=== PATIENT | male | born 1960 | race Caucasian/White ===

== ENCOUNTER → 2017-10-07 10:19 | Outpatient (CLI) | payer BC, SELFPAY ==
--- NOTE | 2017-10-07 10:50 | RAD_ITS ---
STUDY: X-RAY - LUMBAR SPINE REASON FOR EXAM: Male, 57 years old. Previous surgery TECHNIQUE: 5 view(s) of the lumbar spine were obtained. COMPARISON: None FINDINGS: Normal lumbar lordosis. There is no substantial scoliosis. There is a normal alignment of the vertebrae. Status post surgical fusion from L4 through S1 with pedicle screws and disc spacers at L4-5 and L5-S1. Degenerative changes of the vertebral bodies with degenerative spurring at the endplates. Normal disc space heights. The soft tissue structures are unremarkable. An electronic device posteriorly is noted at the S1 level. RAD/L/S Spine Min 4 Views IMPRESSION: Degenerative and postsurgical changes of the lumbar spine. Electronically Signed: Nael Lamb DO at 8:25 EDT Tel [phone], Service support ,
== END ==
LOC: RAD 10:28
PROVIDERS: Family Provider Family Medicine; PCP Family Medicine; Visit Provider Anesthesiology Pain Medicine
DX: M54.5 Low back pain (principal); G89.29 Other chronic pain
CPT/HCPCS: 72110

== ENCOUNTER 2018-06-16 04:14 | Inpatient (IN) | payer BC, SELFPAY ==
[2018-06-16] VITALS (33 sets, daily range): BP systolic 97–147; BP diastolic 55–105; PULSE 57–77; RESP 14–20; TEMP 35.7–36.7; O2SAT 94–100; BMI 30.6; BMI 29.0
--- NOTE | 2018-06-16 04:28 | EKG12_ITS ---
Test Reason : CP Blood Pressure : / mmHG Vent. Rate : 057 BPM Atrial Rate : 057 BPM P-R Int : 162 ms QRS Dur : 078 ms QT Int : 410 ms P-R-T Axes : 069 060 -60 degrees QTc Int : 399 ms Sinus bradycardia Marked ST abnormality, possible inferior subendocardial injury Abnormal ECG Confirmed by LÁZARO WALKER ([id number]), production editor CAROLINE SEGURA ([id number]) on 06/19/2018 4:46:22 PM Referred By: BRUNO Confirmed By:LÁZARO WALKER
--- NOTE | 2018-06-16 04:28 | RAD_ITS ---
STUDY: X-RAY CHEST REASON FOR EXAM: Male, 57 years old. Chest pain TECHNIQUE: PA and lateral COMPARISON: None. FINDINGS: The lungs are clear and expanded. There is no demonstrated pleural abnormality. Normal size heart. Normal mediastinum and iris. Normal visualized pulmonary arteries. Normal visualized aortic arch and descending thoracic aorta. Normal visualized thoracic spine. Normal visualized ribs, clavicles, and shoulders. There is no demonstrated abnormality of the visualized soft tissue structures of the upper abdomen. RAD/Chest PA and Lateral IMPRESSION: Normal x-ray examination of the chest. Electronically Signed: Jacek Diaz MD at 5:28 EDT , Service support ,
--- NOTE | 2018-06-16 04:34 | ED.DCSUM_ITS ---
History of Present Illness Chief Complaint: Chest Pain Informant: Patient Narrative: The patient is a 57 M [] with upper abdominal pain epigastric for the last 6 days. He wakes up in the morning with it. It has been coming and going for the last 6 days. Tonight at 11 PM it came on after eating ice cream and is been persistent. It is a burning sensation in his epigastric region. He does not really feel it in his chest. It does hurt to push on it. Current severity is mild. While talking to me it went away. He is never had anything like this before. He is unsure if he has a stomach ulcer. He is never had endoscopy or ulcer in the past. No home treatment. Last stress test was greater than 10 years ago. Cardiac risk factors include history of smoking and brother with an early DC at 55. Denies any PE risk factors. Denies other cardiac risk factors. No dissection risk factors. Does not feel any discomfort in his back. He is never had pancreatitis. Denies any other associated symptoms including nausea or vomiting shortness of breath lightheadedness or other symptoms. Past Medical History - Allergies and Home Meds Allergies/Adverse Reactions: Allergies No Known Allergies Allergy (Verified 06/16/18 04:19) Primary Care Physician: Mauricio Moreno MD [Primary Care Provider] - Prior records reviewed: Yes Past Medical History: - - Back pain Surgical History: - - Back fusion Lives: Alone Smoking Status: Former smoker Alcohol: None Drugs: None Review of Systems General: Denies: Chills, Fever, Sweats Eyes: Denies: Visual changes - bilaterally, Diplopia ENT: Denies: Rhinorrhea, Sore throat Cardiovascular: Denies: Chest pain, Palpitations Respiratory: Denies: Dyspnea, Cough, Dyspnea on exertion Gastrointestinal: Reports: Abdominal pain. Denies: Nausea, Vomiting, Diarrhea, Melena, Hematochezia Genitourinary: Denies: Dysuria, Hematuria, Frequency Musculoskeletal: Denies: Back pain, Extremity Pain Skin: Denies: Rash, Wounds Neurological: Denies: Headache, Weakness, Numbness Physical Exam Vital Signs/Narrative: Vital Signs Temp Resp BP Pulse Ox 06/16/18 04:15 96.3 F L 20 H 144/102 H 99 General: Well nourished, Well developed, No Acute Distress Head: Normocephalic, Atraumatic Eyes: Perrl, EOMI ENT: Moist mucous membranes, No rhinorrhea Neck: Supple, Nontender Cardiovascular: Regular rate, Regular rhythm, No murmurs Respiratory: No distress, CTA bilaterally, Chest nontender Abdomen: Soft, Nondistended, Normal bowel sounds, Tender - The gastric tenderness. Negative for: Guarding, Rebound tenderness Back: Nontender, Normal Inspection Extremities: Nontender, No edema Skin: Normal color, No rash Neurological: Alert, Oriented x3, Cranial nerves II-XII grossly intact, Normal Strength, Normal Sensation Psychological: Normal affect, Normal Mood Diagnostic/Tx/Re-eval - EKG Initial EKG Interpretation: Sinus Rhythm, S-T Depression - ST depressions inferior leads with T wave inversion 2 3 aVF change from prior - Medical Decision Making Patient given a GI cocktail. Lab work chest x-ray obtained. Lab work shows a troponin of 0.8. CBC relatively unremarkable. Electrolytes showed no significant abnormalities. Lipase negative. Liver function tests normal. Patient given nitroglycerin sublingual. His pain was a 1 at that time. He was given aspirin. It appears he is having a non-STEMI with subendocardial injury with ST depression. Discussed with Dr. Dodson. Started on a heparin bolus followed by drip as well as Plavix. Will be discussed with the hospitalist Dr. Tapia and admitted for further cardiac evaluation. - Critical Care Time Critical care time (excluding procedures): 30-74 minutes, Discussing w/Patient &/or Family/Independent Agent Music Education, Discussing w/Consultants, Arranging Admission or Transfer, Performing Direct Patient Care at Bedside ED Disposition - Plan for ED Patient: Diagnosis: Non-ST elevation myocardial infarction (NSTEMI) Referrals: Mauricio Moreno MD [Primary Care Provider] -
[2018-06-16] MEDS: Mag Hydrox/Al Hydrox/Simeth 30 ML UDC PO (04:37)
[2018-06-16 04:39] LABS: Absolute Lymphocyte Count 3.39 X10^3/ul (0.83-4.51); Basophil# 0.05 X10^3/uL; Basophil% 0.5 % (0-1); Eosinophil# 0.29 X10^3/uL; Hemoglobin 14.2 g/dl (13.0-16.5); Lymphocyte # 3.39 X10^3/ul (4.0); Lymphocyte % 34.8 % (19-41); Mean Corp Hgb Conc 33.8 g/gl (32-36); Mean Corpuscular Hgb 30.7 pg (27.0-32.0); Mean Corpuscular Volume 90.7 fL (80-94); Mean Platelet Vol. 10.7 fl (6.2-12.0); Monocyte# 0.99 X10^3/uL; Monocyte% 10.2 % (0-10); Neutrophil # 4.99 X10^3/uL (2.7-7.7); Neutrophil % 51.3 % (47-70); Platelet Count 197 K/mm3 (150-450); RBC Distribution Width CV 12.8 % (11.6-14.6); Red Blood Count 4.63 M/mm3 (4.6-6.2); White Blood Count 9.7 K/mm3 (4.4-11.0)
[2018-06-16 04:40] LABS: POSITIVE COUNT NO; POSITIVE DIFFERENTIAL NO; POSITIVE MORPHOLOGY NO
[2018-06-16 05:09] LABS: AST(SGOT) 21 U/L (15-37); Alanine Aminotransfer ALT/SGPT 29 U/L (16-61); Albumin, Serum 3.6 g/dL (3.2-5.0); Alkaline Phosphatase 103 U/L (45-117); Anion Gap 7 (5-15); BUN 27 mg/dL (7-18); BUN/Creat Ratio 20.9 RATIO (10-20); Bilirubin, Direct 0.11 mg/dL (0.00-0.30); Calcium,Total 8.4 mg/dL (8.5-10.1); Chloride 109 mmol/L (98-107); Creatinine, Serum 1.29 mg/dL (0.70-1.30); EST Glomerular Filtration Rate 61 mL/min (>60); Est Glom Filt Rate - Afr Amer 73 mL/min (>60); Estimated Creatinine Clearance 64.45 ml/min; Globulin 3.3 g/dL (2.2-4.2); Glucose 138 mg/dL (74-106); Lipase 203 U/L (73-393); Potassium 3.7 mmol/L (3.5-5.1); Protein, Total 6.9 g/dL (6.4-8.2); Sodium Level 144 mmol/L (136-145)
[2018-06-16] MEDS: Aspirin 81 MG TAB.CHEW 324 MG PO (05:20)
[2018-06-16] MEDS: Clopidogrel Bisulfate 300 MG Tablet PO (05:21)
[2018-06-16] MEDS: Heparin Injection (Vial) 5,000 UNIT/ML VIAL 7500 UNIT IV (05:35)
--- NOTE | 2018-06-16 05:35 | HP.PCM_ITS ---
History of Present Illness Date of Admission: 06/16/18 Chief Complaint: Chest pain The patient is a 57 y/o M w/ PMHx: Chronic Back Pain, Former Tobacco use, Obesity who presents to the [facility] ED on 06/16/18 with history of 6 days of ongoing epigastric burning, worse on day of ED presentation, noted to have it awoken him from sleep prior to ED presentation, more severe than prior, rated 10 out of 10 with similar burning sensation in the epigastric region however he at this time also had right upper extremity discomfort described as pressure in his arm with no associated dyspnea, diaphoresis, nausea or emesis. He notes the pain to have been intermittent and not necessarily associated with exertion or increased effort. Work-up in the ED included T 96.3, heart rate 144/102, respiratory rate 20, 99% room air, unremarkable CBC, BMP with chloride 109, BUN/creatinine 27/1.29, glucose 138, troponin 0 0.843, lipase 203, CXR w/ no acute cardiopulmonary, EKG w/ subendocardial ST depressions II, III, aVF with T wave inversions. In the ED patient administered GI cocktail, Plavix load 300 mg p.o. x1, aspirin 324 mg p.o. x1, Mylanta, nitroglycerin sublingual, heparin bolus and drip initiated. Dr. Dodson consulted per ED. upon ED evaluation patient rating pain 1 out of 10, continues to improve. Past Medical History Allergies No Known Allergies Allergy (Verified 06/16/18 04:19) Home Medications: Ambulatory Orders Medication Instructions Recorded Oxycodone HCl/Acetaminophen 1 tablet PO TID 06/16/18 [Percocet 5/325] Surgical History: - - Lumbar back surgery x 4 including fusion. Psychiatric History: No pertinent psych hx Lives: Alone Smoking Status: Former smoker - Quit 10/2017. Tobacco Use: Non-smoker Alcohol: Rare Drugs: None - *Family History Maternal History Items: - - Patient notes that are healthy with no history of heart disease, diabetes or cancer. Paternal History Items: Heart Disease - Father with history of heart disease, CA. Sibling History Items: - - Patient with a brother who had recent CA with PCI intervention. Review of Systems Constitutional: Reports: Malaise, Weakness, Fatigue. Denies: Chills, Fever, Weight Change HEENT: Denies: Head Aches, Sinus Congestion, Sinus Drainage Cardiovascular: Reports: Chest Pain. Denies: Palpitations Respiratory: Denies: Cough, Shortness of Breath, Shortness of breath at rest, Shortness of breath upon exertion, Sputum production Gastrointestinal: Reports: Abdominal Pain. Denies: Nausea, Vomiting Genitourinary: Denies: Dysuria Musculoskeletal: Reports: Arm Pain. Denies: Joint Pain, Joint Tenderness Skin: Denies: Rash, Wounds Neurological: Denies: Numbness, Tingling, Focal weakness Psychiatric: Denies: Anxiety, Depression, Homicidal Ideations, Suicidal Ideations Hematologic/ Lymphatic: Denies: Easy Bruising, Easy Bleeding VTE Information - Inpt Only VTE Present on Admission: No VTE Mechan Device Prophylaxis: SCD's VTE Pharm Prophylaxis ordered?: Yes Patient Problems: Active and Suspected Problems Non-ST elevation myocardial infarction (NSTEMI) (Acute) Subjective: Seated upright in ED bed, notes chest discomfort feeling improved. Objective: Physical Examination: General: awake, alert, oriented x 3 and cooperative, seated upright in the ED bed, notes chest discomfort has improved. Skin: normal color, turgor, no icterus, cyanosis. HEENT: AT/NC, EOMI, PERRLA, only dry MM, no carotid bruits or JVD noted. Lungs: CTA bilaterally, moderate effort, mild decrease BL bases, no rales, ronchi or wheezing. Heart: Regular rate and rhythm; no gallop, rub audible. Abdomen: soft, NTTP, ND, normal BS, no HSM. Extremities: no cyanosis, clubbing, or edema. Neurological: patient awake, alert, oriented x 3; cognitive function intact; pupils equally reactive to light and accomodation; cranial nerves II-XII grossly normal, moving all 4 extremities, no focal deficits, strength globally decreased secondary to acute presentation. Psychiatric: affect appears normal, fatigued, no acute evidence of depressive or anxiety feelings. - Physical Exam Vital Signs Temp Pulse Resp BP Pulse Ox 96.3 F L 76 20 H 147/90 H 99 06/16/18 04:15 06/16/18 05:22 06/16/18 04:15 06/16/18 05:22 06/16/18 04:15 Oxygen Flow Rate (L/min) 2 Oxygen Delivery Method Nasal Cannula Weight: 213 lb 10.047 oz Body Mass Index (BMI) 30.6 Laboratory Tests Past 24 Hrs 06/16/18 06/16/18 04:35 04:35 WBC 9.7 RBC 4.63 Hgb 14.2 Hct 42.0 MCV 90.7 MCH 30.7 MCHC 33.8 RDW 12.8 RDW Differential 42.0 Plt Count 197 MPV 10.7 Immature Gran % (Auto) 0.200 Neut % (Auto) 51.3 Lymph % (Auto) 34.8 [place] % (Auto) 10.2 H Eos % (Auto) 3.0 Baso % (Auto) 0.5 Absolute Neuts (auto) 5.0 Absolute Lymphs (auto) 3.39 Total Counted Not Reportable Sodium 144 Potassium 3.7 Chloride 109 H Carbon Dioxide 28.0 Anion Gap 7 BUN 27 H Creatinine 1.29 Estim Creat Clear Calc 64.45 Est GFR (MDRD) Af Amer 73 Est GFR (MDRD) Non-Af 61 BUN/Creatinine Ratio 20.9 H Glucose 138 H Calcium 8.4 L Total Bilirubin 0.30 Direct Bilirubin 0.11 AST 21 ALT 29 Alkaline Phosphatase 103 Troponin I 0.843 H* Total Protein 6.9 Albumin 3.6 Globulin 3.3 Lipase 203 Assessment/Plan All Active Problems Non-ST elevation myocardial infarction (NSTEMI) (Acute) The patient is a 57 y/o M w/ PMHx: Chronic Back Pain, Former Tobacco use, Obesity who presents to the [facility] ED on 06/16/18 with history of 6 days of ongoing epigastric burning, worse on day of ED presentation, noted to have it awoken him from sleep prior to ED presentation, more severe than prior, rated 10 out of 10 with similar burning sensation in the epigastric region however he at this time also had right upper extremity discomfort described as pressure in his arm. (1) Chest Pain w/ Acute NSTEMI: Work-up in the ED included T 96.3, heart rate 144/102, respiratory rate 20, 99% room air, unremarkable CBC, BMP with chloride 109, BUN/creatinine 27/1.29, glucose 138, troponin 0 0.843, lipase 203, CXR w/ no acute cardiopulmonary, EKG w/ subendocardial ST depressions II, III, aVF with T wave inversions. In the ED patient administered GI cocktail, Plavix load 300 mg p.o. x1, aspirin 324 mg p.o. x1, Mylanta, nitroglycerin sublingual, heparin bolus and drip initiated. Dr. Dodson consulted per ED. Will admit to PCU, maintain on a monitored bed, continue serial cardiac enzymes and EKGs. Obtain magnesium level upon admission. Continue medical management w/ asa, BB addition, add high dose statin w/ AM FLP. Will plan for cardiac catheterization. Maintain NPO. ASA, NG, morphine. (2) Chronic Back Pain: s/p spinal fusion, on chronic narcotic therapy, PRN pain regimen as noted. (3) Hyperglycemia: Admission glucose 138, HgbA1c pending. (4) Former Tobacco use: Encourage continued tobacco cessation. (5) Obesity: Weight loss and lifestyle changes encouraged. (6) GERD: Famotidine. (7) DVT Prophylaxis: SCDs, heparin drip. Code Visit Inpatient E&M: 21952 Init Hosp L3
[2018-06-16] MEDS: HEPARIN/D5w 25,000 UNITS 25,000 UNITS/250 ML IV.SOLN. 14 UNITS IV (05:36)
[2018-06-16 05:41] LABS: Partial Thromboplast Time 32.2 Seconds (24.1-36.2)
--- NOTE | 2018-06-16 06:23 | ECHOD_ITS ---
Reason For Study: Chest Pain Procedure This was a 2D Doppler, Color Flow transthoracic echocardiogram. Exam performed portable in ICU/CCU. Left Ventricle Normal size and thickness. The estimated ejection fraction is 65 %. Stage 1 diastolic dysfunction. No regional wall motion abnormalities noted. Right Ventricle Normal size and thickness. Normal systolic function. Atria Normal left atrium. Normal right atrium. Normal atrial septum. Mitral Valve The mitral valve is structurally normal. No prolapse or stenosis seen. Trivial mitral valve insufficiency. Tricuspid Valve Normal tricuspid valve. Mild (1+) tricuspid valve insufficiency. Right ventricular systolic pressure estimated to be 26 mmHg. Aortic Valve Trisinus/trileaflet aortic valve. Pulmonic Valve Normal pulmonic valve. Great Vessels Normal aortic root. Normal arch. Normal inferior vena cava. Inferior vena cava collapse with sniff. Pericardium/Pleural No pericardial effusion. MMode/2D Measurements & Calculations LVIDd: 4.9 cm IVSd: 1.4 cm Ao root diam: 3.0 cm LVIDs: 2.7 cm LVPWd: 1.0 cm RVDd: 4.1 cm FS: 44.8 % LAV(MOD-bp): 50.6 ml LVAd ap4: 33.5 cm2 SV(MOD-sp4): 58.2 ml LAV(MOD-bp) Indexed: 23.9 ml/m2 EDV(MOD-sp4): 100.4 ml LAV(MOD-sp2): 53.1 ml EDV(sp4-el): 104.8 ml LAV(MOD-sp4): 45.6 ml LVAs ap4: 19.7 cm2 ESV(MOD-sp4): 42.1 ml ESV(sp4-el): 43.2 ml EF(MOD-sp4): 58.0 % EF(sp4-el): 58.8 % SV(sp4-el): 61.6 ml LA A4 area: 17.7 cm2 LA dimension(2D): 3.3 cm RA A4 area: 18.6 cm2 Doppler Measurements & Calculations MV E max robert: 71.7 cm/sec Lat Peak E' Robert: 8.8 cm/sec Med Peak E' Robert: 7.0 cm/sec MV A max robert: 89.1 cm/sec E/E' lat: 8.1 E/E' med: 10.2 MV E/A: 0.81 Ao V2 max: 131.6 cm/sec LV V1 max: 98.5 cm/sec PA V2 max: 75.5 cm/sec Ao max P.9 mmHg LV V1 max P.9 mmHg Ao V2 mean: 97.1 cm/sec Ao mean P.1 mmHg Ao V2 VTI: 29.0 cm TR max robert: 231.5 cm/sec TR max P.4 mmHg Interpretation Summary The estimated ejection fraction is 65 %. Stage 1 diastolic dysfunction. Trivial mitral valve insufficiency. Mild (1+) tricuspid valve insufficiency. Right ventricular systolic pressure estimated to be 26 mmHg. Compared to echo report dated 05/09/2010, no appreciable changes noted. Ordering Physician: January Tapia Referring Physician: Mauricio Moreno Performed By: Pita Mello RDCS, RVT
[2018-06-16] MEDS: 0.9% Normal Saline 1,000 ML 100 ML IV (06:42)
[2018-06-16] MEDS: oxyCODONE 5 MG Tablet PO ×3 (06:43→21:03)
[2018-06-16 07:10] LABS: Hemoglobin A1c 5.7 % (4.2-6.3)
[2018-06-16 07:24] LABS: Bacteria 0 SEEN /hpf (None Seen); Mucous, Urine 0 SEEN /hpf (<or=2+); Squamous Epithelial Cells - UA 0 SEEN /hpf (0-5); White Blood Cells 0 SEEN /hpf (0-5)
--- NOTE | 2018-06-16 07:38 | NURSING ---
Called report to laboratory machinist. Nurse made aware that per Dr. Dodson's order, patient is to remain on heparin drip at 1400units/hr.
[2018-06-16 07:46] LABS: Color, Urine Yellow (Yellow); Glucose, Dipstick Normal (Normal); Ketone-Dipstick Negative (Negative); Leukocyte Esterase-Dipstick Negative /ul (Negative); Nitrite-Dipstick Negative (Negative); Occult Blood-Urine 25 /ul (Negative); Protein-Dipstick Negative (Negative); Specific Gravity, Urine 1.015 (1.002-1.030); Urine Bilirubin Dipstick Negative (Negative); Urine Clarity Clear (Clear); Urine Urobilinogen Normal (Normal)
[2018-06-16] MEDS: Nitroglycerin Oint 1 INCH PACKET TRANSDERM. (07:51)
--- NOTE | 2018-06-16 07:57 | NURSING ---
Called critical troponin to manager cath lab.
[2018-06-16 08:19] LABS: Red Blood Cells-Urine 0-5 SEEN /hpf (0-5)
--- NOTE | 2018-06-16 09:25 | NURSING ---
Report called to Tiarra in ICU
--- NOTE | 2018-06-16 09:49 | EKG12_ITS ---
Test Reason : Blood Pressure : / mmHG Vent. Rate : 071 BPM Atrial Rate : 071 BPM P-R Int : 158 ms QRS Dur : 088 ms QT Int : 390 ms P-R-T Axes : 059 058 099 degrees QTc Int : 423 ms Normal sinus rhythm T wave abnormality, consider anterolateral ischemia Abnormal ECG When compared with ECG of 16-JUN-2018 04:15, MANUAL COMPARISON REQUIRED, DATA IS UNCONFIRMED Confirmed by LÁZARO WALKER ([id number]), news video editor CAROLINE SEGURA ([id number]) on 06/19/2018 5:18:05 PM Referred By: DONALD Confirmed By:LÁZARO WALKER
[2018-06-16] MEDS: 0.9% Normal Saline 1,000 ML 150 ML IV (10:00)
--- NOTE | 2018-06-16 10:00 | EKG12_ITS ---
Test Reason : CHEST PAIN Blood Pressure : / mmHG Vent. Rate : 057 BPM Atrial Rate : 057 BPM P-R Int : 164 ms QRS Dur : 082 ms QT Int : 444 ms P-R-T Axes : 061 063 080 degrees QTc Int : 432 ms Sinus bradycardia Nonspecific T wave abnormality Abnormal ECG When compared with ECG of 16-JUN-2018 10:06, MANUAL COMPARISON REQUIRED, DATA IS UNCONFIRMED Confirmed by LAURIE FELIZ, DWIGHT ([id number]), film editor CAROLINE SEGURA ([id number]) on 06/21/2018 1:16:56 PM Referred By: AARON Confirmed By:DWIGHT SULLIVAN MD
[2018-06-16 10:01] LABS: ACT Activated Clotting Time 257 sec (74-137)
[2018-06-16 10:01] LABS: ACT Activated Clotting Time 180 sec (74-137)
--- NOTE | 2018-06-16 10:03 | CL.I_ITS ---
Patient Name: Bhupinder MAHER Study Date: 06/16/2018 Performing: Jordy Dodson MD Ht: 71 inches 180 cm : 1960 Wt: 207.5 lbs 94 kg Age: 57 Gender: male BSA: 2.14 PROCEDURE(S) PERFORMED ED88-TYF/COR/LV NY84-UBL W OR WO PTCA, SINGLE CORONARY ARTERY CLINICAL PROFILE AND CO-MORBIDITIES Patient presents with NSTEMI for urgent cardiac cath Indications: ACS <= 24 hrs, New Onset Angina <= 2 months, Worsening Angina, Suspected CAD Heart Failure: None Angina Classification Anginal Classification w/in 2 Weeks: CCS III CAD Presentations: Unstable angina. Non-STEMI. 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 Successful PTCA/LEONEL mid LAD with a 3.0 x 12 Promus Synergy, 75%-->0%, no dissection. Successful Mynx closure of RFA. RECOMMENDATIONS Highly recommend quitting all tobacco products Follow up with primary data management specialist Risk factor modification ASA Indefinitley Plavix for at least 12 months Routine post interventional care Refer for Outpatient Cardiac Rehab Manual sheath removal per protocol Follow up with Dr. Dodson Stress test in 4 weeks to eval RCA lesion. DESCRIPTION OF PROCEDURE The patient arrived to the procedure lab. The risks and benefits of the procedure as well as a full d escription of our services here and lack of surgical backup were fully explained to the patient and/o r their significant other prior to the catheterization. The Timeout was completed, verifying the suraj ect patient and procedure. The patient's procedural site was prepped and draped in the usual fashion. Local anesthetic was given subcutaneously to right groin region with Lidocaine 2%. Using a modified Seldinger technique, arterial access was obtained via the right femoral artery, a 4Fr sheath was inse rted. Left Coronary Artery selective angiography was performed in multiple views using a 4 Fr. JL5 c atheter. Right Coronary Artery selective angiography was then performed in multiple views using a 4 F r. 3DRC catheter. Left Ventriculography was performed in LIAO projection using a 4 Fr. Pigtail cathete r. LV to AO pullback pressures were then recordedThe images were reviewed and options discussed. A decision was then made to proceed with an Intervention, IVUS or other adjunct procedure. Arterial sheath was exchanged for a 6 Fr Sheath. EBU 3.75 Guide catheter was inserted and engaged into the LCA. BMW Guide wire was advanced to the LAD. Angiogram performed pre balloon dilatation. Em erge 2.00x12 Balloon catheter was inserted. PTCA balloon inflated at 10 atms for 16 secs. Angiogram p erformed post balloon dilatation. Synergy 3.00x38 Drug Eluting stent was inserted. Angiogram performe d post stent deployment. NC Emerge 3.50x8 Balloon catheter was inserted. PTCA balloon inflated at 12 atms for 10 secs. PTCA balloon inflated at 12 atms for 9 secs. PTCA balloon inflated at 12 atms for 7 secs. PTCA balloon inflated at 14 atms for 12 secs. PTCA balloon inflated at 15 atms for 10 secs. An giogram performed post balloon dilatation. Synergy 3.00x12 Drug Eluting stent was inserted. Angiogram performed post stent deployment. NC Emerge 3.75x8 Balloon catheter was inserted. PTCA balloon inflat ed at 14 atms for 12 secs. PTCA balloon inflated at 14 atms for 11 secs. PTCA balloon inflated at 15 atms for 18 secs. PTCA balloon inflated at 12 atms for 8 secs. PTCA balloon inflated a t 12 atms for 8 secs. Angiogram performed post balloon dilatation. Contrast was injected through the sheath and the Right Iliac and Femoral artery were assessed for possible closure device. The arteria l sheath was pulled and a Mynx closure device was deployed for hemostasis CORONARY ANGIOGRAPHY DOMINANCE: Co- Dominant LEFT HEART ASSESSMENT Left Ventricular Ejection Fraction: by LV Gram 65 % Normal Left Ventricular systolic function Normal Left Ventricular End Diastolic Pressure Normal LV wall motion LEFT MAIN: Angiographically normal LEFT ANTERIOR DECENDING ARTERY: PROX LAD: 85 % Stenosis MID LAD: 75 % Stenosis CIRCUMFLEX ARTERY: Mild luminal irregularities less than 30% RIGHT CORONARY ARTERY: MID RCA: 50 % Stenosis INTERVENTION INFORMATION LESION SITE: LAD (Proximal) Lesion Complexity: High/C, lesion at bifurcation: No, thrombus present: No, lesion length: 38 mm, cul prit lesion: Yes Pre Stenosis: 85 % Pre intervention KRISTOFER flow: 3 PROCEDURE: Drug Eluting Stent with pre and post dilatation Post Stenosis: 0 % Post intervention KRISTOFER flow: 3 Lesion Devices: Kim .014 BMW Rome Straight 190cm Medtronic 6 Fr EBU3.75 100cm Guide Catheter Gerson Sci Synergy MR LEONEL 3.00x38 Gerson Sci NC EMERGE MR 3.50x08 BALLOON Gerson Sci NC EMERGE MR 3.75x08 BALLOON LESION SITE: LAD (Mid) Lesion Complexity: Non-High/Non-C, lesion at bifurcation: No, thrombus present: No, lesion length: 12 mm, culprit lesion: No Pre Stenosis: 75 % Pre intervention KRISTOFER flow: 3 PROCEDURE: Drug Eluting Stent Post Stenosis: 0 % Post intervention KRISTOFER flow: 3 Lesion Devices: Kim .014 BMW Rome Straight 190cm Medtronic 6 Fr EBU3.75 100cm Guide Catheter Gerson Sci Synergy MR LEONEL 3.00x12 COMPLICATIONS No Complications PROCEDURE MEDICATIONS Oxygen: 2 L/min via nasal cannula Heparin 25,000u / 250ml D5W @ 1400 u/hr IV cont. from PCU 06/16/2018 08:28:05 Heparin 25,000u / 250ml D5W @ discontinued 06/16/2018 08:50:47 Heparin 6000 unit(s) IV 06/16/2018 09:06:39 Nitro 200 mcg IC 06/16/2018 09:08:04 Nitro 200 mcg IC 06/16/2018 09:08:04 Nitro 200 mcg IC 06/16/2018 09:12:37 Plavix 300 mg PO 06/16/2018 09:44:46 IV Bolus: .9 NaCl 500 ml total 06/16/2018 09:10:01 SUMMARY OF HEMODYNAMIC DATA Time AIR REST ECG 08:04:28 AO 115/72 (89) SA 08:58:54 LV 143/-8, 14 09:04:27 LV 115/-9, 14 09:04:33 LVp 122/-7, 12 09:04:39 AOp 137/74 (100) 09:04:45 Signed By Jordy Dodson MD On 06/16/2018 10:02:22 Jordy Dodson MD
--- NOTE | 2018-06-16 11:18 | CRPHASE1 ---
Patient Data/Charges Executive Staff Assistant:: Jordy Dodson Refer Phase II:: Yes Phase II Referral:: [facility] Risk Factors/Lifestyle Smoking Status: Former smoker Hx Obesity: Yes Height: 1.8 m Weight:: 94.347 kg BMI: 29.0 Laboratory Values: Cardiac Rehab Phase I Labs Hemoglobin A1c 5.7 % (4.2-6.3) 06/16/18 04:35 Phase I Education Given On:: Index, Nutrition, Antiplatelet medication, CHF, Smoking cessation, Diabetes - Type I, Diabetes - Type II Issues Affecting Care:: None Knowledge of Condition:: Yes Hospital Course Presenting Symptoms:: CP Cardiac Cath Date:: 06/16/18 Medical/Surgical History LA:: Yes - NSTEMI PTCA:: Yes
--- NOTE | 2018-06-16 11:21 | CRPHASE1_ITS ---
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:: Jordy Dodson Refer Phase II:: Yes Phase II Referral:: [facility] Risk Factors/Lifestyle Smoking Status: Former smoker Hx Obesity: Yes Height: 1.8 m Weight:: 94.347 kg BMI: 29.0 Laboratory Values: Cardiac Rehab Phase I Labs Hemoglobin A1c 5.7 % (4.2-6.3) 06/16/18 04:35 Phase I Education Given On:: [place], Nutrition, Antiplatelet medication, CHF, Smoking cessation, Diabetes - Type I, Diabetes - Type II Issues Affecting Care:: None Knowledge of Condition:: Yes Hospital Course Presenting Symptoms:: CP Cardiac Cath Date:: 06/16/18 Medical/Surgical History WA:: Yes - NSTEMI PTCA:: Yes
--- NOTE | 2018-06-16 11:21 | CRPH1.INSTRU ---
General Education CAD and cardiac anatomy and function:: Patient communicates acknowledgment Explanation of diagnoses and procedures:: Patient communicates acknowledgment Sign/Symptoms of WA:: Patient communicates acknowledgment Antiplatelet therapy: Patient communicates acknowledgment Emergency procedures and activation of EMS: Patient communicates acknowledgment Compliance of all prescribed medications: Patient communicates acknowledgment Smoking Patient Nicotine/Smoking Risk Factors Are:: Non-smoker Nicotine/Smoking Response Code:: Patient communicates acknowledgment Dyslipidemia Dyslipidemia Response Code:: Patient communicates acknowledgment Overweight/Obesity Patient Overweight/Obesity Risk Factors Are:: Overweight = 26-29 Recommendations Include:: Weight loss of 5-10%, Reduced calorie diet, Exercise 5-7 times/week Overweight/Obesity:: Patient communicates acknowledgment Hypertension Hypertension:: Patient communicates acknowledgment Heart Disease Patient Heart Disease Risk Factors Are:: Family history of heart disease < 65 years old Heart Disease Response Code:: Patient communicates acknowledgment Diabetes Diabetes:: Patient communicates acknowledgment Metabolic Syndrome Metabolic Syndrome Response Code:: Patient communicates acknowledgment Sedentary Sedentary Response Code:: Patient communicates acknowledgment Stress Stress Response Code:: Patient communicates acknowledgment
[2018-06-16] MEDS: Aspirin E.C. 81 MG Tablet PO (11:46)
[2018-06-16] MEDS: Carvedilol 12.5 MG Tablet PO ×2 (11:46→21:12)
[2018-06-16] MEDS: Famotidine 20 MG Tablet PO ×2 (11:46→21:12)
[2018-06-16] MEDS: Lisinopril 5 MG Tablet PO (11:47)
--- NOTE | 2018-06-16 12:25 | CASEMGMT ---
RN CM Assessment Presentation: NSTEMI. PTCA of prox LAD, mid LAD, Mynx closure of RFA. Intro role of CM and purpose of RN CM assessment. Demographics, PCP and Pharmacy verified. PCP: Dr. Moreno Specialists: Cardiology [facility]erred [facility]acy: [facility] Insurance: [employer] Prescription Benefit: yes. Anticipate home on Plavix LNOK: Mother, Rizwana Nesbitt Living Arrangements: Lives independently, no assistance with ADL's. Transportation: drives DME: none HHC: none Patient DC goals: Home DC PLAN: Home on discharge, no needs identified. Josh DEL TORON RN ACM
--- NOTE | 2018-06-16 15:25 | NURSING ---
incorrect diet input
--- NOTE | 2018-06-16 16:31 | PCM.PN.BLA ---
Progress Note Patient is scheduled for a post hospital follow-up with Sean Larsen Nurse Practitioner with the [facility] on 07/05/2018 at 10:30 AM. At that time, we will evaluate readiness for stress test to evaluate RCA.
[2018-06-16] MEDS: Metoclopramide 10 MG/2 ML Vial 5 MG IV (19:01)
[2018-06-16] MEDS: 0.9% NaCl Peripheral Flush Adult/Peds IV (19:02)
[2018-06-16] MEDS: Atorvastatin Calcium 80 MG Tablet PO (21:12)
[2018-06-17] VITALS (12 sets, daily range): BP systolic 92–169; BP diastolic 54–86; PULSE 58–74; RESP 12–18; TEMP 36.8–36.9; O2SAT 95–97
[2018-06-17 05:37] LABS: Absolute Lymphocyte Count 2.55 X10^3/ul (0.83-4.51); Absolute Neutrophil Count 4.9 X10^3/uL (2.0-7.7); Basophil# 0.03 X10^3/uL; Basophil% 0.3 % (0-1); Eosinophil# 0.21 X10^3/uL; Eosinophils% 2.4 % (0-5); Hemoglobin 12.8 g/dl (13.0-16.5); Lymphocyte # 2.55 X10^3/ul (4.0); Lymphocyte % 29.6 % (19-41); Mean Corp Hgb Conc 32.8 g/gl (32-36); Mean Corpuscular Hgb 30.3 pg (27.0-32.0); Mean Corpuscular Volume 92.4 fL (80-94); Mean Platelet Vol. 10.9 fl (6.2-12.0); Monocyte# 0.94 X10^3/uL; Monocyte% 10.9 % (0-10); Neutrophil # 4.88 X10^3/uL (2.7-7.7); Neutrophil % 56.7 % (47-70); POSITIVE COUNT NO; POSITIVE DIFFERENTIAL NO; POSITIVE MORPHOLOGY NO; Platelet Count 159 K/mm3 (150-450); RBC Distribution Width CV 12.9 % (11.6-14.6); RBC Distribution Width SD 42.8 fl (35.1-43.9); Red Blood Count 4.22 M/mm3 (4.6-6.2); White Blood Count 8.6 K/mm3 (4.4-11.0)
--- NOTE | 2018-06-17 05:55 | EKG12_ITS ---
Test Reason : AM EKG Blood Pressure : / mmHG Vent. Rate : 057 BPM Atrial Rate : 057 BPM P-R Int : 166 ms QRS Dur : 088 ms QT Int : 412 ms P-R-T Axes : 050 049 076 degrees QTc Int : 401 ms Sinus bradycardia T wave abnormality, consider anterior ischemia Abnormal ECG When compared with ECG of 16-JUN-2018 18:12, MANUAL COMPARISON REQUIRED, DATA IS UNCONFIRMED Confirmed by LAURIE FELIZ, DWIGHT ([id number]), international editorial producer CAROLINE SEGURA ([id number]) on 06/21/2018 1:16:30 PM Referred By: GUS Confirmed By:DWIGHT SULLIVAN MD
[2018-06-17 05:58] LABS: ALB/GLOB Ratio 1.1 RATIO (0.9-2.4); AST(SGOT) 20 U/L (15-37); Alanine Aminotransfer ALT/SGPT 25 U/L (16-61); Albumin, Serum 3.3 g/dL (3.2-5.0); Alkaline Phosphatase 95 U/L (45-117); Anion Gap 5 (5-15); BUN 22 mg/dL (7-18); BUN/Creat Ratio 18.3 RATIO (10-20); Calcium,Total 8.1 mg/dL (8.5-10.1); Chloride 111 mmol/L (98-107); Cholesterol 168 mg/dL (200); EST Glomerular Filtration Rate 66 mL/min (>60); Est Glom Filt Rate - Afr Amer 80 mL/min (>60); Estimated Creatinine Clearance 71.47 ml/min; Globulin 2.9 g/dL (2.2-4.2); Glucose 93 mg/dL (74-106); High Density Lipoprotein 30 mg/dL; Potassium 3.7 mmol/L (3.5-5.1); Protein, Total 6.2 g/dL (6.4-8.2); Sodium Level 142 mmol/L (136-145); Triglycerides 270 mg/dL; Very Low Density Lipoprotein 54 mg/dL (5-40)
[2018-06-17] MEDS: oxyCODONE 5 MG Tablet PO (06:35)
--- NOTE | 2018-06-17 06:41 | PCM.DC.SUM ---
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 Successful PTCA/LEONEL mid LAD with a 3.0 x 12 Promus Synergy, 75%-->0%, no dissection. Successful Mynx closure of RFA. Non-ST elevation myocardial infarction (NSTEMI) (Acute) Date of Admission: 06/16/18 Date of Discharge: 06/17/18 - Primary Discharge Diagnosis Active and Suspected Problems Atherosclerotic heart disease of rosebud coronary artery without angina pectoris (Acute) Successful PTCA/LEONEL of proximal LAD with a 3.0 x 38 Promus Synergy, post dilated with a 3.5 and 3.75 NC balloon; 85%-->0-%, no dissection or plaque shift into DIAG#1, so no additional POBA of ostial DIAG performed. Successful PTCA/LEONEL mid LAD with a 3.0 x 12 Promus Synergy, 75%-->0%, no dissection. Successful Mynx closure of RFA. Non-ST elevation myocardial infarction (NSTEMI) (Acute) - Secondary Discharge Diagnosis Chronic Problems (Last Updated 06/16/18 @ 11:17 by Kaylyn Scanlon) Stented coronary artery (Chronic 06/16/18) Successful PTCA/LEONEL of proximal LAD with a 3.0 x 38 Promus Synergy, post dilated with a 3.5 and 3.75 NC balloon; 85%-->0-%, no dissection or plaque shift into DIAG#1, so no additional POBA of ostial DIAG performed. Successful PTCA/LEONEL mid LAD with a 3.0 x 12 Promus Synergy, 75%-->0%, no dissection. Successful Mynx closure of RFA. Former Tobacco dependence Chronic back pain 50% mid RCA stenosis Hospital Course and Treatment Imaging Results: Clinical Impression(s) from Imaging Studies Chest X-Ray 06/16/18 04:28 IMPRESSION: Normal x-ray examination of the chest. Electronically Signed: Jacek Diaz MD at 5:28 EDT , Service support , Laboratory Tests 06/17/18 06/17/18 06/16/18 Range/Units 05:15 05:15 09:34 WBC 8.6 (4.4-11.0) K/mm3 RBC 4.22 L (4.6-6.2) M/mm3 Hgb 12.8 L (13.0-16.5) g/dl Hct 39.0 L (40-54) % MCV 92.4 (80-94) fL MCH 30.3 (27.0-32.0) pg MCHC 32.8 (32-36) g/gl RDW 12.9 (11.6-14.6) % RDW Differential 42.8 (35.1-43.9) fl Plt Count 159 (150-450) K/mm3 MPV 10.9 (6.2-12.0) fl Immature Gran % (Auto) 0.100 (0.0-0.9) % Neut % (Auto) 56.7 (47-70) % Lymph % (Auto) 29.6 (19-41) % [place] % (Auto) 10.9 H (0-10) % Eos % (Auto) 2.4 (0-5) % Baso % (Auto) 0.3 (0-1) % Absolute Neuts (auto) 4.9 (2.0-7.7) X10^3/uL Absolute Lymphs (auto) 2.55 (0.83-4.51) X10^3/ul Total Counted Not Reportable APTT (24.1-36.2) Seconds Activated Clotting Time 257 H (74-137) sec Sodium 142 (136-145) mmol/L Potassium 3.7 (3.5-5.1) mmol/L Chloride 111 H (98-107) mmol/L Carbon Dioxide 26.0 (21.0-32.0) mmol/L Anion Gap 5 (5-15) BUN 22 H (7-18) mg/dL Creatinine 1.20 (0.70-1.30) mg/dL Estim Creat Clear Calc 71.47 ml/min Est GFR (MDRD) Af Amer 80 (>60) mL/min Est GFR (MDRD) Non-Af 66 (>60) mL/min BUN/Creatinine Ratio 18.3 (10-20) RATIO Glucose 93 (74-106) mg/dL Hemoglobin A1c (4.2-6.3) % Calcium 8.1 L (8.5-10.1) mg/dL Magnesium (1.6-2.6) mg/dL Total Bilirubin 0.60 (0.20-1.00) mg/dL Direct Bilirubin (0.00-0.30) mg/dL AST 20 (15-37) U/L ALT 25 (16-61) U/L Alkaline Phosphatase 95 (45-117) U/L Troponin I (<0.045) ng/mL Total Protein 6.2 L (6.4-8.2) g/dL Albumin 3.3 (3.2-5.0) g/dL Globulin 2.9 (2.2-4.2) g/dL Albumin/Globulin Ratio 1.1 (0.9-2.4) RATIO Triglycerides 270 H ( - 199) mg/dL Cholesterol 168 (200) mg/dL LDL Cholesterol 84 (0-130) mg/dL VLDL Cholesterol 54 H (5-40) mg/dL HDL Cholesterol 30 L (40 - ) mg/dL Lipase (73-393) U/L Urine Color (Yellow) Urine Clarity (Clear) Urine pH (5.0 - 8.0) Ur Specific [place] (1.002-1.030) Urine Protein (Negative) mg/dl Urine Glucose (UA) (Normal) mg/dl Urine Ketones (Negative) mg/dl Urine Occult Blood (Negative) /ul Urine Nitrite (Negative) Urine Bilirubin (Negative) mg/dL Urine Urobilinogen (Normal) mg/dl Ur Leukocyte Esterase (Negative) /ul Urine RBC (0-5) /hpf Urine WBC (0-5) /hpf Ur Squamous Epith Cells (0-5) /hpf Urine Bacteria (None Seen) /hpf Urine Mucus (<or=2+) /hpf 06/16/18 06/16/18 06/16/18 Range/Units 08:59 07:25 07:00 WBC (4.4-11.0) K/mm3 RBC (4.6-6.2) M/mm3 Hgb (13.0-16.5) g/dl Hct (40-54) % MCV (80-94) fL MCH (27.0-32.0) pg MCHC (32-36) g/gl RDW (11.6-14.6) % RDW Differential (35.1-43.9) fl Plt Count (150-450) K/mm3 MPV (6.2-12.0) fl Immature Gran % (Auto) (0.0-0.9) % Neut % (Auto) (47-70) % Lymph % (Auto) (19-41) % [place] % (Auto) (0-10) % Eos % (Auto) (0-5) % Baso % (Auto) (0-1) % Absolute Neuts (auto) (2.0-7.7) X10^3/uL Absolute Lymphs (auto) (0.83-4.51) X10^3/ul Total Counted APTT (24.1-36.2) Seconds Activated Clotting Time 180 H (74-137) sec Sodium (136-145) mmol/L Potassium (3.5-5.1) mmol/L Chloride (98-107) mmol/L Carbon Dioxide (21.0-32.0) mmol/L Anion Gap (5-15) BUN (7-18) mg/dL Creatinine (0.70-1.30) mg/dL Estim Creat Clear Calc ml/min Est GFR (MDRD) Af Amer (>60) mL/min Est GFR (MDRD) Non-Af (>60) mL/min BUN/Creatinine Ratio (10-20) RATIO Glucose (74-106) mg/dL Hemoglobin A1c (4.2-6.3) % Calcium (8.5-10.1) mg/dL Magnesium (1.6-2.6) mg/dL Total Bilirubin (0.20-1.00) mg/dL Direct Bilirubin (0.00-0.30) mg/dL AST (15-37) U/L ALT (16-61) U/L Alkaline Phosphatase (45-117) U/L Troponin I 1.340 H* (<0.045) ng/mL Total Protein (6.4-8.2) g/dL Albumin (3.2-5.0) g/dL Globulin (2.2-4.2) g/dL Albumin/Globulin Ratio (0.9-2.4) RATIO Triglycerides ( - 199) mg/dL Cholesterol (200) mg/dL LDL Cholesterol (0-130) mg/dL VLDL Cholesterol (5-40) mg/dL HDL Cholesterol (40 - ) mg/dL Lipase (73-393) U/L Urine Color Yellow (Yellow) Urine Clarity Clear (Clear) Urine pH 6.0 (5.0 - 8.0) Ur Specific [place] 1.015 (1.002-1.030) Urine Protein Negative (Negative) mg/dl Urine Glucose (UA) Normal (Normal) mg/dl Urine Ketones Negative (Negative) mg/dl Urine Occult Blood 25 H (Negative) /ul Urine Nitrite Negative (Negative) Urine Bilirubin Negative (Negative) mg/dL Urine Urobilinogen Normal (Normal) mg/dl Ur Leukocyte Esterase Negative (Negative) /ul Urine RBC 0-5 SEEN (0-5) /hpf Urine WBC 0 SEEN (0-5) /hpf Ur Squamous Epith Cells 0 SEEN (0-5) /hpf Urine Bacteria 0 SEEN (None Seen) /hpf Urine Mucus 0 SEEN (<or=2+) /hpf 06/16/18 06/16/18 06/16/18 Range/Units 04:35 04:35 04:35 WBC (4.4-11.0) K/mm3 RBC (4.6-6.2) M/mm3 Hgb (13.0-16.5) g/dl Hct (40-54) % MCV (80-94) fL MCH (27.0-32.0) pg MCHC (32-36) g/gl RDW (11.6-14.6) % RDW Differential (35.1-43.9) fl Plt Count (150-450) K/mm3 MPV (6.2-12.0) fl Immature Gran % (Auto) (0.0-0.9) % Neut % (Auto) (47-70) % Lymph % (Auto) (19-41) % [place] % (Auto) (0-10) % Eos % (Auto) (0-5) % Baso % (Auto) (0-1) % Absolute Neuts (auto) (2.0-7.7) X10^3/uL Absolute Lymphs (auto) (0.83-4.51) X10^3/ul Total Counted APTT 32.2 (24.1-36.2) Seconds Activated Clotting Time (74-137) sec Sodium (136-145) mmol/L Potassium (3.5-5.1) mmol/L Chloride (98-107) mmol/L Carbon Dioxide (21.0-32.0) mmol/L Anion Gap (5-15) BUN (7-18) mg/dL Creatinine (0.70-1.30) mg/dL Estim Creat Clear Calc ml/min Est GFR (MDRD) Af Amer (>60) mL/min Est GFR (MDRD) Non-Af (>60) mL/min BUN/Creatinine Ratio (10-20) RATIO Glucose (74-106) mg/dL Hemoglobin A1c 5.7 (4.2-6.3) % Calcium (8.5-10.1) mg/dL Magnesium 2.0 (1.6-2.6) mg/dL Total Bilirubin (0.20-1.00) mg/dL Direct Bilirubin (0.00-0.30) mg/dL AST (15-37) U/L ALT (16-61) U/L Alkaline Phosphatase (45-117) U/L Troponin I (<0.045) ng/mL Total Protein (6.4-8.2) g/dL Albumin (3.2-5.0) g/dL Globulin (2.2-4.2) g/dL Albumin/Globulin Ratio (0.9-2.4) RATIO Triglycerides ( - 199) mg/dL Cholesterol (200) mg/dL LDL Cholesterol (0-130) mg/dL VLDL Cholesterol (5-40) mg/dL HDL Cholesterol (40 - ) mg/dL Lipase (73-393) U/L Urine Color (Yellow) Urine Clarity (Clear) Urine pH (5.0 - 8.0) Ur Specific [place] (1.002-1.030) Urine Protein (Negative) mg/dl Urine Glucose (UA) (Normal) mg/dl Urine Ketones (Negative) mg/dl Urine Occult Blood (Negative) /ul Urine Nitrite (Negative) Urine Bilirubin (Negative) mg/dL Urine Urobilinogen (Normal) mg/dl Ur Leukocyte Esterase (Negative) /ul Urine RBC (0-5) /hpf Urine WBC (0-5) /hpf Ur Squamous Epith Cells (0-5) /hpf Urine Bacteria (None Seen) /hpf Urine Mucus (<or=2+) /hpf 06/16/18 06/16/18 Range/Units 04:35 04:35 WBC 9.7 (4.4-11.0) K/mm3 RBC 4.63 (4.6-6.2) M/mm3 Hgb 14.2 (13.0-16.5) g/dl Hct 42.0 (40-54) % MCV 90.7 (80-94) fL MCH 30.7 (27.0-32.0) pg MCHC 33.8 (32-36) g/gl RDW 12.8 (11.6-14.6) % RDW Differential 42.0 (35.1-43.9) fl Plt Count 197 (150-450) K/mm3 MPV 10.7 (6.2-12.0) fl Immature Gran % (Auto) 0.200 (0.0-0.9) % Neut % (Auto) 51.3 (47-70) % Lymph % (Auto) 34.8 (19-41) % [place] % (Auto) 10.2 H (0-10) % Eos % (Auto) 3.0 (0-5) % Baso % (Auto) 0.5 (0-1) % Absolute Neuts (auto) 5.0 (2.0-7.7) X10^3/uL Absolute Lymphs (auto) 3.39 (0.83-4.51) X10^3/ul Total Counted Not Reportable APTT (24.1-36.2) Seconds Activated Clotting Time (74-137) sec Sodium 144 (136-145) mmol/L Potassium 3.7 (3.5-5.1) mmol/L Chloride 109 H (98-107) mmol/L Carbon Dioxide 28.0 (21.0-32.0) mmol/L Anion Gap 7 (5-15) BUN 27 H (7-18) mg/dL Creatinine 1.29 (0.70-1.30) mg/dL Estim Creat Clear Calc 64.45 ml/min Est GFR (MDRD) Af Amer 73 (>60) mL/min Est GFR (MDRD) Non-Af 61 (>60) mL/min BUN/Creatinine Ratio 20.9 H (10-20) RATIO Glucose 138 H (74-106) mg/dL Hemoglobin A1c (4.2-6.3) % Calcium 8.4 L (8.5-10.1) mg/dL Magnesium (1.6-2.6) mg/dL Total Bilirubin 0.30 (0.20-1.00) mg/dL Direct Bilirubin 0.11 (0.00-0.30) mg/dL AST 21 (15-37) U/L ALT 29 (16-61) U/L Alkaline Phosphatase 103 (45-117) U/L Troponin I 0.843 H* (<0.045) ng/mL Total Protein 6.9 (6.4-8.2) g/dL Albumin 3.6 (3.2-5.0) g/dL Globulin 3.3 (2.2-4.2) g/dL Albumin/Globulin Ratio (0.9-2.4) RATIO Triglycerides ( - 199) mg/dL Cholesterol (200) mg/dL LDL Cholesterol (0-130) mg/dL VLDL Cholesterol (5-40) mg/dL HDL Cholesterol (40 - ) mg/dL Lipase 203 (73-393) U/L Urine Color (Yellow) Urine Clarity (Clear) Urine pH (5.0 - 8.0) Ur Specific [place] (1.002-1.030) Urine Protein (Negative) mg/dl Urine Glucose (UA) (Normal) mg/dl Urine Ketones (Negative) mg/dl Urine Occult Blood (Negative) /ul Urine Nitrite (Negative) Urine Bilirubin (Negative) mg/dL Urine Urobilinogen (Normal) mg/dl Ur Leukocyte Esterase (Negative) /ul Urine RBC (0-5) /hpf Urine WBC (0-5) /hpf Ur Squamous Epith Cells (0-5) /hpf Urine Bacteria (None Seen) /hpf Urine Mucus (<or=2+) /hpf Dr. [facility] Operations: None Procedures: Cardiac catheterization - Single vessel CAD of the proximal and mid LAD Non obstructive coronary arteries Normal LV size, wall motion,and systolic function Perserved Left Ventricular systolic function with normal EDP LVEF: by LV gram 65 % Successful PTCA/LEONEL of proximal LAD with a 3.0 x 38 Promus Synergy, post dilated with a 3.5 and 3.75 NC balloon; 85%-->0-%, no dissection or plaque shift into DIAG#1, so no additional POBA of ostial DIAG performed. Successful PTCA/LEONEL mid LAD with a 3.0 x 12 Promus Synergy, 75%-->0%, no dissection. Successful Mynx closure of RFA. Summary of Care Provided: The patient is a 57 year old M with a past medical history of tobacco dependence(quit October 2017) and chronic back pain who presented to the [facility] emergency department on 06/16/2018 complaining of 6 days of ongoing epigastric burning which was worse on the day of ED presentation. The pain woke him from sleep and was more severe than prior episodes and he rated it at 10/10. He also complained of right upper extremity pain/pressure. The pain was not necessarily associated with exertion. Blood pressure in the emergency room was 144/102 and he was 99% saturated on room air. The lab was remarkable for a troponin of 0.843 and a glucose of 138. Hemoglobin A1c was within normal limits. Chest x-ray showed no acute cardiopulmonary findings and the EKG showed ST depression in the inferior leads with T wave inversions. He was loaded with Plavix 300 mg and given aspirin 324 mg. Sublingual nitroglycerin was administered and he was given a heparin bolus and started on a heparin infusion. Dr. Dodson was consulted and the patient was taken to the cardiac operations label clerk. Catheterization showed an 85% stenosis of the proximal LAD and a 75% stenosis of the mid LAD. Successful PTCA/LEONEL was performed on both lesions. Ejection fraction on left ventriculogram was 65%. He has a 50% mid RCA stenosis, and angiographically normal left main and mild luminal irregularities less than 30% in the circumflex. Post cath he was transferred to the cardiac care unit and monitored overnight. He had 1 5 beat run of NSVT overnight due to reperfusion dysrhythmia and otherwise was in NSR. On the date of discharge he denied chest pain, shortness of breath, palpitations, calf pain or groin pain. He had been seen by cardiac rehab and given information. An appointment has been scheduled for him on 07/05/18 with Sean Mello NP. He will follow up with Dr. Moreno in 5-7 days. He was given printed instructions on how to use NTG should he have angina. General: alert, oriented X3, NAD, appropriate with normal affect Neck: supple, trachea midline, carotids have brisk upstroke and normal pulse volume, no JVD, no carotid bruits Lungs: CTA, symmetric chest expansion, not tachypneic, able to lie flat with no respiratory distress Heart: Regular rate and rhythm, normal S1, normal S2, no murmur, no gallop, no rub, PMI is on the midclavicular line Abdomen: soft, NT, ND, BS's present Extremities: no edema, no calf tenderness, peripheral pulses are normal, no cyanosis, the right groin is dry with an intact bandage and no evidence of hematoma. It is non-tender Telemetry: NSR with a brief 5 beat run of NSVT through the night and no other ectopy This note was generated with [employer] dictation software. It may contain incorrect words, spelling, and punctuation that were not noted in checking the note before signing. Patient Problems: Active and Suspected Problems NSVT (nonsustained ventricular tachycardia) (Acute) Post PTCA (Acute) Atherosclerotic heart disease of rosebud coronary artery without angina pectoris (Acute) Successful PTCA/LEONEL of proximal LAD with a 3.0 x 38 Promus Synergy, post dilated with a 3.5 and 3.75 NC balloon; 85%-->0-%, no dissection or plaque shift into DIAG#1, so no additional POBA of ostial DIAG performed. Successful PTCA/LEONEL mid LAD with a 3.0 x 12 Promus Synergy, 75%-->0%, no dissection. Successful Mynx closure of RFA. Non-ST elevation myocardial infarction (NSTEMI) (Acute) - Physical Exam Vital Signs Temp Pulse Resp BP Pulse Ox 98.4 F 64 14 92/54 L 97 06/17/18 04:00 06/17/18 06:00 06/17/18 06:00 06/17/18 06:00 06/17/18 06:00 Oxygen Flow Rate (L/min) 2 Oxygen Delivery Method Room Air Weight: 208 lb 1.862 oz Body Mass Index (BMI) 29.0 Intake and Output for Last 24 Hours 0306/16/18 06/17/18 23:59 23:59 23:59 Intake Total 340 / 340 300 / 300 Output Total 400 / 400 950 / 950 Balance -60 / -60 -650 / -650 Laboratory Tests Past 24 Hrs 06/16/18 06/16/18 06/16/18 04:35 04:35 07:00 WBC RBC Hgb Hct MCV MCH MCHC RDW RDW Differential Plt Count MPV Immature Gran % (Auto) Neut % (Auto) Lymph % (Auto) [place] % (Auto) Eos % (Auto) Baso % (Auto) Absolute Neuts (auto) Absolute Lymphs (auto) Total Counted Activated Clotting Time Sodium Potassium Chloride Carbon Dioxide Anion Gap BUN Creatinine Estim Creat Clear Calc Est GFR (MDRD) Af Amer Est GFR (MDRD) Non-Af BUN/Creatinine Ratio Glucose Hemoglobin A1c 5.7 Calcium Magnesium 2.0 Total Bilirubin AST ALT Alkaline Phosphatase Troponin I Total Protein Albumin Globulin Albumin/Globulin Ratio Triglycerides Cholesterol LDL Cholesterol VLDL Cholesterol HDL Cholesterol Urine Color Yellow Urine Clarity Clear Urine pH 6.0 Ur Specific [place] 1.015 Urine Protein Negative Urine Glucose (UA) Normal Urine Ketones Negative Urine Occult Blood 25 H Urine Nitrite Negative Urine Bilirubin Negative Urine Urobilinogen Normal Ur Leukocyte Esterase Negative Urine RBC 0-5 SEEN Urine WBC 0 SEEN Ur Squamous Epith Cells 0 SEEN Urine Bacteria 0 SEEN Urine Mucus 0 SEEN 06/16/18 06/16/18 06/16/18 07:25 08:59 09:34 WBC RBC Hgb Hct MCV MCH MCHC RDW RDW Differential Plt Count MPV Immature Gran % (Auto) Neut % (Auto) Lymph % (Auto) [place] % (Auto) Eos % (Auto) Baso % (Auto) Absolute Neuts (auto) Absolute Lymphs (auto) Total Counted Activated Clotting Time 180 H 257 H Sodium Potassium Chloride Carbon Dioxide Anion Gap BUN Creatinine Estim Creat Clear Calc Est GFR (MDRD) Af Amer Est GFR (MDRD) Non-Af BUN/Creatinine Ratio Glucose Hemoglobin A1c Calcium Magnesium Total Bilirubin AST ALT Alkaline Phosphatase Troponin I 1.340 H* Total Protein Albumin Globulin Albumin/Globulin Ratio Triglycerides Cholesterol LDL Cholesterol VLDL Cholesterol HDL Cholesterol Urine Color Urine Clarity Urine pH Ur Specific [place] Urine Protein Urine Glucose (UA) Urine Ketones Urine Occult Blood Urine Nitrite Urine Bilirubin Urine Urobilinogen Ur Leukocyte Esterase Urine RBC Urine WBC Ur Squamous Epith Cells Urine Bacteria Urine Mucus 06/17/18 06/17/18 05:15 05:15 WBC 8.6 RBC 4.22 L Hgb 12.8 L Hct 39.0 L MCV 92.4 MCH 30.3 MCHC 32.8 RDW 12.9 RDW Differential 42.8 Plt Count 159 MPV 10.9 Immature Gran % (Auto) 0.100 Neut % (Auto) 56.7 Lymph % (Auto) 29.6 [place] % (Auto) 10.9 H Eos % (Auto) 2.4 Baso % (Auto) 0.3 Absolute Neuts (auto) 4.9 Absolute Lymphs (auto) 2.55 Total Counted Not Reportable Activated Clotting Time Sodium 142 Potassium 3.7 Chloride 111 H Carbon Dioxide 26.0 Anion Gap 5 BUN 22 H Creatinine 1.20 Estim Creat Clear Calc 71.47 Est GFR (MDRD) Af Amer 80 Est GFR (MDRD) Non-Af 66 BUN/Creatinine Ratio 18.3 Glucose 93 Hemoglobin A1c Calcium 8.1 L Magnesium Total Bilirubin 0.60 AST 20 ALT 25 Alkaline Phosphatase 95 Troponin I Total Protein 6.2 L Albumin 3.3 Globulin 2.9 Albumin/Globulin Ratio 1.1 Triglycerides 270 H Cholesterol 168 LDL Cholesterol 84 VLDL Cholesterol 54 H HDL Cholesterol 30 L Urine Color Urine Clarity Urine pH Ur Specific [place] Urine Protein Urine Glucose (UA) Urine Ketones Urine Occult Blood Urine Nitrite Urine Bilirubin Urine Urobilinogen Ur Leukocyte Esterase Urine RBC Urine WBC Ur Squamous Epith Cells Urine Bacteria Urine Mucus Home Medications: Medications to take at Discharge Oxycodone HCl/Acetaminophen [Percocet 5-325] 1 tablet PO TID 06/16/18 Aspirin E.C. [Ecotrin] 81 mg PO DAILY@0800 tablet 06/17/18 Atorvastatin Calcium [Lipitor] 80 mg PO QHS #30 tablet 06/17/18 Carvedilol [Coreg (Beta Juan R)] 12.5 mg PO BID #60 tablet 06/17/18 Clopidogrel Bisulfate [Plavix] 75 mg PO DAILY #30 tablet 06/17/18 Lisinopril [Zestril] 5 mg PO DAILY #30 tablet 06/17/18 Nitroglycerin [Nitrostat] 0.4 mg SUBLINGUAL Q5M PRN #1 bottle 06/17/18 Following Prescrptions Were Given to Patient: Atorvastatin Calcium [Lipitor] 80 mg PO QHS #30 tablet Clopidogrel Bisulfate [Plavix] 75 mg PO DAILY #30 tablet Lisinopril [Zestril] 5 mg PO DAILY #30 tablet Nitroglycerin [Nitrostat] 0.4 mg SUBLINGUAL Q5M PRN #1 bottle PRN Reason: Cardiac/Chest Pain Carvedilol [Coreg (Beta Juan R)] 12.5 mg PO BID #60 tablet Other Amb Orders: Phase II, Outpatient Cardiac Rehab Location: None Selected Primary Care Physician: Mauricio Moreno MD [Primary Care Provider] - Please Follow Up With: Sean Mello, GEOLOGICAL ENGINEER-C Patient Instructions: Facts About Dietary Fat, Low-Fat Cooking Tips, Reading?Food Labels, Discharge Instructions: Taking Fast-Acting Nitroglycerin Minutes spent on discharge:: 40 Patient Condition:: Good Medical Necessity - Tobacco Use Smoking Status: Former smoker Tobacco Use: Non-smoker Meaningful Use Info Meaningful Use Diagnoses (Choose all that apply): AMI - AMI Aspirin given w/in 24hrs of arrival?: Yes ASA at discharge?: Yes Statins at discharge?: Yes [place]/ARB at discharge?: Yes Beta Juan R at discharge?: Yes Done w/ Acute NM measure.: Yes Code Visit Inpatient E&M: 20552 Disch Hosp
--- NOTE | 2018-06-17 06:50 | DS.PCM_ITS ---
Discharge Date and Diagnosis - Problem List Patient Problems: Active and Suspected Problems NSVT (nonsustained ventricular tachycardia) (Acute) Post PTCA (Acute) Atherosclerotic heart disease of [place] coronary artery without angina pectoris (Acute) Successful PTCA/LEONEL of proximal LAD with a 3.0 x 38 Promus Synergy, post dilated with a 3.5 and 3.75 NC balloon; 85%-->0-%, no dissection or plaque shift into DIAG#1, so no additional POBA of ostial DIAG performed. Successful PTCA/LEONEL mid LAD with a 3.0 x 12 Promus Synergy, 75%-->0%, no dissection. Successful Mynx closure of RFA. Non-ST elevation myocardial infarction (NSTEMI) (Acute) Date of Admission: 06/16/18 Date of Discharge: 06/17/18 - Primary Discharge Diagnosis Active and Suspected Problems Atherosclerotic heart disease of [place] coronary artery without angina pectoris (Acute) Successful PTCA/LEONEL of proximal LAD with a 3.0 x 38 Promus Synergy, post dilated with a 3.5 and 3.75 NC balloon; 85%-->0-%, no dissection or plaque shift into DIAG#1, so no additional POBA of ostial DIAG performed. Successful PTCA/LEONEL mid LAD with a 3.0 x 12 Promus Synergy, 75%-->0%, no dissection. Successful Mynx closure of RFA. Non-ST elevation myocardial infarction (NSTEMI) (Acute) - Secondary Discharge Diagnosis Chronic Problems (Last Updated 06/16/18 @ 11:17 by Kaylyn Scanlon) Stented coronary artery (Chronic 06/16/18) Successful PTCA/LOENEL of proximal LAD with a 3.0 x 38 Promus Synergy, post dilated with a 3.5 and 3.75 NC balloon; 85%-->0-%, no dissection or plaque shift into DIAG#1, so no additional POBA of ostial DIAG performed. Successful PTCA/LEONEL mid LAD with a 3.0 x 12 Promus Synergy, 75%-->0%, no dissection. Successful Mynx closure of RFA. Former Tobacco dependence Chronic back pain 50% mid RCA stenosis Hospital Course and Treatment Imaging Results: Clinical Impression(s) from Imaging Studies Chest X-Ray 06/16/18 04:28 IMPRESSION: Normal x-ray examination of the chest. Electronically Signed: Jacek Diaz MD at 5:28 EDT , Service support , Laboratory Tests 06/17/18 06/17/18 06/16/18 Range/Units 05:15 05:15 09:34 WBC 8.6 (4.4-11.0) K/mm3 RBC 4.22 L (4.6-6.2) M/mm3 Hgb 12.8 L (13.0-16.5) g/dl Hct 39.0 L (40-54) % MCV 92.4 (80-94) fL MCH 30.3 (27.0-32.0) pg MCHC 32.8 (32-36) g/gl RDW 12.9 (11.6-14.6) % RDW Differential 42.8 (35.1-43.9) fl Plt Count 159 (150-450) K/mm3 MPV 10.9 (6.2-12.0) fl Immature Gran % (Auto) 0.100 (0.0-0.9) % Neut % (Auto) 56.7 (47-70) % Lymph % (Auto) 29.6 (19-41) % [place] % (Auto) 10.9 H (0-10) % Eos % (Auto) 2.4 (0-5) % Baso % (Auto) 0.3 (0-1) % Absolute Neuts (auto) 4.9 (2.0-7.7) X10^3/uL Absolute Lymphs (auto) 2.55 (0.83-4.51) X10^3/ul Total Counted Not Reportable APTT (24.1-36.2) Seconds Activated Clotting Time 257 H (74-137) sec Sodium 142 (136-145) mmol/L Potassium 3.7 (3.5-5.1) mmol/L Chloride 111 H (98-107) mmol/L Carbon Dioxide 26.0 (21.0-32.0) mmol/L Anion Gap 5 (5-15) BUN 22 H (7-18) mg/dL Creatinine 1.20 (0.70-1.30) mg/dL Estim Creat Clear Calc 71.47 ml/min Est GFR (MDRD) Af Amer 80 (>60) mL/min Est GFR (MDRD) Non-Af 66 (>60) mL/min BUN/Creatinine Ratio 18.3 (10-20) RATIO Glucose 93 (74-106) mg/dL Hemoglobin A1c (4.2-6.3) % Calcium 8.1 L (8.5-10.1) mg/dL Magnesium (1.6-2.6) mg/dL Total Bilirubin 0.60 (0.20-1.00) mg/dL Direct Bilirubin (0.00-0.30) mg/dL AST 20 (15-37) U/L ALT 25 (16-61) U/L Alkaline Phosphatase 95 (45-117) U/L Troponin I (<0.045) ng/mL Total Protein 6.2 L (6.4-8.2) g/dL Albumin 3.3 (3.2-5.0) g/dL Globulin 2.9 (2.2-4.2) g/dL Albumin/Globulin Ratio 1.1 (0.9-2.4) RATIO Triglycerides 270 H ( - 199) mg/dL Cholesterol 168 (200) mg/dL LDL Cholesterol 84 (0-130) mg/dL VLDL Cholesterol 54 H (5-40) mg/dL HDL Cholesterol 30 L (40 - ) mg/dL Lipase (73-393) U/L Urine Color (Yellow) Urine Clarity (Clear) Urine pH (5.0 - 8.0) Ur Specific [place] (1.002-1.030) Urine Protein (Negative) mg/dl Urine Glucose (UA) (Normal) mg/dl Urine Ketones (Negative) mg/dl Urine Occult Blood (Negative) /ul Urine Nitrite (Negative) Urine Bilirubin (Negative) mg/dL Urine Urobilinogen (Normal) mg/dl Ur Leukocyte Esterase (Negative) /ul Urine RBC (0-5) /hpf Urine WBC (0-5) /hpf Ur Squamous Epith Cells (0-5) /hpf Urine Bacteria (None Seen) /hpf Urine Mucus (<or=2+) /hpf 06/16/18 06/16/18 06/16/18 Range/Units 08:59 07:25 07:00 WBC (4.4-11.0) K/mm3 RBC (4.6-6.2) M/mm3 Hgb (13.0-16.5) g/dl Hct (40-54) % MCV (80-94) fL MCH (27.0-32.0) pg MCHC (32-36) g/gl RDW (11.6-14.6) % RDW Differential (35.1-43.9) fl Plt Count (150-450) K/mm3 MPV (6.2-12.0) fl Immature Gran % (Auto) (0.0-0.9) % Neut % (Auto) (47-70) % Lymph % (Auto) (19-41) % [place] % (Auto) (0-10) % Eos % (Auto) (0-5) % Baso % (Auto) (0-1) % Absolute Neuts (auto) (2.0-7.7) X10^3/uL Absolute Lymphs (auto) (0.83-4.51) X10^3/ul Total Counted APTT (24.1-36.2) Seconds Activated Clotting Time 180 H (74-137) sec Sodium (136-145) mmol/L Potassium (3.5-5.1) mmol/L Chloride (98-107) mmol/L Carbon Dioxide (21.0-32.0) mmol/L Anion Gap (5-15) BUN (7-18) mg/dL Creatinine (0.70-1.30) mg/dL Estim Creat Clear Calc ml/min Est GFR (MDRD) Af Amer (>60) mL/min Est GFR (MDRD) Non-Af (>60) mL/min BUN/Creatinine Ratio (10-20) RATIO Glucose (74-106) mg/dL Hemoglobin A1c (4.2-6.3) % Calcium (8.5-10.1) mg/dL Magnesium (1.6-2.6) mg/dL Total Bilirubin (0.20-1.00) mg/dL Direct Bilirubin (0.00-0.30) mg/dL AST (15-37) U/L ALT (16-61) U/L Alkaline Phosphatase (45-117) U/L Troponin I 1.340 H* (<0.045) ng/mL Total Protein (6.4-8.2) g/dL Albumin (3.2-5.0) g/dL Globulin (2.2-4.2) g/dL Albumin/Globulin Ratio (0.9-2.4) RATIO Triglycerides ( - 199) mg/dL Cholesterol (200) mg/dL LDL Cholesterol (0-130) mg/dL VLDL Cholesterol (5-40) mg/dL HDL Cholesterol (40 - ) mg/dL Lipase (73-393) U/L Urine Color Yellow (Yellow) Urine Clarity Clear (Clear) Urine pH 6.0 (5.0 - 8.0) Ur Specific [place] 1.015 (1.002-1.030) Urine Protein Negative (Negative) mg/dl Urine Glucose (UA) Normal (Normal) mg/dl Urine Ketones Negative (Negative) mg/dl Urine Occult Blood 25 H (Negative) /ul Urine Nitrite Negative (Negative) Urine Bilirubin Negative (Negative) mg/dL Urine Urobilinogen Normal (Normal) mg/dl Ur Leukocyte Esterase Negative (Negative) /ul Urine RBC 0-5 SEEN (0-5) /hpf Urine WBC 0 SEEN (0-5) /hpf Ur Squamous Epith Cells 0 SEEN (0-5) /hpf Urine Bacteria 0 SEEN (None Seen) /hpf Urine Mucus 0 SEEN (<or=2+) /hpf 06/16/18 06/16/18 06/16/18 Range/Units 04:35 04:35 04:35 WBC (4.4-11.0) K/mm3 RBC (4.6-6.2) M/mm3 Hgb (13.0-16.5) g/dl Hct (40-54) % MCV (80-94) fL MCH (27.0-32.0) pg MCHC (32-36) g/gl RDW (11.6-14.6) % RDW Differential (35.1-43.9) fl Plt Count (150-450) K/mm3 MPV (6.2-12.0) fl Immature Gran % (Auto) (0.0-0.9) % Neut % (Auto) (47-70) % Lymph % (Auto) (19-41) % [place] % (Auto) (0-10) % Eos % (Auto) (0-5) % Baso % (Auto) (0-1) % Absolute Neuts (auto) (2.0-7.7) X10^3/uL Absolute Lymphs (auto) (0.83-4.51) X10^3/ul Total Counted APTT 32.2 (24.1-36.2) Seconds Activated Clotting Time (74-137) sec Sodium (136-145) mmol/L Potassium (3.5-5.1) mmol/L Chloride (98-107) mmol/L Carbon Dioxide (21.0-32.0) mmol/L Anion Gap (5-15) BUN (7-18) mg/dL Creatinine (0.70-1.30) mg/dL Estim Creat Clear Calc ml/min Est GFR (MDRD) Af Amer (>60) mL/min Est GFR (MDRD) Non-Af (>60) mL/min BUN/Creatinine Ratio (10-20) RATIO Glucose (74-106) mg/dL Hemoglobin A1c 5.7 (4.2-6.3) % Calcium (8.5-10.1) mg/dL Magnesium 2.0 (1.6-2.6) mg/dL Total Bilirubin (0.20-1.00) mg/dL Direct Bilirubin (0.00-0.30) mg/dL AST (15-37) U/L ALT (16-61) U/L Alkaline Phosphatase (45-117) U/L Troponin I (<0.045) ng/mL Total Protein (6.4-8.2) g/dL Albumin (3.2-5.0) g/dL Globulin (2.2-4.2) g/dL Albumin/Globulin Ratio (0.9-2.4) RATIO Triglycerides ( - 199) mg/dL Cholesterol (200) mg/dL LDL Cholesterol (0-130) mg/dL VLDL Cholesterol (5-40) mg/dL HDL Cholesterol (40 - ) mg/dL Lipase (73-393) U/L Urine Color (Yellow) Urine Clarity (Clear) Urine pH (5.0 - 8.0) Ur Specific [place] (1.002-1.030) Urine Protein (Negative) mg/dl Urine Glucose (UA) (Normal) mg/dl Urine Ketones (Negative) mg/dl Urine Occult Blood (Negative) /ul Urine Nitrite (Negative) Urine Bilirubin (Negative) mg/dL Urine Urobilinogen (Normal) mg/dl Ur Leukocyte Esterase (Negative) /ul Urine RBC (0-5) /hpf Urine WBC (0-5) /hpf Ur Squamous Epith Cells (0-5) /hpf Urine Bacteria (None Seen) /hpf Urine Mucus (<or=2+) /hpf 06/16/18 06/16/18 Range/Units 04:35 04:35 WBC 9.7 (4.4-11.0) K/mm3 RBC 4.63 (4.6-6.2) M/mm3 Hgb 14.2 (13.0-16.5) g/dl Hct 42.0 (40-54) % MCV 90.7 (80-94) fL MCH 30.7 (27.0-32.0) pg MCHC 33.8 (32-36) g/gl RDW 12.8 (11.6-14.6) % RDW Differential 42.0 (35.1-43.9) fl Plt Count 197 (150-450) K/mm3 MPV 10.7 (6.2-12.0) fl Immature Gran % (Auto) 0.200 (0.0-0.9) % Neut % (Auto) 51.3 (47-70) % Lymph % (Auto) 34.8 (19-41) % [place] % (Auto) 10.2 H (0-10) % Eos % (Auto) 3.0 (0-5) % Baso % (Auto) 0.5 (0-1) % Absolute Neuts (auto) 5.0 (2.0-7.7) X10^3/uL Absolute Lymphs (auto) 3.39 (0.83-4.51) X10^3/ul Total Counted Not Reportable APTT (24.1-36.2) Seconds Activated Clotting Time (74-137) sec Sodium 144 (136-145) mmol/L Potassium 3.7 (3.5-5.1) mmol/L Chloride 109 H (98-107) mmol/L Carbon Dioxide 28.0 (21.0-32.0) mmol/L Anion Gap 7 (5-15) BUN 27 H (7-18) mg/dL Creatinine 1.29 (0.70-1.30) mg/dL Estim Creat Clear Calc 64.45 ml/min Est GFR (MDRD) Af Amer 73 (>60) mL/min Est GFR (MDRD) Non-Af 61 (>60) mL/min BUN/Creatinine Ratio 20.9 H (10-20) RATIO Glucose 138 H (74-106) mg/dL Hemoglobin A1c (4.2-6.3) % Calcium 8.4 L (8.5-10.1) mg/dL Magnesium (1.6-2.6) mg/dL Total Bilirubin 0.30 (0.20-1.00) mg/dL Direct Bilirubin 0.11 (0.00-0.30) mg/dL AST 21 (15-37) U/L ALT 29 (16-61) U/L Alkaline Phosphatase 103 (45-117) U/L Troponin I 0.843 H* (<0.045) ng/mL Total Protein 6.9 (6.4-8.2) g/dL Albumin 3.6 (3.2-5.0) g/dL Globulin 3.3 (2.2-4.2) g/dL Albumin/Globulin Ratio (0.9-2.4) RATIO Triglycerides ( - 199) mg/dL Cholesterol (200) mg/dL LDL Cholesterol (0-130) mg/dL VLDL Cholesterol (5-40) mg/dL HDL Cholesterol (40 - ) mg/dL Lipase 203 (73-393) U/L Urine Color (Yellow) Urine Clarity (Clear) Urine pH (5.0 - 8.0) Ur Specific [place] (1.002-1.030) Urine Protein (Negative) mg/dl Urine Glucose (UA) (Normal) mg/dl Urine Ketones (Negative) mg/dl Urine Occult Blood (Negative) /ul Urine Nitrite (Negative) Urine Bilirubin (Negative) mg/dL Urine Urobilinogen (Normal) mg/dl Ur Leukocyte Esterase (Negative) /ul Urine RBC (0-5) /hpf Urine WBC (0-5) /hpf Ur Squamous Epith Cells (0-5) /hpf Urine Bacteria (None Seen) /hpf Urine Mucus (<or=2+) /hpf Dr. [facility] Operations: None Procedures: Cardiac catheterization - Single vessel CAD of the proximal and mid LAD Non obstructive coronary arteries Normal LV size, wall motion,and systolic function Perserved Left Ventricular systolic function with normal EDP LVEF: by LV gram 65 % Successful PTCA/LEONEL of proximal LAD with a 3.0 x 38 Promus Synergy, post dilated with a 3.5 and 3.75 NC balloon; 85%-->0-%, no dissection or plaque shift into DIAG#1, so no additional POBA of ostial DIAG performed. Successful PTCA/LEONEL mid LAD with a 3.0 x 12 Promus Synergy, 75%-->0%, no dissection. Successful Mynx closure of RFA. Summary of Care Provided: The patient is a 57 year old M with a past medical history of tobacco dependence(quit October 2017) and chronic back pain who presented to the [facility] emergency department on 06/16/2018 complaining of 6 days of ongoing epigastric burning which was worse on the day of ED presentation. The pain woke him from sleep and was more severe than prior episodes and he rated it at 10/10. He also complained of right upper extremity pain/pressure. The pain was not necessarily associated with exertion. Blood pressure in the emergency room was 144/102 and he was 99% saturated on room air. The lab was remarkable for a troponin of 0.843 and a glucose of 138. Hemoglobin A1c was within normal limits. Chest x-ray showed no acute cardiopulmonary findings and the EKG showed ST depression in the inferior leads with T wave inversions. He was loaded with Plavix 300 mg and given aspirin 324 mg. Sublingual nitroglycerin was administered and he was given a heparin bolus and started on a heparin infusion. Dr. Dodson was consulted and the patient was taken to the cardiac labor specialist. Catheterization showed an 85% stenosis of the proximal LAD and a 75% stenosis of the mid LAD. Successful PTCA/LEONEL was performed on both lesions. Ejection fraction on left ventriculogram was 65%. He has a 50% mid RCA stenosis, and angiographically normal left main and mild luminal irregularities less than 30% in the circumflex. Post cath he was transferred to the cardiac care unit and monitored overnight. He had 1 5 beat run of NSVT overnight due to reperfusion dysrhythmia and otherwise was in NSR. On the date of discharge he denied chest pain, shortness of breath, palpitations, calf pain or groin pain. He had been seen by cardiac rehab and given information. An appointment has been scheduled for him on 07/05/18 with Sean Mello NP. He will follow up with Dr. Moreno in 5-7 days. He was given printed instructions on how to use NTG should he have angina. General: alert, oriented X3, NAD, appropriate with normal affect Neck: supple, trachea midline, carotids have brisk upstroke and normal pulse volume, no JVD, no carotid bruits Lungs: CTA, symmetric chest expansion, not tachypneic, able to lie flat with no respiratory distress Heart: Regular rate and rhythm, normal S1, normal S2, no murmur, no gallop, no rub, PMI is on the midclavicular line Abdomen: soft, NT, ND, BS's present Extremities: no edema, no calf tenderness, peripheral pulses are normal, no cyanosis, the right groin is dry with an intact bandage and no evidence of hematoma. It is non-tender Telemetry: NSR with a brief 5 beat run of NSVT through the night and no other ectopy This note was generated with [employer] dictation software. It may contain incorrect words, spelling, and punctuation that were not noted in checking the note before signing. Patient Problems: Active and Suspected Problems NSVT (nonsustained ventricular tachycardia) (Acute) Post PTCA (Acute) Atherosclerotic heart disease of [place] coronary artery without angina pectoris (Acute) Successful PTCA/LEONEL of proximal LAD with a 3.0 x 38 Promus Synergy, post dilated with a 3.5 and 3.75 NC balloon; 85%-->0-%, no dissection or plaque shift into DIAG#1, so no additional POBA of ostial DIAG performed. Successful PTCA/LEONEL mid LAD with a 3.0 x 12 Promus Synergy, 75%-->0%, no dissection. Successful Mynx closure of RFA. Non-ST elevation myocardial infarction (NSTEMI) (Acute) - Physical Exam Vital Signs Temp Pulse Resp BP Pulse Ox 98.4 F 64 14 92/54 L 97 06/17/18 04:00 06/17/18 06:00 06/17/18 06:00 06/17/18 06:00 06/17/18 06:00 Oxygen Flow Rate (L/min) 2 Oxygen Delivery Method Room Air Weight: 208 lb 1.862 oz Body Mass Index (BMI) 29.0 Intake and Output for Last 24 Hours 0306/16/18 06/17/18 23:59 23:59 23:59 Intake Total 340 / 340 300 / 300 Output Total 400 / 400 950 / 950 Balance -60 / -60 -650 / -650 Laboratory Tests Past 24 Hrs 06/16/18 06/16/18 06/16/18 04:35 04:35 07:00 WBC RBC Hgb Hct MCV MCH MCHC RDW RDW Differential Plt Count MPV Immature Gran % (Auto) Neut % (Auto) Lymph % (Auto) [place] % (Auto) Eos % (Auto) Baso % (Auto) Absolute Neuts (auto) Absolute Lymphs (auto) Total Counted Activated Clotting Time Sodium Potassium Chloride Carbon Dioxide Anion Gap BUN Creatinine Estim Creat Clear Calc Est GFR (MDRD) Af Amer Est GFR (MDRD) Non-Af BUN/Creatinine Ratio Glucose Hemoglobin A1c 5.7 Calcium Magnesium 2.0 Total Bilirubin AST ALT Alkaline Phosphatase Troponin I Total Protein Albumin Globulin Albumin/Globulin Ratio Triglycerides Cholesterol LDL Cholesterol VLDL Cholesterol HDL Cholesterol Urine Color Yellow Urine Clarity Clear Urine pH 6.0 Ur Specific [place] 1.015 Urine Protein Negative Urine Glucose (UA) Normal Urine Ketones Negative Urine Occult Blood 25 H Urine Nitrite Negative Urine Bilirubin Negative Urine Urobilinogen Normal Ur Leukocyte Esterase Negative Urine RBC 0-5 SEEN Urine WBC 0 SEEN Ur Squamous Epith Cells 0 SEEN Urine Bacteria 0 SEEN Urine Mucus 0 SEEN 06/16/18 06/16/18 06/16/18 07:25 08:59 09:34 WBC RBC Hgb Hct MCV MCH MCHC RDW RDW Differential Plt Count MPV Immature Gran % (Auto) Neut % (Auto) Lymph % (Auto) [place] % (Auto) Eos % (Auto) Baso % (Auto) Absolute Neuts (auto) Absolute Lymphs (auto) Total Counted Activated Clotting Time 180 H 257 H Sodium Potassium Chloride Carbon Dioxide Anion Gap BUN Creatinine Estim Creat Clear Calc Est GFR (MDRD) Af Amer Est GFR (MDRD) Non-Af BUN/Creatinine Ratio Glucose Hemoglobin A1c Calcium Magnesium Total Bilirubin AST ALT Alkaline Phosphatase Troponin I 1.340 H* Total Protein Albumin Globulin Albumin/Globulin Ratio Triglycerides Cholesterol LDL Cholesterol VLDL Cholesterol HDL Cholesterol Urine Color Urine Clarity Urine pH Ur Specific [place] Urine Protein Urine Glucose (UA) Urine Ketones Urine Occult Blood Urine Nitrite Urine Bilirubin Urine Urobilinogen Ur Leukocyte Esterase Urine RBC Urine WBC Ur Squamous Epith Cells Urine Bacteria Urine Mucus 06/17/18 06/17/18 05:15 05:15 WBC 8.6 RBC 4.22 L Hgb 12.8 L Hct 39.0 L MCV 92.4 MCH 30.3 MCHC 32.8 RDW 12.9 RDW Differential 42.8 Plt Count 159 MPV 10.9 Immature Gran % (Auto) 0.100 Neut % (Auto) 56.7 Lymph % (Auto) 29.6 [place] % (Auto) 10.9 H Eos % (Auto) 2.4 Baso % (Auto) 0.3 Absolute Neuts (auto) 4.9 Absolute Lymphs (auto) 2.55 Total Counted Not Reportable Activated Clotting Time Sodium 142 Potassium 3.7 Chloride 111 H Carbon Dioxide 26.0 Anion Gap 5 BUN 22 H Creatinine 1.20 Estim Creat Clear Calc 71.47 Est GFR (MDRD) Af Amer 80 Est GFR (MDRD) Non-Af 66 BUN/Creatinine Ratio 18.3 Glucose 93 Hemoglobin A1c Calcium 8.1 L Magnesium Total Bilirubin 0.60 AST 20 ALT 25 Alkaline Phosphatase 95 Troponin I Total Protein 6.2 L Albumin 3.3 Globulin 2.9 Albumin/Globulin Ratio 1.1 Triglycerides 270 H Cholesterol 168 LDL Cholesterol 84 VLDL Cholesterol 54 H HDL Cholesterol 30 L Urine Color Urine Clarity Urine pH Ur Specific [place] Urine Protein Urine Glucose (UA) Urine Ketones Urine Occult Blood Urine Nitrite Urine Bilirubin Urine Urobilinogen Ur Leukocyte Esterase Urine RBC Urine WBC Ur Squamous Epith Cells Urine Bacteria Urine Mucus Home Medications: Medications to take at Discharge Oxycodone HCl/Acetaminophen [Percocet 5-325] 1 tablet PO TID 06/16/18 Aspirin E.C. [Ecotrin] 81 mg PO DAILY@0800 tablet 06/17/18 Atorvastatin Calcium [Lipitor] 80 mg PO QHS #30 tablet 06/17/18 Carvedilol [Coreg (Beta Juan R)] 12.5 mg PO BID #60 tablet 06/17/18 Clopidogrel Bisulfate [Plavix] 75 mg PO DAILY #30 tablet 06/17/18 Lisinopril [Zestril] 5 mg PO DAILY #30 tablet 06/17/18 Nitroglycerin [Nitrostat] 0.4 mg SUBLINGUAL Q5M PRN #1 bottle 06/17/18 Following Prescrptions Were Given to Patient: Atorvastatin Calcium [Lipitor] 80 mg PO QHS #30 tablet Clopidogrel Bisulfate [Plavix] 75 mg PO DAILY #30 tablet Lisinopril [Zestril] 5 mg PO DAILY #30 tablet Nitroglycerin [Nitrostat] 0.4 mg SUBLINGUAL Q5M PRN #1 bottle PRN Reason: Cardiac/Chest Pain Carvedilol [Coreg (Beta Juan R)] 12.5 mg PO BID #60 tablet Other Amb Orders: Phase II, Outpatient Cardiac Rehab Location: None Selected Primary Care Physician: Mauricio Moreno MD [Primary Care Provider] - Please Follow Up With: Sean Mello, [facility] Patient Instructions: Facts About Dietary Fat, Low-Fat Cooking Tips, Reading?Food Labels, Discharge Instructions: Taking Fast-Acting Nitroglycerin Minutes spent on discharge:: 40 Patient Condition:: Good Medical Necessity - Tobacco Use Smoking Status: Former smoker Tobacco Use: Non-smoker Meaningful Use Info Meaningful Use Diagnoses (Choose all that apply): AMI - AMI Aspirin given w/in 24hrs of arrival?: Yes ASA at discharge?: Yes Statins at discharge?: Yes [place]/ARB at discharge?: Yes Beta Juan R at discharge?: Yes Done w/ Acute ID measure.: Yes Code Visit Inpatient E&M: 79182 Disch Hosp
--- NOTE | 2018-06-17 09:43 | DCINST_ITS ---
- Discharge Diagnoses Current Active Problems: Current Active and Chronic Problems Atherosclerotic heart disease of [place] coronary artery without angina pectoris (Acute) Successful PTCA/LEONEL of proximal LAD with a 3.0 x 38 Promus Synergy, post dilated with a 3.5 and 3.75 NC balloon; 85%-->0-%, no dissection or plaque shift into DIAG#1, so no additional POBA of ostial DIAG performed. Successful PTCA/LEONEL mid LAD with a 3.0 x 12 Promus Synergy, 75%-->0%, no dissection. Successful Mynx closure of RFA. Stented coronary artery (Chronic 06/16/18) Successful PTCA/LEONEL of proximal LAD with a 3.0 x 38 Promus Synergy, post dilated with a 3.5 and 3.75 NC balloon; 85%-->0-%, no dissection or plaque shift into DIAG#1, so no additional POBA of ostial DIAG performed. Successful PTCA/LEONEL mid LAD with a 3.0 x 12 Promus Synergy, 75%-->0%, no dissection. Successful Mynx closure of RFA. Non-ST elevation myocardial infarction (NSTEMI) (Acute) You will use the following diet at home:: Cardiac Your food should be the consistency of: Regular Your liquids should be the consistency of: Regular/Thin Discharge Activity: - - You may remove the dressing in 1 day. You may shower in 1 day. No sex for 10-14 days. Do not lift more than 10 pounds for the next 10-14 days. No strenuous activity. You may start a walking program and work up to 30 minutes daily 5-6 times a week. No hills. Call your doctor if your incision/area has: Continuous Slow Oozing, Sudden Increased Bleeding, Increased Pain/ Swelling, Increased Redness, Foul Smelling Discharge, Swelling at the incision site Call your doctor if you observe: Fever of 101 or Higher, Shortness of breath, Dizziness, Fainting spells, Swelling in the ankles, Chest pain Instructions: Facts About Dietary Fat, Low-Fat Cooking Tips, Reading?Food Labels, Discharge Instructions: Taking Fast-Acting Nitroglycerin Additional Instructions: 1. You had 2 stents placed in your heart. In order to keep the stents from closing up you will need to take 2 anti-platelet drugs for at least 1 year. The antiplatelet drugs you will be taking are Aspirin and Plavix. 2. The heart attack caused some wall motion abnormalities of the heart due to a lack of blood flow......this may improve over time. Fortunately the ejection fraction is still normal. The ejection fraction is the portion of blood the heart squeezes out every time it contracts. Normal is 55-65% and your ejection fraction (EF) is 65%. 3. You did have a heart attack and although it was small you may be more tired than normal and get more winded than usual when walking.......pace yourself and if you are tired ....rest. 4. I have given you a prescription for nitroglycerin to take if you get chest pain and some instructions on when to take this med and how to take it. 5. Exercise and a healthy low fat, low salt diet are very important when you have heart disease. You will be going to cardiac rehab 3 times a week for 1 hour for a total of 12 weeks......this is very improtant because we monitor your heart while you exercise to make sure everything is OK and there is no electrocardiographic change that would indicate the coronary arteries are not getting enough blood flow. Allergies/Adverse Reactions: Allergies No Known Allergies Allergy (Verified 06/16/18 04:19) Medications to take at Discharge Oxycodone HCl/Acetaminophen [Percocet 5-325] 1 tablet PO TID 06/16/18 Aspirin E.C. [Ecotrin] 81 mg PO DAILY@0800 tablet 06/17/18 Atorvastatin Calcium [Lipitor] 80 mg PO QHS #30 tablet 06/17/18 Carvedilol [Coreg (Beta Juan R)] 12.5 mg PO BID #60 tablet 06/17/18 Clopidogrel Bisulfate [Plavix] 75 mg PO DAILY #30 tablet 06/17/18 Lisinopril [Zestril] 5 mg PO DAILY #30 tablet 06/17/18 Nitroglycerin [Nitrostat] 0.4 mg SUBLINGUAL Q5M PRN #1 bottle 06/17/18 The following prescriptions were given: Atorvastatin Calcium [Lipitor] 80 mg PO QHS #30 tablet Clopidogrel Bisulfate [Plavix] 75 mg PO DAILY #30 tablet Lisinopril [Zestril] 5 mg PO DAILY #30 tablet Nitroglycerin [Nitrostat] 0.4 mg SUBLINGUAL Q5M PRN #1 bottle PRN Reason: Cardiac/Chest Pain Carvedilol [Coreg (Beta Juan R)] 12.5 mg PO BID #60 tablet Orders to be completed after discharge: Phase II, Outpatient Cardiac Rehab Location: None Selected Primary Care Physician: Mauricio Moreno MD [Primary Care Provider] - Please follow up with your Primary Care Physician in: 5-7 days Test Results: Test results from this visit will be discussed in further detail at your follow- up appointment, if applicable. Please Follow Up With: Sean Mello NP-C When: 07/05/14 10:30 AM Proposed Discharge Date: 06/17/18
--- NOTE | 2018-06-17 09:53 | PN.CARD_ITS ---
Subjectve: Patient doing very well this morning. No further chest pain. Telemetry showed normal sinus rhythm with rare PVC and 5 beats of wide-complex tachycardia which were self terminating. Hemoglobin and creatinine are within nominal limits. Right groin is clean/dry/intact. EKG shows normal sinus rhythm with resolving anterior ST and T wave changes. Objective: Vital Signs Temp Pulse Resp BP Pulse Ox 98.3 F 62 14 169/72 H 96 06/17/18 08:00 06/17/18 08:00 06/17/18 08:00 06/17/18 08:00 06/17/18 08:00 Oxygen Flow Rate (L/min) 2 Oxygen Delivery Method Room Air Weight: 208 lb 1.862 oz Body Mass Index (BMI) 29.0 Intake and Output for Last 24 Hours 06/15/18 06/16/18 06/17/18 23:59 23:59 23:59 Intake Total 340 / 340 300 / 300 Output Total 400 / 400 950 / 950 Balance -60 / -60 -650 / -650 General: Awake, Alert, Oriented x 3 HEENT: PERRL, EOMI, Sclera Non Icteric Neck: Supple, Good ROM, No Lymph Node Enlargement Lungs: Clear to auscultation Cardiovascular: Regular Rhythm, Normal S1, Normal S2, No Murmurs, No Rubs, No Gallops Vascular: No Carotid Bruits, Normal Femoral Pulses, Normal Radial Pulses, Normal Dorsalis Pedal Pulse, Normal Posterior Tibial Pulses Abdomen: Bowel Sounds Present, Soft, Non Tender, No HSM, No Organomegaly Extremities: No Cyanosis, No Clubbing, No edema Neurological: No Focal Motor or Sensory Deficit 06/17/18 05:15: Sodium 142, Potassium 3.7, Chloride 111 H, Carbon Dioxide 26.0, Anion Gap 5, BUN 22 H, Creatinine 1.20, Est GFR (MDRD) Af Amer 80, Est GFR (MDRD) Non-Af 66, BUN/Creatinine Ratio 18.3, Glucose 93, Calcium 8.1 L, Total Bilirubin 0.60, Triglycerides 270 H, Cholesterol 168, LDL Cholesterol 84, VLDL Cholesterol 54 H, HDL Cholesterol 30 L 06/17/18 05:15: WBC 8.6, RBC 4.22 L, Hgb 12.8 L, Hct 39.0 L, MCV 92.4, MCH 30.3, MCHC 32.8, RDW 12.9, RDW Differential 42.8, Plt Count 159, MPV 10.9, Immature Gran % (Auto) 0.100, Neut % (Auto) 56.7, Lymph % (Auto) 29.6, [place] % (Auto) 10.9 H, Eos % (Auto) 2.4, Baso % (Auto) 0.3, Absolute Neuts (auto) 4.9, Total Counted Not Reportable Rhythm: EKG: ECHO: Normal LV size and function, EF of 55%, RVSP of 26 mmHg. No change from previous. Stress Test: Cardiac Cath: PCI: CT Surgery: Holter monitor: EPS: PPM: CXR: Chest CT Scan: Medical Necessity - Tobacco Use Smoking Status: Former smoker Tobacco Use: Non-smoker Assessment/Plan 1. Coronary artery disease: The patient presented with unstable angina and non- ST elevation myocardial infarction and dynamic inferior T wave changes. Catheterization demonstrated a critical lesion in his proximal LAD which is a wraparound LAD explaining why he had inferior ST segment changes. He underwent angioplasty and drug-eluting stenting x2 to the proximal mid LAD with an excellent result. He has a 50% mid RCA stenosis that may require intervention after stress testing in 3 weeks time. Recommend the patient continue baby aspirin for life, Plavix at least 2 years to allow for adequate endothelialization of his lung LAD stents, and stress testing in 3 weeks time. In addition he will continue antihypertensive therapy of Coreg, and lisinopril. We will titrate up his lisinopril after his blood pressure is been evaluated in the office in a cardiac rehab if necessary. 2. Hyperlipidemia: His LDL and HDL cholesterol not quite at goal. Continue Lipitor therapy. Repeat lipid profile in 6 weeks time. 3. Patient may follow-up with Dr. Dodson going forward. Patient may be discharged home today. Code Visit Inpatient E&M: 22601 Subs Hosp L2
[2018-06-17] MEDS: Aspirin E.C. 81 MG Tablet PO (10:27)
[2018-06-17] MEDS: Lisinopril 5 MG Tablet PO (10:28)
[2018-06-17] MEDS: Clopidogrel Bisulfate 75 MG Tablet PO (10:28)
[2018-06-17] MEDS: Carvedilol 12.5 MG Tablet PO (10:28)
[2018-06-17] MEDS: Famotidine 20 MG Tablet PO (10:28)
== END 2018-06-17 11:00 | disposition home or self-care (01) | DRG 247 ==
LOC: ED 04:50 → PCU 05:57 → ICU 09:43
PROVIDERS: Admitting Provider Family Medicine; Emergency Provider Emergency Medicine; Family Provider Family Medicine; PCP Family Medicine; Visit Provider Internal Medicine
DX: I21.4 Non-ST elevation (NSTEMI) myocardial infarction (principal); I47.2 Ventricular tachycardia; I25.10 Atherosclerotic heart disease of native coronary artery without angina pectoris; Z87.891 Personal history of nicotine dependence; G89.29 Other chronic pain; M54.9 Dorsalgia, unspecified; E78.5 Hyperlipidemia, unspecified
CPT/HCPCS: 36415; 71046; 80048; 80053; 80061; 80076; 81001; 83036; 83690; 83735; 84484; 85025; 85347; 85730; 92928; 93005; 93306; 93458; 97802; 99283; C1760; J7030; A4216; C1725; C1769; C1874; C1887; C1894; C9600; J1327; Q9967

== ENCOUNTER → 2018-06-27 10:55 | Outpatient (CLI) | payer BC, SELFPAY ==
[2018-06-16 06:30] VITALS: BMI 29.0
[2018-06-16 11:21] VITALS: BMI 29.0
--- NOTE | 2018-06-27 11:34 | CR.HP_ITS ---
CR - History & Physical - General Arrival date:: 06/27/18 Arrival time:: 11:00 Date of Referral:: 06/16/18 Date of CR Evaluation:: 06/27/18 Referring Physician: AARON Primary Diagnosis: NSTEMI, CAD - History of Present Cardiac Event Onset Date: Enter Onset Date of cardiac illnesses in Comment field below Current stable Angina Pectoris:: No Acute Myocardial Infarction within 12 months:: Yes Coronary Artery Bypass Graft:: No Heart valve replacement or repair:: No PTCA or coronary stenting:: Yes Heart or Heart-Lung Transplant:: No Heart Failure EF <35%:: No Type of Symptoms:: BURNING, THOUGHT IT WAS AN ULCER - Medications Home Medications: Ambulatory Orders Medication Instructions Recorded Oxycodone HCl/Acetaminophen 1 tablet PO TID 06/16/18 [Percocet 5-325] Aspirin E.C. [Ecotrin] 81 mg PO DAILY@0800 tablet 06/17/18 Atorvastatin Calcium [Lipitor] 80 mg PO QHS #30 tablet 06/17/18 Carvedilol [Coreg (Beta Juan R)] 12.5 mg PO BID #60 tablet 06/17/18 Clopidogrel Bisulfate [Plavix] 75 mg PO DAILY #30 tablet 06/17/18 Lisinopril [Zestril] 5 mg PO DAILY #30 tablet 06/17/18 Nitroglycerin [Nitrostat] 0.4 mg SUBLINGUAL Q5M PRN #1 bottle 06/17/18 - Allergies Allergies/Adverse Reactions: Allergies No Known Allergies Allergy (Verified 06/16/18 04:19) - Sleep Disorder Evaluation Hx of Sleep Apnea: No Do you snore loudly (louder than talking or can be heard through closed doors)?: No Do you often feel tired/ fatigued/ sleepy during daytime?: Yes Has anyone observed you stop breathing during sleep?: No History of Hypertension (for STOP score): No STOP Results: Negative Advanced Directives - Advanced Directives Power of Photocomposition Keyboard Operator: No Living Will: No Advance Directives Information Provided: No Advance Directives on File: No DNR Order?:: No Past Medical History - Past Surgical History Surgical History: Past Surgical History (Last Updated 06/16/18 @ 11:17 by Kaylyn Scanlon) Stented coronary artery (Chronic) Onset Date: 06/16/18 Z95.5 Successful PTCA/LEONEL of proximal LAD with a 3.0 x 38 Promus Synergy, post dilated with a 3.5 and 3.75 NC balloon; 85%-->0-%, no dissection or plaque shift into DIAG#1, so no additional POBA of ostial DIAG performed. Successful PTCA/LEONEL mid LAD with a 3.0 x 12 Promus Synergy, 75%-->0%, no dissection. Successful Mynx closure of RFA. Surgical History: - - Lumbar back surgery x 4 including fusion. Social History - Smoking History Smoking Status: Former smoker Years Smokin Packs Smoked per Day: 1 Hx Tobacco Use: Yes - Alcohol Use Alcohol Usage: No - Substance Abuse Hx Substance Use: No - Occupation Occupation (List type of work in comments):: Employed Hours worked per day:: 60 - Hobbies, Recreation, Social Activities Recreational Activities: I can hardly do any recreational activities Social Environment - Status Marital Status: - Current Living Arrangements Living Environment:: Alone - Children How many children do you have?: 2 Do any of your children live nearby?: Yes - Safety Do you feel safe in your surroundings?: Yes Review of Systems - Review of Systems Hints: Right click = Denies ([place]). Left click = Reports ([place]) Review of Present Symptoms: Reports: Shortness of Breath with Exertion, Fatigue, Appetite - Normal. Denies: Shortness of Breath at Rest, PVD, Operative Discomfort, Angina, Wound Healing, Dizziness/Lightheadedness, Heart Arrhythmia/Irregularities, Appetite - Special Diet, Sleep - Normal - Pain Is Patient Pain Free?: Yes Pain Location: back - HX OF BACK SURGERY Pain Level: 05/14 Risk Factor Assessment - Vital Signs Temperature: 98.6 F Respiratory Rate: 20 Pulse Ox: 97 Blood Pressure: 113/78 Nailbeds:: PINK - Pulse Pulse Rhythm: Regular - Hypertension On medication(s)?: NO PREVIOUS Blood Pressure Sitting - Left Arm: 113/78 - Stress Stress: Recent, Long-standing, Work-related - Blood Cholesterol/Lipids Total Cholesterol (mg/dL) Goal = less than 200 mg/dL: 168 HDL Cholesterol (mg/dL) Goal = less than 40 mg/dL: 30 LDL Cholesterol (mg/dL) Goal = less than 70 mg/dL: 84 Triglycerides (mg/dL) Goal = less than 150 mg/dL: 270 - Diabetes Nutrition Referral for Diabetes: No - Obesity Height: 5 ft 10 in Weight:: 208 lb Weight in Pounds: 208.0 lbs Weight Source: Stated by Patient Body Mass Index (BMI): 29.8 Nutritional Referral for Obesity: No - Physical Inactivity Physical Inactivity: Reg Exercise 30 min/day - Risk Stratification Risk Guidelines: Lowest Risk: Risk Factor for Smoking, Risk Factor for Diabetes, Risk Factor for Hypertension, Risk Factor for Depression, Moderate Risk: Risk Factor for Obesity, Risk Factor for Sedentary Lifestyle, Highest Risk: Risk Factor for Dyslipidemia - For Smoking Smoking Risk Guidelines: Smoking Low Risk: None or quit greater than 6 months ago. Smoking Moderate Risk: Smoker or quit 6 months or less ago. Smoking High Risk: Smoker - For Dyslipidemia Dyslipidemia Risk Guidelines: Low Risk: Moderate Risk: High Risk: 15-25% fat 25.1-29% fat >/= 30% fat. <7% sat fat 7-9% sat fat >9% sat fat. <150 mg chol 150-299 mg chol >/= 300 mg chol. LDL <100 LDL 100-129 LDL >/= 130. Chol/HDL ratio <5.0 Chol/HDL ratio 5.0-6.0 Chol/HDL ratio >6.0. Triglycerides <100 Triglycerides 100- 149 Triglycerides >/= 150 - For Diabetes Mellitus Diabetes Risk Guidelines: Diabetes Low Risk: HgA1c <6.5% and/or FBG <120. Diabetes Moderate Risk: HgA1c 6.6-7.9% and/or FBG 120-180. Diabetes High Risk: HgA1c >/= 8% and/or FBG >180 - For Obesity/Overweight Obesity/Overweight Risk Guidelines: Obesity Low Risk: BMI <25.0. Obesity Moderate Risk: BMI 25-29.9. Obesity High Risk: BMI >/= 30.0 - For Hypertension Hypertension Risk Guidelines: Hypertension Low Risk: Systolic <120 and Diastolic <80. Hypertension Moderate Risk: Systolic 120-139 and Di astolic 80-89. Hypertension High Risk: Systolic >/= 140 and Diastolic >/= 90 - For Sedentary Lifestyle Sedentary Lifestyle Risk Guidelines: Sedentary Lifestyle Low Risk: >/= 1,500 kcal/week. Sedentary Lifestyle Moderate Risk: 700-1,499 kcal/week. Sedentary Lifestyle High Risk: < 700 kcal/week - For Depression Depression Risk Guidelines: Depression Low Risk: Not clinically depressed. Depression Moderate Risk: Mildly depressed. Depression High Risk: Clinically depressed Motivation - Motivation to Participate On a scale of 1 to 10, how prepared are you to commit to attending program?: 9 What do you see as barriers to successfully being able to complete the program?: NONE What do you see as the benefits of succesfully completing the program? In other words, what do you hope to get out of participating in the program?: HEALTHY HEART AGAIN Are there issues you are dealing with that will interfere with completing the program?: NONE Do you have a spouse or signficant other, family or friends who will help support you to complete the program?: FRIEND, FAMILY6
[2018-06-27 11:54] VITALS: BP 113/78; RESP 20; TEMP 37; O2SAT 97; BMI 29.8
--- NOTE | 2018-06-27 12:10 | CR.ITP_ITS ---
General Information - General Information Admitting Diagnosis: PTCA Special Needs: NONE Oxygen: NONE - Education/Goals Barriers to Learning: None Individual Counseling: Initial Assessment: Abnormal Cholesterol Levels, Low HDL <40/Males or <50/Females, Sedentary Lifestyle, Stress Cardiac Rehabilitation Goals: 1. Maintain the individual as the primary focus of care. 2. To improve the patient's quality of life. 3. Identification of cardiac risk factors and provide cardiac risk factor management. 4. Enhance the psychosocial status of the patient. 5. Reconditioning enough to allow the patient to resume customary activities. 6. Control symptoms of cardiac disease Scale for measuring improvement of personal goals: Enter appropriate number in Comments. 2 = Unchanged. 3 = Slightly Better. 4 = Moderate Improvement. 5 = Met my Goal Personal Goals: Initial Assessment: Improve management of stress and emotions, Improve energy level, Participate in home exercise program, Get back to work, or to resume activities faster, Improve knowledge of cardiac disease, Improve muscle strength and endurance, Improve diet and eating habits (eat healthier), Control risk factors (learn risk factor modification) Exercise - Initial Assessment - Visit Date of Eval: 06/27/18 - Stages of Change Stages of Change:: Action - Stress Test Date: 07/07/18 - DR WALKER STATED OK TO START PT IN CR PRIOR TO STRESS TEST AT LOW LEVELS AND REPORT ANY CONCERNS - Physician Prescribed Exercise Modalities: Treadmill, Biodyne, Rower - PT HAS HX OF BACK SURGERY/PAIN. STATES HE MAY NOT BE ABLE TO DO THE ROWER, Airdyne, NuStep, SciFit Frequency (days/week): 3x/week for 12 weeks [36 sessions] Intensity: 60-80% age predicted maximum heart rate reserve METs - Progression: 0.5-1.0 MET, RPE 11-14 WEEK: 2.5-3.5 Target Heart Rate:: 105-137 - Hypertension Do any of the following apply?: No Resting Blood Pressure:: 113/78 - Intervention Home Exercise/Activity Goal:: Moderate Exercise 30 min/day x 5 days/wk - PT IS WALKING WHILE NOT IN CR - Education Goals:: Warm-up, RPE STAN Scale, S/S, Safe Exercise, Self-Monitoring - Exercise Program Goals Exercise Program Goals: Aerobic Activity >30 min Nutrition - Initial Assessment - Program Goals Nutrition Program Goals: LDL <70. Total Cholesterol <200. HDL >45. Triglycerides <150. HgbA1C <7%. BMI <25 - Stages of Change Stages of Change:: Action - Lipids Total Cholesterol (mg/dL) Goal = less than 200 mg/dL: 168 HDL Cholesterol (mg/dL) Goal = less than 45 mg/dL: 30 LDL Cholesterol (mg/dL) Goal = less than 70 mg/dL: 84 Triglycerides (mg/dL) Goal = less than 150 mg/dL: 270 Lipid Medication: LIPITOR - Diabetes Diabetes:: No - Weight Management Height: 5 ft 10 in Weight:: 208 lb - Intervention Referral to dietitian:: No Referral to Diabetic Clinic:: No - Education Gave educational materials for:: Signs & symptoms of hypoglycemia, Signs & symptoms of hyperglycemia, Relate diabetes to coronary artery disease, Healthy eating Tobacco - Initial Assessment - Program Goals Tobacco Program Goals: Complete smoking cessation. Attend education classes. Improve Knowledge Test score - Stage of Change Stages of Change:: Action - Learning Barriers Learning Barriers: Ready to Learn - Family Support Do you have family support?: Yes - Tobacco Use Tobacco Use: Non-smoker How long ago did you quit using tobacco products?: Greater than or equal to 6 months ago Years Smokin - Intervention Smoking Cessation Referral:: No Individual Education/Counseling:: Yes - CR CLASS - Education Gave educational material for:: Tobacco triggers, Coronary artery disease, Risk factors, Sexuality, Medical compliance, Cardiac A&P, Angina signs & symptoms Psychosocial - Initial Assess - Target Goals Target Goals: Assess presence or absence of depression. Using a valid screening tool, maximizes coping skills. Positive support system - Stages of Change Stages of Change:: Action - Psychosocial Test Tool Used:: HANDS Depression Questionnaire Tests Completed: SF - 36 survey completed Total Mood Screening Score:: 6 Self-Efficacy Score:: 8 - Intervention PS - Interventions: Yes Attend Stress Management Classes - CR CLASSES, Yes Uses Stress Management Skills - CR CLASSES, No Referral to Mental Health, No Referral to [facility] Case Management, No Referral to Physician - Education Gave educational materials for:: Coping techniques, Signs & symptoms of depression, Stress management, Relaxation techniques - Patient/Program Goal Preventative Medication(s):: Aspirin, ESDRAS inhibitor, Clopidogrel, Beta dayanara, Statin/lipid - Assistive Devices Assistive Devices:: None Fall Risk Assessed:: No Patient Health Questionnaire Initial Assessment 1. Little interest or pleasure in doing things: Several days 2. Feeling down, depressed, or hopeless: Not at all 3. Trouble falling or staying asleep, or sleeping too much: More than half the days 4. Feeling tired or having little energy: More than half the days 5. Poor appetite or overeating: Several days 6. Feeling bad about yourself -- or that you are a failure or have let yourself or your family down: Not at all 7. Trouble concentrating on things, such as reading the newspaper or watching television: Not at all 8. Moving or speaking so slowly that other people could have noticed. Or the opposite - being so fidgety or restless that you have been moving around a lot more than usual: Not at all 9. Thoughts that you would be better off , or of hurting yourself in some way: Not at all How difficult have these problems made it for you to do your work, take care of things at home, or get along with other people?: Not difficult at all Total Score: 6 ILIANA-Q SV Test - Statements CAD is a disease of the arteries in the heart: False Examples of risk factors for heart disease: True Angina is chest pain or discomfort: I Don't Know The benefits of resistance training include: I Don't Know Eating more meat and dairy products: False Anti-platelet medications such as aspirin are important: I Don't Know The only effective way to manage stress: False An exercise warm-up slowly increases heart rate: True Prepared, processed foods usually have high sodium: True Depression is common after a heart attack: I Don't Know The statin medications lower cholesterol: I Don't Know To control blood pressure, lower the amount of sodium: I Don't Know If someone gets chest discomfort during walking: False Transfats are partially hydrogenated vegetable oils: I Don't Know Sleep apnea that is not treated increases the risk: I Don't Know To control cholesterol, one should become a vegetarian: False Someone knows if he/she is exercising at the right level: I Don't Know Diabetes cannot be prevented with exercise & health eating: I Don't Know Stress is a large risk for heart attack: True A diet that can help lower blood pressure is rich in: True - Total Score Total Correct Responses: 10 Self-Efficacy Initial Assessment We would like to know how confident you are in doing certain activities. Please select your confidence level for:: Select your confidence level for the following using the scale 1-10 where 1 is not at all confident and 10 is totally confident. Your score is the average of all 6 responses. Fatigue: How confident are you that you can keep the fatigue caused by your disease from interfering with the things you want to do? Select Number: 8 Physical Discomfort or Pain: How confident are you that you can keep the physical discomfort or pain of your disease from interfering with the things you want to do? Select Number: 9 Emotional Distress: How confident are you that you can keep the emotional distress caused by your disease from interfering with the things you want to do? Select Number: 7 Other Symptoms or Health Problems: How confident are you that you can keep other symptoms or health problems from interfering with the things you want to do? Select Number: 7 Different Tasks and Activities: How confident are you that you can do the different tasks and activities needed to manage your health condition so as to reduce your need to see a doctor? Select Number: 9 Medication: How confident are you that you can do things other than just taking medication to reduce how much your illness affects your everyday life? Select Number: 10 Total Score:: 8 Nutrition Survey - Nutrition Survey Instructions Scoring Instructions: Scoring is as follows: Yes = 1 points. No = 0 point. Patient score that is >/=12 is considered to be at potential nutritional risk and could benefit from a referral to a registered dietitian. - Nutrition Survey Initial Have you lost >10 lbs over the past 2 months without trying?: No Are you following a special diet at home for diabetes, low fat, or low salt?: Yes Are you interested in meeting with a dietitian for help understanding your diet?: Yes Do you eat less than 3 meals a day?: Yes Do you eat fatty meats (snow, sausage, ribs, etc), fried foods, desserts, large amounts of salad dressings, margarine, butter, or cheese most days?: No Do you have food allergies? [Enter types in comment field]: No Do you eat in restaurants more than 3 times a week?: No Do you season food with salt, seasoning salt, or garlic salt?: No Do you used canned, boxed, frozen meals, or soups, seasoning packets?: No Total Score:: 3
[2018-06-27 12:29] VITALS: BP 113/78
== END ==
PROVIDERS: Family Provider Family Medicine; PCP Family Medicine; Referring Provider Internal Medicine Cardiovascular Disease; Visit Provider Internal Medicine Cardiovascular Disease
DX: I25.10 Atherosclerotic heart disease of native coronary artery without angina pectoris (principal); I25.2 Old myocardial infarction

== ENCOUNTER → 2018-07-07 13:24 | Outpatient (CLI) | payer BC, SELFPAY ==
[2018-06-16 06:30] VITALS: BMI 29.0
[2018-06-16 11:21] VITALS: BMI 29.0
--- NOTE | 2018-07-07 13:31 | STEWCON_ITS ---
Reason For Study: CAD, ASHD Stress Results Protocol: Delta Protocol WITH DEFINITY Maximum Predicted HR: 162 bpm Target HR: 138 bpm % Maximum Predicted HR: 85 % DurationHeart Rate Stage (mm:ss) (bpm) BP Comment BASELINE 56 124/820.3 ML DEFINITY STAGE 1 3:00 96 130/84NO CHEST PAIN STAGE 2 3:00 117 160/80 STAGE 3 1:30 137 / 0.2 ML DEFINITY RECOVERY 87 112/780.2 ML DEFINITY Stress Duration: 7:30 mm:ss Maximum Stress HR: 137 bpm Baseline Echocardiogram Findings The estimated ejection fraction is 65 %. Stress Echo Wall motion Data Resting WM Intermediate WM Stress WM Resting Wall Motion Wall Motion Stress No regional wall motion No regional wall motion abnormalities noted. abnormalities noted. EKG Data Normal intervals are noted. The patient exercised according to the regular Delta protocol for a total duration of 7:30. The maximum heart rate attained was 139 beats per minute. This was 85% of maximum predicted heart rate. The patient exercised into stage 3 of the Delta protocol. During stress, there were no ST or T wave changes noted to suggest ischemia. No clinical angina was noted. Interpretation Summary The estimated ejection fraction is 65 %. Normal, adequate, treadmill echocardiogram. Negative for ischemia by EKG and echocardiographic criteria. No anginal symptoms noted. Rare PVCs noted. Appropriate blood pressure response to exercise. Average exercise capacity for age. Test terminated due to the attainment of target heart rate and leg discomfort as well as dyspnea. Final LVEF is 75%. Decreased sensitivity due to poor echo windows. No complications. The study was technically difficult. Contrast injection was performed. Ordering Physician: Jordy Dodson MD Referring Physician: Jordy Dodson Performed By: Pita Mello, JASON, RVT
== END ==
PROVIDERS: Family Provider Family Medicine; PCP Family Medicine; Referring Provider Internal Medicine Cardiovascular Disease; Visit Provider Internal Medicine Cardiovascular Disease
DX: I25.10 Atherosclerotic heart disease of native coronary artery without angina pectoris (principal); I47.2 Ventricular tachycardia; I25.2 Old myocardial infarction; Z98.61 Coronary angioplasty status; Z95.5 Presence of coronary angioplasty implant and graft
CPT/HCPCS: 93017; 93350; Q9957; A4216; C8928

== ENCOUNTER 2018-07-31 13:00 | Outpatient (RCR) | payer BC, SELFPAY ==
[2018-06-16 11:21] VITALS: BMI 29.0
[2018-06-27 11:54] VITALS: BMI 29.8
--- NOTE | 2018-07-12 14:20 | EKG12_ITS ---
Test Reason : CP Blood Pressure : / mmHG Vent. Rate : 060 BPM Atrial Rate : 060 BPM P-R Int : 174 ms QRS Dur : 088 ms QT Int : 408 ms P-R-T Axes : 054 044 026 degrees QTc Int : 408 ms Normal sinus rhythm Normal ECG Confirmed by LÁZARO DODSON ([id number]), society editor MOLINA LEONG ([id number] on 07/17/2018 4:39:58 PM Referred By: Lázaro Dodson Confirmed By:LÁZARO DODSON
--- NOTE | 2018-07-26 07:32 | PCM.CR.ITP ---
General Information - General Information Admitting Diagnosis: PTCA - Education/Goals Barriers to Learning: None Cardiac Rehabilitation Goals: 1. Maintain the individual as the primary focus of care. 2. To improve the patient's quality of life. 3. Identification of cardiac risk factors and provide cardiac risk factor management. 4. Enhance the psychosocial status of the patient. 5. Reconditioning enough to allow the patient to resume customary activities. 6. Control symptoms of cardiac disease Scale for measuring improvement of personal goals: Enter appropriate number in Comments. 2 = Unchanged. 3 = Slightly Better. 4 = Moderate Improvement. 5 = Met my Goal Exercise - 30-day Assessment - Visit Date of Eval: 07/26/18 - Physician Prescribed Exercise Modalities: Rower, Airdyne, NuStep Frequency (days/week): 3 Duration (Minutes):: 30-45 Intensity: 60-80% age predicted maximum heart rate reserve METs - Progression: 0.5-1.0 MET, RPE 11-14 WEEK: 4.5 Target Heart Rate:: 105-137 Max HR 124 - Hypertension Resting Blood Pressure:: 124/78 Peak Exercise Blood Pressure:: 152/82 - Intervention Home Exercise/Activity Goal:: Sitting Time <3 hrs/day - Education Goals:: Warm-up, RPE STAN Scale, S/S, Safe Exercise, Self-Monitoring - Exercise Program Goals Exercise Program Goals: Aerobic Activity >30 min, B/P <130/80 Nutrition - 30-Day Assessment - Program Goals Nutrition Program Goals: LDL <70. Total Cholesterol <200. HDL >45. Triglycerides <150. HgbA1C <7%. BMI <25 - Visit Date of Eval: 07/26/18 - Stages of Change Stages of Change:: Action - Diabetes Diabetes:: No - Weight Management Weight:: 91.626 kg - Intervention Referral to dietitian:: No Referral to Diabetic Clinic:: No Will attend diet classes:: Yes - Education Attended class for:: Signs & symptoms of hypoglycemia, Signs & symptoms of hyperglycemia, Relate diabetes to coronary artery disease, Healthy eating Tobacco - 30-Day Assessment - Program Goals Tobacco Program Goals: Complete smoking cessation. Attend education classes. Improve Knowledge Test score - Stage of Change Stages of Change:: Action - Learning Barriers Learning Barriers: Participates in education - Family Support Do you have family support?: Yes - Education Attended class for:: Tobacco triggers, Coronary artery disease, Risk factors, Sexuality, Medical compliance, Cardiac A&P, Angina signs & symptoms Psychosocial - 30-Day Assess - Target Goals Target Goals: Assess presence or absence of depression. Using a valid screening tool, maximizes coping skills. Positive support system - Stages of Change Stages of Change:: Action - Psychosocial Test Tool Used:: HANDS Depression Questionnaire - Intervention PS - Interventions: Yes Attend Stress Management Classes, Yes Uses Stress Management Skills, No Referral to Mental Health, No Referral to [facility] Case Management, No Referral to Physician
[2018-07-26 07:38] VITALS: BP 124/78; BP 152/82
== END 2018-08-01 23:59 ==
LOC: CR 13:00
PROVIDERS: Family Provider Family Medicine; PCP Family Medicine; Referring Provider Internal Medicine Cardiovascular Disease; Visit Provider Internal Medicine Cardiovascular Disease
DX: I21.4 Non-ST elevation (NSTEMI) myocardial infarction (principal); I25.10 Atherosclerotic heart disease of native coronary artery without angina pectoris; Z95.5 Presence of coronary angioplasty implant and graft
CPT/HCPCS: 93005; 93798

== ENCOUNTER 2018-09-01 13:00 | Outpatient (RCR) | payer BC, SELFPAY ==
[2018-06-16 11:21] VITALS: BMI 29.0
[2018-08-02 00:31] VITALS: BP 124/78; BP 152/82; BMI 29.8
--- NOTE | 2018-08-25 08:45 | PCM.CR.ITP ---
Exercise - 60-Day Assessment - Visit Date of Eval: 08/25/18 Session #:: 21 - Stages of Change Stages of Change:: Action - Physician Prescribed Exercise Modalities: Treadmill, Rower, Airdyne Frequency (days/week): 3 Duration (Minutes):: 30-45 Intensity: 60-80% age predicted maximum heart rate reserve METs - Progression: 0.5-1.0 MET, RPE 11-14 WEEK: 7 Target Heart Rate:: 105-137 - Hypertension Resting Blood Pressure:: 114/80 Peak Exercise Blood Pressure:: 142/90 Medication Changes:: No - Intervention Home Exercise/Activity Goal:: Moderate Exercise 30 min/day x 5 days/wk - Education Goals:: Warm-up, RPE STAN Scale, S/S, Safe Exercise, Self-Monitoring - Exercise Program Goals Exercise Program Goals: Aerobic Activity >30 min Nutrition - 60-Day Assessment - Program Goals Nutrition Program Goals: LDL <70. Total Cholesterol <200. HDL >45. Triglycerides <150. HgbA1C <7%. BMI <25 - Visit Date of Eval: 08/25/18 - Stages of Change Stages of Change:: Action - Lipids Has the patient seen the dietitian?: No - Diabetes Diabetes:: No Insulin: No Non-Insulin Dependent?: No - Weight Management Weight:: 198 lb - down from 202.5 - Intervention Referral to dietitian:: No Referral to Diabetic Clinic:: No Will attend diet classes:: Yes - Education Attended class for:: Healthy eating Tobacco - Initial Assessment - Program Goals Tobacco Program Goals: Complete smoking cessation. Attend education classes. Improve Knowledge Test score - Learning Barriers Learning Barriers: Ready to Learn Tobacco - 60-Day Assessment - Program Goals Tobacco Program Goals: Complete smoking cessation. Attend education classes. Improve Knowledge Test score - Stage of Change Stages of Change:: Action - Learning Barriers Learning Barriers: Participates in education - Family Support Do you have family support?: Yes - Tobacco Use Tobacco Use: Non-smoker Do you use smokeless tobacco?: No - Intervention Smoking Cessation Referral:: No Individual Education/Counseling:: No Education Schedule Given:: Yes - Education Attended class for:: Coronary artery disease, Risk factors, Sexuality, Medical compliance, Cardiac A&P, Angina signs & symptoms Psychosocial - Initial Assess - Target Goals Target Goals: Assess presence or absence of depression. Using a valid screening tool, maximizes coping skills. Positive support system - Psychosocial Test Tool Used:: HANDS Depression Questionnaire - Assistive Devices Fall Risk Assessed:: No Psychosocial - 60-Day Assess - Target Goals Target Goals: Assess presence or absence of depression. Using a valid screening tool, maximizes coping skills. Positive support system - Stages of Change Stages of Change:: Action - Psychosocial Test Tool Used:: HANDS Depression Questionnaire - Intervention PS - Interventions: Yes Attend Stress Management Classes, Yes Uses Stress Management Skills, No Referral to Mental Health, No Referral to [facility] Case Management, No Referral to Physician - Education Attended classes for:: Coping techniques, Signs & symptoms of depression, Stress management, Relaxation techniques - Patient/Program Goal Preventative Medication(s):: Aspirin, Clopidogrel, Beta dayanara, Statin/lipid - Assistive Devices Assistive Devices:: None Fall Risk Assessed:: Yes Patient Health Questionnaire 60-Day Re-eval Assessment 1. Little interest or pleasure in doing things: Not at all 2. Feeling down, depressed, or hopeless: Not at all 3. Trouble falling or staying asleep, or sleeping too much: Not at all 4. Feeling tired or having little energy: Not at all 5. Poor appetite or overeating: Not at all 6. Feeling bad about yourself -- or that you are a failure or have let yourself or your family down: Not at all 7. Trouble concentrating on things, such as reading the newspaper or watching television: Not at all 8. Moving or speaking so slowly that other people could have noticed. Or the opposite - being so fidgety or restless that you have been moving around a lot more than usual: Not at all 9. Thoughts that you would be better off , or of hurting yourself in some way: Not at all Total Score: 0 Self-Efficacy 60-Day Re-eval Assessment We would like to know how confident you are in doing certain activities. Please select your confidence level for:: Select your confidence level for the following using the scale 1-10 where 1 is not at all confident and 10 is totally confident. Your score is the average of all 6 responses. Fatigue: How confident are you that you can keep the fatigue caused by your disease from interfering with the things you want to do? Select Number: 10 Physical Discomfort or Pain: How confident are you that you can keep the physical discomfort or pain of your disease from interfering with the things you want to do? Select Number: 10 Emotional Distress: How confident are you that you can keep the emotional distress caused by your disease from interfering with the things you want to do? Select Number: 10 Other Symptoms or Health Problems: How confident are you that you can keep other symptoms or health problems from interfering with the things you want to do? Select Number: 10 Different Tasks and Activities: How confident are you that you can do the different tasks and activities needed to manage your health condition so as to reduce your need to see a doctor? Select Number: 10 Medication: How confident are you that you can do things other than just taking medication to reduce how much your illness affects your everyday life? Select Number: 10 Total Score:: 10
[2018-08-25 08:52] VITALS: BP 114/80; BP 142/90
== END 2018-09-01 23:59 ==
LOC: CR 13:00
PROVIDERS: Family Provider Family Medicine; PCP Family Medicine; Referring Provider Internal Medicine Cardiovascular Disease; Visit Provider Internal Medicine Cardiovascular Disease
DX: I21.4 Non-ST elevation (NSTEMI) myocardial infarction (principal); I25.10 Atherosclerotic heart disease of native coronary artery without angina pectoris; Z95.5 Presence of coronary angioplasty implant and graft
CPT/HCPCS: 93798

== ENCOUNTER 2018-09-29 13:00 | Outpatient (RCR) | payer BC, SELFPAY ==
[2018-06-16 11:21] VITALS: BMI 29.0
[2018-09-02 00:29] VITALS: BP 114/80; BP 142/90
--- NOTE | 2018-09-25 08:29 | PCM.CR.ITP ---
General Information - General Information Admitting Diagnosis: PTCA - Education/Goals Cardiac Rehabilitation Goals: 1. Maintain the individual as the primary focus of care. 2. To improve the patient's quality of life. 3. Identification of cardiac risk factors and provide cardiac risk factor management. 4. Enhance the psychosocial status of the patient. 5. Reconditioning enough to allow the patient to resume customary activities. 6. Control symptoms of cardiac disease Scale for measuring improvement of personal goals: Enter appropriate number in Comments. 2 = Unchanged. 3 = Slightly Better. 4 = Moderate Improvement. 5 = Met my Goal Exercise - 90-Day Assessment - Visit Date of Eval: 09/25/18 Session #:: 35 - Stages of Change Stages of Change:: Action - Physician Prescribed Exercise Modalities: Treadmill, Rower, Airdyne Frequency (days/week): 3 Duration (Minutes):: 30-45 Intensity: 60-80% age predicted maximum heart rate reserve METs - Progression: 0.5-1.0 MET, RPE 11-14 WEEK: 7 Target Heart Rate:: 105-137 Max HR 141 - Hypertension Resting Blood Pressure:: 120/70 Peak Exercise Blood Pressure:: 210/110 - Intervention Home Exercise/Activity Goal:: Moderate Exercise 30 min/day x 5 days/wk - Education Goals:: Warm-up, RPE STAN Scale, S/S, Safe Exercise, Self-Monitoring - Exercise Program Goals Exercise Program Goals: Aerobic Activity >30 min, B/P <130/80 Nutrition - 90-Day Assessment - Program Goals Nutrition Program Goals: LDL <70. Total Cholesterol <200. HDL >45. Triglycerides <150. HgbA1C <7%. BMI <25 - Visit Date of Eval: 09/25/18 - Stages of Change Stages of Change:: Action - Weight Management Weight:: 88.904 kg - Intervention Referral to dietitian:: No Referral to Diabetic Clinic:: No Will attend diet classes:: Yes - Education Attended class for:: Signs & symptoms of hypoglycemia, Signs & symptoms of hyperglycemia, Relate diabetes to coronary artery disease, Healthy eating Tobacco - Initial Assessment - Program Goals Tobacco Program Goals: Complete smoking cessation. Attend education classes. Improve Knowledge Test score - Learning Barriers Learning Barriers: Ready to Learn Tobacco - 90-Day Assessment - Program Goals Tobacco Program Goals: Complete smoking cessation. Attend education classes. Improve Knowledge Test score - Stage of Change Stages of Change:: Action - Family Support Do you have family support?: Yes - Tobacco Use Tobacco Use: Non-smoker Do you use smokeless tobacco?: No - Intervention Smoking Cessation Referral:: No Individual Education/Counseling:: No Education Schedule Given:: Yes - Education Attended class for:: Tobacco triggers, Coronary artery disease, Risk factors, Sexuality, Medical compliance, Cardiac A&P, Angina signs & symptoms Psychosocial - Initial Assess - Target Goals Target Goals: Assess presence or absence of depression. Using a valid screening tool, maximizes coping skills. Positive support system - Psychosocial Test Tool Used:: HANDS Depression Questionnaire - Assistive Devices Fall Risk Assessed:: Yes Psychosocial - 90-Day Assess - Target Goals Target Goals: Assess presence or absence of depression. Using a valid screening tool, maximizes coping skills. Positive support system - Stages of Change Stages of Change:: Action - Psychosocial Test Tool Used:: HANDS Depression Questionnaire - Intervention PS - Interventions: Yes Attend Stress Management Classes, Yes Uses Stress Management Skills, No Referral to Mental Health, No Referral to [facility] Case Management, No Referral to Physician - Education Attended classes for:: Coping techniques, Signs & symptoms of depression, Stress management, Relaxation techniques - Assistive Devices Assistive Devices:: None Fall Risk Assessed:: Yes Patient Health Questionnaire 90-Day Re-eval Assessment 1. Little interest or pleasure in doing things: Not at all 2. Feeling down, depressed, or hopeless: Not at all 3. Trouble falling or staying asleep, or sleeping too much: Not at all 4. Feeling tired or having little energy: Not at all 5. Poor appetite or overeating: Not at all 6. Feeling bad about yourself -- or that you are a failure or have let yourself or your family down: Not at all 7. Trouble concentrating on things, such as reading the newspaper or watching television: Not at all 8. Moving or speaking so slowly that other people could have noticed. Or the opposite - being so fidgety or restless that you have been moving around a lot more than usual: Not at all 9. Thoughts that you would be better off , or of hurting yourself in some way: Not at all How difficult have these problems made it for you to do your work, take care of things at home, or get along with other people?: Not difficult at all Total Score: 0 Self-Efficacy 90-Day Re-eval Assessment We would like to know how confident you are in doing certain activities. Please select your confidence level for:: Select your confidence level for the following using the scale 1-10 where 1 is not at all confident and 10 is totally confident. Your score is the average of all 6 responses. Fatigue: How confident are you that you can keep the fatigue caused by your disease from interfering with the things you want to do? Select Number: 10 Physical Discomfort or Pain: How confident are you that you can keep the physical discomfort or pain of your disease from interfering with the things you want to do? Select Number: 10 Emotional Distress: How confident are you that you can keep the emotional distress caused by your disease from interfering with the things you want to do? Select Number: 10 Other Symptoms or Health Problems: How confident are you that you can keep other symptoms or health problems from interfering with the things you want to do? Select Number: 10 Different Tasks and Activities: How confident are you that you can do the different tasks and activities needed to manage your health condition so as to reduce your need to see a doctor? Select Number: 10 Medication: How confident are you that you can do things other than just taking medication to reduce how much your illness affects your everyday life? Select Number: 10 Total Score:: 10
[2018-09-25 08:36] VITALS: BP 120/70; BP 210/110
== END 2018-10-01 23:59 ==
LOC: CR 13:00
PROVIDERS: Family Provider Family Medicine; PCP Family Medicine; Referring Provider Internal Medicine Cardiovascular Disease; Visit Provider Internal Medicine Cardiovascular Disease
DX: I21.4 Non-ST elevation (NSTEMI) myocardial infarction (principal); I25.10 Atherosclerotic heart disease of native coronary artery without angina pectoris; Z95.5 Presence of coronary angioplasty implant and graft
CPT/HCPCS: 93798

== ENCOUNTER 2018-10-04 13:00 | Outpatient (RCR) | payer BC, SELFPAY ==
[2018-06-16 11:21] VITALS: BMI 29.0
[2018-10-02 00:20] VITALS: BP 120/70; BP 210/110
== END 2018-11-01 23:59 ==
LOC: CR 13:00
PROVIDERS: Family Provider Family Medicine; PCP Family Medicine; Referring Provider Internal Medicine Cardiovascular Disease; Visit Provider Internal Medicine Cardiovascular Disease
DX: I21.4 Non-ST elevation (NSTEMI) myocardial infarction (principal); I25.10 Atherosclerotic heart disease of native coronary artery without angina pectoris; Z95.5 Presence of coronary angioplasty implant and graft
CPT/HCPCS: 93798

== ENCOUNTER → 2019-05-10 09:34 | Outpatient (CLI) | payer OTHER, SELFPAY ==
[2018-06-16 11:21] VITALS: BMI 29.0
[2019-04-26 10:21] VITALS: BMI 29.0
--- NOTE | 2019-05-10 09:36 | STEWCON_ITS ---
Reason For Study: Chest Pain; CAD Stress Results Protocol: Delta Protocol WITH DEFINITY Maximum Predicted HR: 161 bpm Target HR: 137 bpm % Maximum Predicted HR: 88 % DurationHeart Rate Stage (mm:ss) (bpm) BP Comment Baseline 65 128/70No Chest Pain; 6 ML Diluted Definity Given Delta Protocol Stage I 3:00 93 132/70No Chest Pain Delta Protocol Stage II 3:00 117 150/74No Chest Pain; Mild Dyspnea Delta Protocol Stage III 3:00 142 154/72No Chest Pain; Moderate Dyspnea Recovery 87 118/80No Chest Pain Stress Duration: 9:00 mm:ss Maximum Stress HR: 142 bpm METS: 10 Baseline Echocardiogram Findings The estimated ejection fraction is 65 %. Stress Echo Wall motion Data Resting WM Intermediate WM Stress WM Resting Wall Motion Wall Motion Stress No regional wall motion No regional wall motion abnormalities noted. abnormalities noted. EKG Data The baseline ECG displays normal sinus rhythm. The maximum heart rate attained was 9:00 beats per minute. This was 88% of maximum predicted heart rate. The patient exercised into stage 4 of the Delta protocol. During stress, there were no ST or T wave changes noted to suggest ischemia. No clinical angina was noted. Interpretation Summary The estimated ejection fraction is 65 %. Normal, adequate treadmill echocardiogram. Negative for ischemia by EKG and echocardiographic criteria. No anginal symptoms noted. Rare PVCs noted. Appropriate blood pressure response to exercise. Average exercise capacity for age. Test terminated due to dyspnea. Final LVEF is 75%. Decreased sensitivity due to poor echo windows requiring Definity enhancing agent. Patient tolerated procedure well. No complications. The study was technically difficult. Contrast injection was performed. Ordering Physician: Jordy Dodson Referring Physician: Mauricio Moreno Performed By: Yolie Alarcon, RDCS, RVT
== END ==
PROVIDERS: PCP Family Medicine; Referring Provider Internal Medicine Cardiovascular Disease; Visit Provider Internal Medicine Cardiovascular Disease
DX: R07.9 Chest pain, unspecified (principal); I25.10 Atherosclerotic heart disease of native coronary artery without angina pectoris; I47.2 Ventricular tachycardia; Z95.5 Presence of coronary angioplasty implant and graft
CPT/HCPCS: 93017; 93350; Q9957; A4216; C8928

== ENCOUNTER → 2021-12-15 | Outpatient (CLI) | payer OTHER, SELFPAY ==
[2018-06-16 11:21] VITALS: BMI 29.0
[2021-12-15 11:32] LABS: Absolute Lymphocyte Count 2.12 X10^3/uL (0.83-4.51); Absolute Neutrophil Count 5.2 X10^3/uL (2.0-7.7); Basophil# 0.07 X10^3/uL; Basophil% 0.8 % (0-1); Eosinophil# 0.31 X10^3/uL; Eosinophils% 3.6 % (0-5); Hematocrit 44.8 % (40-54); Hemoglobin 15.3 g/dL (13.0-16.5); Lymphocyte # 2.12 X10^3/ul (0.83-4.51); Lymphocyte % 24.6 % (19-41); Mean Corp Hgb Conc 34.2 g/dL (32-36); Mean Corpuscular Volume 90.7 fL (80-94); Mean Platelet Vol. 11.2 fl (6.2-12.0); Monocyte# 0.86 X10^3/uL; NRBC Flagged by Analyzer 0 % (0-5); Neutrophil # 5.24 X10^3/uL (2.7-7.7); Neutrophil % 60.9 % (47-70); Platelet Count 214 K/mm3 (150-450); RBC Distribution Width CV 12.2 % (11.6-14.6); RBC Distribution Width SD 40.2 fl (35.1-43.9); Red Blood Count 4.94 M/mm3 (4.6-6.2); White Blood Count 8.6 K/mm3 (4.4-11.0)
[2021-12-15 12:05] LABS: AST(SGOT) 17 U/L (15-37); Alanine Aminotransfer ALT/SGPT 30 U/L (16-61); Albumin, Serum 3.7 g/dL (3.2-5.0); Alkaline Phosphatase 120 U/L (45-117); Cholesterol 133 mg/dL (200); Globulin 3.8 g/dL (2.2-4.2); High Density Lipoprotein 39 mg/dL; Protein, Total 7.5 g/dL (6.4-8.2); Triglycerides 183 mg/dL; Very Low Density Lipoprotein 37 mg/dL (5-40)
[2021-12-15 12:09] LABS: AST(SGOT) 16 U/L (15-37); Alanine Aminotransfer ALT/SGPT 30 U/L (16-61); Albumin, Serum 3.8 g/dL (3.2-5.0); Alkaline Phosphatase 118 U/L (45-117); Anion Gap 3 (5-15); BUN 20 mg/dL (7-18); BUN/Creat Ratio 17.1 RATIO (10-20); Calcium,Total 9.7 mg/dL (8.5-10.1); Chloride 107 mmol/L (98-107); Creatinine, Serum 1.17 mg/dL (0.70-1.30); EST Glomerular Filtration Rate 67 mL/min (>60); Est Glom Filt Rate - Afr Amer 81 mL/min (>60); Globulin 3.8 g/dL (2.2-4.2); Glucose 116 mg/dL (74-106); Protein, Total 7.6 g/dL (6.4-8.2); Sodium Level 140 mmol/L (136-145)
== END | disposition home or self-care (01) ==
LOC: LAB 11:09
PROVIDERS: Physician Assistant Medical; PCP Family Medicine; Referring Provider Internal Medicine Cardiovascular Disease; Visit Provider Internal Medicine Cardiovascular Disease
DX: I25.10 Atherosclerotic heart disease of native coronary artery without angina pectoris (principal); E78.5 Hyperlipidemia, unspecified
CPT/HCPCS: 36415; 80053; 80061; 80076; 85025

== ENCOUNTER → 2022-12-14 | Outpatient (CLI) | payer BC, SELFPAY ==
[2018-06-16 11:21] VITALS: BMI 29.0
[2022-12-14 12:57] LABS: AST(SGOT) 21 U/L (15-37); Alanine Aminotransfer ALT/SGPT 36 U/L (16-61); Albumin, Serum 3.6 g/dL (3.2-5.0); Alkaline Phosphatase 112 U/L (45-117); Bilirubin, Direct 0.13 mg/dL (0.00-0.30); Cholesterol 149 mg/dL (200); Globulin 3.5 g/dL (2.2-4.2); High Density Lipoprotein 39 mg/dL; Protein, Total 7.1 g/dL (6.4-8.2); Triglycerides 300 mg/dL; Very Low Density Lipoprotein 60 mg/dL (5-40)
== END | disposition home or self-care (01) ==
LOC: LAB 11:21
PROVIDERS: PCP Family Medicine; Referring Provider Physician Assistant Medical; Visit Provider Physician Assistant Medical
DX: E78.5 Hyperlipidemia, unspecified (principal); Z95.5 Presence of coronary angioplasty implant and graft
CPT/HCPCS: 36415; 80061; 80076

== ENCOUNTER → 2024-02-07 | Outpatient (CLI) | payer OTHER, SELFPAY ==
[2018-06-16 11:21] VITALS: BMI 29.0
[2024-02-07 13:18] LABS: AST(SGOT) 13 U/L (15-37); Alanine Aminotransfer ALT/SGPT 27 U/L (16-61); Albumin, Serum 3.8 g/dL (3.2-5.0); Alkaline Phosphatase 137 U/L (45-117); Anion Gap 6 (5-15); BUN 18 mg/dL (7-18); BUN/Creat Ratio 14.2 RATIO (10-20); Calcium,Total 9.4 mg/dL (8.5-10.1); Chloride 106 mmol/L (98-107); Cholesterol 137 mg/dL (200); Creatinine, Serum 1.27 mg/dL (0.70-1.30); EST Glomerular Filtration Rate 61 mL/min (>60); Est Glom Filt Rate - Afr Amer 73 mL/min (>60); Globulin 3.7 g/dL (2.2-4.2); Glucose 121 mg/dL (74-106); High Density Lipoprotein 37 mg/dL; Potassium 3.8 mmol/L (3.5-5.1); Protein, Total 7.5 g/dL (6.4-8.2); Sodium Level 139 mmol/L (136-145); Triglycerides 170 mg/dL; Very Low Density Lipoprotein 34 mg/dL (5-40)
[2024-02-07 13:42] LABS: Hemoglobin A1c 5.9 % (3.8-5.6)
== END | disposition home or self-care (01) ==
PROVIDERS: PCP Family Medicine; Referring Provider Physician Assistant Medical; Visit Provider Physician Assistant Medical
DX: E78.1 Pure hyperglyceridemia (principal); E78.5 Hyperlipidemia, unspecified
CPT/HCPCS: 36415; 80053; 80061; 83036

== ENCOUNTER → 2024-08-23 | Outpatient (CLI) | payer MEDICARE, BC, SELFPAY ==
[2018-06-16 11:21] VITALS: BMI 29.0
[2024-08-23 12:05] LABS: Cholesterol 122 mg/dL (<=200); High Density Lipoprotein 38 mg/dL; Low Density Lipoprotein Calc. 73 mg/dL; Triglycerides 51 mg/dL; Very Low Density Lipoprotein 10 mg/dL (5-40); cholesterol:hdl ratio screen 3.19
[2024-08-23 12:36] LABS: AST(SGOT) 22 U/L (<=37); Alanine Aminotransfer ALT/SGPT 17 U/L (<=46); Alkaline Phosphatase 119 U/L (40-129); BUN 8 mg/dL (4-19); BUN/Creat Ratio 7.5 RATIO (10-20); Calcium,Total 8.7 mg/dL (7.6-11.0); Carbon Dioxide 22.5 mmol/L (21.0-32.0); Chloride 104 mmol/L (98-108); Creatinine, Serum 1.04 mg/dL (0.70-1.20); EST Glomerular Filtration Rate 80 (>60); Glucose 104 mg/dL (70-99); Potassium 4.2 mmol/L (3.3-5.1); Sodium Level 138 mmol/L (133-145); Total Bilirubin 0.72 mg/dL (0.00-1.30)
[2024-08-23 12:47] LABS: Anion Gap 12 (5-15)
[2024-08-23 14:11] LABS: ALB/GLOB Ratio 1.5 RATIO (0.9-2.4); Albumin, Serum 4.2 g/dL (3.4-4.8); Globulin 2.8 g/dL (2.2-4.2)
== END | disposition home or self-care (01) ==
PROVIDERS: PCP Family Medicine; Referring Provider Physician Assistant Medical; Visit Provider Physician Assistant Medical
DX: I10 Essential (primary) hypertension (principal); E78.5 Hyperlipidemia, unspecified; Z95.5 Presence of coronary angioplasty implant and graft
CPT/HCPCS: 36415; 80053; 80061

== ENCOUNTER → 2024-10-15 | Outpatient (CLI) | payer MEDICARE, BC, SELFPAY ==
[2018-06-16 11:21] VITALS: BMI 29.0
--- OUTSIDE RECORDS SUMMARY | 2024-10-15 06:20 | XMS RPT_ITS | CCD ---
Author Organization [facility] Care Team Providers Care [facility] Nurse Name Role Phone Marlys Moreno MD Primary Care Provider Jordy Dodson MD Unavailable Dr. Marlys Moreno Primary Care Provider Dr. Marlys Moreno Referring Provider Dr. Moe Schwartz Attending Provider Marlys Moreno MD Primary Care Provider Jordy Dodson MD Unavailable Marlys Moreno MD Primary Care Provider Jordy Dosdon MD Unavailable [phone] Marlys Moreno Primary Care Provider Dr. Marlys Moreno Referring Provider Naveed BARNETT, PA Shirlene Fofana Attending Provider Marlys Moreno MD Primary Care Provider Jing MALDONADON.Elise LEE Unavailable Mick Mccann APRN.CNP Unavailable Dr. Marlys Moreno MD Primary Care Provider Dr. Marlys Moreno MD Referring Provider Shirlene Florian Attending Provider Shirlene Florian Referring Provider CRISTHIAN PETIT Attending Unavailable MARLYS MORENO Primary Care Unavailable CRISTHIAN PETIT Attending Unavailable MARLYS MORENO Primary Care Unavailable CRISTHIAN PETIT Attending Unavailable MARLYS MORENO Primary Care Unavailable CRISTHIAN PETIT Attending Unavailable MARLYS MORENO Primary Care Unavailable MARLYS MORENO Attending Unavailable MARLYS MORENO Primary Care Unavailable MARLYS MORENO Primary Care Unavailable ELISE CH Referring Unavailable ELDERROSE, MARLYS Lagos Attending Unavailable MARLYS MORENO Primary Care Unavailable MARLYS MORENO Referring Unavailable MARLYS MORENO Primary Care Unavailable MARLYS MORENO Primary Care Unavailable MARLYS MORENO Attending Unavailable NANCY CORONEL Attending Unavailable MARLYS MORENO Primary Care Unavailable Marlys Moreno Primary Care Unavailable Shirlene Florian Referring Unavail able Naveed BARNETT, Shirlene Fofana Attending Unavail able Marlys Moreno Primary Care Unavailable Shirlene Florian Attending Unavail able Marlys Moreno Referring Unavailable Marlys Moreno Primary Care Unavailable Shirlene Florian Attending Unavail able Marlys Moreno Referring Unavailable Shirlene Florian Attending Unavail able Naveed BARNETT, Shirlene Fofana Referring Unavail able Marlys Moreno Primary Care Unavailable Naveed BARNETT, Shirlene Fofana Attending Unavail able Naveed BARNETT, Shirlene Fofana Referring Unavail able Marlys Moreno Primary Care Unavailable Marlys Moreno Primary Care Unavailable Naveed BARNETT, Shirlene Fofana Attending Unavail able Marlys Moreno Referring Unavailable Medications Current Medications Medication Drug Class(es) Dates Sig (Normalized) Sig (Original) aspirin 81 mg chewable tablet (20 sources) Platelet Aggregation Inhibitor, Nonsteroidal Anti-inflammatory Drug Start: 06-20-2018 take 1 tablet by mouth once daily aspirin 81 mg chewable tablet Take 1 tablet by mouth once daily. 06/20/2018 Active Start: 06-17-2018 take 1 tablet by mariah th once daily Aspirin 81 MG tablet Active 81 mg PO DAILY@0800 June 17, 2018 12:00am Comment on above: Take 1 tablet by mariah th once daily. atorvastatin 80 mg oral tablet (20 sources) HMG-CoA Reductase Inhibitor Start: 9 End: 5 take 1 tablet by mouth once daily atorvastatin (LIPITOR) 80 mg tablet Take 1 tablet by mouth once daily. 06/20/2018 Active Comment on above: Take 1 tablet by mariah th once daily. carvedilol 3.125 mg oral tablet (20 sources) alpha-Adrenergic Juan R, beta-Adrenergic Juan R Start: 1 End: 5 take 1 tablet by mouth twice daily at mealtime Carvedilol 3.125 mg tablet Active 3.125 mg PO TWICE A DAY 180 August 23, 2024 9:06am must administer with a meal/food Start: 03-29-2019 carvedilol (CO REG) 12.5 mg tablet Half tablet twice daily 03/29/2019 Active Start: 07-19-2018 End: 12-16-2020 take 1 tablet by mouth twice daily at mealtime Carvedilol (Coreg) 6.25 mg tablet Discontinued 6.25 mg PO TWICE A DAY 60 September 02, 2020 4:45pm December 16, 2020 11:38am must administer with a meal/food Start: 06-17-2018 End: 07-19-2018 take 1 tablet by mouth twice daily Carvedilol 12.5 mg tablet Discontinued 12.5 mg PO TWICE A DAY 180 July 05, 2018 11:11am July 19, 2018 10:23am Comment on above: Half tablet twice da augie cyclobenzaprine hydrochloride 10 mg oral tablet (8 sources) Muscle Relaxant Start: 12-26-19 End: 04-27-19 take 1 tablet by mouth twice daily as needed for muscle spasms cyclobenzaprine (FLEXERIL) 10 mg tablet Indications: Neck pain Take 1 tablet by mouth two times a day as needed for muscle spasm. 30 tablet 12/26/2023 04/27/2024 Discontinued (Course of therapy completed) lisinopril 10 mg oral tablet (20 sources) Angiotensin Converting Enzyme Inhibitor Start: 12-13-19 End: 08-24-19 25 take 1 tablet by mouth once lisinopril (ZESTRIL) 10 mg tablet Take 1 tablet by mouth every afternoon. 12/13/2023 Active Start: 06-17-2018 End: 08-07-2018 take 1 tablet by mouth once daily Lisinopril 5 mg tablet Discontinued 5 mg PO DAILY 90 July 05, 2018 11:12am August 07, 2018 2:20pm molnupiravir 200 mg capsule (2 sources) Start: 06-04-2022 End: 06-09-2022 take 4 capsules by mouth twice daily molnupiravir 200 mg capsule Indications: Positive self-administered antigen test for COVID-19 Take 4 capsules by mouth twice daily for 5 days. 40 capsule 0 06/04/2022 06/09/2022 Active Comment on above: Take 4 capsules by [facility] twice daily for 5 days. nitroglycerin 0.4 mg sublingual tablet (20 sources) Nitrate Vasodilator Start: 06-17-2018 nitroglycerin sublingual (NITROQUICK) 0.4 mg SL tablet Dissolve 1 tablet under the tongue every 5 minutes as needed for Chest Pain. 06/20/2018 Active Comment on above: Dissolve 1 tablet un rené the tongue every 5 minutes as needed for Chest Pain. predniSONE 20 mg oral tablet (3 sources) Start: 12-26-2023 End: 01-26-2024 take 2 tablets by mouth once daily predniSONE (DELTASONE) 20 mg tablet Indications: Neck pain Take 2 tablets by mouth once daily. 10 tablet 12/26/2023 01/26/2024 Discontinued (Course of therapy completed) varenicline 0.5 mg oral tablet (20 sources) Partial Cholinergic Nicotinic Agonist Start: 12-05-2020 End: 06-10-2022 take 1 tablet by mouth once daily varenicline (CHANTIX STARTING MONTH BOX) 0.5 mg (11)- 1 mg (42) tablet Take 0.5 mg by mouth once daily on Days 1 through 3, THEN 0.5 mg twice daily on Days 4 through 7, THEN 1 mg twice daily on Day 8 and thereafter 53 tablet 0 12/05/2020 06/10/2022 Discontinued (Course of therapy completed) Start: 12-05-2020 take 1 tablet by mariah twice daily varenicline (CHANTIX CONTINUING MONTH BOX) 1 mg tablet Take 1 tablet by mouth twice daily. 56 tablet 2 12/05/2020 Active Comment on above: Take 1 tablet by mariah twice daily. Take 0.5 mg by mouth once daily on Days 1 through 3, THEN 0.5 mg twice daily on Days 4 through 7, THEN 1 mg twice daily on Day 8 and thereafter Completed/Discontinued Medications Medication Drug Class(es) Dates Sig (Normalized) Sig (Original) acetaminophen 325 mg / oxyCODONE hydrochloride 5 mg oral tablet (20 sources) Opioid Agonist Start: 02-14-2024 End: 09-05-2024 take 1 tablet by mouth every eight hours as needed for pain oxyCODONE-acetamino phen (PERCOCET) 5-325 mg tablet Indications: Lumbar post-laminectomy syndrome Take 1 tablet by mouth every 8 hours as needed for pain for up to 30 days. Patient should start on May 14, 2024. 90 tablet 05/14/2024 09/05/2024 Discontinued (Course of therapy completed) Start: 11-18-2023 End: 02-09-2024 take 1 tablet by mouth every eight hours as needed for pain oxyCODONE-acetaminophen (PERCOCET) 5-325 mg tablet Indications: Lumbar post-laminectomy syndrome Take 1 tablet by mouth every 8 hours as needed for pain for up to 30 days. 90 tablet 01/10/2024 01/26/2024 Discontinued Start: 05-22-2023 End: 11-12-2023 take 1 tablet by mouth every eight hours as needed for pain oxyCODONE-acetaminophen (PERCOCET) 5-325 mg tablet Indications: Lumbar post-laminectomy syndrome Take 1 tablet by mouth every 8 hours as needed for pain for up to 30 days. 90 tablet 0 10/13/2023 11/11/2023 Discontinued Start: 02-20-2023 End: 05-17-2023 take 1 tablet by mouth every eight hours as needed for pain oxyCODONE-acetaminophen (PERCOCET) 5-325 mg tablet Indications: Lumbar post-laminectomy syndrome Take 1 tablet by mouth every 8 hours as needed for pain for up to 30 days. Do not start before April 22, 2023. 90 tablet 0 04/22/2023 05/17/2023 Discontinued Start: 01-21-2023 End: 02-14-2023 take 1 tablet by mouth every eight hours as needed for pain oxyCODONE-acetaminophen (PERCOCET) 5-325 mg tablet Indications: Lumbar post-laminectomy syndrome Take 1 tablet by mouth every 8 hours as needed for pain for up to 30 days. Do not start before January 21, 2023. 90 tablet 0 01/21/2023 02/14/2023 Discontinued Start: 01-21-2023 End: 01-17-2023 take 1 tablet by mouth every eight hours as needed for pain oxyCODONE-acetaminophen (PERCOCET) 5-325 mg tablet Indications: Lumbar post-laminectomy syndrome Take 1 tablet by mouth every 8 hours as needed for pain for up to 30 days. Do not start before January 21, 2023. 90 tablet 0 01/21/2023 01/17/2023 Discontinued Start: 03-27-2022 End: 02-20-2023 take 1 tablet by mouth every eight hours as needed for pain oxyCODONE-acetaminophen (PERCOCET) 5-325 mg tablet Indications: Lumbar post-laminectomy syndrome Take 1 tablet by mouth every 8 hours as needed for pain for up to 30 days. Do not start before January 21, 2023. 90 tablet 0 01/21/2023 02/20/2023 Active Start: 01-26-2022 End: 03-18-2022 take 1 tablet by mouth every eight hours as needed for pain oxyCODONE-acetaminophen (PERCOCET) 5-325 mg tablet Indications: Lumbar post-laminectomy syndrome Take 1 tablet by mouth every 8 hours as needed for pain for up to 30 days. Do not start before February 25, 2022. 90 tablet 0 02/25/2022 03/18/2022 Discontinued Start: 12-25-2021 End: 01-19-2022 take 1 tablet by mouth every eight hours as needed oxyCODONE-acetaminophen (PERCOCET) 5-325 mg tablet Indications: Lumbar post-laminectomy syndrome Take 1 tablet by mouth every 8 hours as needed for up to 30 days. Do not start before December 25, 2021. 90 tablet 0 12/25/2021 01/19/2022 Discontinued Start: 10-28-2021 End: 12-23-2021 take 1 tablet by mouth every eight hours as needed oxyCODONE-acetaminophen (PERCOCET) 5-325 mg tablet Indications: Postlaminectomy syndrome, lumbar region Take 1 tablet by mouth every 8 hours as needed for up to 30 days. 90 tablet 0 11/23/2021 12/23/2021 Active Start: 09-08-2019 End: 10-23-2021 take 1 tablet by mouth every eight hours as needed oxyCODONE-acetaminophen (PERCOCET) 5-325 mg tablet Take 1 tablet by mouth every 8 hours as needed. 0 09/08/2019 10/23/2021 Discontinued Start: 06-16-2018 End: 08-23-2024 Oxycodone-Acetaminophen 5-32 5 mg tablet Discontinued 1 {tbl} PO THREE TIMES A DAY as needed for chronic back pain December 14, 2022 10:43am August 23, 2024 8:24am Start: 06-16-2018 End: 12-14-2022 take 1 tablet by mouth three times daily Oxycodone-Acetaminophen Active 1 TABLET PO THREE TIMES A DAY December 14, 2022 10:43am Comment on above: Take 1 tablet by mariah th every 8 hours as needed. Take 1 tablet by mariah th every 8 hours as needed for up to 30 days. Do not start before October 28, 2021. Take 1 tablet by mariah th every 8 hours as needed for up to 30 days. Take 1 tablet by mariah th every 8 hours as needed for pain for up to 30 days. Do not start before January 26, 2022. Take 1 tablet by mariah th every 8 hours as needed for up to 30 days. Do not start before December 25, 2021. Take 1 tablet by mariah th every 8 hours as needed for pain for up to 30 days. Do not start before February 25, 2022. Take 1 tablet by mariah th every 8 hours as needed for pain for up to 30 days. Do not start before March 27, 2022. Take 1 tablet by mariah th every 8 hours as needed for pain for up to 30 days. Do not start before April 26, 2022. Take 1 tablet by mariah th every 8 hours as needed for pain for up to 30 days. Do not start before May 26, 2022. Take 1 tablet by mariah th every 8 hours as needed for pain for up to 30 days. Do not start before June 25, 2022. Take 1 tablet by mariah th every 8 hours as needed for pain for up to 30 days. Do not start before July 25, 2022. Take 1 tablet by mariah th every 8 hours as needed for pain for up to 30 days. Do not start before August 24, 2022. Take 1 tablet by mariah th every 8 hours as needed for pain for up to 30 days. Do not start before September 23, 2022. Take 1 tablet by mariah th every 8 hours as needed for pain for up to 30 days. Do not start before October 23, 2022. Take 1 tablet by mariah th every 8 hours as needed for pain for up to 30 days. Do not start before November 22, 2022. Take 1 tablet by mariah th every 8 hours as needed for pain for up to 30 days. Take 1 tablet by mariah th every 8 hours as needed for pain for up to 30 days. Do not start before January 21, 2023. Take 1 tablet by mariah th every 8 hours as needed for pain for up to 30 days. Do not start before February 20, 2023. Take 1 tablet by mariah th every 8 hours as needed for pain for up to 30 days. Do not start before March 22, 2023. Take 1 tablet by mariah th every 8 hours as needed for pain for up to 30 days. Do not start before May 22, 2023. Take 1 tablet by mariah th every 8 hours as needed for pain for up to 30 days. Do not start before April 22, 2023. Take 1 tablet by mariah th every 8 hours as needed for pain for up to 30 days. Do not start before June 21, 2023. Take 1 tablet by mariah th every 8 hours as needed for pain for up to 30 days. Do not start before July 21, 2023. clopidogrel 75 mg oral tablet (20 sources) P2Y12 Platelet Inhibitor Start: 9 End: 4 take 1 tablet by mouth once daily Clopidogrel 75 mg tablet Discontinued 75 mg PO DAILY July 07, 2023 6:27pm February 27, 2024 4:00pm Comment on above: Take 75 mg by mouth once daily. ondansetron 4 mg oral tablet (3 sources) Serotonin-3 Receptor Antagonist Start: 5 End: 5 take 1 tablet by mouth every eight hours as needed for nausea and nausea ondansetron (ZOFRAN) 4 mg tablet Indications: Nausea Take 1 tablet by mouth every 8 hours as needed for nausea/vomiting. 20 tablet 06/29/2024 09/05/2024 Discontinued (Course of therapy completed) tamsulosin hydrochloride 0.4 mg oral capsule (1 source) alpha-Adrenergic Juan R Start: 1 tamsulosin (FLOMAX) 0.4 mg Flomax 0.4 mg capsule 0 07/18/2020 Active Comment on above: Flomax 0.4 mg capsul e Problems Active Problems Problem Classification Problem Date Documented Da te Episodic/Chronic Abdominal pain (1 source) Left flank pain; Translations: [Unspecified abdominal pain] Episodic Acute myocardial infarction (20 sources) Myocardial infarction; Translations: [Acute myocardial infarction, unspecified] Onset: 10-24-2021 10-24-2021 Chronic Cardiac dysrhythmias (3 sources) Nonsustained ventricular tachycardia ; Translations: [Ventricular tachycardia] 12-14-2021 Chronic Comment on above: Post PCI 5 beat run Coronary atherosclerosis and other heart disease (20 sources) Coronary atherosclerosis; Translations: [Atherosclerotic heart disease of [place] coronary artery without angina pectoris] Onset: 06-16-2018 06-26-2018 Chronic Coronary atherosclerosis and other heart disease (5 sources) Presence of coronary angioplasty implant and graft; Translations: [Percutaneous transluminal coronary angioplasty status] Onset: 06-16-2018 Episodic Disorders of lipid metabolism (14 sources) Hyperlipidemia; Translations: [Hyperlipidemia, unspecified] Onset: 02-28-2024 Chronic Essential hypertension (3 sources) Essential hypertension; Translations: [Essential (primary) hypertension] Onset: 08-28-2024 12-13-2023 Chronic Nausea and vomiting (1 source) Nausea; Translations: [Nausea] 06-29-2024 Episodic Osteoarthritis (20 sources) Degenerative joint disease involving multiple joints; Translations: [Polyosteoarthritis , unspecified] Onset: 06-20-2017 10-24-2021 Chronic Other connective tissue disease (1 source) Pain of left thigh; Translations: [Pain in left thigh] Episodic Other nervous system disorders (20 sources) Chronic pain syndrome; Translations: [Chronic pain syndrome] Onset: 04-18-2023 04-18-2023 Chronic Other nervous system disorders (1 source) Burning feet; Translations: [Other disturbances of skin sensation] 10-24-2023 Episodic Other nervous system disorders (1 source) Numbness of foot ; Translations: [Anesthesia of skin] 12-13-2023 Episodic Other nutritional; endocrine; and metabolic disorders (3 sources) Obesity; Translations: [Obesity, unspecified] 12-14-2021 Chronic Other screening for suspected conditions (not mental disorders or infectious disease) (2 sources) Patient encounter status; Translations: [Encounter for screening for malignant neoplasm of prostate] Episodic Residual codes; unclassified (1 source) Illness; Translations: [Other general symptoms and signs] 10-24-2023 Episodic Residual codes; unclassified (1 source) Tobacco user; Translations: [Tobacco use] 03-19-2024 Episodic Screening and history of mental health and substance abuse codes (3 sources) Ex-smoker; Translations: [Personal history of nicotine dependence] 08-08-2020 Episodic Spondylosis; intervertebral disc disorders; other back problems (20 sources) Lumbar post-laminectomy syndrome; Translations: [Postlaminectomy syndrome, not elsewhere classified] Onset: 06-20-2017 Chronic Viral infection (1 source) COVID-19; Translations: [Other specified viral infection] Episodic Past or Other Problems Problem Classification Problem Date Documented Da te Episodic/Chronic Diabetes mellitus without complication (4 sources) Prediabetes; Translations: [Prediabetes] Onset: 05-04-2024 11-02-2023 Episodic Other aftercare (20 sources) Long-term current use of drug therapy; Translations: [Other half-way (current) drug therapy] Onset: 05-11-2018 10-24-2021 Episodic Other aftercare (1 source) 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; Translations: [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] Onset: 10-24-2021 Episodic Other connective tissue disease (20 sources) Fibromyositis; Translations: [Fibromyalgia] Onset: 06-20-2017 Resolved: 11-05-2021 10-24-2021 Episodic Other connective tissue disease (20 sources) Myofascial pain syndrome; Translations: [Myalgia, other site] Onset: 11-05-2021 11-05-2021 Episodic Other connective tissue disease (1 source) Myalgia, other site; Translations: [Myofascial pain syndrome] Onset: 11-05-2021 Episodic Other nervous system disorders (1 source) Other disturbances of skin sensation; Translations: [Burning sensation of feet] Onset: 10-25-2023 Episodic Other nervous system disorders (1 source) Anesthesia of skin; Translations: [Anesthesia of skin] Onset: 12-27-2023 Episodic Residual codes; unclassified (1 source) Other general symptoms and signs; Translations: [Ill feeling] Onset: 10-25-2023 Episodic Spondylosis; intervertebral disc disorders; other back problems (20 sources) Chronic low back pain; Translations: [Chronic lower back pain] Onset: 05-15-2011 Resolved: 11-05-2021 05-15-2011 Episodic Substance-related disorders (20 sources) Smoker; Translations: [Nicotine dependence, unspecified, uncomplicated] Onset: 08-19-2017 Resolved: 10-24-2023 08-19-2017 Chronic Results Test Name Value Interpretation Reference Range [id number] Office Visit (FAMPWS ) ABBIE NESBITT ([id number]) 1960 M Date Time Provider Department 09/13/24 8:40 AM [facility] During your visit today, we recorded the following information about you: Pulse Respiration Blood pressure Weight 70/minute 16/minute 112/70 91.4 kg Marlys Moreno MD 09/13/2024 4:09 PM Signed Chief Complaint Patient presents with: 6 Month Exam HPI Abbie Nesbitt is a 64 year old male who presents here today for 6 month follow up. No bowel, Gi, or urinary issues. He does get up 2-3 x a night depending on the night. Has trouble staring to urinating, dribbling, and frequency. No pain or urgency with urination. He had a colonoscopy done with polyp removed in September 2018, with follow up depending on pathology report. No report received on pathology (office requested report today) HTN/CAD: S/P stent. Follows with [facility]; scheduled for routine 5 year stress test. Taking Lisinopril 10 mg daily, Coreg 12.5 mg half pill BID. No chest pains, dizziness, or SOB. Does check BP occ at home with readings WNL. Has nitro but has never needed to use it. Lipid: Taking Lipitor 80 mg daily and ASA 81 mg daily. He walks daily and does some light weight lifting for the last several months. Tries to watch diet some. Pain: Back, no longer follows with Pain Management ERICKA Caballero. Still has back pain, not any worse but no better. Past medical history, appointments, medications, allergies reviewed. Previous Medical History PAST MEDICAL HISTORY Diagnosis Date Chronic low back pain NSTEMI (non-ST elevated myocardial infarction) (HCC) 06/16/2018 Previous Surgical History PAST SURGICAL HISTORY Procedure Laterality Date ARTHRD ANT INTERBODY MIN DSC LUMBAR 05/17/2011 L4,5 and L5 S1 CARDIAC CATH N/A 06/17/2018 2 stents placed at [facility] COLONOSCOPY GEN ANES N/A 09/2019 Dr. Espinal PAST SURGICAL HISTORY OF disc surgery x 2 TONSILLECTOMY HX N/A 1982 Family History FAMILY HISTORY Problem Relation Age of Onset Cancer Father 80 gastric Stroke Father Heart disease Father Patient Allergies ALLERGIES No Known Allergies Current Medications Current Outpatient Medications on File Prior to Visit Medication Sig ondansetron (ZOFRAN) 4 mg tablet Take 1 tablet by mouth every 8 hours as needed for nausea/vomiting. oxyCODONE-acetaminoph en (PERCOCET) 5-325 mg tablet Take 1 tablet by mouth every 8 hours as needed for pain for up to 30 days. Patient should start on May 14, 2024. lisinopril (ZESTRIL) 10 mg tablet Take 1 tablet by mouth every afternoon. carvedilol (COREG) 12.5 mg tablet Half tablet twice daily aspirin 81 mg chewable tablet Take 1 tablet by mouth once daily. atorvastatin (LIPITOR) 80 mg tablet Take 1 tablet by mouth once daily. nitroglycerin sublingual (NITROQUICK) 0.4 mg SL tablet Dissolve 1 tablet under the tongue every 5 minutes as needed for Chest Pain. No current facility-administered medications on file prior to visit. Social History Social History Tobacco Use Smoking status: Former Current packs/day: 0.00 Average packs/day: 1 pack/day for 25.0 years (25.0 ttl pk-yrs) Types: Cigarettes Start date: 05/12/1986 Quit date: 05/12/2011 Years since quittin.3 Smokeless tobacco: Never Tobacco comments: quit in 10/2017 Vaping Use Vaping status: Never Used Substance Use Topics Alcohol use: Not Currently Comment: 1 x per month Drug use: Yes Comment: marijuana cpl times month EXAM: BP 112/70 Pulse 70 Resp 16 Wt 91.4 kg (201 lb 8 oz) BMI 28.30 kg/m? General Appearance: Well appearing, alert, in no acute distress, well-hydrated, well nourished.. Lungs: Lungs clear to auscultation. No wheezing, rhonchi, rales.. Heart: RRR without murmur, gallop, or rubs. No ectopy. Health Maintenance List Colorectal Cancer Screening due on 05/08/2018 Hepatitis C Screening due on 10/23/2024 HIV Screening due on 10/23/2024 Covid-19 Vaccine( season) due on 03/12/2025 Medicare Annual Wellness Visit due on 03/15/2025 Advance Directive Discussion due on 04/03/2025 Lung Cancer Screening due on 09/13/2025 Abdominal Aortic Aneurysm Screening due on 09/13/2025 Pneumococcal Vaccine: 50+(2 of 2 - PCV) due on 09/13/2025 Depression Screening due on 10/23/2024 Anxiety Screening due on 10/23/2024 Influenza Vaccine(Season Ended) due on 12/03/2024 LDL Cholesterol due on 05/04/2025 Annual PCP Team Chronic Disease Visit due on 09/13/2025 Prostate Cancer Screening Discussion due on 10/15/2026 Diabetes Screening due on 05/04/2027 Lipid Screening due on 05/04/2029 DTaP,Tdap,Td Vaccine(2 - Td or Tdap) due on 10/20/2031 RSV Vaccine(1 - 1-dose 75+ series) due on 07/26/2034 Shingrix Vaccine Completed Data reviewed [facility] labs 08/26/24: TC 122, Glu 107, Cr normal. ASSESSMENT/PLAN: 1. Coronary artery disease involving francesca (more content not included)... Normal [facility] CNOVon 09-05-2024 CNOV Office Visit (TANIA ) ABBIE NESBITT ([id number]) 1960 M Date Time Provider Department 09/05/24 2:00 PM CRISTHIAN PETIT During your visit today, we recorded the following information about you: Pulse Respiration Blood pressure 67/minute 16/minute 120/75 PetitCristhian PA-C 09/05/2024 2:13 PM Signed This note was created using Edutor. Subjective Abbie Nesbitt is a 64 year old male. The patient primarily being seen for back pain Patient was last seen on: 04/27/24 At that time, the treatment plan was: see notes Current Meds: Suboxone - Dick Li in July. Not using any longer. Efficacy: Side effects: TENS unit: no How often used: Benefit: Physical Therapy: years ago Last UDS: 04/27/24 Last injection: none OARRS reviewed At the present time, the patient is not currently on any medications from our office. Since his previous visit, he denies any hospitalizations or ER visits. He did suboxone for approximately a month but is done with this now. He has been having right heel pain for the last 2 weeks, but states that this typically goes away once he starts stretching his calves on a regular basis. 04/20/2024 09/04/2024 INTAKE PAIN ASSESSMENT Are you having pain associated with your visit today? Yes, Provider notified Yes, Provider notified Pain Scales Verbal (Numeric Rating or Visual Analog Scale) Verbal (Numeric Rating or Visual Analog Scale) Pain Level 3 3 Pain Location Back-Lower Back Description Stiffness Stiffness Duration Units Years Frequency Continuous Continuous Intervention/Comfort measure Medication;Relaxation ;Heat Relaxation;Heat;Posit ioning 04/27/2024 09/05/2024 Pain Disability Index Family/Home Responsibilities: This category includes chores or duties performed around the house (e.g. yard work), errands or favors for other family members (e.g. driving the children to school) 2 5 Recreation: This category includes hobbies, sports, and other similar leisure time activities 5 6 Social Activity: This category refers to activities which involve participation with friends and acquaintances, other than family members. It includes parties, theater, concerts, dinning out, and other social functions 2 6 Occupation: This category refers to activities that are a part of or directly related to ones' job. This includes non-paying jobs as well, such as that of a housewife or volunteer worker 3 0 No disability Sexual Behavior: This category refers to the frequency and quality of one's sex life 3 0 No disability Self Care: This category includes activities which involve personal maintenance and independent daily living (e.g. taking a shower, driving, getting dress, etc) 4 1 Life Support Activity: This category refers to basic-life supporting behaviors such as eating, sleeping, and breathing 2 1 PDI Score 21 19 PAST MEDICAL HISTORY Diagnosis Date Chronic low back pain NSTEMI (non-ST elevated myocardial infarction) (HCC) 06/16/2018 PAST SURGICAL HISTORY Procedure Laterality Date ARTHRD ANT INTERBODY MIN DSC LUMBAR 05/17/2011 L4,5 and L5 S1 CARDIAC CATH N/A 06/17/2018 2 stents placed at [facility] COLONOSCOPY GEN ANES N/A 09/2019 Dr. Espinal PAST SURGICAL HISTORY OF disc surgery x 2 TONSILLECTOMY HX N/A 1981 Social History Tobacco Use Smoking status: Former Current packs/day: 0.00 Average packs/day: 1 pack/day for 25.0 years (25.0 ttl pk-yrs) Types: Cigarettes Start date: 05/12/1986 Quit date: 05/12/2011 Years since quittin.3 Smokeless tobacco: Never Tobacco comments: quit in 10/2017 Vaping Use Vaping status: Never Used Substance Use Topics Alcohol use: Not Currently Comment: 1 x per month Drug use: Yes Comment: marijuana cpl times month Review of Systems Constitutional: Negative for fever and unexpected weight change. Musculoskeletal: Positive for back pain. + back pain, joint pain, muscle cramps, stiffness, and arthritis Objective BP 120/75 (BP Site: Left Arm, BP Position: Sitting) Pulse 67 Resp 16 SpO2 97% Physical Exam Vitals and nursing note reviewed. Constitutional: Appearance: Normal appearance. He is well-developed, well-groomed and overweight. HENT: Head: Normocephalic and atraumatic. Right Ear: Hearing normal. Left Ear: Hearing normal. Eyes: Conjunctiva/sclera: Conjunctivae normal. Musculoskeletal: Comments: He walks with a normal gait. He has tenderness to palpation in the lumbar region with spasms noted in the trapezius, paraspinal, and latissimus dorsi muscles. Strength is 5/5 throughout. Sensation is intact to light touch throughout. SLR is negative. Neurological: Mental Status: He is alert and oriented to person, place, and time. Psychiatric: Attention and Perception: Attention and perception normal. Mood and Affect: Mood and affect normal. Speech: Speech normal. Behavior: (more content not included)... Normal [facility] Anion gap in Serum or Plasma Ordered By: Shirlene Lucio on 08-23-2024 Anion gap [Moles/Vol] 12 mmol/L 5-15 [facility] BUN/creatinine ratioOrdered By: Shirlene Lucio on 08-23-2024 Urea nitrogen/Creatinine [Mass ratio] 7.5 mg/mg Low 10-20 [facility] Bilirubin, totalOrdered By: Shirlene Lucio on 08-23-2024 Bilirubin [Mass/Vol] 0.72 mg/dL 0.00-1.30 [facility] Calculated very low density lipoprotein (VLDL) cholesterol measurementOrdered By: Shirlene Lucio on 08-23-2024 Calculated very low density lipoprotein (VLDL) cholesterol measurement 10 mg/dL 5-40 [facility] Carbon dioxide, total [Moles /volume] in Central venous bloodOrdered By: Shilrene Lucio on 08-23-2024 CO2 [Moles/Vol] 22.5 mmol/L 21.0-32.0 [facility] Cardiology Visit Reporton Cardiology Visit Report [facility] [address] [place] [address] OFFICE VISIT Date of Service: 08/23/24 MR#: [id number] Acct: [id number] Name: ABBIE NESBITT Rep #: [id number] : 1960 Provider: ERICKA Zuniga Age/Sex: 64/M Location: [facility] Status: Signed HPI HPI History of Present Illness Details: Abbie Nesbitt is a 64-year-old gentleman that presents here today for a cardiovascular follow-up. Patient has a history of coronary artery disease with a non-STEMI in 2019 and underwent stenting of his proximal and mid LAD at that time. He also has a history of nonsustained ventricular tachycardia, hyperlipidemia. He did undergo stress testing in May 2019 where he exercised 10 metabolic equivalents without any evidence of ischemia. He does not have any chest discomfort/heaviness/ tightness. He does not have any worsening symptoms of shortness of breath. He denies any PND. He does not have any orthopnea. He does not have any symptoms of congestive heart failure. He does not have any palpitations that he is aware of. He does not have any lightheadedness or dizziness. He does not have any near-syncope or syncope. He does not have any lower extremity edema. He does not have any symptoms of claudication.He has lost weight, has changed his diet and has been exercising. Intake Vital Signs 02/27/24 14:45 08/23/24 06:41 08/23/24 09:06 Height 5 ft 10 in 5 ft 10 in Weight: 201 lb BMI 28.8 BP 130/80 H 167/93 H 128/82 H Blood Pressure Location Lt brachial Position Sitting Respiration 18 Pulse 63 Pulse Source Monitor Pulse Oximetry (%) 98 Intake Visit Reasons: 6 M FU Regulatory Internship Required: No Is patient in pain?: No Allergies No Known Allergies Allergy (Verified 08/23/24 08:23) Medications ???Medication ???Instructions ???Recorded ???Confirmed ???Type aspirin 81 mg tablet,delayed 81 mg PO DAILY@0800 06/17/1808/23 Rx release nitroglycerin 0.4 mg sublingual 0.4 mg sublingual Q5M PRN 06/17/18 08/23/24 Rx tablet Cardiac/Chest Pain #1 BOTTLE atorvastatin 80 mg tablet See Rx Instructions .Route 5 08/23/24 Rx .COMPLEX #90 tabs carvedilol 3.125 mg tablet 3.125 mg PO BID #180 tabs 08/23/24 08/23/24 Rx lisinopril 10 mg tablet 10 mg PO QDAY #90 tabs 08/23/24 Rx Ejection fraction %: 65 Have you fallen in the past year?: No PFSH Medical History Hypertriglyceridemia Essential hypertension Trigger finger Obesity History of non-ST elevation myocardial infarction (NSTEMI) (06/16/18) Hyperlipidemia NSVT (nonsustained ventricular tachycardia) Former smoker Atherosclerotic heart disease of [place] coronary artery without angina pectoris Surgical History History of coronary artery stent placement (06/16/18) Family History Father Myocardial infarction CAD (coronary artery disease) Brother CAD (coronary artery disease) Myocardial infarction Stented coronary artery Social History Smoking Status: Former smoker how long ago did patient quit smokin years ago alcohol intake: current alcohol intake frequency: holidays/special occasions only substance use type: does not use caffeine: Yes Type: coffee Number of servings: 3 ROS Const Const: Negative for fatigue, weakness, headache(s) or frequent falls Eyes Eyes: Negative for blurry vision ENT ENT: Negative for headache(s), dizziness or Nosebleed/epistaxis Cardio Chest Pain: No Palpitations: No Edema: None Muscle aches with walking: None Resp Respiratory: Negative for SOB with activity, SOB at rest or SOB orthopnea SOB lying down GI GI: Negative nausea, vomiting, heartburn, bright, red blood in stools or black,tarry stools : Negative for hematuria Musc Musc: Positive for muscle aches/ myalgia and joint pain Neuro Neuro: Negative for dizziness, lightheadedness, near syncope, syncope, frequent falls, headache(s), weakness or blurry vision Endo Endo: Negative for fatigue Cardiology Exam Const Appearance: cooperative, healthy appearing, comfortable, no acute distress and well developed Orientation: alert, awake and oriented x3 Head Head: normal to inspection Ears: hearing grossly normal bilaterally Nose: external nose normal Face and Sinus: face symmetric Mouth: oral mucosae normal, lip normal and moist mucous membranes Eyes General: appearance normal, both eyes and all related structures Eyelids: eyelids normal Conjunctivae: conjunctivae normal Pupils: PERRL EOM: EOM intact bilaterally Neck Neck: normal (more content not included)... Normal [facility] Chloride assayOrdered By: Flores Lucio on 08-23-2024 Chloride [Moles/Vol] 104 mmol/L 98-108 [facility] Comprehensive Metabolic Prof ilon 08-23-2024 Albumin [Mass/Vol] 4.2 g/dL Normal 3.4-4.8 [facility] Comment on above: Performed By: #### L 500.4100, L500.4050 #### [facility] [address] [place], [place], [id number] Albumin/Globulin [Mass ratio] 1.5 {ratio} Normal 0.9-2.4 [facility] Comment on above: Result Comment: AMENDED REPORT 08/23/241410 A/G previously reported as: -3.4 L RATIO Performed By: #### L 500.4100, L500.4050 #### [facility] [address] [place], [place], [id number] Globulin (S) [Mass/Vol] 2.8 g/dL Normal 2.2-4.2 [facility] Comment on above: Result Comment: AMENDED REPORT 08/23/241410 GLOB previously reported as: -1.2 L g/dL Performed By: #### L 500.4100, L500.4050 #### [facility] [address] [place], [place], [id number] T PROT 7.0 g/dL Normal 5.9-8.4 [facility] Comment on above: Result Comment: AMENDED REPORT 08/23/241410 T PROT previously reported as: 2.9 L g/dL Performed By: #### L 500.4100, L500.4050 #### [facility] [address] [place], [address] Glomerular filtration rate ( GFR) estimation/1.73 sq m using serum, plasma, or whole bOrdered By: Shirlene Lucio on 08-23-2024 GFR/1.73 sq M.predicted among non-blacks MDRD (S/P/Bld) [Vol rate/Area] 80 mL/min/{1.73_m2} >60 [facility] Comment on above: mL/min/1.73m2 CKD-EP I Creatinine Equation (2020) LDL calc ser/plasOrdered By: Shirlene Lucio on 08-23-2024 Cholesterol in LDL [Mass/Vol] 73 mg/dL [facility] Comment on above: Dvnfnsglbf=330-418 m g/dL & Higher Exqo=000 mg/dL or greater Laboratory - Chemistry and C hemistry - challengeOrdered By: Shirlene Lucio on 08-23-2024 AST [Catalytic activity/Vol] 22 U/L <38 [facility] Lipid Profileon 08-23-2024 CHOL:HDL 3.19 Normal [facility] Comment on above: Performed By: #### L 500.4100, L500.4050 #### [facility] [address] [place], [address] Cholesterol [Mass/Vol] 122 mg/dL Normal <=200 [facility] Comment on above: Result Comment: Chol esterol level, Desirable <200 mg/dL Borderline high cholesterol 200-239 mg/dL High cholesterol >=240 mg/dL Recommendations of the NCEP Adult Treatment Panel for the following risk-cutoff thresholds for the [place] population. Performed By: #### L 500.4100, L500.4050 #### [facility] [address] [place], [address] Cholesterol in HDL [Mass/Vol] 38 mg/dL Low [facility] Comment on above: Result Comment: Francesca onal Cholesterol Education Program (NCEP) guidelines: <40 mg/dL: Low HDL-cholesterol (major risk factor for CHD) >= 60 mg/dL: High HDL-cholesterol (negative risk factor for CHD) HDL-cholesterol is affected by a number of factors, e.g. smoking, exercise, hormones, sex and age. Performed By: #### L 500.4100, L500.4050 #### [facility] [address] [place], [address] Cholesterol in LDL [Mass/Vol] 73 mg/dL Normal [facility] Comment on above: Result Comment: Bord phifov=333-792 mg/dL Higher Pldk=061 mg/dL or greater Performed By: #### L 500.4100, L500.4050 #### [facility] [address] [place], [address] Cholesterol in VLDL [Mass/Vol] 10 mg/dL Normal 5-40 [facility] Comment on above: Performed By: #### L 500.4100, L500.4050 #### [facility] [address] [place], [address] Triglyceride [Mass/Vol] 51 mg/dL Normal [facility] Comment on above: Result Comment: The drugs N-Acetylcysteine and Metamizole may falsely depress this assay. Normal range: <150 mg/dL Borderline High: 150-199 mg/dL High: 200-499 mg/dL Very High: >500 mg/dL Performed By: #### L 500.4100, L500.4050 #### [facility] [address] [place], [place], [address] Potassium measurement (mass/ volume)Ordered By: Shirlene Lucio on 08-23-2024 Potassium (Unsp spec) [Mass/Vol] 4.2 mmol/L 3.3-5.1 [facility] Comment on above: Hemolysis present, R esults could be affected. Screening total cholesterol/ high density lipoprotein (HDL) cholesterol ratioOrdered By: Shirlene Lucio on 08-23-2024 Cholesterol.total/Arielle sterol in HDL [Mass ratio] 3.19 {ratio} [facility] Serum creatinine measurement (mass/volume)Ordered By: Shirlene Lucio on 08-23-2024 Creatinine [Mass/Vol] 1.04 mg/dL 0.70-1.20 [facility] Serum globulin measurementOr dered By: Shirlene Lucio on 08-23-2024 Globulin (S) [Mass/Vol] 2.8 g/dL 2.2-4.2 [facility] Comment on above: Previous reported re sult: -1.2 g/dLEdited by: AUTOINS on 08/23/24:1411 AMENDED REPORT 08/23/24 1411 GLOB previously reported as: -1.2 L g/dL Serum glucose measurement (m ass/volume)Ordered By: Shirlene Lucio on 08-23-2024 Glucose [Mass/Vol] 104 mg/dL High 70-99 [facility] Serum or plasma alanine casillas otransferase (ALT) measurementOrdered By: Shirlene Lucio on 08-23-2024 ALT [Catalytic activity/Vol] 17 U/L <47 [facility] Serum or plasma albumin sergo urement (mass/volume)Ordered By: Shirlene Lucio on 08-23-2024 Albumin [Mass/Vol] 4.2 g/dL 3.4-4.8 [facility] Serum or plasma albumin/glob ulin mass ratioOrdered By: Shirlene Lucio on 08-23-2024 Albumin/Globulin [Mass ratio] 1.5 {ratio} 0.9-2.4 [facility] Comment on above: Previous reported re sult: -3.4 RATIOEdited by: [employer] on 08/23/24:1247 AMENDED REPORT 08/23/24 1247 A/G previously reported as: -3.4 L RATIO Previous reported result: -3.4 RATIOEdited by: [employer] on 08/23/24:1411 AMENDED REPORT 08/23/24 1411 A/G previously reported as: -3.4 L RATIO Serum or plasma alkaline ronak sphatase measurementOrdered By: Shirlene Lucio on 08-23-2024 ALP [Catalytic activity/Vol] 119 U/L 40-129 [facility] Serum or plasma calcium sergo urement (mass/volume)Ordered By: Shirlene Lucio on 08-23-2024 Calcium [Mass/Vol] 8.7 mg/dL 7.6-11.0 [facility] Serum or plasma cholesterol in HDL measurement (mass/volume)Ordered By: Shirlene Lucio on 08-23-2024 Cholesterol in HDL [Mass/Vol] 38 mg/dL Low >40 [facility] Comment on above: National Cholesterol Education Program (NCEP) guidelines:<40 mg/dL: Low HDL-cholesterol (major risk factor for CHD)>= 60 mg/dL: High HDL-cholesterol (negative risk factor for CHD)HDL-cholesterol is affected by a number of factors, e.g. smoking, exercise, hormones, sex and age. Serum or plasma cholesterol measurement (mass/volume)Ordered By: Shirlene Lucio on 08-23-2024 Cholesterol [Mass/Vol] 122 mg/dL <201 [facility] Comment on above: Cholesterol level, D esirable <200 mg/dLBorderline high cholesterol 200-239 mg/dLHigh cholesterol >=240 mg/dLRecommendations of the NCEP Adult Treatment Panel for the following risk-cutoff thresholds for the [place] population. Serum or plasma urea nitroge n measurement (mass/volume)Ordered By: Shirlene Lucio on 08-23-2024 Urea nitrogen [Mass/Vol] 8 mg/dL 4-19 [facility] Sodium levelOrdered By: John Lucio on 08-23-2024 Sodium [Moles/Vol] 138 mmol/L 133-145 [facility] Total proteinOrdered By: Kevin lena Naveed on 08-23-2024 Protein [Mass/Vol] 7.0 g/dL 5.9-8.4 [facility] Comment on above: Previous reported re sult: 2.9 g/dLEdited by: DAVIS on 08/23/24:1411 AMENDED REPORT 08/23/24 1411 T PROT previously reported as: 2.9 L g/dL Triglycerides measurementOrd ered By: Shirlene Lucio on 08-23-2024 Triglyceride [Mass/Vol] 51 mg/dL <199 [facility] Comment on above: The drugs N-Acetylcy steine and Metamizole may falsely depress this assay. Normal range: <150 mg/dLBorderline High: 150-199 mg/dLHigh: 200-499 mg/dLVery High: >500 mg/dL [facility] ([id number]) 1960 M Date Time Provider Department 07/02/24 [facility] During your visit today, we recorded the following information about you: Any High, ROMY 07/02/2024 8:51 AM Signed Patient calls back to report that he continues to go through withdrawal (sweating, headache, weeping eyes, generally ill feeling). Patient reports that he was prescribed Zofran on Tuesday but he never had nausea or vomiting. He believes that he might have described his symptoms wrong. Patient reports that he has been completely off of Percocet since 06/28/2024. Patient reports that in the past when he went through these symptoms he was given Suboxone for withdrawal but pain management will not prescribe it. Notified that PCP doesn't prescribe that either. Patient asking what prescriber would recommend to get through symptoms as he is frustrated. Please review and advise, ROMY Tee Jesse, APRN.JESUS 07/02/2024 11:50 AM Signed I am not familiar with addiction medicine. Options are call [facility] in [place] at [phone] or if he wants more immediate help, he may go to the [place] ER and can ask to be admitted for Acute Withdrawal therapy. They have an area of the hospital dedicated to this. Mick Mccann APRN.Anel Wintres LPN 07/02/2024 11:59 AM Signed Patient notified. Verbalized understanding. Allergies As of Date: 07/02/2024 (No Known Allergies) Date Reviewed: 04/27/2024 Reviewed by: Cristhian Petit PA-C - Fully Assessed Reason for Visit: Patient Update [1234] Prescriptions as of 07/02/2024 - ondansetron (ZOFRAN) 4 mg tablet Take 1 tablet by mouth every 8 hours as needed for nausea/vomiting. - oxyCODONE-acetaminoph en (PERCOCET) 5-325 mg tablet Take 1 tablet by mouth every 8 hours as needed for pain for up to 30 days. Patient should start on May 14, 2024. - lisinopril (ZESTRIL) 10 mg tablet Take 1 tablet by mouth every afternoon. - carvedilol (COREG) 12.5 mg tablet Half tablet twice daily - aspirin 81 mg chewable tablet Take 1 tablet by mouth once daily. - atorvastatin (LIPITOR) 80 mg tablet Take 1 tablet by mouth once daily. - nitroglycerin sublingual (NITROQUICK) 0.4 mg SL tablet Dissolve 1 tablet under the tongue every 5 minutes as needed for Chest Pain. 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 Patient states that 3 weeks ago he started to take only 2 tablets daily instead of 3. Patient states for the past week he only has been taking on tablet daily. Patient has only a couple percocet left and states that he thinks he is going through withdraw. Patient reports low grade temperatures, nausea, and just not feeling right. Patient is asking if there is any medication that can be given for these symptoms? Please review and advise, ROMY Mansfield Jesse, APRN.JESUS 06/29/2024 1:53 PM Signed Please let the patient know that I have sent zofran in for him. The following approved medication requests have been transmitted electronically. Requested Prescriptions Signed Prescriptions Disp Refills ondansetron (ZOFRAN) 4 mg tablet 20 tablet 0 Sig: Take 1 tablet by mouth every 8 hours as needed for nausea/vomiting. Authorizing Provider: MICK MCCANN APRN.Vera Lord OCCA 06/29/2024 1:59 PM Signed TC to patient with no answer. Left VM to return call for update. KATLYN Beltran Cheyenne Lee 06/29/2024 2:18 PM Signed Patient called back, he received message and verbalized understanding. .Sisi Stark June 29, 2024 2:18 PM Allergies As of Date: 06/29/2024 (No Known Allergies) Date Reviewed: 04/27/2024 Reviewed by: Cristhian Petit PA-C - Fully Assessed Reason for Visit: Patient Question [1477] Primary Visit Diagnosis:Nausea [R11.0] Order(s):ondansetron (ZOFRAN) 4 mg tabletTake 1 tablet by mouth every 8 hours as needed for nausea/vomiting.Disp: 20 tabletRfl: 0 Prescriptions as of 06/29/2024 - ondansetron (ZOFRAN) 4 mg tablet Take 1 tablet by mouth every 8 hours as needed for nausea/vomiting. - oxyCODONE-acetaminoph en (PERCOCET) 5-325 mg tablet Take 1 tablet by mouth every 8 hours as needed for pain for up to 30 days. Patient should start on May 14, 2024. - lisinopril (ZESTRIL) 10 mg tablet Take 1 tablet by mouth every afternoon. - carvedilol (COREG) 12.5 mg tablet Half tablet twice daily - aspirin 81 mg chewable tablet Take 1 tablet by mouth once daily. - atorvastatin (LIPITOR) 80 mg tablet Take 1 tablet by mouth once daily. - nitroglycerin sublingual (NITROQUICK) 0.4 mg SL tablet Dissolve 1 tablet under the tongue every 5 minutes as needed for Chest Pain. 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 Encounter Status:Closed by SISI STARK on 06/29/24 [facility] 05-07-2024 [facility] (JOSE L) DELICI[address]BBIE Ct ([id number]) 1960 M Date Time Provider Department 05/07/24 ELISE CH During your visit today, we recorded the following information about you: Elise Ch APRN.[facility] 05/07/2024 9:03 AM Signed Can you please call the patient and let him know that I reviewed his lab results. Labs were all relatively normal. HDL cholesterol was low. I would like him to work on increasing healthy fats in the diet such as fish, avocado, and healthy cooking oils such as olive oil or avocado oil. Try to get some form of exercise. A1c went from 5.7 to 5.5. I would like him to get repeat fasting labs i prior to next visit with PCP in September Please let me know if he has any questions. Thank you. Elise Ch APRN.Alyce Stockton LPN 05/07/2024 9:09 AM Signed TC to pt. LM to call office, ask for triage nurse to get results. ARON Lynne Kathryn, MA 05/08/2024 10:02 AM Signed Pt notified of results via [employer]. 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 Patient should start on May 14, 2024. - lisinopril (ZESTRIL) 10 mg tablet Take 1 tablet by mouth every afternoon. - carvedilol (COREG) 12.5 mg tablet Half tablet twice daily - aspirin 81 mg chewable tablet Take 1 tablet by mouth once daily. - atorvastatin (LIPITOR) 80 mg tablet Take 1 tablet by mouth once daily. - nitroglycerin sublingual (NITROQUICK) 0.4 mg SL tablet Dissolve 1 tablet under the tongue every 5 minutes as needed for Chest Pain. 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 Comment on above: Order Comment: Speci men Type: BLOOD SPECIMENOrdering Facility: [facility] Address: [address] [place] [address] Performed By: #### 2 4323-8, 64888-2 ####[facility] LABCLIA [id number] [place] [address] [place] ALP [Catalytic activity/Vol] 136 U/L High 38-113 [facility] Comment on above: Order Comment: Speci men Type: BLOOD SPECIMENOrdering Facility: [facility] Address: [address] [place] [address] Performed By: #### 2 4323-8, 16610-6 ####[facility] LABCLIA [id number] [place] [address] [place] ALT [Catalytic activity/Vol] 24 U/L Normal 10-54 [facility] Comment on above: Order Comment: Speci men Type: BLOOD SPECIMENOrdering Facility: [facility] Address: [address] [place] [address] Performed By: #### 2 4323-8, 58200-8 ####[facility] LABCLIA [id number] [facility] [address] [address] [place] Anion gap [Moles/Vol] 11 mmol/L Normal 8-15 [facility] Comment on above: Order Comment: Speci men Type: BLOOD SPECIMENOrdering Facility: [facility] Address: [address] [place], [place] [address] Performed By: #### 2 4323-8, 83247-4 ####[facility] LABCLIA [id number] [place] [address] [place] AST [Catalytic activity/Vol] 21 U/L Normal 14-40 [facility] Comment on above: Order Comment: Speci men Type: BLOOD SPECIMENOrdering Facility: [facility] Address: [address] [place] [address] Performed By: #### 2 4323-8, 01391-9 ####[facility] LABCLIA [id number] [place] [address] [place] Bilirubin [Mass/Vol] 0.4 mg/dL Normal 0.2-1.3 [facility] Comment on above: Order Comment: Speci men Type: BLOOD SPECIMENOrdering Facility: [facility] Address: [address] [place], [place] [address] Performed By: #### 2 4323-8, 46698-5 ####[facility] LABCLIA [id number] [facility] [place] [id number] [place] Calcium [Mass/Vol] 9.7 mg/dL Normal 8.5-10.2 [facility] Comment on above: Order Comment: Speci men Type: BLOOD SPECIMENOrdering Facility: [facility] Address: [address] [place], [place] [address] Performed By: #### 2 4323-8, 14819-6 ####[facility] LABCLIA [id number] [place] [address] [place] Chloride [Moles/Vol] 103 mmol/L Normal 98-107 [facility] Comment on above: Order Comment: Speci men Type: BLOOD SPECIMENOrdering Facility: [facility] Address: [address] [place] [address] Performed By: #### 2 4323-8, 48584-5 ####[facility] LABCLIA [id number] [place] [address] [place] CO2 [Moles/Vol] 27 mmol/L Normal 22-30 [facility] Comment on above: Order Comment: Speci men Type: BLOOD SPECIMENOrdering Facility: [facility] Address: [address] [place] [address] Performed By: #### 2 4323-8, 47050-0 ####[facility] LABIA [id number] [place] [address] [place] Creatinine [Mass/Vol] 1.09 mg/dL Normal 0.73-1.22 [facility] Comment on above: Order Comment: Speci men Type: BLOOD SPECIMENOrdering Facility: [facility] Address: [address] [place] [address] Performed By: #### 2 4323-8, 83200-4 ####[facility] LABIA [id number] [address] [place] Creatinine and Glomerular filtration rate.predicted panel (S/P/Bld) 76 mL/min/1.73m??? Normal >=60 [facility] Comment on above: Order Comment: Speci men Type: BLOOD SPECIMENOrdering Facility: [facility] Address: [address] [place] [address] Result Comment: Vivian mated Glomerular Filtration Rate (eGFR) is calculated using the 2020 CKD-EPI creatinine equation. This equation utilizes serum creatinine, sex, and age as parameters. The creatinine assay has traceable calibration to isotope dilution-mass spectrometry. Refer to KDIGO guidelines for clinical interpretation. In patients with unstable renal function, e.g. those with acute kidney injury, the eGFR may not accurately reflect actual GFR. Performed By: #### 2 4323-8, 04601-0 ####[facility] LABCLIA [id number] [place] [id number] [place] Glucose [Mass/Vol] 99 mg/dL Normal 74-99 [facility] Comment on above: Order Comment: Speci men Type: BLOOD SPECIMENOrdering Facility: [facility] Address: [address] [place] [address] Result Comment: The [place] Diabetes Association (ADA) provides guidance for cutoff values for fasting glucose and random glucose. The ADA defines fasting as no caloric intake for at least 8 hours. Fasting plasma glucose results between 100 to 125 mg/dL indicate increased risk for diabetes (prediabetes). Fasting plasma glucose results greater than or equal to 126 mg/dL meet the criteria for diagnosis of diabetes. In the absence of unequivocal hyperglycemia, results should be confirmed by repeat testing. In a patient with classic symptoms of hyperglycemia or hyperglycemic crisis, random plasma glucose results greater than or equal to 200 mg/dL meet the criteria for diagnosis of diabetes. Reference: Standards of Medical Care in Diabetes 2016, [place] Diabetes Association. Diabetes Care. 2016.39(Suppl 1). Performed By: #### 2 4323-8, 43841-5 ####[facility] LABIA [id number] [place] [address] [place] Potassium [Moles/Vol] 4.4 mmol/L Normal 3.7-5.1 [facility] Comment on above: Order Comment: Nicki men Type: BLOOD SPECIMENOrdering Facility: [facility] Address: [address] [place] [address] Performed By: #### 2 4323-8, 02268-9 ####[facility] LABIA [id number] [place] [address] [place] Protein [Mass/Vol] 6.9 g/dL Normal 6.3-8.0 [facility] Comment on above: Order Comment: Nicki men Type: BLOOD SPECIMENOrdering Facility: [facility] Address: [address] [place] [address] Performed By: #### 2 4323-8, 87405-7 ####[facility] LABCLIA [id number] [place] [address] [place] Sodium [Moles/Vol] 141 mmol/L Normal 136-144 [facility] Comment on above: Order Comment: Speci men Type: BLOOD SPECIMENOrdering Facility: [facility] Address: [address] [place] [address] Performed By: #### 2 4323-8, 17669-8 ####[facility] LABIA [id number] [place] [address] [place] Urea nitrogen [Mass/Vol] 19 mg/dL Normal 9-24 [facility] Comment on above: Order Comment: Speci men Type: BLOOD SPECIMENOrdering Facility: [facility] Address: [address] [place] [address] Performed By: #### 2 4323-8, 67981-0 ####[facility] LABIA [id number] [place] [address] [place] HbA1c (Bld)on 05-04-2024 Average glucose Estimated from glycated hemoglobin (Bld) [Mass/Vol] 111 mg/dL Normal [facility] Comment on above: Order Comment: Speci men Type: BLOOD SPECIMENOrdering Facility: [facility] Address: [address] [place] [address] Result Comment: eAG: (Estimated average glucose) is a calculated value from HgbA1c and is patient accounting representative of the average blood glucose level in the last 2-3 month period. Performed By: #### 5 5454-3 ####[facility] LABIA [id number] [place] [address] [place] HbA1c (Bld) [Mass fraction] 5.5 % Normal 4.3-5.6 [facility] Comment on above: Order Comment: Speci men Type: BLOOD SPECIMENOrdering Facility: [facility] Address: [address] [place] [address] Result Comment: Amer [place] Diabetes Association guidelines indicate that patients with HgbA1c in the range 5.7-6.4% are at increased risk for development of diabetes, and intervention by lifestyle modification may be beneficial. HgbA1c greater or equal to 6.5% is considered diagnostic of diabetes. Performed By: #### 5 5454-3 ####[facility] LABCLIA [id number] [place] [address] [place] Lipid 1996 panelon 5 Cholesterol [Mass/Vol] 111 mg/dL Normal <200 [facility] Comment on above: Order Comment: Nickparker ordoñez Type: BLOOD SPECIMENOrdering Facility: [facility] Address: [address] [place] [address] Result Comment: <200 mg/dL, Desirable 200-239 mg/dL, Borderline high >239 mg/dL, High Performed By: #### 2 4323-8, 02625-6 ####[facility] LABCLIA [id number] [address] [place] Cholesterol in HDL [Mass/Vol] 34 mg/dL Low >39 [facility] Comment on above: Order Comment: Nickparker ordoñez Type: BLOOD SPECIMENOrdering Facility: [facility] Address: [address] [place] [address] Result Comment: 40-5 9 mg/dL, Acceptable >59 mg/dL, High: Negative risk factor for coronary heart disease <40 mg/dL, Low: Positive risk factor for coronary heart disease Performed By: #### 2 4323-8, 95470-1 ####[facility] LABIA [id number] [address] [place] Cholesterol in LDL [Mass/Vol] 57 mg/dL Normal <100 [facility] Comment on above: Order Comment: Nicki men Type: BLOOD SPECIMENOrdering Facility: [facility] Address: [address] [place] [address] Result Comment: <100 mg/dL, Optimal 100-129 mg/dL, Near optimal/above optimal 130-159 mg/dL, Borderline high 160-189 mg/dL, High >189 mg/dL, Very high Secondary prevention optimal LDL Cholesterol levels are recommended to be < 70 mg/dL Performed By: #### 2 4323-8, 72490-7 ####[facility] LABCLIA [id number] [place] [address] [place] Cholesterol in LDL/Cholesterol in HDL [Mass ratio] 1.68 {ratio} Normal <2.54 [facility] Comment on above: Order Comment: Speci men Type: BLOOD SPECIMENOrdering Facility: [facility] Address: [address] [place] [address] Result Comment: Refe pance: 1. National Cholesterol Education Program ATP III Guideline At-A-Glance Quick Desk Reference: National Heart, Lung, and Blood [place]. National Institutes of Health. 2001: NIH Publication No. 01-3305. 2. An International Atherosclerosis Society position paper: global recommendations for the management of dyslipidemia: executive summary, Atherosclerosis. 2014: 232(2):410-413. Performed By: #### 2 4323-8, 83783-3 ####[facility] LABCLIA [id number] [place] [address] [place] Cholesterol in VLDL [Mass/Vol] 20 mg/dL Normal <30 [facility] Comment on above: Order Comment: Nicki men Type: BLOOD SPECIMENOrdering Facility: [facility] Address: [address] [place] [address] Performed By: #### 2 4323-8, 20754-5 ####[facility] LABCLIA [id number] [place] [address] [place] Cholesterol non HDL [Mass/Vol] 77 mg/dL Normal <130 [facility] Comment on above: Order Comment: Nicki men Type: BLOOD SPECIMENOrdering Facility: [facility] Address: [address] [place] [address] Result Comment: <130 mg/dL, Optimal 130-159 mg/dL, Near optimal/above optimal 160-189 mg/dL, Borderline high 190-219 mg/dL, High >219 mg/dL, Very high Secondary prevention optimal non HDL Cholesterol levels are recommended to be <100 mg/dL Performed By: #### 2 4323-8, ####[facility] LABCLIA [id number] [address] OF [facility] Cholesterol.total/Arielle sterol in HDL [Mass ratio] 3.26 {ratio} Normal <5.10 [facility] Comment on above: Order Comment: Speci men Type: BLOOD SPECIMENOrdering Facility: [facility] Address: [address] [place] [address] Performed By: #### 2 4323-8, ####[facility] LABCLIA [id number] [address] FASTING TIME 12 hrs Normal [facility] Comment on above: Order Comment: Speci men Type: BLOOD SPECIMENOrdering Facility: [facility] Address: [address] [place] [address] Performed By: #### 2 4323-8, ####[facility] LABCLIA [id number] [address] Triglyceride [Mass/Vol] 98 mg/dL Normal <150 [facility] Comment on above: Order Comment: Speci men Type: BLOOD SPECIMENOrdering Facility: [facility] Address: [address] [place] [address] Result Comment: <150 mg/dL, Normal 150-199 mg/dL, Borderline high 200-499 mg/dL, High >499 mg/dL, Very high Performed By: #### 2 4323-8, ####[facility] LABCLIA [id number] [place] [address] [place] Cyndy 05-02-2024 JESUSN Telephone (TANIA) ABBIE NESBITT ([id number]) 1960 M Date Time Provider Department 05/02/24 CRISTHIAN PETIT During your visit today, we recorded the following information about you: Cristhian Petit PA-C 05/02/2024 7:12 AM Signed Please call the patient and find out if he used CBD at all. If he did, I will add the confirmation test to verify. If not, he will be made no narcotics due to multiple positive urine drugs for marijuana in the past. We will have him decrease his percocet to twice a day using his current script and then on the next script we will decrease this to once a day for 2 weeks, once every other day, and then stop it. Claudette Ochoa LPN 05/02/2024 1:56 PM Signed Called pt, and left message on Id'd VM to return call, number given. Claudette Ochoa LPN 05/02/2024 2:55 PM Signed Spoke with pt who stated he had used CBD about 3 weeks before the urine screen, and I will agree to the differential test. Explained extra cost involved, stated that will be ok. Cristhian Petit PA-C 05/02/2024 3:06 PM Signed Noted. I will have them fax the order for the test. Kenisha Lewis, RN 05/03/2024 10:46 AM Signed Pt called to office today, he states I feel very embarrassed and ashamed but I can't go on with telling a lie I used a gummy around 04/13 I have problems sleeping and a rajesh gave me the gummy to help with my sleep, he was very apologetic and just wanted to update what he had previously told us. Pt verbalized understanding that he will be nonnarcotic moving forward, reviewed the weaning schedule documented below. Encouraged pt to keep his upcoming appt to go over what other options there are to help his pain. Pt verbalized understanding and again apologized. Kenisha Lewis RN May 03, 2024 10:46 AM Allergies As of Date: 05/02/2024 (No Known Allergies) Date Reviewed: 04/27/2024 Reviewed by: Cristhian Petit PA-C - Fully Assessed Prescriptions as of 05/03/2024 - oxyCODONE-acetaminoph en (PERCOCET) 5-325 mg tablet Take 1 tablet by mouth every 8 hours as needed for pain for up to 30 days. Patient should start on May 14, 2024. - lisinopril (ZESTRIL) 10 mg tablet Take 1 tablet by mouth every afternoon. - carvedilol (COREG) 12.5 mg tablet Half tablet twice daily - aspirin 81 mg chewable tablet Take 1 tablet by mouth once daily. - atorvastatin (LIPITOR) 80 mg tablet Take 1 tablet by mouth once daily. - nitroglycerin sublingual (NITROQUICK) 0.4 mg SL tablet Dissolve 1 tablet under the tongue every 5 minutes as needed for Chest Pain. 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] 06/20/2017 11/05/2021 Generalized osteoarthritis [M15.9] 06/20/2017 Lumbar post-laminectomy syndrome [M96.1] 06/20/2017 Myocardial infarction (HCC) [I21.9] 10/24/2021 Other half-way (current) drug therapy [Z79.899]05/11/2018 Myofascial pain syndrome [M79.18] 11/05/2021 Chronic pain syndrome [G89.4] 04/18/2023 Encounter Status:Closed by CLAUDETTE OCHOA on 05/02/24 [facility] 04-27-2024 CNOV Office Visit (PAMMJK ) ABBIE NESBITT ([id number]) 1960 M Date Time Provider Department 04/27/24 8:30 AM CRISTHIAN PETIT During your visit today, we recorded the following information about you: Pulse Respiration Blood pressure Weight 81/minute 18/minute 145/88 95.3 kg Pk Kapadia, RN 04/27/2024 8:44 AM Signed Percocet am Med helps pain Denies side effects Last uds-04/27/24 Cristhian Petit PA-C 04/27/2024 8:44 AM Signed This note was created using Edutor. Subjective Abbie Nesbitt is a 63 year old male. The patient primarily being seen for back pain Patient was last seen on: 01/26/24 At that time, the treatment plan was: see notes Current Meds: percocet - am Efficacy: help Side effects: denies TENS unit: no How often used: Benefit: Physical Therapy: years ago Last UDS: 04/27/24 Last injection: none OARRS reviewed At the present time, the patient reports benefit with his present analgesic therapy. He denies any adverse effects. Since his previous visit, he denies any hospitalizations or ER visits. Otherwise, he has nothing further to discuss at this time. 03/11/2024 04/20/2024 INTAKE PAIN ASSESSMENT Are you having pain associated with your visit today? No Yes, Provider notified Pain Scales Verbal (Numeric Rating or Visual Analog Scale) Pain Level 3 Pain Location Back-Lower Description Stiffness Frequency Continuous Intervention/Comfort measure Medication;Relaxation ;Heat Back Pain Pertinent negatives include no fever. PAST MEDICAL HISTORY Diagnosis Date Chronic low back pain NSTEMI (non-ST elevated myocardial infarction) ([facility]) 06/16/2018 PAST SURGICAL HISTORY Procedure Laterality Date ARTHRD ANT INTERBODY MIN DSC LUMBAR 05/17/2011 L4,5 and L5 S1 CARDIAC CATH N/A 06/17/2018 2 stents placed at [facility] COLONOSCOPY GEN ANES N/A 09/2019 Dr. Espinal PAST SURGICAL HISTORY OF disc surgery x 2 TONSILLECTOMY HX N/A 1981 Social History Tobacco Use Smoking status: Former Current packs/day: 0.00 Average packs/day: 1 pack/day for 25.0 years (25.0 ttl pk-yrs) Types: Cigarettes Start date: 05/12/1986 Quit date: 05/12/2011 Years since quittin.9 Smokeless tobacco: Never Tobacco comments: quit in 10/2017 Vaping Use Vaping status: Never Used Substance Use Topics Alcohol use: Not Currently Comment: 1 x per month Drug use: No Review of Systems Constitutional: Negative for fever and unexpected weight change. Musculoskeletal: Positive for back pain. + back pain, joint pain, muscle cramps, stiffness, and arthritis Objective BP 145/88 (BP Site: Left Arm, BP Position: Sitting, BP Cuff Size: Regular Adult) Pulse 81 Resp 18 Wt 95.3 kg (210 lb) SpO2 97% BMI 29.50 kg/m? Physical Exam Vitals and nursing note reviewed. Constitutional: Appearance: Normal appearance. He is well-developed, well-groomed and overweight. HENT: Head: Normocephalic and atraumatic. Right Ear: Hearing normal. Left Ear: Hearing normal. Eyes: Conjunctiva/sclera: Conjunctivae normal. Musculoskeletal: Comments: He walks with a normal gait. He has tenderness to palpation in the lumbar region with spasms noted in the trapezius, paraspinal, and latissimus dorsi muscles. Strength is 5/5 throughout. Sensation is intact to light touch throughout. SLR is negative. Neurological: Mental Status: He is alert and oriented to person, place, and time. Psychiatric: Attention and Perception: Attention and perception normal. Mood and Affect: Mood and affect normal. Speech: Speech normal. Behavior: Behavior normal. Behavior is cooperative. Thought Content: Thought content normal. Judgment: Judgment normal. Assessment and Plan ASSESSMENT/PLAN: 1. Lumbar post-laminectomy syndrome - ICD9: 722.83, ICD10: M96.1 (primary diagnosis) - TOXASSURE? FLEX 23, URINE - OXYCODONE-ACETAMINOPH EN 5 MG-325 MG TABLET 2. Generalized osteoarthritis - ICD9: 715.00, ICD10: M15.9 3. Myofascial pain syndrome - ICD9: 729.1, ICD10: M79.18 4. Other half-way (current) drug therapy - ICD9: V58.69, ICD10: Z79.899 - TOXASSURE? FLEX 23, URINE PLAN: The OARRS report has been reviewed and is consistent with the patients medical history and medication intake. The patient underwent a random drug screen at today's office visit. The patient will continue with Percocet. Continue with core strengthening and range of motion exercises. Follow-up in the office in 3 months Discuss your blood pressure with your family doctor - BP 145/88 (Two stable chronic illnesses/prescriptio n drug management) ISSA Weinberg, Cristhian Azul PA-C 04/27/2024 8:30 AM Signed The OARRS report has been reviewed and is consistent with the patients medical history and medication intake. The patient underwent a random drug screen at today's office visit. The patient will continue with Per (more content not included)... Normal [facility] CNOVon 03-12-2024 [facility] Office Visit (FAMWS ) ABBIE NESBITT ([id number]) 1960 M Date Time Provider Department 03/12/24 12:00 PM MARLYS MORENO [facility] During your visit today, we recorded the following information about you: Pulse Respiration Blood pressure Weight 72/minute 18/minute 126/84 95.7 kg Height 1.797 m Marlys Moreno MD 03/12/2024 12:33 PM Signed Chief Complaint Patient presents with: Wellness HPI Abbie Nesbitt is a 63 year old male who presents here today for physical. Here today for his Annual follow up. Denies any bowel or GI issues. Gets up every two hours to urinate at night. Tried Flomax in the past, just worked for a short while. Pt believes he's had Colonoscopies done in the past 5 years; describes normal exam in 2019.. Last one noted in chart 2014, tubular adenoma noted. Has these completed by Dr. Espinal. HTN: Taking Coreg 12.5 mg half pill BID and Lisinopril 10 mg daily. Monitors blood pressure occasionally at home, states it's decent. Denies any chest pains, dizziness, or SOB. Follows with [facility] annually. Was last seen just couple weeks ago. Lipid/CAD: Does try to watch his diet, but admits that he could improve on this. Tends to eat too much. Admits he doesn't like to work out, has a membership to a gym that he's been paying for, for the past 5 years but has not gone yet. Has tried to do some walking, but his legs tend to start hurting him. Taking Lipitor 80 mg daily and ASA 81 mg once daily. Pain: Follows with Pain Management Cristhian Petit PA-C. Has ongoing chronic pain in his lower back. Is currently prescribed through Pain Management Percocet 5-325 mg 1 pill every 8 hours prn. Was seen acutely by Nancy Coronel CNP for acute neck pain. Was treated with Prednisone 20 mg 2 tabs po for 5 days, Flexeril 10 mg to use prn and heat. His pain has improved. HM - Declines Flu and Covid vaccine today. Past medical history, appointments, medications, allergies reviewed. Previous Medical History PAST MEDICAL HISTORY Diagnosis Date Chronic low back pain NSTEMI (non-ST elevated myocardial infarction) ([facility]) 06/16/2018 Previous Surgical History PAST SURGICAL HISTORY Procedure Laterality Date ARTHRD ANT INTERBODY MIN DSC LUMBAR 05/17/2011 L4,5 and L5 S1 CARDIAC CATH N/A 06/17/2018 2 stents placed at [facility] COLONOSCOPY GEN ANES N/A 09/2019 Dr. Espinal PAST SURGICAL HISTORY OF disc surgery x 2 TONSILLECTOMY HX N/A 1981 Family History FAMILY HISTORY Problem Relation Age of Onset Cancer Father 80 gastric Stroke Father Heart disease Father Patient Allergies ALLERGIES No Known Allergies Current Medications Current Outpatient Medications on File Prior to Visit Medication Sig oxyCODONE-acetaminoph en (PERCOCET) 5-325 mg tablet Take 1 tablet by mouth every 8 hours as needed for pain for up to 30 days. Patient should start on February 14, 2024. lisinopril (ZESTRIL) 10 mg tablet Take 1 tablet by mouth every afternoon. cyclobenzaprine (FLEXERIL) 10 mg tablet Take 1 tablet by mouth two times a day as needed for muscle spasm. clopidogrel (PLAVIX) 75 mg tablet Take 75 mg by mouth once daily. carvedilol (COREG) 12.5 mg tablet Half tablet twice daily aspirin 81 mg chewable tablet Take 1 tablet by mouth once daily. atorvastatin (LIPITOR) 80 mg tablet Take 1 tablet by mouth once daily. nitroglycerin sublingual (NITROQUICK) 0.4 mg SL tablet Dissolve 1 tablet under the tongue every 5 minutes as needed for Chest Pain. No current facility-administered medications on file prior to visit. Social History Social History Tobacco Use Smoking status: Former Current packs/day: 0.00 Average packs/day: 1 pack/day for 25.0 years (25.0 ttl pk-yrs) Types: Cigarettes Start date: 05/12/1986 Quit date: 05/12/2011 Years since quittin.8 Smokeless tobacco: Never Tobacco comments: quit in 10/2017 Vaping Use Vaping status: Never Used Substance Use Topics Alcohol use: Not Currently Comment: 1 x per month Drug use: No EXAM: BP 126/84 (BP Site: Left Arm, BP Position: Sitting, BP Cuff Size: Regular Adult) Pulse 72 Resp 18 Ht 179.7 cm (5' 10.75) Wt 95.7 kg (210 lb 15.7 oz) BMI 29.63 kg/m? General Appearance: Well appearing, alert, in no acute distress, well-hydrated, well nourished.. Lungs: Lungs clear to auscultation. No wheezing, rhonchi, rales. Heart: RRR without murmur, gallop, or rubs. No ectopy. Abdomen: Normal abdominal exam, denies any stomach or bowel issues. Health Maintenance List Lung Cancer Screening Never done Colorectal Cancer Screening due on 05/08/2014 Influenza Vaccine(1) Never done Covid-19 Vaccine( season) due on 12/04/2023 Hepatitis C Screening due on 10/23/2024 HIV Screening due on 10/23/2024 Depression Screening due on 10/23/2024 Anxiety Screening due on 10/23/2024 LDL Cholesterol due on 10/25/19 (more content not included)... Normal [facility] Cardiology Visit Reporton Cardiology Visit Report [facility] [address] [place] [address] OFFICE VISIT Date of Service: 02/27/24 MR#: [id number] Acct: [id number] Name: ABBIE NESBITT Rep #: [id number] : 1960 Provider: ERICKA Zuniga Age/Sex: 63/M Location: [facility] Status: Signed HPI HPI History of Present Illness Details: Abbie Nesbitt is a 63-year-old gentleman that presents here today for a cardiovascular follow-up. Patient has a history of coronary artery disease with a non-STEMI in 2018 and underwent stenting of his proximal and mid LAD at that time. He also has a history of nonsustained ventricular tachycardia, hyperlipidemia. He did undergo stress testing in May 2019 where he exercised 10 metabolic equivalents without any evidence of ischemia. He does not have any chest discomfort/heaviness/ tightness. He does not have any worsening symptoms of shortness of breath. He denies any PND. He does not have any orthopnea. He does not have any symptoms of congestive heart failure. He does not have any palpitations that he is aware of. He does not have any lightheadedness or dizziness. He does not have any near-syncope or syncope. He does not have any lower extremity edema. He does not have any symptoms of claudication. Intake Vital Signs 12/13/23 08:28 02/27/24 14:42 02/27/24 14:45 Height 5 ft 10 in 5 ft 10 in 5 ft 10 in Weight: 214 lb 213 lb BMI 30.7 30.5 BP 148/99 H 134/87 H 130/80 H Blood Pressure Location Lt brachial Lt brachial Position Sitting Sitting Respiration 16 18 Pulse 67 70 Pulse Source Monitor Monitor Pulse Oximetry (%) 97 98 Oxygen Delivery Method room air Intake Visit Reasons: 6 WK FU Regulatory Internship Required: No Is patient in pain?: No Allergies No Known Allergies Allergy (Verified 02/27/24 14:42) Medications ???Medication ???Instructions ???Recorded ???Confirmed ???Type aspirin 81 mg tablet,delayed 81 mg PO DAILY@0800 06/17/18 02/27/24 Rx release nitroglycerin 0.4 mg sublingual 0.4 mg sublingual Q5M PRN 06/17/18 02/27/24 Rx tablet Cardiac/Chest Pain #1 BOTTLE oxycodone-acetaminoph en 5 mg-325 1 tab PO TID PRN chronic back pain 12/14/22 12/13/23 History mg tablet atorvastatin 80 mg tablet See Rx Instructions .Route 07/07/23 02/27/24 Rx .COMPLEX #90 tabs carvedilol 3.125 mg tablet 3.125 mg PO BID #180 tabs 07/07/23 02/27/24 Rx lisinopril 10 mg tablet 10 mg PO QDAY #90 tabs 02/27/24 02/27/24 Rx PFSH Medical History Hypertriglyceridemia Essential hypertension Trigger finger Obesity History of non-ST elevation myocardial infarction (NSTEMI) (06/16/18) Hyperlipidemia NSVT (nonsustained ventricular tachycardia) Former smoker Atherosclerotic heart disease of [place] coronary artery without angina pectoris Surgical History History of coronary artery stent placement (06/16/18) Family History Father Myocardial infarction CAD (coronary artery disease) Brother CAD (coronary artery disease) Myocardial infarction Stented coronary artery Social History Smoking Status: Former smoker how long ago did patient quit smokin years ago alcohol intake: current alcohol intake frequency: holidays/special occasions only substance use type: does not use caffeine: Yes Type: coffee Number of servings: 3 ROS Const Const: Negative for fatigue, weakness, headache(s), frequent falls, difficulty sleeping or excessive sweating Eyes Eyes: Negative for loss of peripheral vision, transient loss of vision, blurry vision, double vision or tunnel vision ENT ENT: Negative for headache(s), dizziness, Nosebleed/epistaxis or balance problems Cardio Chest Pain: No Palpitations: No Edema: None Muscle aches with walking: None Resp Respiratory: Negative for SOB with activity, SOB at rest, SOB orthopnea SOB lying down, Cough or paroxysmal nocturnal dyspnea GI GI: Negative nausea, vomiting, heartburn or black,tarry stools : Negative for hematuria Musc Musc: Negative for muscle aches/ myalgia (numbness in feet), muscle weakness, joint pain or balance problems Skin Skin: Negative non-healing lesions, rash or unusual bruising Neuro Neuro: Negative for dizziness, lightheadedness, near syncope, syncope, orthostatic symptoms, frequent falls, headache(s), weakness, confusion, memory loss, blurry vision, double vision, vertigo or lack of coordination Malachi Hematologic/Lymphatic : Negative for easy bleeding or easy bruising Endo Endo: Negative for fatigue, excessive sweating, flushing or increased thirst/drinking Psy (more content not included)... Normal [facility] Comprehensive Metabolic Prof ilon 02-07-2024 Albumin [Mass/Vol] 3.8 g/dL Normal 3.2-5.0 [facility] Comment on above: Order Comment: Comme nts: okay to do non fasting Performed By: #### L [id number], L500.4050, L500.4100 #### [facility] [address] [place], [address] Albumin/Globulin [Mass ratio] 1.0 {ratio} Normal 0.9-2.4 [facility] Comment on above: Order Comment: Comme nts: okay to do non fasting Performed By: #### L [id number], L500.4050, L500.4100 #### [facility] [address] [place], [address] ALK P 137 U/L High 45-117 [facility] Comment on above: Order Comment: Comme nts: okay to do non fasting Performed By: #### L [id number], L500.4050, L500.4100 #### [facility] [address] [place], [address] ALT [Catalytic activity/Vol] 27 U/L Normal 16-61 [facility] Comment on above: Order Comment: Comme nts: okay to do non fasting Performed By: #### L [id number], L500.4050, L500.4100 #### [facility] [address] [place], [address] AST [Catalytic activity/Vol] 13 U/L Low 15-37 [facility] Comment on above: Order Comment: Comme nts: okay to do non fasting Performed By: #### L [id number], [id number], L500.4100 #### [facility] [address] [place], [address] Bilirubin [Mass/Vol] 0.80 mg/dL Normal 0.20-1.00 [facility] Comment on above: Order Comment: Comme nts: okay to do non fasting Result Comment: For patients on eltrombopag therapy, use of Dimension [place] TBIL is not recommended. Performed By: #### L [id number], L500.4050, L500.4100 #### [facility] [address] [place], [address] BUN/CRE 14.2 RATIO Normal 10-20 [facility] Comment on above: Order Comment: Comme nts: okay to do non fasting Performed By: #### L [id number], L500.4050, L500.4100 #### [facility] [address] [place], [address] CA,Total 9.4 mg/dL Normal 8.5-10.1 [facility] Comment on above: Order Comment: Comme nts: okay to do non fasting Performed By: #### L [id number], L500.4050, L500.4100 #### [facility] [address] [place], [address] Chloride [Moles/Vol] 106 mmol/L Normal 98-107 [facility] Comment on above: Order Comment: Comme nts: okay to do non fasting Performed By: #### L [id number], L500.4050, L500.4100 #### [facility] [address] [place], [address] CO2 [Moles/Vol] 27.0 mmol/L Normal 21.0-32.0 [facility] Comment on above: Order Comment: Comme nts: okay to do non fasting Performed By: #### L [id number], L500.4050, L500.4100 #### [facility] [address] [place], [address] Creatinine [Mass/Vol] 1.27 mg/dL Normal 0.70-1.30 [facility] Comment on above: Order Comment: Comme nts: okay to do non fasting Result Comment: The validity of the calculated GFR GFRAA in patients over 70 years has not been determined. Clinical correlation is essential. Performed By: #### L [id number], L500.4050, L500.4100 #### [facility] [address] [place], [address] EST GFR - AA 73 mL/min Normal >60 [facility] Comment on above: Order Comment: Comme nts: okay to do non fasting Result Comment: Afri can [place] GFR Calc Performed By: #### L [id number], L500.4050, L500.4100 #### [facility] [address] [place], [address] GAP 6 Normal 5-15 [facility] Comment on above: Order Comment: Comme nts: okay to do non fasting Performed By: #### L [id number], L500.4050, L500.4100 #### [facility] [address] [place], [address] GFR/1.73 sq M.predicted among non-blacks MDRD (S/P/Bld) [Vol rate/Area] 61 mL/min/{1.73_m2} Normal >60 [facility] Comment on above: Order Comment: Comme nts: okay to do non fasting Result Comment: Non- GFR Calc Performed By: #### L [id number], L500.4050, L500.4100 #### [facility] [address] [place], [address] Globulin (S) [Mass/Vol] 3.7 g/dL Normal 2.2-4.2 [facility] Comment on above: Order Comment: Comme nts: okay to do non fasting Performed By: #### L [id number], L500.4050, L500.4100 #### [facility] [address] [place], [address] Glucose [Mass/Vol] 121 mg/dL High 74-106 [facility] Comment on above: Order Comment: Comme nts: okay to do non fasting Result Comment: Fast ing Glucose result from 100 to 125 mg/dL suggests IMPAIRED HOMEOSTASIS per A.D.A. criteria. Performed By: #### L [id number], L500.4050, L500.4100 #### [facility] [address] [place], [address] Potassium [Moles/Vol] 3.8 mmol/L Normal 3.5-5.1 [facility] Comment on above: Order Comment: Comme nts: okay to do non fasting Performed By: #### L [id number], L500.4050, L500.4100 #### [facility] [address] [place], [address] Sodium [Moles/Vol] 139 mmol/L Normal 136-145 [facility] Comment on above: Order Comment: Comme nts: okay to do non fasting Performed By: #### L [id number], L500.4050, L500.4100 #### [facility] [address] [place], [address] T PROT 7.5 g/dL Normal 6.4-8.2 [facility] Comment on above: Order Comment: Comme nts: okay to do non fasting Performed By: #### L [id number], L500.4050, L500.4100 #### [facility] [address] [place], [address] Urea nitrogen [Mass/Vol] 18 mg/dL Normal 7-18 [facility] Comment on above: Order Comment: Comme nts: okay to do non fasting Performed By: #### L [id number], L500.4050, L500.4100 #### [facility] [address] [place], [address] Hemoglobin A1con 02-07-2024 HbA1c (Bld) [Mass fraction] 5.9 % High 3.8-5.6 [facility] Comment on above: Result Comment: Norm al < 5.7 % Prediabetic 5.7 - 6.4 % Diabetic >or= 6.5 % Please note range changes. Performed By: #### L [id number], L500.4050, L500.4100 #### [facility] [address] [place], [address] Lipid Profileon 02-07-2024 Cholesterol [Mass/Vol] 137 mg/dL Normal 200 [facility] Comment on above: Order Comment: Comme nts: okay to do non fasting Result Comment: <200 mg/dL Desirable 200-240 mg/dL Borderline >240 mg/dL High Risk Performed By: #### L [id number], L500.4050, L500.4100 #### [facility] [address] [place], [address] Cholesterol in HDL [Mass/Vol] 37 mg/dL Low [facility] Comment on above: Order Comment: Comme nts: okay to do non fasting Result Comment: The drugs N-Acetylcysteine and Metamizole may falsely depress this assay. Reference Range HDL <40 mg/dL Low HDL Cholesterol HDL >or= 60 mg/dL High HDL Cholesterol Performed By: #### L [id number], L500.4050, L500.4100 #### [facility] [address] [place], [address] Cholesterol in LDL [Mass/Vol] 66 mg/dL Normal 0-130 [facility] Comment on above: Order Comment: Comme nts: okay to do non fasting Performed By: #### L [id number], L500.4050, L500.4100 #### [facility] [address] [place], [address] Cholesterol in VLDL [Mass/Vol] 34 mg/dL Normal 5-40 [facility] Comment on above: Order Comment: Comme nts: okay to do non fasting Performed By: #### L [id number], L500.4050, L500.4100 #### [facility] [address] [place], [address] Triglyceride [Mass/Vol] 170 mg/dL Normal [facility] Comment on above: Order Comment: Comme nts: okay to do non fasting Result Comment: The drugs N-Acetylcysteine and Metamizole may falsely depress this assay. Serum Triglycerides Reference Interval Normal <150 mg/dL Borderline high 150 - 199 mg/dL High 200 - 499 mg/dL Very High > or = 500 mg/dL Performed By: #### L [id number], L500.4050, L500.4100 #### [facility] [address] [facility] [place], [address] CNOVon 01-26-2024 CNOV Office Visit (TANIA ) ABBIE NESBITT ([id number]) 1960 M Date Time Provider Department 01/26/24 8:30 AM CRISTHIAN PETIT During your visit today, we recorded the following information about you: Pulse Respiration Blood pressure Weight 72/minute 16/minute 131/98 95.3 kg Cristhian Petit PA-C 01/26/2024 8:43 AM Signed This note was created using [employer]. Subjective Abbie Nesbitt is a 63 year old male. The patient primarily being seen for back pain Patient was last seen on: 10/21/23 At that time, the treatment plan was: see notes Current Meds: percocet - am Efficacy: helps Side effects: denies TENS unit: no How often used: Benefit: Physical Therapy: years ago Last UDS: 10/21/23 Last injection: OARRS reviewed At the present time, the patient reports benefit with his present analgesic therapy. He denies any adverse effects. Since his previous visit, he denies any hospitalizations or ER visits. He had some issues with his neck and got a script for prednisone and cyclobenzaprine. He states the steroid helped and he is doing better. 12/26/2023 01/24/2024 INTAKE PAIN ASSESSMENT Are you having pain associated with your visit today? Yes, Provider notified Yes, Provider notified Pain Scales Verbal (Numeric Rating or Visual Analog Scale) Pain Level 8 2 Pain Location Neck Back Description Aching;Pulsating;Ian p;Throbbing Aching;Sore;Stiffness Duration Amount of Time 10 Duration Units Days Years Frequency Continuous Continuous Intervention/Comfort measure Cold;Heat;Positioning Medication;Relaxation ;Heat Back Pain Pertinent negatives include no fever. PAST MEDICAL HISTORY Diagnosis Date Chronic low back pain NSTEMI (non-ST elevated myocardial infarction) (HCC) 06/16/2018 PAST SURGICAL HISTORY Procedure Laterality Date ARTHRD ANT INTERBODY MIN DSC LUMBAR 05/17/2011 L4,5 and L5 S1 CARDIAC CATH N/A 06/17/2018 2 stents placed at [facility] COLONOSCOPY GEN ANES N/A 09/2019 Dr. Espinal PAST SURGICAL HISTORY OF disc surgery x 2 TONSILLECTOMY HX N/A 1981 Social History Tobacco Use Smoking status: Former Current packs/day: 0.00 Average packs/day: 1 pack/day for 25.0 years (25.0 ttl pk-yrs) Types: Cigarettes Start date: 05/12/1986 Quit date: 05/12/2011 Years since quittin.7 Smokeless tobacco: Never Tobacco comments: quit in 10/2017 Vaping Use Vaping status: Never Used Substance Use Topics Alcohol use: Not Currently Comment: 1 x per month Drug use: No Review of Systems Constitutional: Negative for fever and unexpected weight change. Musculoskeletal: Positive for back pain. + back pain, joint pain, muscle cramps, stiffness, and arthritis Objective BP 131/98 (BP Site: Left Arm, BP Position: Sitting) Pulse 72 Resp 16 Wt 95.3 kg (210 lb) SpO2 98% BMI 30.13 kg/m? Physical Exam Vitals and nursing note reviewed. Constitutional: Appearance: Normal appearance. He is well-developed, well-groomed and overweight. HENT: Head: Normocephalic and atraumatic. Right Ear: Hearing normal. Left Ear: Hearing normal. Eyes: Conjunctiva/sclera: Conjunctivae normal. Musculoskeletal: Comments: He walks with a normal gait. He has tenderness to palpation in the lumbar region with spasms noted in the trapezius, rhomboid, paraspinal, and latissimus dorsi muscles. Strength is 5/5 throughout. Sensation is intact to light touch throughout. SLR is negative. Neurological: Mental Status: He is alert and oriented to person, place, and time. Psychiatric: Attention and Perception: Attention and perception normal. Mood and Affect: Mood and affect normal. Speech: Speech normal. Behavior: Behavior normal. Behavior is cooperative. Thought Content: Thought content normal. Judgment: Judgment normal. Assessment and Plan ASSESSMENT/PLAN: 1. Lumbar post-laminectomy syndrome - ICD9: 722.83, ICD10: M96.1 (primary diagnosis) - OXYCODONE-ACETAMINOPH EN 5 MG-325 MG TABLET 2. Generalized osteoarthritis - ICD9: 715.00, ICD10: M15.9 3. Myofascial pain syndrome - ICD9: 729.1, ICD10: M79.18 PLAN: The OARRS report has been reviewed and is consistent with the patients medical history and medication intake. The patient's most recent drug screen has been reviewed and is appropriate and consistent with current therapy. The patient will continue with Percocet. Continue with core strengthening and range of motion exercises. Follow-up in the office in 3 months Discuss your blood pressure with your family doctor - BP 131/98 ISSA Weinberg Michael R, PA-C 01/26/2024 8:33 AM Addendum The OARRS report has been reviewed and is consistent with the patients medical history and medication intake. The patient's most recent drug screen has been reviewed and is appropriate and consistent with current therapy. The patient will continue with Percocet. (more content not included)... Normal [facility] CNOVon 12-26-2023 [facility] ABBIE NESBIT[facility] ([id number]) 1960 M Date Time Provider Department 12/26/23 2:00 PM NANCY CORNOEL During your visit today, we recorded the following information about you: Pulse Respiration Blood pressure Weight 86/minute 16/minute 130/78 94.9 kg Nancy Coronel APRN.[facility] 12/26/2023 7:19 PM Signed This is a 63 year old male who presents today with: Patient presents with: Acute Visit: Neck pain x4 days; no known injury HISTORY OF PRESENT ILLNESS: Abbie Nesbitt is a 63 year old male. Patient presents with: Acute Visit: Neck pain x4 days; no known injury Pt presents today with complaint of neck pain X 4 days. Started hurting Tuesday morning like he slept wrong. Started in the right side. Refers that it hurt so bad that he almost went to the ER. Refers yesterday and today, not quite as bed, but moved to the center. Refers that his posterior head feels tingling. Refers that discomfort radiates nto the trap. He does get popping,cracking in the neck. ROM limited. He is on oxycodone 5 mg for the lower back. Hasn't take anything. He takes a baby ASA daily. Applying heat. PAST MEDICAL HISTORY: PAST MEDICAL HISTORY Diagnosis Date Chronic low back pain NSTEMI (non-ST elevated myocardial infarction) (HCC) 06/16/2018 PAST SURGICAL HISTORY Procedure Laterality Date ARTHRD ANT INTERBODY MIN DSC LUMBAR 05/17/2011 L4,5 and L5 S1 CARDIAC CATH N/A 06/17/2018 2 stents placed at [facility] COLONOSCOPY GEN ANES N/A 09/2019 Dr. Espinal PAST SURGICAL HISTORY OF disc surgery x 2 TONSILLECTOMY HX N/A 1981 ALLERGIES Patient has no known allergies. MEDICATIONS Current Outpatient Medications Medication Sig lisinopril (ZESTRIL) 10 mg tablet Take 1 tablet by mouth every afternoon. oxyCODONE-acetaminoph en (PERCOCET) 5-325 mg tablet Take 1 tablet by mouth every 8 hours as needed for pain for up to 30 days. Patient should start on December 18, 2023. clopidogrel (PLAVIX) 75 mg tablet Take 75 mg by mouth once daily. carvedilol (COREG) 12.5 mg tablet Half tablet twice daily aspirin 81 mg chewable tablet Take 1 tablet by mouth once daily. atorvastatin (LIPITOR) 80 mg tablet Take 1 tablet by mouth once daily. nitroglycerin sublingual (NITROQUICK) 0.4 mg SL tablet Dissolve 1 tablet under the tongue every 5 minutes as needed for Chest Pain. No current facility-administered medications for this visit. FAMILY HISTORY Problem Relation Age of Onset Cancer Father 80 gastric Stroke Father Heart disease Father Social History Tobacco Use Smoking status: Former Current packs/day: 0.00 Average packs/day: 1 pack/day for 25.0 years (25.0 ttl pk-yrs) Types: Cigarettes Start date: 05/12/1986 Quit date: 05/12/2011 Years since quittin.6 Smokeless tobacco: Never Tobacco comments: quit in 10/2017 Vaping Use Vaping status: Never Used Substance Use Topics Alcohol use: Yes Comment: 1 x per month Drug use: No EXAM: BP 130/78 Pulse 86 Resp 16 SpO2 97% PHYSICAL EXAM: General Appearance: Well appearing, alert, in no acute distress, well-hydrated, well nourished.. Skin: Skin color, texture, turgor normal, no suspicious rashes or lesions. Head: Normocephalic, no masses, lesions, tenderness or abnormalities. Neck: guarded position. Limited ROM. No pain to palpation. No deformity. Lungs: Lungs clear to auscultation. No wheezing, rhonchi, rales.. Heart: RRR without murmur, gallop, or rubs. No ectopy. Neurologic: = strength of upper ext. Reflexes normal and symmetric. Sensation grossly intact.. ASSESSMENT/PLAN: 1. Neck pain - ICD9: 723.1, ICD10: M54.2 Moist heat/ice. Topicals. Start prednisone burst. Flexeril as needed, but discussed to not use simultaneously with percocet, as both are sedating. - PREDNISONE 20 MG TABLET - CYCLOBENZAPRINE 10 MG TABLET Consider PT. Let provider know if no better/worsening. Discussed treatment plan and patient voices understanding. Patient's questions answered appropriately. Medications and potential side effects were discussed and patient voices understanding. Return to the office as scheduled or as needed for worsening/no improvement. Nancy Coronel APRN.Nancy Goodwin APRN.JESUS 12/26/2023 2:19 PM Signed Start the prednisone -- two pills daily X 5 days. You can use the flexeril, but be conscientious, as this can cause drowsiness. Moist heat/ice. Gentle stretching. Topicals (sandhya monaco, icy hot, etc). Consider physical therapy. Let us know if no better/worsening. Allergies As of Date: 12/26/2023 (No Known Allergies) Date Reviewed: 12/26/2023 Reviewed by: Den Kingston LPN - Fully Assessed Reason for Visit: Acute Visit [896] Cmt: Neck pain x4 days; no known injury Primary Visit Diagnosis:Neck pain [M54.2] Order(s):predniSONE (DELTASONE) 20 mg tabletTake 2 tablets by mouth once daily.Disp: (more content not included)... Normal [facility] Cardiology Visit Reporton Cardiology Visit Report [facility] [address] [place] [address] OFFICE VISIT Date of Service: 12/13/23 MR#: [id number] Acct: [id number] Name: ABBIE NESBITT Rep #: [id number] 1 : 1960 Provider: ERICKA Zuniga Age/Sex: 63/M Location: [facility] Status: Signed [facility] History of Present Illness Details: Abbie Nesbitt is a 63-year-old gentleman that presents here today for a cardiovascular follow-up. Patient has a history of coronary artery disease with a non-STEMI in 2019 and underwent stenting of his proximal and mid LAD at that time. He also has a history of nonsustained ventricular tachycardia, hyperlipidemia. He did undergo stress testing in May 2019 where he exercised 10 metabolic equivalents without any evidence of ischemia. He feels fatigued, low grade fevers and has numbness in his bilateral feet. They have been going on for 6 months. He did see his PCP for this. He does not have any chest discomfort/heaviness/ tightness. He does not have any worsening symptoms of shortness of breath. He denies any PND. He does not have any orthopnea. He does not have any symptoms of congestive heart failure. He does not have any palpitations that he is aware of. He does not have any lightheadedness or dizziness. He does not have any near-syncope or syncope. He does not have any lower extremity edema. He does not have any symptoms of claudication. Intake Vital Signs 12/14/22 10:39 12/13/23 08:28 Height 5 ft 10 in 5 ft 10 in Weight: 210 lb 214 lb BMI 30.1 30.7 BP 135/92 H 148/99 H Blood Pressure Location Lt brachial Lt brachial Position Sitting Sitting Respiration 18 16 Pulse 61 67 Pulse Source Monitor Monitor Pulse Oximetry (%) 99 97 Oxygen Delivery Method room air Intake Visit Reasons: 1 Y FU Accompanied by: Self Is patient in pain?: No Allergies No Known Allergies Allergy (Verified 12/13/23 08:30) Medications ???Medication ???Instructions ???Recorded ???Confirmed ???Type aspirin 81 mg tablet,delayed 81 mg PO DAILY@0800 06/17/18 12/14/22 Rx release nitroglycerin 0.4 mg sublingual 0.4 mg sublingual Q5M PRN 06/17/18 12/13/23 Rx tablet Cardiac/Chest Pain #1 BOTTLE oxycodone-acetaminoph en 5 mg-325 1 tab PO TID PRN chronic back pain 12/14/22 12/13/23 History mg tablet atorvastatin 80 mg tablet See Rx Instructions .Route 07/07/23 12/13/23 Rx .COMPLEX #90 tabs carvedilol 3.125 mg tablet 3.125 mg PO BID #180 tabs 07/07/23 12/13/23 Rx clopidogrel 75 mg tablet 75 mg PO DAILY #90 tabs 07/07/23 12/13/23 Rx lisinopril 10 mg tablet 10 mg PO QDAY #30 tabs 12/13/23 12/13/23 Rx Ejection fraction %: 65 [facility] Medical History (Updated 12/13/23 @ 08:58 by Shirlene BARNETT, PA) Hypertriglyceridemia Essential hypertension Trigger finger Obesity History of non-ST elevation myocardial infarction (NSTEMI) (06/16/18) Hyperlipidemia NSVT (nonsustained ventricular tachycardia) Former smoker Atherosclerotic heart disease of [place] coronary artery without angina pectoris Surgical History History of coronary artery stent placement (06/16/18) Family History Father Myocardial infarction CAD (coronary artery disease) Brother CAD (coronary artery disease) Myocardial infarction Stented coronary artery Social History Smoking Status: Former smoker how long ago did patient quit smokin years ago alcohol intake: current alcohol intake frequency: holidays/special occasions only substance use type: does not use caffeine: Yes Type: coffee Number of servings: 3 ROS Const Const: Positive for fatigue; Negative for weakness, headache(s), frequent falls, difficulty sleeping or excessive sweating Eyes Eyes: Negative for loss of peripheral vision, transient loss of vision, blurry vision, double vision or tunnel vision ENT ENT: Negative for headache(s), dizziness, Nosebleed/epistaxis or balance problems Cardio Chest Pain: No Palpitations: No Edema: None Muscle aches with walking: None Resp Respiratory: Negative for SOB with activity, SOB at rest, SOB orthopnea SOB lying down, Cough or paroxysmal nocturnal dyspnea GI GI: Negative nausea, vomiting, heartburn or black,tarry stools : Negative for hematuria Musc Musc: Negative for muscle aches/ myalgia (numbness in feet), muscle weakness, joint pain or balance problems Skin Skin: Negative non-healing lesions, rash or unusual bruising Neuro Neuro: Negative for dizziness, lightheadedness, near syncope, syncope, orthostatic symptoms, frequent falls, headache(s), weakness, confusion, memory loss, blurry vision, double vis (more content not included)... [facility] 11-02-2023 CNPN Telephone ([facility]) ABBIE NESBITT ([id number]) 1960 M Date Time Provider Department 11/02/23 ELISE CH [facility] During your visit today, we recorded the following information about you: Elise Ch APRN.JESUS 11/02/2023 1:48 PM Signed Can you please call the patient and let him know that I reviewed his lab results. Triglycerides were elevated, HDL was low. A1c was 5.7, this is considered prediabetes. Thyroid and B12 was normal. He may consider starting a B complex vitamin to help with the tingling. I would recommend working on lifestyle changes at home to help improve the glucose and triglycerides. Try to decrease processed foods in the diet, increase lean protein, vegetables, get some form exercise. I would like to get repeat fasting labs in 6 months with office visit. Please let me know if he has any questions. Thank you. Elise Ch APRN.Alyce Stockton LPN 11/02/2023 2:41 PM Signed Patient notified of results, verbalizes understanding of instructions. 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 - clopidogrel (PLAVIX) 75 mg tablet Take 75 mg by mouth once daily. - carvedilol (COREG) 12.5 mg tablet Half tablet twice daily - aspirin 81 mg chewable tablet Take 1 tablet by mouth once daily. - atorvastatin (LIPITOR) 80 mg tablet Take 1 tablet by mouth once daily. - nitroglycerin sublingual (NITROQUICK) 0.4 mg SL tablet Dissolve 1 tablet under the tongue every 5 minutes as needed for Chest Pain. 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] 06/20/2017 11/05/2021 Generalized osteoarthritis [M15.9] 06/20/2017 Lumbar post-laminectomy syndrome [M96.1] 06/20/2017 Myocardial infarction (HCC) [I21.9] 10/24/2021 Other half-way (current) drug therapy [Z79.899]05/11/2018 Myofascial pain syndrome [M79.18] 11/05/2021 Chronic pain syndrome [G89.4] 04/18/2023 Encounter Status:Closed by ALYCE EISENBERG on 11/02/23 Normal [facility] CBC W Auto Differential pane l (Bld)on 10-25-2023 Basophils (Bld) [#/Vol] 0.07 10*3/uL Normal <0.11 [facility] Comment on above: Order Comment: Speci men Type: BLOOD SPECIMENOrdering Facility: [facility] Address: [address] [place] [address] Performed By: #### 5 7021-8 ####[facility] LABCLIA [id number] [facility] [place] [address] [place] Basophils/100 WBC (Bld) 0.7 % Normal [facility] Comment on above: Order Comment: Speci men Type: BLOOD SPECIMENOrdering Facility: [facility] Address: [address] [place] [address] Performed By: #### 5 7021-8 ####[facility] LABCLIA [id number] [place] [address] [place] Differential cell count method Nom (Bld) Auto Normal [facility] Comment on above: Order Comment: Speci men Type: BLOOD SPECIMENOrdering Facility: [facility] Address: [address] [place] [address] Performed By: #### 5 7021-8 ####[facility] LABCLIA [id number] [place] [address] [place] Eosinophils (Bld) [#/Vol] 0.36 10*3/uL Normal <0.46 [facility] Comment on above: Order Comment: Speci men Type: BLOOD SPECIMENOrdering Facility: [facility] Address: [address] [place] [address] Performed By: #### 5 7021-8 ####[facility] LABCLIA [id number] [place] [address] [place] Eosinophils/100 WBC (Bld) 3.7 % Normal [facility] Comment on above: Order Comment: Speci men Type: BLOOD SPECIMENOrdering Facility: [facility] Address: [address] [place] [address] Performed By: #### 5 7021-8 ####[facility] LABCLIA [id number] [place] [address] [place] Erythrocyte distribution width (RBC) [Ratio] 12.3 % Normal 11.5-15.0 [facility] Comment on above: Order Comment: Speci men Type: BLOOD SPECIMENOrdering Facility: [facility] Address: [address] [place] [address] Performed By: #### 5 7021-8 ####[facility] LABCLIA [id number] [place] [address] [place] Hematocrit (Bld) [Volume fraction] 46.3 % Normal 39.0-51.0 [facility] Comment on above: Order Comment: Speci men Type: BLOOD SPECIMENOrdering Facility: [facility] Address: [address] [place] [address] Performed By: #### 5 7021-8 ####[facility] LABIA [id number] [place] [address] [place] Hemoglobin (Bld) [Mass/Vol] 15.5 g/dL Normal 13.0-17.0 [facility] Comment on above: Order Comment: Speci men Type: BLOOD SPECIMENOrdering Facility: [facility] Address: [address] [place] [address] Performed By: #### 5 7021-8 ####[facility] LABIA [id number] [place] [address] [place] Immature granulocytes (Bld) [#/Vol] 0.03 10*3/uL Normal <0.10 [facility] Comment on above: Order Comment: Speci men Type: BLOOD SPECIMENOrdering Facility: [facility] Address: [address] [place] [address] Performed By: #### 5 7021-8 ####[facility] LABIA [id number] [place] [address] [place] Immature granulocytes/100 WBC (Bld) 0.3 % Normal [facility] Comment on above: Order Comment: Speci men Type: BLOOD SPECIMENOrdering Facility: [facility] Address: [address] [place] [address] Performed By: #### 5 7021-8 ####[facility] LABCLIA [id number] [place] [address] [place] Lymphocytes (Bld) [#/Vol] 2.49 10*3/uL Normal 1.00-4.00 [facility] Comment on above: Order Comment: Speci men Type: BLOOD SPECIMENOrdering Facility: [facility] Address: [address] [place] [address] Performed By: #### 5 7021-8 ####[facility] LABIA [id number] [place] [address] [place] Lymphocytes/100 WBC (Bld) 25.6 % Normal [facility] Comment on above: Order Comment: Speci men Type: BLOOD SPECIMENOrdering Facility: [facility] Address: [address] [place] [address] Performed By: #### 5 7021-8 ####[facility] [id number] [place] [address] [place] MCH (RBC) [Entitic mass] 30.7 pg Normal 26.0-34.0 [facility] Comment on above: Order Comment: Speci men Type: BLOOD SPECIMENOrdering Facility: [facility] Address: [address] [place] [address] Performed By: #### 5 7021-8 ####[facility] LABIA [id number] [place] [address] [place] MCHC (RBC) [Mass/Vol] 33.5 g/dL Normal 30.5-36.0 [facility] Comment on above: Order Comment: Speci men Type: BLOOD SPECIMENOrdering Facility: [facility] Address: [address] [place] [address] Performed By: #### 5 7021-8 ####[facility] LABIA [id number] [place] [address] [place] MCV (RBC) [Entitic vol] 91.7 fL Normal 80.0-100.0 [facility] Comment on above: Order Comment: Speci men Type: BLOOD SPECIMENOrdering Facility: [facility] Address: [address] [place] [address] Performed By: #### 5 7021-8 ####[facility] LABCLIA [id number] [place] [address] [place] Monocytes (Bld) [#/Vol] 0.91 10*3/uL High <0.87 [facility] Comment on above: Order Comment: Speci men Type: BLOOD SPECIMENOrdering Facility: [facility] Address: [address] [place] [address] Performed By: #### 5 7021-8 ####[facility] LABCLIA [id number] [place] [address] [place] Monocytes/100 WBC (Bld) 9.4 % Normal [facility] Comment on above: Order Comment: Speci men Type: BLOOD SPECIMENOrdering Facility: [facility] Address: [address] [place] [address] Performed By: #### 5 7021-8 ####[facility] LABCLIA [id number] [place] [address] [place] Neutrophils (Bld) [#/Vol] 5.87 10*3/uL Normal 1.45-7.50 [facility] Comment on above: Order Comment: Speci men Type: BLOOD SPECIMENOrdering Facility: [facility] Address: [address] [place] [address] Performed By: #### 5 7021-8 ####[facility] LABCLIA [id number] [place] [address] [place] Neutrophils/100 WBC (Bld) 60.3 % Normal [facility] Comment on above: Order Comment: Speci men Type: BLOOD SPECIMENOrdering Facility: [facility] Address: [address] [place] [address] Performed By: #### 5 7021-8 ####[facility] LABCLIA [id number] [place] [address] [place] Nucleated RBC (Bld) [#/Vol] 10*3/uL Normal <0.01 [facility] Comment on above: Order Comment: Speci men Type: BLOOD SPECIMENOrdering Facility: [facility] Address: [address] [place] [address] Performed By: #### 5 7021-8 ####[facility] LABCLIA [id number] [place] [address] [place] Nucleated RBC/100 WBC (Bld) [Ratio] 0.0 /100 WBC Normal [facility] Comment on above: Order Comment: Speci men Type: BLOOD SPECIMENOrdering Facility: [facility] Address: [address] [place] [address] Performed By: #### 5 7021-8 ####[facility] LABCLIA [id number] [place] [address] [place] Platelet mean volume (Bld) [Entitic vol] 11.7 fL Normal 9.0-12.7 [facility] Comment on above: Order Comment: Speci men Type: BLOOD SPECIMENOrdering Facility: [facility] Address: [address] [place] [address] Performed By: #### 5 7021-8 ####[facility] LABIA [id number] [place] [address] [place] Platelets (Bld) [#/Vol] 237 10*3/uL Normal 150-400 [facility] Comment on above: Order Comment: Speci men Type: BLOOD SPECIMENOrdering Facility: [facility] Address: [address] [place] [address] Performed By: #### 5 7021-8 ####[facility] LABIA [id number] [place] [address] [place] RBC (Bld) [#/Vol] 5.05 10*6/uL Normal 4.20-6.00 [facility] Comment on above: Order Comment: Speci men Type: BLOOD SPECIMENOrdering Facility: [facility] Address: [address] [place] [address] Performed By: #### 5 7021-8 ####[facility] LABIA [id number] [place] [id number] [place] WBC (Bld) [#/Vol] 9.73 10*3/uL Normal 3.70-11.00 [facility] Comment on above: Order Comment: Speci men Type: BLOOD SPECIMENOrdering Facility: [facility] Address: [address] [place] [address] Performed By: #### 5 7021-8 ####[facility] LABIA [id number] [place] [address] [place] Comprehensive metabolic 2000 panelon 10-25-2023 Albumin [Mass/Vol] 4.6 g/dL Normal 3.9-4.9 [facility] Comment on above: Order Comment: Speci men Type: BLOOD SPECIMENOrdering Facility: [facility] Address: [address] [place] [address] Performed By: #### 2 4331-1, 85058-4, 2131-9, 3016-3 ####[facility] LABIA [id number] [place] [address] [place] ALP [Catalytic activity/Vol] 135 U/L High 38-113 [facility] Comment on above: Order Comment: Speci men Type: BLOOD SPECIMENOrdering Facility: [facility] Address: [address] [place] [address] Performed By: #### 2 4331-1, 00981-9, 2132-9, 3016-3 ####[facility] LABIA [id number] [place] [address] [place] ALT [Catalytic activity/Vol] 29 U/L Normal 10-54 [facility] Comment on above: Order Comment: Speci men Type: BLOOD SPECIMENOrdering Facility: [facility] Address: [address] [place] [address] Performed By: #### 2 4331-1, 79374-6, 2131-9, 3016-3 ####[facility] LABCLIA [id number] [address] [address] [place] Anion gap [Moles/Vol] 11 mmol/L Normal 8-15 [facility] Comment on above: Order Comment: Speci men Type: BLOOD SPECIMENOrdering Facility: [facility] Address: [address] [place] [address] Performed By: #### 2 4331-1, 53652-9, 9, 6-3 ####[facility] LABCLIA [id number] [address] [address] [place] AST [Catalytic activity/Vol] 24 U/L Normal 14-40 [facility] Comment on above: Order Comment: Speci men Type: BLOOD SPECIMENOrdering Facility: [facility] Address: [address] [place] [address] Performed By: #### 2 4331-1, 64873-0, 9, 6-3 ####[facility] LABCLIA [id number] [address] [address] [place] Bilirubin [Mass/Vol] 0.7 mg/dL Normal 0.2-1.3 [facility] Comment on above: Order Comment: Speci men Type: BLOOD SPECIMENOrdering Facility: [facility] Address: [address] [place] [address] Performed By: #### 2 4331-1, 91666-7, 9, 3016-3 ####[facility] LABCLIA [id number] [address] [address] [place] Calcium [Mass/Vol] 9.6 mg/dL Normal 8.5-10.2 [facility] Comment on above: Order Comment: Speci men Type: BLOOD SPECIMENOrdering Facility: [facility] Address: [address] [place] [address] Performed By: #### 2 4331-1, 70684-2, 2131-9, 3016-3 ####[facility] LABCLIA [id number] [address] [address] [place] Chloride [Moles/Vol] 103 mmol/L Normal 98-107 [facility] Comment on above: Order Comment: Speci men Type: BLOOD SPECIMENOrdering Facility: [facility] Address: [address] [place] [address] Performed By: #### 2 4331-1, 72952-9, 9, 6-3 ####[facility] LABCLIA [id number] [place] [address] [place] CO2 [Moles/Vol] 25 mmol/L Normal 22-30 [facility] Comment on above: Order Comment: Speci men Type: BLOOD SPECIMENOrdering Facility: [facility] Address: [address] [place] [address] Performed By: #### 2 4331-1, 53508-8, 9, 6-3 ####[facility] LABIA [id number] [place] [address] [place] Creatinine [Mass/Vol] 1.22 mg/dL Normal 0.73-1.22 [facility] Comment on above: Order Comment: Speci men Type: BLOOD SPECIMENOrdering Facility: [facility] Address: [address] [place] [address] Performed By: #### 2 4331-1, 15116-6, 2131-9, 3016-3 ####[facility] LABIA [id number] [place] [id number] [place] Creatinine and Glomerular filtration rate.predicted panel (S/P/Bld) 66 mL/min/1.73m??? Normal >=60 [facility] Comment on above: Order Comment: Speci men Type: BLOOD SPECIMENOrdering Facility: [facility] Address: [address] [place] [address] Result Comment: Vivian mated Glomerular Filtration Rate (eGFR) is calculated using the 2020 CKD-EPI creatinine equation. This equation utilizes serum creatinine, sex, and age as parameters. The creatinine assay has traceable calibration to isotope dilution-mass spectrometry. Refer to KDIGO guidelines for clinical interpretation. In patients with unstable renal function, e.g. those with acute kidney injury, the eGFR may not accurately reflect actual GFR. Performed By: #### 2 4331-1, 34179-3, 2131-12, 3015-3 ####[facility] LABCLIA [id number] [address] [address] [place] Glucose [Mass/Vol] 102 mg/dL High 74-99 [facility] Comment on above: Order Comment: Garth ordoñez Type: BLOOD SPECIMENOrdering Facility: [facility] Address: [address] [id number] Result Comment: The [place] Diabetes Association (ADA) provides guidance for cutoff values for fasting glucose and random glucose. The ADA defines fasting as no caloric intake for at least 8 hours. Fasting plasma glucose results between 100 to 125 mg/dL indicate increased risk for diabetes (prediabetes). Fasting plasma glucose results greater than or equal to 126 mg/dL meet the criteria for diagnosis of diabetes. In the absence of unequivocal hyperglycemia, results should be confirmed by repeat testing. In a patient with classic symptoms of hyperglycemia or hyperglycemic crisis, random plasma glucose results greater than or equal to 200 mg/dL meet the criteria for diagnosis of diabetes. Reference: Standards of Medical Care in Diabetes 2016, [place] Diabetes Association. Diabetes Care. 2016.39(Suppl 1). Performed By: #### 2 4331-1, 50358-8, 9, 6-3 ####[facility] LABIA [id number] [address] [address] [place] Potassium [Moles/Vol] 4.5 mmol/L Normal 3.7-5.1 [facility] Comment on above: Order Comment: Speci men Type: BLOOD SPECIMENOrdering Facility: [facility] Address: [address] [place] [address] Performed By: #### 2 4331-1, 02591-1, 2131-9, 6-3 ####[facility] LABIA [id number] [place] [id number] [place] Protein [Mass/Vol] 7.0 g/dL Normal 6.3-8.0 [facility] Comment on above: Order Comment: Speci men Type: BLOOD SPECIMENOrdering Facility: [facility] Address: [address] [place] [address] Performed By: #### 2 4331-1, 22129-8, 9, 6-3 ####[facility] LABIA [id number] [place] [address] [place] Sodium [Moles/Vol] 139 mmol/L Normal 136-144 [facility] Comment on above: Order Comment: Speci men Type: BLOOD SPECIMENOrdering Facility: [facility] Address: [address] [place] [address] Performed By: #### 2 4331-1, 03494-8, 9, 6-3 ####[facility] [id number] [place] [id number] [place] Urea nitrogen [Mass/Vol] 18 mg/dL Normal 9-24 [facility] Comment on above: Order Comment: Speci men Type: BLOOD SPECIMENOrdering Facility: [facility] Address: [address] [place] [address] Performed By: #### 2 4331-1, 17453-0, 9, 6-3 ####[facility] LABIA [id number] [place] [id number] [place] HbA1c (Bld)on 10-25-2023 Average glucose Estimated from glycated hemoglobin (Bld) [Mass/Vol] 117 mg/dL Normal [facility] Comment on above: Order Comment: Speci men Type: BLOOD SPECIMENOrdering Facility: [facility] Address: [address] [place] [address] Result Comment: eAG: (Estimated average glucose) is a calculated value from HgbA1c and is patient accounting representative of the average blood glucose level in the last 2-3 month period. Performed By: #### 5 5454-3 ####[facility]CLIA [id number] [place] [address] [place] HbA1c (Bld) [Mass fraction] 5.7 % High 4.3-5.6 [facility] Comment on above: Order Comment: Speci men Type: BLOOD SPECIMENOrdering Facility: [facility] Address: [address] [place] [address] Result Comment: [place] Diabetes Association guidelines indicate that patients with HgbA1c in the range 5.7-6.4% are at increased risk for development of diabetes, and intervention by lifestyle modification may be beneficial. HgbA1c greater or equal to 6.5% is considered diagnostic of diabetes. Performed By: #### 5 5454-3 ####[facility] LABIA [id number] [place] [address] [place] Lipid 1996 panelon 4 Cholesterol [Mass/Vol] 167 mg/dL Normal <200 [facility] Comment on above: Order Comment: Garth men Type: BLOOD SPECIMENOrdering Facility: [facility] Address: [address] [place] [address] Result Comment: <200 mg/dL, Desirable 200-239 mg/dL, Borderline high >239 mg/dL, High Performed By: #### 2 4331-1, 86444-1, 2132-9, 3016-3 ####[facility] LABIA [id number] [address] [place] Cholesterol in HDL [Mass/Vol] 36 mg/dL Low >39 [facility] Comment on above: Order Comment: Nicki men Type: BLOOD SPECIMENOrdering Facility: [facility] Address: [address] [place] [address] Result Comment: 40-5 9 mg/dL, Acceptable >59 mg/dL, High: Negative risk factor for coronary heart disease <40 mg/dL, Low: Positive risk factor for coronary heart disease Performed By: #### 2 4331-1, 02491-9, 2131-12, 3015-3 ####[facility] LABCLIA [id number] [address] [address] [place] Cholesterol in LDL [Mass/Vol] 64 mg/dL Normal <100 [facility] Comment on above: Order Comment: Speci men Type: BLOOD SPECIMENOrdering Facility: [facility] Address: [address] [place] [address] Result Comment: <100 mg/dL, Optimal 100-129 mg/dL, Near optimal/above optimal 130-159 mg/dL, Borderline high 160-189 mg/dL, High >189 mg/dL, Very high Secondary prevention optimal LDL Cholesterol levels are recommended to be < 70 mg/dL Performed By: #### 2 4331-1, , 2131-12, 3015-06 ####[facility]CLIA [id number] [address] [address] [place] Cholesterol in LDL/Cholesterol in HDL [Mass ratio] 1.78 {ratio} Normal <2.54 [facility] Comment on above: Order Comment: Speci men Type: BLOOD SPECIMENOrdering Facility: [facility] Address: [address] [place] [address] Result Comment: Maria Elena good: 1. National Cholesterol Education Program ATP III Guideline At-A-Glance Quick Desk Reference: National Heart, Lung, and Blood [place]. National Institutes of Health. 2001: NIH Publication No. 01-3305. 2. An International Atherosclerosis Society position paper: global recommendations for the management of dyslipidemia: executive summary, Atherosclerosis. 2014: 232(2):410-413. Performed By: #### 2 4331-1, 44948-3, 2131-12, 3015-3 ####[facility]CLIA [id number] [address] [address] [place] Cholesterol in VLDL [Mass/Vol] 67 mg/dL High <30 [facility] Comment on above: Order Comment: Speci men Type: BLOOD SPECIMENOrdering Facility: [facility] Address: [address] [id number] Performed By: #### 2 4331-1, 36507-9, 2131-12, 6-3 ####[facility] LABCLIA [id number] [address] [address] [place] Cholesterol non HDL [Mass/Vol] 131 mg/dL High <130 [facility] Comment on above: Order Comment: Speci men Type: BLOOD SPECIMENOrdering Facility: [facility] Address: [address] [place] [address] Result Comment: <130 mg/dL, Optimal 130-159 mg/dL, Near optimal/above optimal 160-189 mg/dL, Borderline high 190-219 mg/dL, High >219 mg/dL, Very high Secondary prevention optimal non HDL Cholesterol levels are recommended to be <100 mg/dL Performed By: #### 2 4331-1, 14041-0, 2131-12, 3016-3 ####[facility] LABCLIA [id number] [address] [address] [place] Cholesterol.total/Arielle sterol in HDL [Mass ratio] 4.64 {ratio} Normal <5.10 [facility] Comment on above: Order Comment: Speci men Type: BLOOD SPECIMENOrdering Facility: [facility] Address: [address] [place] [address] Performed By: #### 2 4331-1, 07065-6, 2131-12, 3016-3 ####[facility] LABCLIA [id number] [address] [address] [place] FASTING TIME 13 hrs Normal [facility] Comment on above: Order Comment: Speci men Type: BLOOD SPECIMENOrdering Facility: [facility] Address: [address] [place] [address] Performed By: #### 2 4331-1, , 2131-12, 3 ####[facility] LABCLIA [id number] [place] [address] [place] Triglyceride [Mass/Vol] 335 mg/dL High <150 [facility] Comment on above: Order Comment: Speci men Type: BLOOD SPECIMENOrdering Facility: [facility] Address: [address] [place] [address] Result Comment: <150 mg/dL, Normal 150-199 mg/dL, Borderline high 200-499 mg/dL, High >499 mg/dL, Very high Performed By: #### 2 4331-1, , 2131-12, 3 ####[facility]CLIA [id number] [place] [address] [place] TSH SerPl-aCncon 10-25-2023 TSH Qn 1.240 m[IU]/L Normal 0.270-4.200 [facility] Comment on above: Order Comment: Speci men Type: BLOOD SPECIMENOrdering Facility: [facility] Address: [address] [place] [address] Performed By: #### 2 4331-1, , 2131-12, 3 ####[facility] LABCLIA [id number] [place] [address] [place] Vit B12 SerPl-mCncon 024 Cobalamin (Vitamin B12) [Mass/Vol] 622 pg/mL Normal 232-1245 [facility] Comment on above: Order Comment: Speci men Type: BLOOD SPECIMENOrdering Facility: [facility] Address: [address] [place] [address] Performed By: #### 2 4331-1, , 2131-12, 3 ####[facility] LABCLIA [id number] [address] [id number] [place] CNOVon 10-24-2023 CNOV Office Visit ([facility]WS ) ABBIE NESBITT ([id number]) 1960 M Date Time Provider Department 10/24/23 7:40 PM MARLYS MORENO FAMPWS During your visit today, we recorded the following information about you: Pulse Respiration Blood pressure Weight 78/minute 16/minute 122/80 98 kg Marlys Moreno MD 10/24/2023 7:57 PM Signed Chief Complaint Patient presents with: burning sensation in feet x 1 month doesn't feel right HPI Abbie Nesbitt is a 63 year old male who presents here today for burning in feet. Last OV with FAMP was in 2021 with Elise Ch. Behavioral Health screening: Denies feeling depressed or hopeless. Behavioral Health Screening PHQ-2 Score: 0 (Lower risk for depression) MICHELE-2 Score: 0 (Lower risk for anxiety) Recommendation: no further intervention at this time Declined Covid vaccine, Hep C and HIV screening. Former smoker. No family hx of Diabetes. Pt c/o burning in his feet x 1 month. Pt follows with Pain Management Cristhian Petit PA-C and prescribed Percocet 5-325 mg 1 pill every 8 hours prn for lumbar pain. Hx of laminectomy. Pt rated pain 2-3/10, burning, annoying sensation to bottoms of both feet and toes that has become more constant . He has a spot as well just above the right knee that smalls. He states he doesn't notice the burning when active or on his feet, notices it more when resting. Does not seem to be worse at night. He has not tried doing anything for the pain or discomfort. He did have sciatica issues in past with his back but that improved. He will get some leg numbness to right leg if he stands to long. Does not wear shoes much during the day since he works from home. He doesn't have the feeling that is socks are bunched up. He does walk a lot, getting 8,000 steps a day. Also states I just don't feel right like I'm fighting something. Feels Physically lousy, can't describe it. Feels like something is not right but he can't put a finger on it. He stated this started 6 months ago and went away for few months but started back up a few months later. Denies any sx of head congestion, cough, fatigue, lack of energy. He states he hasn't had a fever but he feels like he has a low grade fever. No gi issues, diarrhea, constipation, no weight gain or weight loss. He does get up several times a night to urinate. Some frequency during the day but no urgency. Follows with [facility] who does blood work yearly on him. Most recent was in Dec 2022 (in scanned records). He had glucose test done in Dec 2021 that was 116. No chest pains, dizziness, or SOB. Has an ingrown toe nail. Past medical history, appointments, medications, allergies reviewed. Previous Medical History PAST MEDICAL HISTORY Diagnosis Date Chronic low back pain NSTEMI (non-ST elevated myocardial infarction) (HCC) 06/16/2018 Previous Surgical History PAST SURGICAL HISTORY Procedure Laterality Date ARTHRD ANT INTERBODY MIN DSC LUMBAR 05/17/2011 L4,5 and L5 S1 CARDIAC CATH N/A 06/17/2018 2 stents placed at [facility] COLONOSCOPY GEN ANES N/A 09/2019 Dr. Espinal PAST SURGICAL HISTORY OF disc surgery x 2 TONSILLECTOMY HX N/A 1981 Family History FAMILY HISTORY Problem Relation Age of Onset Cancer Father 80 gastric Stroke Father Heart disease Father Patient Allergies ALLERGIES No Known Allergies Current Medications Current Outpatient Medications on File Prior to Visit Medication Sig oxyCODONE-acetaminoph en (PERCOCET) 5-325 mg tablet Take 1 tablet by mouth every 8 hours as needed for pain for up to 30 days. clopidogrel (PLAVIX) 75 mg tablet Take 75 mg by mouth once daily. carvedilol (COREG) 12.5 mg tablet Half tablet twice daily aspirin 81 mg chewable tablet Take 1 tablet by mouth once daily. atorvastatin (LIPITOR) 80 mg tablet Take 1 tablet by mouth once daily. nitroglycerin sublingual (NITROQUICK) 0.4 mg SL tablet Dissolve 1 tablet under the tongue every 5 minutes as needed for Chest Pain. No current facility-administered medications on file prior to visit. Social History Social History Tobacco Use Smoking status: Former Packs/day: 1.00 Years: 25.00 Additional pack years: 0.00 Total pack years: 25.00 Types: Cigarettes Quit date: 05/12/2011 Years since quittin.4 Smokeless tobacco: Never Tobacco comments: quit in 10/2017 Vaping Use Vaping Use: Never used Substance Use Topics Alcohol use: Yes Comment: 1 x per month Drug use: No EXAM: BP 122/80 Pulse 78 Resp 16 Wt 98 kg (216 lb) BMI 30.99 kg/m? General Appearance: Well appearing, alert, in no acute distress, well-hydrated, well nourished.. Lungs: Lungs clear to auscultation. No wheezing, rhonchi, rales.. Heart: RRR without murmur, gallop, or rubs. No ectopy. Feet: Shoes and socks removed, No deformities, ulcers, calluses, normal distal pulses, sensitive to 10 gm m (more content not included)... Normal [facility] CNOVon 10-21-2023 [facility] Office Visit (TANIA ) DELICIAABBIE ([id number]) 1960 M Date Time Provider Department 10/21/23 8:30 AM CRISTHIAN PETIT During your visit today, we recorded the following information about you: Pulse Respiration Blood pressure Weight 65/minute 18/minute 154/94 95.7 kg Pk Kapadia RN 10/21/2023 8:29 AM Signed Percocet this am Med helps pain Denies side effects Last uds-10/21/23 Cristhian Petit PA-C 10/21/2023 8:46 AM Addendum The OARRS report has been reviewed and is consistent with the patients medical history and medication intake. The patient underwent a random drug screen at today's office visit. The patient will continue with Percocet. Continue with core strengthening and range of motion exercises. Follow-up in the office in 3 months Discuss your blood pressure with your family doctor - BP 154/94 Call if you would like to try a muscle relaxer and we will send a script for tizanidine 4 mg 1/2-1 up to three times a day if needed. Supervising Physiciain - Cristhian Tovar MD, PA-C 10/21/2023 8:49 AM Signed This note was created using Edutor. Subjective Abbie Nsebitt is a 63 year old male. The patient primarily being seen for back pain Patient was last seen on: 08/25/23 At that time, the treatment plan was: see notes Current Meds: percocet - am Efficacy: help Side effects: denies TENS unit: no How often used: Benefit: Physical Therapy: years ago Last UDS: 10/21/23 Last injection: OARRS reviewed At the present time, the patient reports benefit with his present analgesic therapy. He denies any adverse effects. Since his previous visit, he denies any hospitalizations or ER visits. Otherwise, he has nothing further to discuss at this time. 10/14/2023 10/21/2023 INTAKE PAIN ASSESSMENT Are you having pain associated with your visit today? No Yes, Provider notified Pain Scales Verbal (Numeric Rating or Visual Analog Scale) Pain Level 2 Pain Location Back-Lower Description Stiffness;Aching Frequency Continuous Intervention/Comfort measure Medication;Relaxation ;Heat Back Pain Pertinent negatives include no fever. PAST MEDICAL HISTORY Diagnosis Date Chronic low back pain NSTEMI (non-ST elevated myocardial infarction) ([facility]) 06/16/2018 PAST SURGICAL HISTORY Procedure Laterality Date ARTHRD ANT INTERBODY MIN DSC LUMBAR 05/17/2011 L4,5 and L5 S1 CARDIAC CATH N/A 06/17/2018 2 stents placed at [facility] COLONOSCOPY GEN ANES N/A 09/2019 Dr. Espinal PAST SURGICAL HISTORY OF disc surgery x 2 TONSILLECTOMY HX N/A 1981 Social History Tobacco Use Smoking status: Former Packs/day: 1.00 Years: 25.00 Additional pack years: 0.00 Total pack years: 25.00 Types: Cigarettes Quit date: 05/12/2011 Years since quittin.4 Smokeless tobacco: Never Tobacco comments: quit in 10/2017 Vaping Use Vaping Use: Never used Substance Use Topics Alcohol use: Yes Comment: 1 x per month Drug use: No Review of Systems Constitutional: Negative for fever and unexpected weight change. Musculoskeletal: Positive for back pain. + back pain, joint pain, muscle cramps, stiffness, and arthritis Objective BP 154/94 (BP Site: Left Arm, BP Position: Sitting, BP Cuff Size: Regular Adult) Pulse 65 Resp 18 Wt 95.7 kg (211 lb) SpO2 99% BMI 30.28 kg/m? Physical Exam Vitals and nursing note reviewed. Constitutional: Appearance: Normal appearance. He is well-developed, well-groomed and overweight. HENT: Head: Normocephalic and atraumatic. Right Ear: Hearing normal. Left Ear: Hearing normal. Eyes: Conjunctiva/sclera: Conjunctivae normal. Comments: Wearing glasses Musculoskeletal: Comments: He walks with a normal gait. He has tenderness to palpation in the lumbar region with spasms noted in the trapezius, rhomboid, paraspinal, and latissimus dorsi muscles. Strength is 5/5 throughout. Sensation is intact to light touch throughout. SLR is negative. Neurological: Mental Status: He is alert and oriented to person, place, and time. Psychiatric: Attention and Perception: Attention and perception normal. Mood and Affect: Mood and affect normal. Speech: Speech normal. Behavior: Behavior normal. Behavior is cooperative. Thought Content: Thought content normal. Judgment: Judgment normal. Assessment and Plan ASSESSMENT/PLAN: 1. Lumbar post-laminectomy syndrome - ICD9: 722.83, ICD10: M96.1 (primary diagnosis) The OARRS report has been reviewed and is consistent with the patients medical history and medication intake. The patient underwent a random drug screen at today's office visit. The patient will continue with Percocet. Continue with core strengthening and range of motion exercises. Follow-up in the office in 3 months Discuss your blood pressure with your family doctor - BP 154/94 Call if you would li (more content not included)... Normal [facility] Basophil percentageOrdered B y: Shirlene Merchantonnell on 12-14-2022 Bilirubin [Mass/Vol] 0.60 mg/dL 0.20-1.00 [facility] Comment on above: For patients on eltr ombopag therapy, use of Dimension [place] TBIL is not recommended. Cholesterol [Mass/Vol] 149 mg/dL <200 [facility] Comment on above: <200 mg/dL Desirable 200-240 mg/dL Borderline >240 mg/dL High Risk Protein [Mass/Vol] 7.1 g/dL 6.4-8.2 [facility] Triglyceride [Mass/Vol] 300 mg/dL <199 [facility] Comment on above: The drugs N-Acetylcy steine and Metamizole may falsely depress this assay.Serum Triglycerides Reference Interval Normal <150 mg/dL Borderline high 150 - 199 mg/dL High 200 - 499 mg/dL Very High > or = 500 mg/dL Direct bilirubinOrdered By: Shirlene Lucio on 12-14-2022 Bilirubin.direct [Mass/Vol] 0.13 mg/dL 0.00-0.30 [facility] - Chemistry and C hemistry - challengeOrdered By: Shirlene Lucio on 12-14-2022 ALP [Catalytic activity/Vol] 112 U/L 45-117 [facility] ALT [Catalytic activity/Vol] 36 U/L 16-61 [facility] Globulin (S) [Mass/Vol] 3.5 g/dL 2.2-4.2 [facility] Serum or plasma albumin sergo urement (mass/volume)Ordered By: Shirlene Lucio on 12-14-2022 Albumin [Mass/Vol] 3.6 g/dL 3.2-5.0 [facility] Serum or plasma cholesterol in HDL measurement (mass/volume)Ordered By: Shirlene Lucio on 12-14-2022 Cholesterol in HDL [Mass/Vol] 39 mg/dL >40 [facility] Comment on above: The drugs N-Acetylcy steine and Metamizole may falsely depress this assay. Reference Range HDL <40 mg/dL Low HDL Cholesterol HDL >or= 60 mg/dL High HDL Cholesterol Serum or plasma cholesterol in VLDL measurement (mass/volume)Ordered By: Shirlene Lucio on 12-14-2022 Cholesterol in VLDL [Mass/Vol] 60 mg/dL 5-40 [facility] Serum or plasma low density lipoprotein (LDL) cholesterol measurement (mass/volume)Ordered By: Shirlene Lucio on 12-14-2022 Cholesterol in LDL [Mass/Vol] 50 mg/dL 0-130 [facility] Thin prep Papanicolaou smear with manual screeningOrdered By: Shirlene Lucio on 12-14-2022 Thin prep Papanicolaou smear with manual screening 21 U/L 15-37 [facility] Absolute lymphocyte counton 12-15-2021 Lymphocytes Auto (Unsp spec) [#/Vol] 2.12 10*3/uL 0.83-4.51 [facility] Work Phone: Basophil percentageon 2021 Basophils/100 WBC (Bld) 0.8 % 0-1 [facility] Work Phone: Bilirubin [Mass/Vol] 0.80 mg/dL 0.20-1.00 [facility] Work Phone: Comment on above: For patients on eltr ombopag therapy, use of Dimension [place] TBIL is not recommended. Chloride [Moles/Vol] 107 mmol/L 98-107 [facility] Work Phone: Cholesterol [Mass/Vol] 133 mg/dL <200 [facility] Work Phone: Comment on above: <200 mg/dL Desirable 200-240 mg/dL Borderline >240 mg/dL High Risk Eosinophils/100 WBC (Bld) 3.6 % 0-5 [facility] Work Phone: Glucose [Mass/Vol] 116 mg/dL 74-106 [facility] Work Phone: Comment on above: Fasting Glucose resu lt from 100 to 125 mg/dL suggests IMPAIRED HOMEOSTASIS per A.D.A. criteria. Neutrophils (Bld) [#/Vol] 5.2 10*3/uL 2.0-7.7 [facility] Work Phone: Neutrophils/100 WBC (Bld) 60.9 % 47-70 [facility] Work Phone: Potassium [Moles/Vol] 4.0 mmol/L 3.5-5.1 [facility] Work Phone: Protein [Mass/Vol] 7.6 g/dL 6.4-8.2 [facility] Work Phone: Sodium [Moles/Vol] 140 mmol/L 136-145 [facility] Work Phone: Triglyceride [Mass/Vol] 183 mg/dL <199 [facility] Work Phone: Comment on above: The drugs N-Acetylcy steine and Metamizole may falsely depress this assay.Serum Triglycerides Reference Interval Normal <150 mg/dL Borderline high 150 - 199 mg/dL High 200 - 499 mg/dL Very High > or = 500 mg/dL WBC (Bld) [#/Vol] 8.6 10*3/uL 4.4-11.0 [facility] Work Phone: Blood erythrocytes count (nu mber/volume)on 12-15-2021 RBC (Bld) [#/Vol] 4.94 10*6/uL 4.6-6.2 [facility] Work Phone: Blood hemoglobin measurement (mass/volume)on 12-15-2021 Hemoglobin (Bld) [Mass/Vol] 15.3 g/dL 13.0-16.5 [facility] Work Phone: Blood lymphocytes/100 leukoc yteson 12-15-2021 Lymphocytes/100 WBC (Bld) 24.6 % 19-41 [facility] Work Phone: Blood monocytes/100 leukocyt eson 12-15-2021 Monocytes/100 WBC (Bld) 10.0 % 0-10 [facility] Work Phone: Blood platelet mean volumeon 12-15-2021 Platelet mean volume (Bld) [Entitic vol] 11.2 fL 6.2-12.0 [facility] Work Phone: Determination of erythrocyte mean corpuscular volume (MCV)on 12-15-2021 MCV (RBC) [Entitic vol] 90.7 fL 80-94 [facility] Work Phone: Direct bilirubinon 2 Bilirubin.direct [Mass/Vol] 0.20 mg/dL 0.00-0.30 [facility] Work Phone: Hematocrit Auto (Bld) [Volum e fraction]on 12-15-2021 Hematocrit (Bld) [Volume fraction] 44.8 % 40-54 [facility] Work Phone: Laboratory - Chemistry and C hemistry - challengeon 12-15-2021 ALP [Catalytic activity/Vol] 118 U/L 45-117 [facility] Work Phone: [phone] ALT [Catalytic activity/Vol] 30 U/L 16-61 [facility] Work Phone: CO2 [Moles/Vol] 30.0 mmol/L 21.0-32.0 [facility] Work Phone: Globulin (S) [Mass/Vol] 3.8 g/dL 2.2-4.2 [facility] Work Phone: Urea nitrogen/Creatinine [Mass ratio] 17.1 mg/mg 10-20 [facility] Work Phone: Laboratory - Hematology and Cell countson 12-15-2021 Erythrocyte distribution width (RBC) [Entitic vol] 40.2 fL 35.1-43.9 [facility] Work Phone: Erythrocyte distribution width (RBC) [Ratio] 12.2 % 11.6-14.6 [facility] Work Phone: Immature granulocytes/100 WBC (Bld) 0.100 % 0.0-0.9 [facility] Work Phone: Comment on above: IG% - Immature Granu locytes (promyelocytes, myelocytes and metamyelocytes) > 1% indicates that a LEFT SHIFT is Present. MCH (RBC) [Entitic mass] 31.0 pg 27.0-32.0 [facility] Work Phone: Nucleated RBC/100 WBC (Bld) [Ratio] 0 % 0-5 [facility] Work Phone: MCHC Auto (RBC) [Mass/Vol]on 12-15-2021 MCHC (RBC) [Mass/Vol] 34.2 g/dL 32-36 [facility] Work Phone: No Panel Informationon 12-15 Estimated GFR (MDRD) Amer 81 mL/min >60 [facility] Work Phone: Comment on above: GFR Calc Estimated GFR (MDRD) Non-Af Amer 67 mL/min >60 [facility] Work Phone: Comment on above: Non- GFR Calc Platelets bldon 12-15-2021 Platelets (Bld) [#/Vol] 214 10*3/uL 150-450 [facility] Work Phone: Serum or plasma albumin sergo urement (mass/volume)on 12-15-2021 Albumin [Mass/Vol] 3.8 g/dL 3.2-5.0 [facility] Work Phone: Serum or plasma albumin/glob ulin mass ratioon 12-15-2021 Albumin/Globulin [Mass ratio] 1.0 {ratio} 0.9-2.4 [facility] Work Phone: Serum or plasma calcium sergo urement (mass/volume)on 12-15-2021 Calcium [Mass/Vol] 9.7 mg/dL 8.5-10.1 [facility] Work Phone: Serum or plasma cholesterol in HDL measurement (mass/volume)on 12-15-2021 Cholesterol in HDL [Mass/Vol] 39 mg/dL >40 [facility] Work Phone: Comment on above: The drugs N-Acetylcy steine and Metamizole may falsely depress this assay. Reference Range HDL <40 mg/dL Low HDL Cholesterol HDL >or= 60 mg/dL High HDL Cholesterol Serum or plasma cholesterol in VLDL measurement (mass/volume)on 12-15-2021 Cholesterol in VLDL [Mass/Vol] 37 mg/dL 5-40 [facility] Work Phone: Serum or plasma creatinine m easurement (mass/volume)on 12-15-2021 Creatinine [Mass/Vol] 1.17 mg/dL 0.70-1.30 [facility] Work Phone: Comment on above: The validity of the calculated GFR & GFRAA in patients over 70 years has not been determined. Clinical correlation is essential. Serum or plasma low density lipoprotein (LDL) cholesterol measurement (mass/volume)on 12-15-2021 Cholesterol in LDL [Mass/Vol] 57 mg/dL 0-130 [facility] Work Phone: Serum or plasma urea nitroge n measurement (mass/volume)on 12-15-2021 Urea nitrogen [Mass/Vol] 20 mg/dL 7-18 [facility] Work Phone: Thin prep Papanicolaou smear with manual screeningon 12-15-2021 Thin prep Papanicolaou smear with manual screening 16 U/L 15-37 [facility] Work Phone: Thin prep Papanicolaou smear with manual screening 3 5-15 [facility] Work Phone: CBC W Auto Differential pane l (Bld)on 10-15-2021 Abs Immature Gran <0.03 <0.10 k/uL [facility] Basophils (Bld) [#/Vol] 0.07 10*3/uL <0.11 k/uL [facility] Basophils/100 WBC (Bld) 0.9 % [facility] Differential cell count method Nom (Bld) Auto [facility] Eosinophils (Bld) [#/Vol] 0.40 10*3/uL <0.46 k/uL [facility] Eosinophils/100 WBC (Bld) 5.0 % [facility] Erythrocyte distribution width (RBC) [Ratio] 12.1 % 11.5 - 15.0 % [facility] Hematocrit (Bld) [Volume fraction] 45.1 % 39.0 - 51.0 % [facility] Hemoglobin (Bld) [Mass/Vol] 15.1 g/dL 13.0 - 17.0 g/dL [facility] Immature Gran % 0.3 % [facility] Lymphocytes (Bld) [#/Vol] 2.02 10*3/uL 1.00 - 4.00 k/uL [facility] Lymphocytes/100 WBC (Bld) 25.3 % [facility] MCH (RBC) [Entitic mass] 30.8 pg 26.0 - 34.0 pg [facility] MCHC (RBC) [Mass/Vol] 33.5 g/dL 30.5 - 36.0 g/dL [facility] MCV (RBC) [Entitic vol] 91.9 fL 80.0 - 100.0 fL [facility] Monocytes (Bld) [#/Vol] 0.74 10*3/uL <0.87 k/uL [facility] Monocytes/100 WBC (Bld) 9.3 % C [facility] Neutrophils (Bld) [#/Vol] 4.73 10*3/uL 1.45 - 7.50 k/uL [facility] Neutrophils/100 WBC (Bld) 59.2 % [facility] Nucleated RBC (Bld) [#/Vol] 10*3/uL <0.01 k/uL [facility] Nucleated RBC/100 WBC (Bld) [Ratio] 0.0 /100 WBC [facility] Platelet mean volume (Bld) [Entitic vol] 11.9 fL 9.0 - 12.7 fL [facility] Platelets (Bld) [#/Vol] 204 10*3/uL 150 - 400 k/uL [facility] RBC (Bld) [#/Vol] 4.91 10*6/uL 4.20 - 6.0 0 m/uL [facility] WBC (Bld) [#/Vol] 7.98 10*3/uL 3.70 - 11. 00 k/uL [facility] Urinalysis complete panel (U )on 10-15-2021 Bilirubin Ql (U) Negative Negative [facility] Clarity (Unsp spec) Clear Clear [facility] Color (U) Light Yellow Yellow [facility] Glucose Test strip (U) [Mass/Vol] Negative Negative [facility] Hemoglobin Ql (U) Negative Negative [facility] Ketones Ql (U) Negative Negative [facility] Leukocyte esterase Test strip Ql (U) Negative Negative [facility] Nitrite Ql (U) Negative Negative [facility] pH (U) 6.0 [pH] 5.0 - 8.0 [facility] Protein (U) [Mass/Vol] Negative Negative Cl [facility] RBC LM.HPF (Urine sed) [#/Area] 0-3 /HPF 0-3 /HPF [facility] Specific gravity (U) [Rel density] 1.014 1.005 - 1.030 [facility] Urobilinogen Ql (U) Negative Negative [facility] WBC LM.HPF (Urine sed) [#/Area] 0-5 /HPF 0-5 /HPF [facility] TOXASSURE COMPRon 11-21-2018 TOXASSURE COMPR FINAL Normal () [facility] Comment on above: Result Comment: ====== TOXASSURE COMP DRUG ANALYSIS,UR ====== Test Result Flag Units Drug Present and Declared for Prescription Verification Oxycodone 616 EXPECTED ng/mg creat Oxymorphone 1036 EXPECTED ng/mg creat Noroxycodone 1440 EXPECTED ng/mg creat Noroxymorphone 200 EXPECTED ng/mg creat Sources of oxycodone are scheduled prescription medications. Oxymorphone, noroxycodone, and noroxymorphone are expected metabolites of oxycodone. Oxymorphone is also available as a scheduled prescription medication. Acetaminophen PRESENT EXPECTED ====== Test Result Flag Units Ref Range Creatinine 25 mg/dL >=20 ====== Declared Medications: The flagging and interpretation on this report are based on the following declared medications. Unexpected results may arise from inaccuracies in the declared medications. Note: The testing scope of this panel includes these medications: Oxycodone (Percocet) Note: The testing scope of this panel does not include small to moderate amounts of these reported medications: Acetaminophen (Percocet) ====== For clinical consultation, please call . ====== Performed At: [email or web address] [address] [place] [address] [id number] Neftali Ferreira [facility] [id number] Performed By: #### L [id number] #### [facility] [address] [place] [id number] # [phone] Vital Signs Date Time Vital Sign Value Performing Clinician Facility 09-13-2024 08:33-0400 Body mass index (BMI) [Ratio] 28.3 kg/m2 Marlys Moreno MD Work Phone: [facility] 09-13-2024 08:33-0400 Body weight 91.4 kg Marlys Moreno MD Work Phone: [facility] 09-13-2024 08:33-0400 Diastolic blood pressure 70 mm[Hg] Marlys Moreno MD Work Phone: [facility] 09-13-2024 08:33-0400 Heart rate 70 /min Marlys Moreno MD Work Phone: [facility] 09-13-2024 08:33-0400 Respiratory rate 16 /min Marlys Moreno MD Work Phone: [facility] 09-13-2024 08:33-0400 Systolic blood pressure 112 mm[Hg] Marlys Moreno MD Work Phone: [facility] 09-05-2024 13:53-0400 Diastolic blood pressure 75 mm[Hg] Cristhian Petit PA-C Work Phone: [facility] 09-05-2024 13:53-0400 Heart rate 67 /min Cristhian Petit PA-C Work Phone: [facility] 09-05-2024 13:53-0400 Respiratory rate 16 /min Cristhian Petit PA-C Work Phone: [facility] 09-05-2024 13:53-0400 SaO2% (BldA) [Mass fraction] 97 % Cristhian Petit PA-C Work Phone: [facility] 09-05-2024 13:53-0400 Systolic blood pressure 120 mm[Hg] Cristhian Petit PA-C Work Phone: [facility] 08-23-2024 09:06-0400 Diastolic blood pressure 82 mm[Hg] Dr. Marlys Moreno MD Work Phone: [facility] 08-23-2024 09:06-0400 Systolic blood pressure 128 mm[Hg] Dr. Marlys Moreno MD Work Phone: [facility] 08-23-2024 06:41-0400 Body height 177.[address] Marlys Moreno MD Work Phone: [facility] 08-23-2024 06:41-0400 Body mass index (BMI) [Ratio] 28.8 kg/m2 Dr. Marlys Moreno MD Work Phone: [facility] 08-23-2024 06:41-0400 Body weight 91.[address] Marlys Moreno MD Work Phone: [facility] 08-23-2024 06:41-0400 Heart rate 63 /min Dr. Marlys Morneo MD Work Phone: [facility] 08-23-2024 06:41-0400 Respiratory rate 18 /min Dr. Marlys Moreno MD Work Phone: [facility] 08-23-2024 06:41-0400 SaO2% (BldA) [Mass fraction] 98 % Dr. Marlys Moreno MD Work Phone: [facility] 04-27-2024 08:24-0500 Body mass index (BMI) [Ratio] 29.5 kg/m2 Cristhian Petit PA-C Work Phone: [facility] 04-27-2024 08:24-0500 Body weight 95.25 kg Cristhian Petit PA-C Work Phone: [facility] 04-27-2024 08:24-0500 Diastolic blood pressure 88 mm[Hg] Cristhian Petit PA-C Work Phone: [facility] 04-27-2024 08:24-0500 Heart rate 81 /min Cristhian Petit PA-C Work Phone: [facility] 04-27-2024 08:24-0500 Respiratory rate 18 /min Cristhian Petit PA-C Work Phone: [facility] 04-27-2024 08:24-0500 SaO2% (BldA) [Mass fraction] 97 % Cristhian Petit PA-C Work Phone: [facility] 04-27-2024 08:24-0500 Systolic blood pressure 145 mm[Hg] Cristhian Petit PA-C Work Phone: [facility] 03-12-2024 11:54-0500 Body height 179.7 cm Marlys Moreno MD Work Phone: [facility] 03-12-2024 11:54-0500 Body mass index (BMI) [Ratio] 29.63 kg/m2 Marlys Moreno MD Work Phone: [facility] 03-12-2024 11:54-0500 Body weight 95.7 kg Marlys Moreno MD Work Phone: [facility] 03-12-2024 11:54-0500 Diastolic blood pressure 84 mm[Hg] Marlys Moreno MD Work Phone: [facility] 03-12-2024 11:54-0500 Heart rate 72 /min Marlys Moreno MD Work Phone: [facility] 03-12-2024 11:54-0500 Respiratory rate 18 /min Marlys Moreno MD Work Phone: [facility] 03-12-2024 11:54-0500 Systolic blood pressure 126 mm[Hg] Marlys Moreno MD Work Phone: [facility] 01-26-2024 08:27-0400 Body mass index (BMI) [Ratio] 30.13 kg/m2 Cristhian Petit PA-C Work Phone: [facility] 01-26-2024 08:27-0400 Body weight 95.25 kg Cristhian Petit PA-C Work Phone: [facility] 01-26-2024 08:27-0400 Diastolic blood pressure 98 mm[Hg] Cristhian Petit PA-C Work Phone: [facility] 01-26-2024 08:27-0400 Heart rate 72 /min Cristhian Petit PA-C Work Phone: [facility] 01-26-2024 08:27-0400 Respiratory rate 16 /min Cristhian Petit PA-C Work Phone: [facility] 01-26-2024 08:27-0400 SaO2% (BldA) [Mass fraction] 98 % Cristhian Petit PA-C Work Phone: [facility] 01-26-2024 08:27-0400 Systolic blood pressure 131 mm[Hg] Cristhian Petit PA-C Work Phone: [facility] 12-26-2023 14:17-0400 Body mass index (BMI) [Ratio] 30.02 kg/m2 Nancy Haagen DENSITOMETER READER.[employer]IATE Work Phone: [facility] 12-26-2023 14:17-0400 Body weight 94.89 kg Nancy Haagen DENSITOMETER READER.[employer] ASSOCIATE Work Phone: [facility] 12-26-2023 14:01-0400 Diastolic blood pressure 78 mm[Hg] Nancy Haagen DENSITOMETER READER.[employer] ASSOCIATE Work Phone: [facility] 12-26-2023 14:01-0400 Heart rate 86 /min Nancy Haagen DENSITOMETER READER.[employer] ASSOCIATE Work Phone: [facility] 12-26-2023 14:01-0400 Respiratory rate 16 /min Nancy Haagen DENSITOMETER READER.[employer] ASSOCIATE Work Phone: [facility] 12-26-2023 14:01-0400 SaO2% (BldA) [Mass fraction] 97 % Nancy Haagen DENSITOMETER READER.[employer] ASSOCIATE Work Phone: [facility] 12-26-2023 14:01-0400 Systolic blood pressure 130 mm[Hg] Nancy Haagen DENSITOMETER READER.[employer] ASSOCIATE Work Phone: [facility] 10-24-2023 19:34-0400 Diastolic blood pressure 80 mm[Hg] Marlys Moreno MD Work Phone: [facility] Comment on above: rechecked after visit 10-24-2023 19:34-0400 Systolic blood pressure 122 mm[Hg] Marlys Moreno MD Work Phone: [facility] Comment on above: rechecked after visit 10-24-2023 19:32-0400 Body mass index (BMI) [Ratio] 30.99 kg/m2 Marlys Moreno MD Work Phone: [facility] 10-24-2023 19:32-0400 Body weight 97.98 kg Marlys Moreno MD Work Phone: [facility] 10-24-2023 19:32-0400 Heart rate 78 /min Marlys Moreno MD Work Phone: [facility] 10-24-2023 19:32-0400 Respiratory rate 16 /min Marlys Moreno MD Work Phone: [facility] 10-21-2023 08:27-0400 Body mass index (BMI) [Ratio] 30.28 kg/m2 Cristhian Petit PA-C Work Phone: [facility] 10-21-2023 08:27-0400 Body weight 95.71 kg Cristhian Petit PA-C Work Phone: [facility] 10-21-2023 08:27-0400 Diastolic blood pressure 94 mm[Hg] Cristhian Petit PA-C Work Phone: [facility] 10-21-2023 08:27-0400 Heart rate 65 /min Cristhian Petit PA-C Work Phone: [facility] 10-21-2023 08:27-0400 Respiratory rate 18 /min Cristhian Petit PA-C Work Phone: [facility] 10-21-2023 08:27-0400 SaO2% (BldA) [Mass fraction] 99 % Cristhian Petit PA-C Work Phone: [facility] 10-21-2023 08:27-0400 Systolic blood pressure 154 mm[Hg] Cristhian Petit PA-C Work Phone: [facility] 08-25-2023 08:43-0400 Body mass index (BMI) [Ratio] 30.42 kg/m2 Cristhian Petit PA-C Work Phone: [facility] 08-25-2023 08:43-0400 Body weight 96.16 kg Cristhian Petit PA-C Work Phone: [facility] 08-25-2023 08:43-0400 Diastolic blood pressure 90 mm[Hg] Cristhian Petit PA-C Work Phone: [facility] 08-25-2023 08:43-0400 Heart rate 73 /min Cristhian Petit PA-C Work Phone: [facility] 08-25-2023 08:43-0400 Respiratory rate 18 /min Cristhian Petit PA-C Work Phone: [facility] 08-25-2023 08:43-0400 SaO2% (BldA) [Mass fraction] 99 % Cristhian Petit PA-C Work Phone: [facility] 08-25-2023 08:43-0400 Systolic blood pressure 131 mm[Hg] Cristhian Petit PA-C Work Phone: [facility] 07-14-2023 08:43-0400 Body height 177.8 cm Cristhian Petit PA-C Work Phone: [facility] 07-14-2023 08:43-0400 Body temperature 97.59 [degF] Cristhian Petit PA-C Work Phone: [facility] 07-14-2023 08:43-0400 Body weight 95.25 kg Cristhian Petit PA-C Work Phone: [facility] 07-14-2023 08:43-0400 Diastolic blood pressure 71 mm[Hg] Cristhian Petit PA-C Work Phone: [facility] 07-14-2023 08:43-0400 Heart rate 70 /min Cristhian Petit PA-C Work Phone: [facility] 07-14-2023 08:43-0400 Respiratory rate 20 /min Cristhian Petit PA-C Work Phone: [facility] 07-14-2023 08:43-0400 SaO2% (BldA) [Mass fraction] 97 % Cristhian Petit PA-C Work Phone: [facility] 07-14-2023 08:43-0400 Systolic blood pressure 153 mm[Hg] Cristhian Petit PA-C Work Phone: [facility] 06-02-2023 08:52-0500 Body height 177.8 cm Cristhian Petit PA-C Work Phone: [facility] 06-02-2023 08:52-0500 Body temperature 97.59 [degF] Cristhian Petit PA-C Work Phone: [facility] 06-02-2023 08:52-0500 Body weight 97.52 kg Cristhian Petit PA-C Work Phone: [facility] 06-02-2023 08:52-0500 Diastolic blood pressure 74 mm[Hg] Cristhian Petit PA-C Work Phone: [facility] 06-02-2023 08:52-0500 Heart rate 71 /min Cristhian Petit PA-C Work Phone: [facility] 06-02-2023 08:52-0500 Respiratory rate 20 /min Cristhian Petit PA-C Work Phone: [facility] 06-02-2023 08:52-0500 SaO2% (BldA) [Mass fraction] 98 % Cristhian Petit PA-C Work Phone: [facility] 06-02-2023 08:52-0500 Systolic blood pressure 140 mm[Hg] Cristhian Petit PA-C Work Phone: [facility] 01-13-2023 08:07-0400 Body temperature 97.5 [degF] Cristhian Petit PA-C Work Phone: [facility] 01-13-2023 08:07-0400 Diastolic blood pressure 90 mm[Hg] Cristhian Petit PA-C Work Phone: [facility] 01-13-2023 08:07-0400 Heart rate 65 /min Cristhian Petit PA-C Work Phone: [facility] 01-13-2023 08:07-0400 Respiratory rate 18 /min Cristhian Petit PA-C Work Phone: [facility] 01-13-2023 08:07-0400 SaO2% (BldA) [Mass fraction] 97 % Cristhian Petit PA-C Work Phone: [facility] 01-13-2023 08:07-0400 Systolic blood pressure 153 mm[Hg] Cristhian Petit PA-C Work Phone: [facility] 12-14-2022 10:39-0400 Body height 177.[address] Marlys Moreno Work Phone: [facility] 12-14-2022 10:39-0400 Body mass index (BMI) [Ratio] 30.1 kg/m2 Dr. Marlys Moreno Work Phone: [facility] 12-14-2022 10:39-0400 Body weight 95.[address] Marlys Moreno Work Phone: [facility] 12-14-2022 10:39-0400 Diastolic blood pressure 92 mm[Hg] Dr. Marlys Moreno Work Phone: [facility] 12-14-2022 10:39-0400 Heart rate 61 /min Dr. Marlsy Moreno Work Phone: [facility] 12-14-2022 10:39-0400 Respiratory rate 18 /min Dr. Marlys Moreno Work Phone: [facility] 12-14-2022 10:39-0400 SaO2% (BldA) [Mass fraction] 99 % Dr. Marlys Moreno Work Phone: [facility] 12-14-2022 10:39-0400 Systolic blood pressure 135 mm[Hg] Dr. Marlys Moreno Work Phone: [facility] 12-02-2022 08:10-0400 Body height 177.8 cm Cristhian SOUZAC Work Phone: [facility] 12-02-2022 08:10-0400 Body temperature 98.01 [degF] Cristhian BARNETT-C Work Phone: [facility] 12-02-2022 08:10-0400 Body weight 92.08 kg Cristhian BARNETT-C Work Phone: [facility] 12-02-2022 08:10-0400 Diastolic blood pressure 81 mm[Hg] Cristhian BARNETT-C Work Phone: [facility] 12-02-2022 08:10-0400 Heart rate 71 /min Cristhian Petit PA-C Work Phone: [facility] 12-02-2022 08:10-0400 SaO2% (BldA) [Mass fraction] 97 % Cristhian Petit PA-C Work Phone: [facility] 12-02-2022 08:10-0400 Systolic blood pressure 111 mm[Hg] Cristhian Petit PA-C Work Phone: [facility] 10-21-2022 08:14-0400 Body height 177.8 cm Cristhian Petit PA-C Work Phone: [facility] 10-21-2022 08:14-0400 Body temperature 97.11 [degF] Cristhian Petit PA-C Work Phone: [facility] 10-21-2022 08:14-0400 Body weight 94.35 kg Cristhian Petit PA-C Work Phone: [facility] 10-21-2022 08:14-0400 Diastolic blood pressure 76 mm[Hg] Cristhian Petit PA-C Work Phone: [facility] 10-21-2022 08:14-0400 Heart rate 76 /min Cristhian Petit PA-C Work Phone: [facility] 10-21-2022 08:14-0400 Respiratory rate 20 /min Cristhian Petit PA-C Work Phone: [facility] 10-21-2022 08:14-0400 SaO2% (BldA) [Mass fraction] 98 % Cristhian Petit PA-C Work Phone: [facility] 10-21-2022 08:14-0400 Systolic blood pressure 131 mm[Hg] Cristhian Petit PA-C Work Phone: [facility] 09-09-2022 08:11-0400 Body temperature 97.2 [degF] Cristhian Petit PA-C Work Phone: [facility] 09-09-2022 08:11-0400 Diastolic blood pressure 89 mm[Hg] Cristhian Petit PA-C Work Phone: [facility] 09-09-2022 08:11-0400 Heart rate 66 /min Cristhian Petit PA-C Work Phone: [facility] 09-09-2022 08:11-0400 Respiratory rate 18 /min Cristhian Petit PA-C Work Phone: [facility] 09-09-2022 08:11-0400 SaO2% (BldA) [Mass fraction] 97 % Cristhian Petit PA-C Work Phone: [facility] 09-09-2022 08:11-0400 Systolic blood pressure 145 mm[Hg] Cristhian Petit PA-C Work Phone: [facility] 07-26-2022 08:32-0400 Diastolic blood pressure 95 mm[Hg] Cristhian Petit PA-C Work Phone: [facility] 07-26-2022 08:32-0400 Systolic blood pressure 154 mm[Hg] Cristhian Petit PA-C Work Phone: [facility] 07-26-2022 08:29-0400 Body temperature 97.11 [degF] Cristhian Petit PA-C Work Phone: [facility] 07-26-2022 08:29-0400 Heart rate 72 /min Cristhian Petit PA-C Work Phone: [facility] 07-26-2022 08:29-0400 Respiratory rate 18 /min Cristhian Petit PA-C Work Phone: [facility] 07-26-2022 08:29-0400 SaO2% (BldA) [Mass fraction] 97 % Cristhian Petit PA-C Work Phone: [facility] 06-10-2022 08:25-0500 Diastolic blood pressure 89 mm[Hg] Cristhian Petit PA-C Work Phone: [facility] 06-10-2022 08:25-0500 Heart rate 65 /min Cristhian Petit PA-C Work Phone: [facility] 06-10-2022 08:25-0500 SaO2% (BldA) [Mass fraction] 96 % Cristhian Petit PA-C Work Phone: [facility] 06-10-2022 08:25-0500 Systolic blood pressure 130 mm[Hg] Cristhian BARNETT-C Work Phone: [facility] 06-10-2022 08:22-0500 Body height 180.3 cm Cristhian BARNETT-C Work Phone: [facility] 06-10-2022 08:22-0500 Body temperature 98.71 [degF] Cristhian BARNETT-C Work Phone: [facility] 06-10-2022 08:22-0500 Body weight 93.89 kg Cristhian BARNETT-C Work Phone: [facility] 06-10-2022 08:22-0500 Respiratory rate 20 /min Cristhian BARNETT-C Work Phone: [facility] 06-04-2022 08:49-0500 Body temperature 97.5 [degF] Izzy Granados APRN.[employer] ASSOCIATE Work Phone: [facility] 06-04-2022 08:49-0500 Body weight 94.08 kg Izzy Granados APRN.[employer] ASSOCIATE Work Phone: [facility] 06-04-2022 08:49-0500 Diastolic blood pressure 78 mm[Hg] Izzy Granados APRN.[employer]RI[employer] ASSOCIATE Work Phone: [facility] 06-04-2022 08:49-0500 Heart rate 87 /min Izzy Granados APRN.[employer]RIBUT[employer] C[employer] ASSOCIATE Work Phone: [facility] 06-04-2022 08:49-0500 Respiratory rate 18 /min Izzy Granados APRN.DISTRIBUTION CENTER ASSOCIATE Work Phone: [facility] 06-04-2022 08:49-0500 SaO2% (BldA) [Mass fraction] 96 % Izzy Granados APRN.DISTRIBUTION CENTER ASSOCIATE Work Phone: [facility] 06-04-2022 08:49-0500 Systolic blood pressure 124 mm[Hg] Izzy Granados APRN.DISTRIBUTION CENTER ASSOCIATE Work Phone: [facility] 04-29-2022 08:38-0500 Diastolic blood pressure 86 mm[Hg] Cristhian BARNETT-C Work Phone: [facility] 04-29-2022 08:38-0500 Heart rate 76 /min Cristhian Petit PA-C Work Phone: [facility] 04-29-2022 08:38-0500 Systolic blood pressure 140 mm[Hg] Cristhian Petit PA-C Work Phone: [facility] 04-29-2022 08:36-0500 Body height 177.8 cm Cristhian Petit PA-C Work Phone: [facility] 04-29-2022 08:36-0500 Body temperature 98.01 [degF] Cristhian Petit PA-C Work Phone: [facility] 04-29-2022 08:36-0500 Body weight 93.89 kg Cristhian Petit PA-C Work Phone: [facility] 04-29-2022 08:36-0500 Respiratory rate 20 /min Cristhian Petit PA-C Work Phone: [facility] 04-29-2022 08:36-0500 SaO2% (BldA) [Mass fraction] 98 % Cristhian Petit PA-C Work Phone: [facility] 03-18-2022 08:33-0500 Diastolic blood pressure 79 mm[Hg] Cristhian Petit PA-C Work Phone: [facility] 03-18-2022 08:33-0500 Heart rate 67 /min Cristhian Petit PA-C Work Phone: [facility] 03-18-2022 08:33-0500 Systolic blood pressure 130 mm[Hg] Cristhian Petit PA-C Work Phone: [facility] 03-18-2022 08:31-0500 Body height 177.8 cm Cristhian Petit PA-C Work Phone: [facility] 03-18-2022 08:31-0500 Body temperature 98.1 [degF] Cristhian Petit PA-C Work Phone: [facility] 03-18-2022 08:31-0500 Body weight 95.25 kg Cristhian Petit PA-C Work Phone: [facility] 03-18-2022 08:31-0500 Respiratory rate 20 /min Cristhian Petit PA-C Work Phone: [facility] 03-18-2022 08:31-0500 SaO2% (BldA) [Mass fraction] 96 % Cristhian Damaso PA-C Work Phone: [facility] 02-04-2022 08:46-0400 Body height 180.3 cm Cristhian Damaso PA-C Work Phone: [facility] 02-04-2022 08:46-0400 Body temperature 97.81 [degF] Cristhain Petit PA-C Work Phone: [facility] 02-04-2022 08:46-0400 Body weight 94.35 kg Cristhian Damaso PA-C Work Phone: [facility] 02-04-2022 08:46-0400 Diastolic blood pressure 75 mm[Hg] Cristhian Petit PA-C Work Phone: [facility] 02-04-2022 08:46-0400 Heart rate 72 /min Cristhian Petit PA-C Work Phone: [facility] 02-04-2022 08:46-0400 Respiratory rate 20 /min Cristhian Petit PA-C Work Phone: [facility] 02-04-2022 08:46-0400 SaO2% (BldA) [Mass fraction] 98 % Cristhian Petit PA-C Work Phone: [facility] 02-04-2022 08:46-0400 Systolic blood pressure 142 mm[Hg] Cristhian Petit PA-C Work Phone: [facility] 12-15-2021 08:44-0400 Body height 177.[address] Marlys Moreno Work Phone: [facility] Work Phone: 12-15-2021 08:44-0400 Body mass index (BMI) [Ratio] 29.5 kg/m2 Dr. Marlys Moreno Work Phone: [facility] Work Phone: 12-15-2021 08:44-0400 Body weight 93.[address] Marlys Moreno Work Phone: [facility] Work Phone: 12-15-2021 08:44-0400 Diastolic blood pressure 83 mm[Hg] Dr. Marlys Moreno Work Phone: [facility] Work Phone: 12-15-2021 08:44-0400 Heart rate 80 /min Dr. Marlys Moreno Work Phone: [facility] Work Phone: 12-15-2021 08:44-0400 Respiratory rate 16 /min Dr. Marlys Moreno Work Phone: [facility] Work Phone: 12-15-2021 08:44-0400 SaO2% (BldA) [Mass fraction] 96 % Dr. Marlys Moreno Work Phone: [facility] Work Phone: 12-15-2021 08:44-0400 Systolic blood pressure 127 mm[Hg] Dr. Marlys Moreno Work Phone: [facility] Work Phone: 10-15-2021 09:12-0400 Body weight 95.25 kg Elise Ch DENSITOMETER READER.DISTRIBUTION CENTER ASSOCIATE Work Phone: [facility] 10-15-2021 09:12-0400 Diastolic blood pressure 90 mm[Hg] Elise Malonehof DENSITOMETER READER.DISTRIBUTION CENTER ASSOCIATE Work Phone: [facility] 10-15-2021 09:12-0400 Heart rate 69 /min Elisemarleny Arringtonf DENSITOMETER READER.DISTRIBUTION CENTER ASSOCIATE Work Phone: [facility] 10-15-2021 09:12-0400 Respiratory rate 16 /min Elisemarleny Malonehof DENSITOMETER READER.DISTRIBUTION CENTER ASSOCIATE Work Phone: [facility] 10-15-2021 09:12-0400 SaO2% (BldA) [Mass fraction] 99 % Elise Jing DENSITOMETER READER.DISTRIBUTION CENTER ASSOCIATE Work Phone: [facility] 10-15-2021 09:12-0400 Systolic blood pressure 140 mm[Hg] Elise Ch DENSITOMETER READER.DISTRIBUTION CENTER ASSOCIATE Work Phone: [facility] Encounters Encounter Date Encounter Type Care Provider Facility Start: 10-15-2024 ambulatory Shirlene BARNETT Facility:[facility] Start: 09-13-2024 End: 09-13-2024 Office outpatient visit 25 minutes Marlys Moreno MD Work Phone: [facility] Comment on above: Coronary artery dise ase involving [place] coronary artery of [place] heart, unspecified whether angina present (Primary Dx); H/O heart artery stent; Hyperlipidemia, mixed; Lumbar post-laminectomy syndrome Start: 09-13-2024 End: 09-13-2024 ambulatory MARLYS MORENO Facility:[facility] Start: 09-05-2024 End: 09-05-2024 Patient encounter procedure Cristhian Petit PA-C Work Phone: [facility] Comment on above: Lumbar post-laminect debbie syndrome (Primary Dx); Generalized osteoarthritis; Myofascial pain syndrome Start: 09-05-2024 End: 09-05-2024 ambulatory CRISTHIAN PETIT Facility:[id number] Start: 08-23-2024 End: 08-23-2024 Patient encounter procedure Shirlene BARNETT -[facility] Work Phone: Start: 08-23-2024 End: 08-23-[address] Marlys Moreno MD Work Phone: [facility] Work Phone: Start: 08-23-2024 End: 08-23-2024 ambulatory Shirlene BARNETT Facility:[facility] Start: 07-02-2024 End: 07-02-2024 Telephone encounter Marlys Moreno MD Work Phone: [facility] Comment on above: Patient Update Start: 06-29-2024 End: 06-29-2024 Telephone encounter Marlys Moreno MD Work Phone: [facility] [place] Comment on above: Patient Question Start: 05-07-2024 End: 05-08-2024 Telephone encounter Elise Ch APRN.DISTRIBUTION CENTER ASSOCIATE Work Phone: [facility] [place] Comment on above: Results (Labs ) Start: 05-04-2024 End: 05-04-2024 ambulatory MARLYS MORENO Facility:[facility] Start: 05-02-2024 End: 05-02-2024 Telephone encounter Cristhian Petit PA-C Work Phone: [facility] Start: 04-27-2024 End: 04-27-2024 Patient encounter procedure Cristhian Petit PA-C Work Phone: [facility] Comment on above: Lumbar post-laminect debbie syndrome (Primary Dx); Generalized osteoarthritis; Myofascial pain syndrome; 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 Start: 04-27-2024 End: 04-27-2024 ambulatory CRISTHIAN PETIT Facility:[id number] Start: 04-05-2024 End: 04-05-2024 Refill Cristhian Petit PA-C Work Phone: [facility] Comment on above: Refill Request Start: 03-19-2024 End: 03-22-2024 ambulatory Latrice Lau PA-C Work Phone: [facility] Start: 03-12-2024 End: 03-12-2024 ambulatory MARLYS MORENO Facility:[facility] Start: 03-12-2024 End: 03-12-2024 Patient encounter procedure Marlys Moreno MD Work Phone: [facility] [place] Comment on above: Annual wellness visi t (Primary Dx); Hyperlipidemia, mixed; Pre-diabetes; H/O heart artery stent; Coronary artery disease involving [place] coronary artery of [place] heart, unspecified whether angina present; Lumbar post-laminectomy syndrome; Chronic pain syndrome Start: 03-08-2024 End: 03-08-2024 Refill Cristhian Petit PA-C Work Phone: [facility] Comment on above: Refill Request Start: 02-27-2024 End: 02-27-[address] [facility] Facility:[facility] Start: 02-07-2024 End: 02-07-2024 ambulatory Marlys [place] Facility:[facility] Start: 01-26-2024 End: 01-26-2024 Patient encounter procedure Cristhian Petit PA-C Work Phone: [facility] Comment on above: Lumbar post-laminect debbie syndrome (Primary Dx); Generalized osteoarthritis; Myofascial pain syndrome Start: 01-26-2024 End: 01-26-2024 ambulatory CRISTHIAN PETIT Facility:[id number] Start: 01-10-2024 End: 01-10-2024 Refill Cristhian Petit PA-C Work Phone: [facility] Comment on above: Refill Request Start: 12-26-2023 End: 12-26-2023 Office outpatient visit 25 minutes Nancy Coronel APRN.DISTRIBUTION CENTER ASSOCIATE Work Phone: [facility] Comment on above: Neck pain (Primary D x) Start: 12-26-2023 End: 12-26-2023 ambulatory [facility] Facility:[facility] Start: 12-13-2023 End: 12-13-2023 ambulatory Marlys [place] Facility:[facility] Start: 12-12-2023 End: 12-12-2023 Refill Cristhian Petit PA-C Work Phone: [facility] Comment on above: Refill Request Start: 11-11-2023 Refill Cristhian harry PA-C Work Phone: [facility] Comment on above: Refill Request Start: 11-02-2023 Telephone encounter Elise stevens DENSITOMETER READER.DISTRIBUTION CENTER ASSOCIATE Work Phone: [facility] Comment on above: Results (Labs ); Ord ers Start: 10-25-2023 End: 10-25-2023 ambulatory MARLYS MORENO Facility:[facility] Start: 10-24-2023 End: 10-24-2023 ambulatory MARLYS Yolis [facility] Facility:[facility] Start: 10-24-2023 End: 10-24-2023 Patient encounter procedure Marlys Moreno MD Work Phone: [facility] Comment on above: Burning sensation of feet (Primary Dx); Ill feeling; Coronary artery disease involving [place] coronary artery of [place] heart, unspecified whether angina present Start: 10-21-2023 End: 10-21-2023 Patient encounter procedure Cristhian Petit PA-C Work Phone: [facility] Comment on above: Lumbar post-laminect debbie syndrome (Primary Dx); Generalized osteoarthritis; Myofascial pain syndrome; 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 Start: 10-21-2023 End: 10-21-2023 ambulatory CRISTHIAN PETIT Facility:[id number] Start: 10-13-2023 Refill Homer roman MD Work Phone: [facility] Comment on above: Refill Request Start: 08-25-2023 End: 08-25-2023 Patient encounter procedure Cristhian Petit PA-C Work Phone: [facility] Comment on above: Lumbar post-laminect debbie syndrome (Primary Dx); Generalized osteoarthritis; Myofascial pain syndrome Start: 08-15-2023 Refill Cristhian harry PA-C Work Phone: [facility] Comment on above: Refill Request Start: 07-14-2023 End: 07-14-2023 Patient encounter procedure Cristhian Petit PA-C Work Phone: [facility] Comment on above: Lumbar post-laminect debbie syndrome (Primary Dx); Generalized osteoarthritis; Myofascial pain syndrome Start: 06-15-2023 Refill Cristhian harry PA-C Work Phone: [facility] Comment on above: Refill Request Start: 06-02-2023 End: 06-02-2023 Patient encounter procedure Cristhian Petit PA-C Work Phone: [facility] Comment on above: Lumbar post-laminect debbie syndrome (Primary Dx); Generalized osteoarthritis; Myofascial pain syndrome Start: 05-17-2023 Refill Cristhian Petit [facility] Comment on above: Refill Request Start: 03-16-2023 Refill Cristhian harry PA-C Work Phone: [facility] Comment on above: Refill Request Start: 02-14-2023 Refill Cristhian SOUZAC Work Phone: [facility] Comment on above: Refill Request Start: 01-17-2023 Refill Cristhian SOUZAC Work Phone: [facility] Comment on above: Refill Request Start: 01-13-2023 End: 01-13-2023 Patient encounter procedure Cristhian Petit PA-C Work Phone: [facility] Comment on above: Lumbar post-laminect debbie syndrome (Primary Dx); Generalized osteoarthritis; Myofascial pain syndrome Start: 12-22-2022 Refill Cristhian SOUZAC Work Phone: [facility] Comment on above: Refill Request Start: 12-14-2022 End: 12-14-[address] Marlys Moreno Work Phone: [facility] Work Phone: Start: 12-14-2022 End: 12-14-[address] Marlys Moreno Work Phone: [facility] Work Phone: Start: 12-02-2022 End: 12-02-2022 Patient encounter procedure Cristhian Petit PA-C Work Phone: [facility] Comment on above: Lumbar post-laminect debbie syndrome (Primary Dx); Generalized osteoarthritis; Myofascial pain syndrome Start: 10-21-2022 End: 10-21-2022 Patient encounter procedure Cristhian SOUZAC Work Phone: [facility] Comment on above: Lumbar post-laminect debbie syndrome (Primary Dx); Generalized osteoarthritis; Myofascial pain syndrome Start: 10-18-2022 Refill Cristhian SOUZAC Work Phone: [facility] Comment on above: Refill Request Start: 09-17-2022 Refill Cristhian SOUZAC Work Phone: [facility] Comment on above: Refill Request Start: 09-15-2022 Telephone encounter Cristhian Petit PA-C Work Phone: [facility] Comment on above: Patient Update (Armando roa UDS ) Start: 09-09-2022 End: 09-09-2022 Patient encounter procedure Cristhian Petit PA-C Work Phone: [facility] Comment on above: Lumbar post-laminect debbie syndrome (Primary Dx); Generalized osteoarthritis; Myofascial pain syndrome; Other half-way (current) drug therapy Start: 07-26-2022 End: 07-26-2022 Patient encounter procedure Cristhian Petit PA-C Work Phone: [facility] Comment on above: Lumbar post-laminect debbie syndrome (Primary Dx); Generalized osteoarthritis; Myofascial pain syndrome Start: 07-18-2022 Refill Marlys ramirez MD Work Phone: [facility] Comment on above: Refill Request Start: 06-21-2022 Refill Cristhian harry PA-C Work Phone: [facility] Comment on above: Refill Request Start: 06-10-2022 End: 06-10-2022 Patient encounter procedure Cristhian Petit PA-C Work Phone: [facility] Comment on above: Lumbar post-laminect debbie syndrome (Primary Dx); Generalized osteoarthritis; Myofascial pain syndrome Start: 06-04-2022 Telephone encounter Marlys avila MD Work Phone: [facility] [place] Comment on above: Patient Update Start: 06-04-2022 End: 06-04-2022 Patient encounter procedure Izzy Granados APRN.CNP Work Phone: [facility] Comment on above: Positive self-admini stered antigen test for COVID-19 (Primary Dx) Start: 05-20-2022 Refill Cristhian harry PA-C Work Phone: [facility] Comment on above: Refill Request Start: 04-29-2022 End: 04-29-2022 Patient encounter procedure Cristhian Petit PA-C Work Phone: [facility] Comment on above: Lumbar post-laminect debbie syndrome (Primary Dx); Generalized osteoarthritis; Myofascial pain syndrome Start: 04-20-2022 Refill Cristhian SOUZAC Work Phone: [facility] Comment on above: Refill Request Start: 03-18-2022 End: 03-18-2022 Patient encounter procedure Cristhian SOUZAC Work Phone: [facility] Comment on above: Lumbar post-laminect debbie syndrome (Primary Dx); Generalized osteoarthritis; Myofascial pain syndrome Start: 02-04-2022 End: 02-04-2022 Patient encounter procedure Cristhian Petit PA-C Work Phone: [facility] Comment on above: Lumbar post-laminect debbie syndrome (Primary Dx); Generalized osteoarthritis; Myofascial pain syndrome; 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 Marlys Moreno Work Phone: [facility] Work Phone: Start: 12-15-2021 End: 12-15-[address] Marlys Moreno Work Phone: [facility] [facility] Start: 11-23-2021 Refill Cristhian BARNETT-C Work Phone: [facility] Comment on above: Refill Request Start: 10-24-2021 Chart abstracting Joe aleman MD Work Phone: [facility] Start: 10-23-2021 Refill Cristhian BARNETT-C Work Phone: [facility] Comment on above: Refill Request Start: 10-16-2021 Telephone encounter Elise stevens DENSITOMETER READERSerinaDISTRIBUTION CENTER ASSOCIATE Work Phone: [facility] Comment on above: Results (labs/UA) Start: 10-15-2021 End: 10-15-2021 Patient encounter procedure Elise Ch APRN.CNP Work Phone: [facility] Comment on above: Pain of left thigh ( Primary Dx); Left flank pain; Screening for prostate cancer; Screening cholesterol level Start: 08-07-2021 End: 08-07-2021 Subsequent hospital visit by physician Cristhian Petit PA-C Work Phone: [facility] Comment on above: FOLLOW UP Start: 06-25-2021 End: 06-25-2021 Subsequent hospital visit by physician Cristhian Petit PA-C Work Phone: [facility] Comment on above: FOLLOW UP Procedures Date Procedure Procedure Detail Performing Clinician Start: 05-04-2024 Lipid 1996 panel - S mary or Plasma Elise Ch APRN.CNP Work Phone: Start: 10-25-2023 Lipid 1996 panel - S mary or Plasma Elise Ch APRN.CNP Work Phone: Start: 10-24-2023 Adult depression screening assessment Elise Ch APRN.CNP Work Phone: Start: 10-15-2021 Lipid 1996 panel - S mary or Plasma Cristhian Petit PA-C Work Phone: Start: 06-06-2020 Adult depression screening assessment Cristhian Petit PA-C Work Phone: Start: 06-26-2018 History of placement of stent for coronary artery disease H/O heart artery stent Cristhian Petit PA-C Work Phone: Start: 06-16-2018 History of placement of stent for coronary artery disease History of coronary artery stent placement Shirlene BARNETT Comment on above: FAH-JCE-sell LAD w/ 3.0 x 38 mm Promus Synergy and LEONEL-mid LAD w/ 3.0 x 12 mm Promus Synergy 06/16/18 Start: 05-08-2013 Colonoscopy Cristhian jackson PA-C Work Phone: History of placement of stent for coronary artery disease H/O heart artery stent Marlys Moreno MD Work Phone: History of placement of stent for coronary artery disease H/O heart artery stent Marlys Moreno MD Work Phone: Plan of Treatment Date Care Activity Detail Author Start: 07-26-2034 RSV Vaccine (1 - 1-d ose 75+ series) RSV Vaccine (1 - 1-dose 75+ series) [facility] Start: 10-20-2031 Urine microalbumin profile [facility] Start: 05-04-2029 Lipid panel Lipid Screening [facility] Start: 10-24-2028 Lipid panel Lipid Screening [facility] Start: 05-04-2027 Diabetes Screening Diabetes Screenin g [facility] Start: 10-24-2026 Diabetes Screening Diabetes Screenin g [facility] Start: 10-15-2026 Lipid 1996 panel - S mary or Plasma Lipid Screening [facility] Start: 10-15-2026 Lipid panel Lipid Screening [facility] Start: 10-15-2026 LIPID SCREEN LIPID SCREEN [facility] Start: 10-15-2026 PROSTATE CANCER SCREENING DISCUSSION PROSTATE CANCER SCREENING DISCUSSION [facility] Start: 10-15-2026 Prostate specific antigen measurement Prostate Cancer Screening Discussion [facility] Start: 09-13-2025 Abdominal aortic aneurysm screening Abdominal Aortic Aneurysm Screening [facility] Comment on above: Postponed from 07/26 (Declined at this time) Start: 09-13-2025 Annual PCP Team Hunting Guide venecia Disease Visit Annual PCP Team Chronic Disease Visit [facility] Start: 09-13-2025 Pneumococcal Vaccine : 50+ (2 of 2 - PCV) Pneumococcal Vaccine: 50+ (2 of 2 - PCV) [facility] Comment on above: Postponed from 08/08 (Declined at this time) Start: 09-13-2025 Screening for malign ant neoplasm of lung Lung Cancer Screening [facility] Comment on above: Postponed from 07/26 (Declined at this time) Start: 05-04-2025 Hepatitis B surface antibody level LDL Cholesterol [facility] Start: 04-03-2025 Advance Directive Discussion Advance Directive Discussion [facility] Comment on above: Postponed from 07/26 (Declined at this time) Start: 03-18-2025 End: 03-18-2025 Patient encounter procedure 03/18/2025 1:20 PM EST Office Visit [facility] [place] [address] [place] [id number] Javier Chairez MD [address] [place] [address] transfer pt [facility] [place] Comment on above: transfer pt Start: 03-15-2025 Medicare Annual Well ness Visit Medicare Annual Wellness Visit [facility] Comment on above: Postponed from 08/02 (Declined at this time) Start: 03-12-2025 Annual PCP Team Hunting Guide venecia Disease Visit Annual PCP Team Chronic Disease Visit [facility] Start: 03-12-2025 Covid-19 Vaccine ( season) Covid-19 Vaccine () [facility] Comment on above: Postponed from 12/03 (Declined at this time) Start: 12-25-2024 Annual PCP Team Hunting Guide venecia Disease Visit Annual PCP Team Chronic Disease Visit [facility] Start: 12-03-2024 Influenza vaccination Influenz a Vaccine (Season Ended) [facility] Start: 10-24-2024 Hepatitis B surface antibody level LDL Cholesterol [facility] Start: 10-23-2024 Annual PCP Team Hunting Guide venecia Disease Visit Annual PCP Team Chronic Disease Visit [facility] Start: 10-23-2024 Anxiety Screening Anxiety Screening [facility] Start: 10-23-2024 Covid-19 Vaccine ( season) Covid-19 Vaccine () [facility] Comment on above: Postponed from 12/03 (Declined at this time) Start: 10-23-2024 Depression Screening Depression Scre ening [facility] Start: 10-23-2024 Hepatitis C screening Hepatitis C Sc rita [facility] Comment on above: Postponed from 07/26 (Declined at this time) Start: 10-23-2024 HIV screening HIV Screening [facility] Comment on above: Postponed from 07/26 (Declined at this time) Start: 10-15-2024 [facility]ABET[facility]EN [facility] Start: 10-15-2024 Diabetes Screening Diabetes Screenin g [facility] Start: 10-01-2024 Influenza vaccination Influenza Vacc ine (#1) [facility] Comment on above: Postponed from 12/03 (Declined at this time) Start: 09-13-2024 End: 09-13-2024 Patient encounter procedure 09/13/2024 8:40 AM EDT Office Visit [facility] [address] [place], [place] [id number] Marlys Moreno MD [address] [place], [place] [id number] 6 mo f/u [facility] Comment on above: 6 mo f/u Start: 09-10-2024 End: 12-10-2024 Comprehensive metabolic 2000 panel - Serum or Plasma COMPREHENSIVE METABOLIC PANEL Lab Routine Hyperlipidemia, mixed Pre-diabetes Coronary artery disease involving [place] coronary artery of [place] heart, unspecified whether angina present Expected: 09/10/2024 (Approximate), Expires: 12/10/2024 [facility] Comment on above: Expected: 09/10/2024 (Approximate), Expires: 12/10/2024 Start: 09-10-2024 End: 12-10-2024 Hemoglobin A1c in Blood HEMOGLOBIN A1C Lab Routine Pre-diabetes Expected: 09/10/2024 (Approximate), Expires: 12/10/2024 [facility] Work Phone: Comment on above: Expected: 09/10/2024 (Approximate), Expires: 12/10/2024 Start: 09-03-2024 End: 12-03-2024 Comprehensive metabolic 2000 panel - Serum or Plasma COMPREHENSIVE METABOLIC PANEL Lab Routine Hyperlipidemia, mixed Expected: 09/03/2024, Expires: 12/03/2024 [facility] Work Phone: Comment on above: Expected: 09/03/2024 , Expires: 12/03/2024 Start: 09-03-2024 End: 12-03-2024 Hemoglobin A1c in Blood HEMOGLOBIN A1C Lab Routine Pre-diabetes Expected: 09/03/2024, Expires: 12/03/2024 [facility] Comment on above: Expected: 09/03/2024 , Expires: 12/03/2024 Start: 09-03-2024 End: 12-03-2024 Lipid 1996 panel - Serum or Plasma LIPID PANEL BASIC Lab Routine Hyperlipidemia, mixed Expected: 09/03/2024, Expires: 12/03/2024 [facility] Comment on above: Expected: 09/03/2024 , Expires: 12/03/2024 Start: 07-26-2024 Advance Directive Discussion Advance Directive Discussion [facility] Start: 07-19-2024 End: 07-19-2024 Patient encounter procedure 07/19/2024 8:30 AM EDT Office Visit Pain Management [address] [facility] [place] [address] Cristhian Petit PA-C [address] [facility] [place], [place] [address] Follow Up Pain Management Comment on above: Follow Up Start: 05-04-2024 End: 08-03-2024 Comprehensive metabolic 2000 panel - Serum or Plasma COMPREHENSIVE METABOLIC PANEL Lab Routine Hyperlipidemia, mixed Expected: 05/04/2024, Expires: 08/03/2024 [facility] Comment on above: Expected: 05/04/2024 , Expires: 08/03/2024 Start: 05-04-2024 End: 08-03-2024 Hemoglobin A1c in Blood HEMOGLOBIN A1C Lab Routine Pre-diabetes Expected: 05/04/2024, Expires: 08/03/2024 [facility] Comment on above: Expected: 05/04/2024 , Expires: 08/03/2024 Start: 05-04-2024 End: 08-03-2024 Lipid 1996 panel - Serum or Plasma LIPID PANEL BASIC Lab Routine Hyperlipidemia, mixed Expected: 05/04/2024, Expires: 08/03/2024 [facility] Work Phone: Comment on above: Expected: 05/04/2024 , Expires: 08/03/2024 Start: 05-04-2024 End: 05-04-2024 ambulatory 05/04/2024 10:00 AM EST Results Only [place] [facility] Draw Station [address] [facility] [place] [address] [place] [facility] Draw Station Start: 04-27-2024 End: 2024 TOXASSURE FLEX 23, URINE TOXASSURE FLEX 23, URINE Lab Routine Lumbar post-laminectomy syndrome Other half-way (current) drug therapy Expected: 04/27/2024, Expires: 2024 [facility] Work Phone: Comment on above: Expected: 04/27/2024 , Expires: 2024 Start: 04-27-2024 End: 04-27-2024 Patient encounter procedure 04/27/2024 8:30 AM EST Office Visit Pain Management [address] [place] [address] Cristhian Petit, PA-C [address] [facility] [place] [address] 3 month follow up Pain Management Comment on above: 3 month follow up Start: 03-23-2024 LIPID SCREEN LIPID SCREEN [facility] Start: 03-12-2024 End: 03-12-2024 Patient encounter procedure 03/12/2024 12:00 PM EST Office Visit Family Medicine [place] [address] [place], [place] [id number] Malrys Moreno MD [address] [place], [place] [id number] physical Family Medicine [place] Comment on above: physical Start: 01-26-2024 End: 01-26-2024 Patient encounter procedure 01/26/2024 8:30 AM EDT Office Visit Pain Management [address] [place] [address] Cristhian Petit, PA-C [address] [facility] [place] [address] FU Pain Management Comment on above: FU Start: 12-04-2023 Covid-19 Vaccine () Covid-19 Vaccine () [facility] Start: 12-04-2023 Covid-19 Vaccine () Covid-19 Vaccine () [facility] Start: 12-04-2023 Influenza vaccination [facility] Start: 10-25-2023 End: 10-25-2023 ambulatory 10/25/2023 10:30 AM EDT Results Only [place] [facility] Draw Station [address] [place] [address] [place] [facility] Draw Station Start: 10-24-2023 End: 01-23-2024 CBC W Auto Differential panel - Blood COMPLETE BLOOD COUNT AND DIFFERENTIAL Lab Routine Burning sensation of feet Ill feeling Coronary artery disease involving win[place] coronary artery of win[place] heart, unspecified whether angina present Expected: 10/24/2023 (Approximate), Expires: 01/23/2024 [facility] Comment on above: Expected: 10/24/2023 (Approximate), Expires: 01/23/2024 Start: 10-24-2023 End: 01-23-2024 Cobalamin (Vitamin B12) [Mass/volume] in Serum or Plasma VITAMIN B12 Lab Routine Burning sensation of feet Ill feeling Expected: 10/24/2023 (Approximate), Expires: 01/23/2024 [facility] Comment on above: Expected: 10/24/2023 (Approximate), Expires: 01/23/2024 Start: 10-24-2023 End: 01-23-2024 Comprehensive metabolic 2000 panel - Serum or Plasma COMPREHENSIVE METABOLIC PANEL Lab Routine Burning sensation of feet Ill feeling Coronary artery disease involving [place] coronary artery of [place] heart, unspecified whether angina present Expected: 10/24/2023 (Approximate), Expires: 01/23/2024 [facility] Comment on above: Expected: 10/24/2023 (Approximate), Expires: 01/23/2024 Start: 10-24-2023 End: 01-23-2024 Hemoglobin A1c in Blood HEMOGLOBIN A1C Lab Routine Burning sensation of feet Ill feeling Expected: 10/24/2023 (Approximate), Expires: 01/23/2024 [facility] Comment on above: Expected: 10/24/2023 (Approximate), Expires: 01/23/2024 Start: 10-24-2023 End: 01-23-2024 Lipid 1996 panel - Serum or Plasma LIPID PANEL BASIC Lab Routine Burning sensation of feet Ill feeling Coronary artery disease involving [place] coronary artery of [place] heart, unspecified whether angina present Expected: 10/24/2023 (Approximate), Expires: 01/23/2024 [facility] Work Phone: Comment on above: Expected: 10/24/2023 (Approximate), Expires: 01/23/2024 Start: 10-24-2023 End: 01-23-2024 Thyrotropin [Units/volume] in Serum or Plasma THYROID STIMULATING HORMONE Lab Routine Burning sensation of feet Ill feeling Expected: 10/24/2023 (Approximate), Expires: 01/23/2024 [facility] Comment on above: Expected: 10/24/2023 (Approximate), Expires: 01/23/2024 Start: 10-21-2023 End: 01-20-2024 TOXASSURE FLEX 23, URINE TOXASSURE FLEX 23, URINE Lab Routine Lumbar post-laminectomy syndrome 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 Expected: 10/21/2023, Expires: 01/20/2024 [facility] Work Phone: Comment on above: Expected: 10/21/2023 , Expires: 01/20/2024 Start: 10-21-2023 End: 10-21-2023 Patient encounter procedure 10/21/2023 8:30 AM EDT Office Visit Pain Management [address] [place] [address] Cristhian Petit PAAdrian [address] [place] [address] follow up Pain Management Comment on above: follow up Start: 08-25-2023 End: 08-25-2023 Patient encounter procedure 08/25/2023 8:45 AM EDT Office Visit Pain Management [address] [place] [address] Cristhian Petit PAAdrian [address] [place] [address] FOLLOW UP Pain Management Comment on above: FOLLOW UP Start: 04-04-2023 Behavioral Health Screening Behavioral Health Screening [facility] Start: 04-04-2023 Depression Assessment Depression Ass essment [facility] Start: 12-03-2022 Covid-19 Vaccine () Covid-19 Vaccine () [facility] Start: 12-03-2022 Influenza vaccination [facility] Start: 10-15-2022 ANNUAL PCP TEAM ENVIRONMENTAL EDUCATION SPECIALIST [place] DISEASE VISIT ANNUAL PCP TEAM CHRONIC DISEASE VISIT [facility] Start: 10-15-2022 Hepatitis B surface antibody level LDL CHOLESTEROL [facility] Start: 09-09-2022 End: 11-09-2022 TOXASSURE FLEX 23, URINE TOXASSURE FLEX 23, URINE Lab Routine Lumbar post-laminectomy syndrome 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 Expected: 09/09/2022, Expires: 11/09/2022 [facility] Work Phone: Comment on above: Expected: 09/09/2022 , Expires: 11/09/2022 Start: 04-04-2022 DEPRESSION ASSESSMENT DEPRESSION ASS [facility] Start: 03-23-2022 DIABETES SCREEN DIABETES SCREEN [facility] Start: 02-04-2022 End: 04-06-2022 DRUG SCR TOXASURE DRUG SCR TOXASURE Lab Routine Lumbar post-laminectomy syndrome 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 Comment on above: Postponed from 07/26 (Declined at this time) Start: 12-05-2021 HIV SCREEN[address] HIV SCREENING [facility] Comment on above: Postponed from 07/26 (Declined at this time) Start: 12-03-2021 Influenza vaccination C [facility] Start: 10-15-2021 End: 12-15-2021 Comprehensive metabolic 2000 panel - Serum or Plasma [facility] Work Phone: Comment on above: Expected: 10/15/2021 , Expires: 12/15/2021 Start: 10-15-2021 End: 12-15-2021 Creatine kinase [Enzymatic activity/volume] in Serum or Plasma [facility] Work Phone: Comment on above: Expected: 10/15/2021 , Expires: 12/15/2021 Start: 10-15-2021 End: 12-15-2021 LIPID PANEL, NONFASTING [facility] Work Phone: Comment on above: Expected: 10/15/2021 , Expires: 12/15/2021 Start: 10-15-2021 End: 12-15-2021 Magnesium [Mass/volume] in Serum or Plasma [facility] Work Phone: Comment on above: Expected: 10/15/2021 , Expires: 12/15/2021 Start: 10-15-2021 End: 12-15-2021 PSA/PROSTSPECAG SCRN [facility] Work Phone: Comment on above: Expected: 10/15/2021 , Expires: 12/15/2021 Start: 10-01-2021 Influenza vaccination INFLUENZA (#1) [facility] Comment on above: Postponed from 12/03 (Declined at this time) Start: 06-06-2021 Adult depression screening assessment DEPRESSION SCREENING [facility] Start: 05-18-2021 COVID-19 VACCINE (4 - Booster for Pfizer series) COVID-19 VACCINE (4 - Booster for Pfizer series) [facility] Start: 04-04-2021 DEPRESSION ASSESSMENT DEPRESSION ASS ESSMENT [facility] Start: 03-12-2021 COVID-19 VACCINE (4 - Booster for Pfizer series) COVID-19 VACCINE (4 - Booster for Pfizer series) [facility] Start: 03-12-2021 COVID-19 VACCINE (4 - Pfizer series) COVID-19 VACCINE (4 - Pfizer series) [facility] Start: 12-05-2020 COVID-19 VACCINE (3 - Booster for Pfizer series) COVID-19 VACCINE (3 - Booster for Pfizer series) [facility] Start: 08-08-2020 Pneumococcal Vaccine : 50+ (2 of 2 - PCV) Pneumococcal Vaccine: 50+ (2 of 2 - PCV) [facility] Start: 03-23-2020 Hepatitis B surface antibody level LDL CHOLESTEROL [facility] Start: 2019 RSV Vaccine (1 - 1-d ose 60+ series) RSV Vaccine (1 - 1-dose 60+ series) [facility] Start: 05-08-2018 Screening for malign ant neoplasm of colon [facility] Start: 07-26-2014 PROSTATE CANCER SCREENING DISCUSSION PROSTATE CANCER SCREENING DISCUSSION [facility] Start: 05-08-2014 Colonoscopy COLONOSCOPY [facility] Start: 05-08-2014 COLORECTAL CANCER SCREENING COLORECTAL CANCER SCREENING [facility] Start: 05-08-2014 Screening for malign ant neoplasm of colon [facility] Start: 07-26-2009 Influenza vaccination LUNG CANCER [facility] Start: 07-26-2009 Screening for malign ant neoplasm of lung Lung Cancer Screening [facility] Start: 07-26-2004 COLOGUARD (FIT-DNA) COLOGUARD (FIT-D NA) [facility] Start: 07-26-[address] COLONOGRAPHY [facility] Start: 07-26-2004 FECAL OCCULT BLOOD FECAL OCCULT BLOO D [facility] Start: 07-26-2004 Screening for malign ant neoplasm of colon [facility] Start: 07-26-[address] [facility] Start: 07-26-1978 Urine microalbumin profile DTAP,TDAP,TD (1 - Tdap) [facility] Start: 07-26-1977 HEPATITIS C SCREENING HEPATITIS C [facility] Start: 07-26-1977 Hepatitis C screening Hepatitis C [facility] Start: 07-26-1977 HIV SCREENING HIV SCREENING [facility] Start: 07-26-1977 HIV screening HIV Screening [facility] Start: 1960 Abdominal aortic aneurysm screening Abdominal Aortic Aneurysm Screening [facility] Radionuclide imaging of perfusion of myocardium under exercise stress [facility] Immunizations Immunization Date Immunization Notes Care Provider Janeen dave 10-19-2021 tetanus toxoid, redu denny diphtheria toxoid, and acellular pertussis vaccine, adsorbed Cristhian Petit PA-C Work Phone: [facility] 03-06-2020 zoster vaccine recombinant Cristhian Petit PA-C Work Phone: [facility] 08-09-2019 pneumococcal polysaccharide vaccine, 23 valent Cristhian Petit PA-C Work Phone: [facility] 08-09-2019 zoster vaccine recombinant Cristhian Petit PA-C Work Phone: [facility] Payers Date Payer Category Payer Unknown [id number] 2024 Medicare MEDICARE [id number] 2024 Medicare [id number] 2023 Self-pay [id number] 2023 Private Health Insurance [id number] 2023 Unknown [id number] 2019 Unknown [employer] E PPO [id number] 2019-Present [phone] [address] [place] [address] PPO [id number] 2019 Unknown [id number] 2012 Unknown [facility] [id number] Unknown ANTHEM [id number] Unknown [employer] [id number] Unknown ANTHEM [id number] Unknown [id number] Unknown [id number] Unknown [id number] Unknown [id number] Unknown [id number] Unknown [id number] Social History Date Type Detail Facility Start: 06-26-2018 End: 12-26-2023 Tobacco smoking status NHIS Ex-smoker [facility] Start: 05-12-1986 End: 05-12-2011 History of tobacco use Current smoker [facility] Start: 05-12-1986 End: 05-12-2011 History of tobacco use Cigarette Smoker [facility] Start: 06-26-2018 End: 09-09-2022 Cigarettes smoked current (pack per day) - Reported 1 [facility] Start: 06-26-2018 End: 12-26-2023 Tobacco use and exposure Smokeless tobacco non-user [facility] Start: 12-05-2020 End: 03-18-2022 Alcohol intake Current non-drinker of alcohol (finding) [facility] Start: 05-15-2011 History SDOH Alcohol Comment 2 x per month [facility] Start: 06-26-2018 End: 06-04-2022 Tobacco Comment quit in 10/2017 [facility] Start: 1960 Sex Assigned At Not on file C [facility] Start: 10-05-2021 End: 02-04-2022 Exposure to SARS-CoV-2 (event) Not sure [facility] Start: 12-15-2021 End: 12-14-2022 Tobacco smoking status NHIS Unknown if ever smoked [facility] Start: 12-16-[address] [facility] Start: 06-16-[address] [facility] Start: 06-17-[address] [facility] Start: 1960 Sex Assigned At Male [facility] Start: 04-29-2022 End: 12-26-2023 Alcohol intake Current drinker of alcohol (finding) [facility] Start: 09-09-2022 End: 10-24-2023 Tobacco use panel [facility] Adult Depression Scr eening Assessment 0 [facility] Start: 06-02-2023 Alcohol Comment 1 x per month [facility] Has the [employer], [employer], or [employer] threatened to shut off services in your home in past 12Mo No [facility] Do you belong to any clubs or organizations such as anabaptism groups, unions, fraternal or athletic groups, or school groups? Yes [facility] Are you now , , , , never or living with a partner? [facility] How often to you hav e a drink containing alcohol? Monthly or less [facility] How many standard dr inks containing alcohol do you have on a typical day? 1 or 2 [facility] How often do you hav e 6 or more drinks on 1 occasion? Less than monthly [facility] How hard is it for y ou to pay for the very basics like food, housing, medical care, and heating Not very hard [facility] Do you feel stress - tense, restless, nervous, or anxious, or unable to sleep at night because your mind is troubled all the time - these days [OSQ] Only a little [facility] (I/We) worried leandro er (my/our) food would run out before (I/we) got money to buy more. Never true [facility] Start: 01-26-2024 End: 09-13-2024 Alcoholic beverage intake [facility]-drinker (finding) [facility] 06-20-2017 to 09-13-2024 Marlys Moreno MD - 09/13/2024 8:40 AM EDTPatient Cristhian Loyola PA-C - 09/05/2024 1:58 PM EDT Note Date & Type Note Facility 09-13-2024 History of Present illness Narrative Chief Complaint Patient presents with: 6 Month Exam HPI Abbie Nesbitt is a 64 year old male who presents here today for 6 month follow up. No bowel, Gi, or urinary issues. He does get up 2-3 x a night depending on the night. Has trouble staring to urinating, dribbling, and frequency. No pain or urgency with urination. He had a colonoscopy done with polyp removed in September 2018, with follow up depending on pathology report. No report received on pathology (office requested report today) HTN/CAD: S/P stent. Follows with [facility]; scheduled for routine 5 year stress test. Taking Lisinopril 10 mg daily, Coreg 12.5 mg half pill BID. No chest pains, dizziness, or SOB. Does check BP occ at home with readings WNL. Has nitro but has never needed to use it. Lipid: Taking Lipitor 80 mg daily and ASA 81 mg daily. He walks daily and does some light weight lifting for the last several months. Tries to watch diet some. Pain: Back, no longer follows with Pain Management ERICKA Caballero. Still has back pain, not any worse but no better. Past medical history, appointments, medications, allergies reviewed. Previous Medical History PAST MEDICAL HISTORY Diagnosis Date Chronic low back pain NSTEMI (non-ST elevated myocardial infarction) (HCC) 06/16/2018 Previous Surgical History PAST SURGICAL HISTORY Procedure Laterality Date ARTHRD ANT INTERBODY MIN DSC LUMBAR 05/17/2011 L4,5 and L5 S1 CARDIAC CATH N/A 06/17/2018 2 stents placed at [facility] COLONOSCOPY GEN ANES N/A 09/2019 Dr. Espinal PAST SURGICAL HISTORY OF disc surgery x 2 TONSILLECTOMY HX N/A 1981 Family History FAMILY HISTORY Problem Relation Age of Onset Cancer Father 80 gastric Stroke Father Heart disease Father Patient Allergies ALLERGIES No Known Allergies Current Medications Current Outpatient Medications on File Prior to Visit Medication Sig ondansetron (ZOFRAN) 4 mg tablet Take 1 tablet by mouth every 8 hours as needed for nausea/vomiting. oxyCODONE-acetaminophen (PERCOCET) 5-325 mg tablet Take 1 tablet by mouth every 8 hours as needed for pain for up to 30 days. Patient should start on May 14, 2024. lisinopril (ZESTRIL) 10 mg tablet Take 1 tablet by mouth every afternoon. carvedilol (COREG) 12.5 mg tablet Half tablet twice daily aspirin 81 mg chewable tablet Take 1 tablet by mouth once daily. atorvastatin (LIPITOR) 80 mg tablet Take 1 tablet by mouth once daily. nitroglycerin sublingual (NITROQUICK) 0.4 mg SL tablet Dissolve 1 tablet under the tongue every 5 minutes as needed for Chest Pain. No current facility-administered medications on file prior to visit. Social History Social History Tobacco Use Smoking status: Former Current packs/day: 0.00 Average packs/day: 1 pack/day for 25.0 years (25.0 ttl pk-yrs) Types: Cigarettes Start date: 05/12/1986 Quit date: 05/12/2011 Years since quittin.3 Smokeless tobacco: Never Tobacco comments: quit in 10/2017 Vaping Use Vaping status: Never Used Substance Use Topics Alcohol use: Not Currently Comment: 1 x per month Drug use: Yes Comment: marijuana cpl times month EXAM: BP 112/70 Pulse 70 Resp 16 Wt 91.4 kg (201 lb 8 oz) BMI 28.30 kg/m General Appearance: Well appearing, alert, in no acute distress, well-hydrated, well nourished.. Lungs: Lungs clear to auscultation. No wheezing, rhonchi, rales.. Heart: RRR without murmur, gallop, or rubs. No ectopy. Health Maintenance List Colorectal Cancer Screening due on 05/08/2018 Hepatitis C Screening due on 10/23/2024 HIV Screening due on 10/23/2024 Covid-19 Vaccine() due on 03/12/2025 Medicare Annual Wellness Visit due on 03/15/2025 Advance Directive Discussion due on 04/03/2025 Lung Cancer Screening due on 09/13/2025 Abdominal Aortic Aneurysm Screening due on 09/13/2025 Pneumococcal Vaccine: 50+(2 of 2 - PCV) due on 09/13/2025 Depression Screening due on 10/23/2024 Anxiety Screening due on 10/23/2024 Influenza Vaccine(Season Ended) due on 12/03/2024 LDL Cholesterol due on 05/04/2025 Annual PCP Team Chronic Disease Visit due on 09/13/2025 Prostate Cancer Screening Discussion due on 10/15/2026 Diabetes Screening due on 05/04/2027 Lipid Screening due on 05/04/2029 DTaP,Tdap,Td Vaccine(2 - Td or Tdap) due on 10/20/2031 RSV Vaccine(1 - 1-dose 75+ series) due on 07/26/2034 Shingrix Vaccine Completed Data reviewed [facility] labs 08/26/24: TC 122, Glu 107, Cr normal. ASSESSMENT/PLAN: 1. Coronary artery disease involving [place] coronary artery of [place] heart, unspecified whether angina present - ICD9: 414.01, ICD10: I25.10 (primary diagnosis) Stable Continue current medications. Follow with Cardiology; labs checked there 2. H/O heart artery stent - ICD9: V45.82, ICD10: Z95.5 Same 3. Hyperlipidemia, mixed - ICD9: 272.2, ICD10: E78.2 - Controlled - Continue current medications - Counseled on healthy diet and regular exercise 4. Lumbar post-laminectomy syndrome - ICD9: 722.83, ICD10: M96.1 Symptomatic treatment Follow up in 6 months I agree with the Chief Complaint, ROS, and Past Histories independently gathered by the clinical product support representative and the remaining scribed note accurately describes my personal service to the patient. Medical Decision Making: Problems: Moderate: 2+ stable chronic illnesses Data: Unique test result(s) reviewed: 2 Risk: Moderate: Drug management Medical Decision Making Level: 4 - Moderate Marlys Moreno MD The documentation for this note was completed by Suzi Silva MA acting as scribe for Marlys Moreno MD. September 13, 2024 8:27 AM. Suzi Silva MA documented in this encounter [facility] 09-13-2024 Note HNO ID: [id number] Author: MARLYS MORENO MD Service: ? Author Type: Physician Type: Progress Notes Filed: 09/13/2024 16:09 Note Text: Chief Complaint Patient presents with: 6 Month Exam HPI Abbie Nesbitt is a 64 year old male who presents here today for 6 month follow up. No bowel, Gi, or urinary issues. He does get up 2-3 x a night depending on the night. Has trouble staring to urinating, dribbling, and frequency. No pain or urgency with urination. He had a colonoscopy done with polyp removed in September 2018, with follow up depending on pathology report. No report received on pathology (office requested report today) HTN/CAD: S/P stent. Follows with [facility]; scheduled for routine 5 year stress test. Taking Lisinopril 10 mg daily, Coreg 12.5 mg half pill BID. No chest pains, dizziness, or SOB. Does check BP occ at home with readings WNL. Has nitro but has never needed to use it. Lipid: Taking Lipitor 80 mg daily and ASA 81 mg daily. He walks daily and does some light weight lifting for the last several months. Tries to watch diet some. Pain: Back, no longer follows with Pain Management ERICKA Caballero. Still has back pain, not any worse but no better. Past medical history, appointments, medications, allergies reviewed. Previous Medical History PAST MEDICAL HISTORY Diagnosis Date Chronic low back pain NSTEMI (non-ST elevated myocardial infarction) (HCC) 06/16/2018 Previous Surgical History PAST SURGICAL HISTORY Procedure Laterality Date ARTHRD ANT INTERBODY MIN DSC LUMBAR 05/17/2011 L4,5 and L5 S1 CARDIAC CATH N/A 06/17/2018 2 stents placed at [facility] COLONOSCOPY GEN ANES N/A 09/2019 Dr. Espinal PAST SURGICAL HISTORY OF disc surgery x 2 TONSILLECTOMY HX N/A 1982 Family History FAMILY HISTORY Problem Relation Age of Onset Cancer Father 80 gastric Stroke Father Heart disease Father Patient Allergies ALLERGIES No Known Allergies Current Medications Current Outpatient Medications on File Prior to Visit Medication Sig ondansetron (ZOFRAN) 4 mg tablet Take 1 tablet by mouth every 8 hours as needed for nausea/vomiting. oxyCODONE-acetaminophen (PERCOCET) 5-325 mg tablet Take 1 tablet by mouth every 8 hours as needed for pain for up to 30 days. Patient should start on May 14, 2024. lisinopril (ZESTRIL) 10 mg tablet Take 1 tablet by mouth every afternoon. carvedilol (COREG) 12.5 mg tablet Half tablet twice daily aspirin 81 mg chewable tablet Take 1 tablet by mouth once daily. atorvastatin (LIPITOR) 80 mg tablet Take 1 tablet by mouth once daily. nitroglycerin sublingual (NITROQUICK) 0.4 mg SL tablet Dissolve 1 tablet under the tongue every 5 minutes as needed for Chest Pain. No current facility-administered medications on file prior to visit. Social History Social History Tobacco Use Smoking status: Former Current packs/day: 0.00 Average packs/day: 1 pack/day for 25.0 years (25.0 ttl pk-yrs) Types: Cigarettes Start date: 05/12/1986 Quit date: 05/12/2011 Years since quittin.3 Smokeless tobacco: Never Tobacco comments: quit in 10/2017 Vaping Use Vaping status: Never Used Substance Use Topics Alcohol use: Not Currently Comment: 1 x per month Drug use: Yes Comment: marijuana cpl times month EXAM: BP 112/70 Pulse 70 Resp 16 Wt 91.4 kg (201 lb 8 oz) BMI 28.30 kg/m? General Appearance: Well appearing, alert, in no acute distress, well-hydrated, well nourished.. Lungs: Lungs clear to auscultation. No wheezing, rhonchi, rales.. Heart: RRR without murmur, gallop, or rubs. No ectopy. Health Maintenance List Colorectal Cancer Screening due on 05/08/2018 Hepatitis C Screening due on 10/23/2024 HIV Screening due on 10/23/2024 Covid-19 Vaccine() due on 03/12/2025 Medicare Annual Wellness Visit due on 03/15/2025 Advance Directive Discussion due on 04/03/2025 Lung Cancer Screening due on 09/13/2025 Abdominal Aortic Aneurysm Screening due on 09/13/2025 Pneumococcal Vaccine: 50+(2 of 2 - PCV) due on 09/13/2025 Depression Screening due on 10/23/2024 Anxiety Screening due on 10/23/2024 Influenza Vaccine(Season Ended) due on 12/03/2024 LDL Cholesterol due on 05/04/2025 Annual PCP Team Chronic Disease Visit due on 09/13/2025 Prostate Cancer Screening Discussion due on 10/15/2026 Diabetes Screening due on 05/04/2027 Lipid Screening due on 05/04/2029 DTaP,Tdap,Td Vaccine(2 - Td or Tdap) due on 10/20/2031 RSV Vaccine(1 - 1-dose 75+ series) due on 07/26/2034 Shingrix Vaccine Completed Data reviewed [facility] labs 08/26/24: TC 122, Glu 107, Cr normal. ASSESSMENT/PLAN: 1. Coronary artery disease involving [place] coronary artery of [place] heart, unspecified whether angina present - ICD9: 414.01, ICD10: I25.10 (primary diagnosis) Stable Continue current medications. Follow with Cardiology; labs checked there 2. H/O heart artery stent - ICD9: V45.82, ICD10: Z95.5 Same (more content not included)... [facility] 09-05-2024 Instructions Cristhian Petit PA-C - 09/05/2024 2:01 PM EDT The OARRS report has been reviewed and is consistent with the patients medical history and medication intake. The patient's last UDS was positive for marijuana. Due to this the patient has already been informed of this and has been weaned off of the percocet. Continue with core strengthening and range of motion exercises. FU in the office as needed. You can try topical diclofenac gel (voltaren gel) to use as needed. Supervising Physiciain - Dr. Homer Ling MD documented in this encounter [facility] 09-05-2024 Note HNO ID: [id number] Author: CRISTHIAN PETIT PA-C Service: ? Author Type: Physician Claim Representative Type: Progress Notes Filed: 09/05/2024 14:13 Note Text: This note was created using Edutor. Subjective Abbie Nesbitt is a 64 year old male. The patient primarily being seen for back pain Patient was last seen on: 04/27/24 At that time, the treatment plan was: see notes Current Meds: Suboxone - Dick Li in July. Not using any longer. Efficacy: Side effects: TENS unit: no How often used: Benefit: Physical Therapy: years ago Last UDS: 04/27/24 Last injection: none OARRS reviewed At the present time, the patient is not currently on any medications from our office. Since his previous visit, he denies any hospitalizations or ER visits. He did suboxone for approximately a month but is done with this now. He has been having right heel pain for the last 2 weeks, but states that this typically goes away once he starts stretching his calves on a regular basis. 04/20/2024 09/04/2024 INTAKE PAIN ASSESSMENT Are you having pain associated with your visit today? Yes, Provider notified Yes, Provider notified Pain Scales Verbal (Numeric Rating or Visual Analog Scale) Verbal (Numeric Rating or Visual Analog Scale) Pain Level 3 3 Pain Location Back-Lower Back Description Stiffness Stiffness Duration Units Years Frequency Continuous Continuous Intervention/Comfort measure Medication;Relaxation;Heat Relaxation;Heat;Positioning 04/27/2024 09/05/2024 Pain Disability Index Family/Home Responsibilities: This category includes chores or duties performed around the house (e.g. yard work), errands or favors for other family members (e.g. driving the children to school) 2 5 Recreation: This category includes hobbies, sports, and other similar leisure time activities 5 6 Social Activity: This category refers to activities which involve participation with friends and acquaintances, other than family members. It includes parties, theater, concerts, dinning out, and other social functions 2 6 Occupation: This category refers to activities that are a part of or directly related to ones' job. This includes non-paying jobs as well, such as that of a housewife or volunteer worker 3 0 No disability Sexual Behavior: This category refers to the frequency and quality of one's sex life 3 0 No disability Self Care: This category includes activities which involve personal maintenance and independent daily living (e.g. taking a shower, driving, getting dress, etc) 4 1 Life Support Activity: This category refers to basic-life supporting behaviors such as eating, sleeping, and breathing 2 1 PDI Score 21 19 PAST MEDICAL HISTORY Diagnosis Date Chronic low back pain NSTEMI (non-ST elevated myocardial infarction) ([facility]) 06/16/2018 PAST SURGICAL HISTORY Procedure Laterality Date ARTHRD ANT INTERBODY MIN DSC LUMBAR 05/17/2011 L4,5 and L5 S1 CARDIAC CATH N/A 06/17/2018 2 stents placed at [facility] COLONOSCOPY GEN ANES N/A 09/2019 Dr. Espinal PAST SURGICAL HISTORY OF disc surgery x 2 TONSILLECTOMY HX N/A 1981 Social History Tobacco Use Smoking status: Former Current packs/day: 0.00 Average packs/day: 1 pack/day for 25.0 years (25.0 ttl pk-yrs) Types: Cigarettes Start date: 05/12/1986 Quit date: 05/12/2011 Years since quittin.3 Smokeless tobacco: Never Tobacco comments: quit in 10/2017 Vaping Use Vaping status: Never Used Substance Use Topics Alcohol use: Not Currently Comment: 1 x per month Drug use: Yes Comment: marijuana cpl times month Review of Systems Constitutional: Negative for fever and unexpected weight change. Musculoskeletal: Positive for back pain. + back pain, joint pain, muscle cramps, stiffness, and arthritis Objective BP 120/75 (BP Site: Left Arm, BP Position: Sitting) Pulse 67 Resp 16 SpO2 97% Physical Exam Vitals and nursing note reviewed. Constitutional: Appearance: Normal appearance. He is well-developed, well-groomed and overweight. HENT: Head: Normocephalic and atraumatic. Right Ear: Hearing normal. Left Ear: Hearing normal. Eyes: Conjunctiva/sclera: Conjunctivae normal. Musculoskeletal: Comments: He walks with a normal gait. He has tenderness to palpation in the lumbar region with spasms noted in the trapezius, paraspinal, and latissimus dorsi muscles. Strength is 5/5 throughout. Sensation is intact to light touch throughout. SLR is negative. Neurological: Mental Status: He is alert and oriented to person, place, and time. Psychiatric: Attention and Perception: Attention and perception normal. Mood and Affect: Mood and affect normal. Speech: Speech normal. Behavior: Behavior normal. Behavior is cooperative. Thought Content: Thought content normal. Judgment: Judgment normal. Assessment and Plan ASSESSMENT/PLAN: 1. Lumbar post-laminectomy syndrome - ICD9: 722.83, ICD10: M96.1 (primary diagnosis) (more content not included)... [facility] 09-05-2024 History of Present illness Narrative This note was created using Stream Processors[employer]. Subjective Abbie Nesbitt is a 64 year old male. The patient primarily being seen for back pain Patient was last seen on: 04/27/24 At that time, the treatment plan was: see notes Current Meds: Suboxone - Dick Li in July. Not using any longer. Efficacy: Side effects: TENS unit: no How often used: Benefit: Physical Therapy: years ago Last UDS: 04/27/24 Last injection: none OARRS reviewed At the present time, the patient is not currently on any medications from our office. Since his previous visit, he denies any hospitalizations or ER visits. He did suboxone for approximately a month but is done with this now. He has been having right heel pain for the last 2 weeks, but states that this typically goes away once he starts stretching his calves on a regular basis. 04/20/2024 09/04/2024 INTAKE PAIN ASSESSMENT Are you having pain associated with your visit today? Yes, Provider notified Yes, Provider notified Pain Scales Verbal (Numeric Rating or Visual Analog Scale) Verbal (Numeric Rating or Visual Analog Scale) Pain Level 3 3 Pain Location Back-Lower Back Description Stiffness Stiffness Duration Units Years Frequency Continuous Continuous Intervention/Comfort measure Medication;Relaxation;Heat Relaxation;Heat;Positioning 04/27/2024 09/05/2024 Pain Disability Index Family/Home Responsibilities: This category includes chores or duties performed around the house (e.g. yard work), errands or favors for other family members (e.g. driving the children to school) 2 5 Recreation: This category includes hobbies, sports, and other similar leisure time activities 5 6 Social Activity: This category refers to activities which involve participation with friends and acquaintances, other than family members. It includes parties, theater, concerts, dinning out, and other social functions 2 6 Occupation: This category refers to activities that are a part of or directly related to ones' job. This includes non-paying jobs as well, such as that of a housewife or volunteer worker 3 0 No disability Sexual Behavior: This category refers to the frequency and quality of one's sex life 3 0 No disability Self Care: This category includes activities which involve personal maintenance and independent daily living (e.g. taking a shower, driving, getting dress, etc) 4 1 Life Support Activity: This category refers to basic-life supporting behaviors such as eating, sleeping, and breathing 2 1 PDI Score 21 19 PAST MEDICAL HISTORY Diagnosis Date Chronic low back pain NSTEMI (non-ST elevated myocardial infarction) ([facility]) 06/16/2018 PAST SURGICAL HISTORY Procedure Laterality Date ARTHRD ANT INTERBODY MIN DSC LUMBAR 05/17/2011 L4,5 and L5 S1 CARDIAC CATH N/A 06/17/2018 2 stents placed at [facility] COLONOSCOPY GEN ANES N/A 09/2019 Dr. Espinal PAST SURGICAL HISTORY OF disc surgery x 2 TONSILLECTOMY HX N/A 1981 Social History Tobacco Use Smoking status: Former Current packs/day: 0.00 Average packs/day: 1 pack/day for 25.0 years (25.0 ttl pk-yrs) Types: Cigarettes Start date: 05/12/1986 Quit date: 05/12/2011 Years since quittin.3 Smokeless tobacco: Never Tobacco comments: quit in 10/2017 Vaping Use Vaping status: Never Used Substance Use Topics Alcohol use: Not Currently Comment: 1 x per month Drug use: Yes Comment: marijuana cpl times month Review of Systems Constitutional: Negative for fever and unexpected weight change. Musculoskeletal: Positive for back pain. + back pain, joint pain, muscle cramps, stiffness, and arthritis Objective BP 120/75 (BP Site: Left Arm, BP Position: Sitting) Pulse 67 Resp 16 SpO2 97% Physical Exam Vitals and nursing note reviewed. Constitutional: Appearance: Normal appearance. He is well-developed, well-groomed and overweight. HENT: Head: Normocephalic and atraumatic. Right Ear: Hearing normal. Left Ear: Hearing normal. Eyes: Conjunctiva/sclera: Conjunctivae normal. Musculoskeletal: Comments: He walks with a normal gait. He has tenderness to palpation in the lumbar region with spasms noted in the trapezius, paraspinal, and latissimus dorsi muscles. Strength is 5/5 throughout. Sensation is intact to light touch throughout. SLR is negative. Neurological: Mental Status: He is alert and oriented to person, place, and time. Psychiatric: Attention and Perception: Attention and perception normal. Mood and Affect: Mood and affect normal. Speech: Speech normal. Behavior: Behavior normal. Behavior is cooperative. Thought Content: Thought content normal. Judgment: Judgment normal. Assessment and Plan ASSESSMENT/PLAN: 1. Lumbar post-laminectomy syndrome - ICD9: 722.83, ICD10: M96.1 (primary diagnosis) 2. Generalized osteoarthritis - ICD9: 715.00, ICD10: M15.9 3. Myofascial pain syndrome - ICD9: 729.1, ICD10: M79.18 PLAN: The OARRS report has been reviewed and is consistent with the patients medical history and medication intake. The patient's last UDS was positive for marijuana. Due to this the patient has already been informed of this and has been weaned off of the percocet. Continue with core strengthening and range of motion exercises. FU in the office as needed. You can try topical diclofenac gel (voltaren gel) to use as needed. Cristhian Petit PA-C documented in this encounter [facility] 08-23-2024 Evaluation note Diagnosis Onset Date Resolution Essential hypertension acute August 23, 2024 8:19am Hyperlipidemia chronic August 23, 2024 8:19am History of coronary artery stent placement June 16, 2018 resolved August 23, 2024 8:19am [facility] Work Phone: [phone] Telephone encounter Note* Telephone Encounter - Anel Hoffmann LPN - 07/02/2024 11:58 AM EDT Patient notified. Verbalized understanding. [facility]03-31-2025 Miscellaneous Notes* Telephone Encounter - Anel Hoffmann LPN - 07/02/2024 11:58 AM EDT Patient notified. Verbalized understanding. * Telephone Encounter - Mick Mccann APRN.CNP - 07/02/2024 11:48 AM EDT I am not familiar with addiction medicine. Options are call [facility] in [place] at [phone] or if he wants more immediate help, he may go to the [place] ER and can ask to be admitted for Acute Withdrawal therapy. They have an area of the hospital dedicated to this. Mick Mccann APRN.CNP * Telephone Encounter - Any High RN - 07/02/2024 8:44 AM EDT Patient calls back to report that he continues to go through withdrawal (sweating, headache, weeping eyes, generally ill feeling). Patient reports that he was prescribed Zofran on Tuesday but he never had nausea or vomiting. He believes that he might have described his symptoms wrong. Patient reports that he has been completely off of Percocet since 06/28/2024. Patient reports that in the past when he went through these symptoms he was given Suboxone for withdrawal but pain management will not prescribe it. Notified that PCP doesn't prescribe that either. Patient asking what prescriber would recommend to get through symptoms as he is frustrated. Please review and advise, Any High RN [facility] Telephone encounter Note * Telephone Encounter - Mick Mccann APRN.CNP - 07/02/2024 11:48 AM EDT I am not familiar with addiction medicine. Options are call [facility] in [place] at [phone] or if he wants more immediate help, he may go to the [place] ER and can ask to be admitted for Acute Withdrawal therapy. They have an area of the hospital dedicated to this. Mick Mccann APRN.JESUS [facility]03-31-2025 Telephone encounter Note* Telephone Encounter - Any High RN - 07/02/2024 8:44 AM EDT Patient calls back to report that he continues to go through withdrawal (sweating, headache, weeping eyes, generally ill feeling). Patient reports that he was prescribed Zofran on Tuesday but he never had nausea or vomiting. He believes that he might have described his symptoms wrong. Patient reports that he has been completely off of Percocet since 06/28/2024. Patient reports that in the past when he went through these symptoms he was given Suboxone for withdrawal but pain management will not prescribe it. Notified that PCP doesn't prescribe that either. Patient asking what prescriber would recommend to get through symptoms as he is frustrated. Please review and advise, Any High RN [facility]03-28-2025 Telephone encounter Note* Telephone Encounter - Sisi Stark - 06/29/2024 2:17 PM EDT Patient called back, he received message and verbalized understanding. .Sisi Stark June 29, 2024 2:18 PM [facility]03-28-2025 Miscellaneous Notes* Telephone Encounter - Sisi Stark - 06/29/2024 2:17 PM EDT Patient called back, he received message and verbalized understanding. .Sisi Stark June 29, 2024 2:18 PM * Telephone Encounter - Vera Zamora OCCA - 06/29/2024 1:58 PM EDT TC to patient with no answer. Left VM to return call for update. KATLYN Beltran * Telephone Encounter - Mick Mccann APRN.CNP - 06/29/2024 1:53 PM EDT Please let the patient know that I have sent zofran in for him. The following approved medication requests have been transmitted electronically. Requested Prescriptions Signed Prescriptions Disp Refills ondansetron (ZOFRAN) 4 mg tablet 20 tablet 0 Sig: Take 1 tablet by mouth every 8 hours as needed for nausea/vomiting. Authorizing Provider: MICK MCCANN APRN.CNP * Telephone Encounter - Socorro Piper RN - 06/29/2024 1:38 PM EDT Patient calls and states that he has been trying to wean himself off of percocet. Patient states that 3 weeks ago he started to take only 2 tablets daily instead of 3. Patient states for the past week he only has been taking on tablet daily. Patient has only a couple percocet left and states that he thinks he is going through withdraw. Patient reports low grade temperatures, nausea, and just not feeling right. Patient is asking if there is any medication that can be given for these symptoms? Please review and advise, Socorro Piper RN [facility] Telephone encounter Note * Telephone Encounter - Vera Zamora OCCA - 06/29/2024 1:58 PM EDT TC to patient with no answer. Left VM to return call for update. KATLYN Beltran [facility]03-28-2025 Telephone encounter Note* Telephone Encounter - Mick Mccann APRN.CNP - 06/29/2024 1:53 PM EDT Please let the patient know that I have sent zofran in for him. The following approved medication requests have been transmitted electronically. Requested Prescriptions Signed Prescriptions Disp Refills ondansetron (ZOFRAN) 4 mg tablet 20 tablet 0 Sig: Take 1 tablet by mouth every 8 hours as needed for nausea/vomiting. Authorizing Provider: MICK MCCANN APRN.CNP T [facility]03-28-2025 Telephone encounter Note* Telephone Encounter - Socorro Piper RN - 06/29/2024 1:38 PM EDT Patient calls and states that he has been trying to wean himself off of percocet. Patient states that 3 weeks ago he started to take only 2 tablets daily instead of 3. Patient states for the past week he only has been taking on tablet daily. Patient has only a couple percocet left and states that he thinks he is going through withdraw. Patient reports low grade temperatures, nausea, and just not feeling right. Patient is asking if there is any medication that can be given for these symptoms? Please review and advise, Socorro Piper RN [facility]02-04-2025 Telephone encounter Note* Telephone Encounter - Suzi Silva MA - 05/08/2024 10:02 AM EST Pt notified of results via [employer]. Suzi Silva Ma [facility]02-04-2025 Miscellaneous Notes* Telephone Encounter - Suzi Silva MA - 05/08/2024 10:02 AM EST Pt notified of results via [employer]. Suzi Silva Ma * Telephone Encounter - Alyce Eisenberg LPN - 05/07/2024 9:09 AM EST TC to pt. LM to call office, ask for triage nurse to get results. Alyce Eisenberg LPN * Telephone Encounter - Elise Ch APRN.JESUS - 05/07/2024 9:00 AM EST Can you please call the patient and let him know that I reviewed his lab results. Labs were all relatively normal. HDL cholesterol was low. I would like him to work on increasing healthy fats in the diet such as fish, avocado, and healthy cooking oils such as olive oil or avocado oil. Try to get some form of exercise. A1c went from 5.7 to 5.5. I would like him to get repeat fasting labs i prior to next visit with PCP in September Please let me know if he has any questions. Thank you. Elise Ch APRN.JESUS [facility] Telephone encounter Note * Telephone Encounter - Alyce Eisenberg LPN - 05/07/2024 9:09 AM EST TC to pt. LM to call office, ask for triage nurse to get results. Alyce Eisenberg LPN [facility]02-03-2025 Telephone encounter Note* Telephone Encounter - Elise Ch APRN.JESUS - 05/07/2024 9:00 AM EST Can you please call the patient and let him know that I reviewed his lab results. Labs were all relatively normal. HDL cholesterol was low. I would like him to work on increasing healthy fats in the diet such as fish, avocado, and healthy cooking oils such as olive oil or avocado oil. Try to get some form of exercise. A1c went from 5.7 to 5.5. I would like him to get repeat fasting labs i prior to next visit with PCP in September Please let me know if he has any questions. Thank you. Elise Ch APRN.[employer] [facility]01-29-2025 Telephone encounter Note* Telephone Encounter - Cristhian Petit PA-C - 05/02/2024 3:06 PM EST Noted. I will have them fax the order for the test. [facility]01-29-2025 Miscellaneous Notes* Telephone Encounter - Cristhian Petit PA-C - 05/02/2024 3:06 PM EST Noted. I will have them fax the order for the test. * Telephone Encounter - Claudette Ochoa LPN - 05/02/2024 2:46 PM EST Spoke with pt who stated he had used CBD about 3 weeks before the urine screen, and I will agree to the differential test. Explained extra cost involved, stated that will be ok. * Telephone Encounter - Claudette Ochoa LPN - 05/02/2024 1:55 PM EST Called pt, and left message on Id'd VM to return call, number given. * Telephone Encounter - Cristhian Petit PA-C - 05/02/2024 7:04 AM EST Please call the patient and find out if he used CBD at all. If he did, I will add the confirmation test to verify. If not, he will be made no narcotics due to multiple positive urine drugs for marijuana in the past. We will have him decrease his percocet to twice a day using his current script and then on the next script we will decrease this to once a day for 2 weeks, once every other day, and then stop it. [facility] Telephone encounter Note * Telephone Encounter - Claudette Ochoa LPN - 05/02/2024 2:46 PM EST Spoke with pt who stated he had used CBD about 3 weeks before the urine screen, and I will agree to the differential test. Explained extra cost involved, stated that will be ok. [facility]01-29-[facility] Telephone encounter Note* Telephone Encounter - Claudette Ochoa LPN - 05/02/2024 1:55 PM EST Called pt, and left message on Id'd VM to return call, number given. [facility]01-29-2025 Telephone encounter Note* Telephone Encounter - Cristhian Petit PA-C - 05/02/2024 7:04 AM EST Please call the patient and find out if he used CBD at all. If he did, I will add the confirmation test to verify. If not, he will be made no narcotics due to multiple positive urine drugs for marijuana in the past. We will have him decrease his percocet to twice a day using his current script and then on the next script we will decrease this to once a day for 2 weeks, once every other day, and then stop it. [facility]01-24-2025 Instructions* Patient Instructions* Cristhian Petit PA-C - 04/27/2024 8:30 AM EST The OARRS report has been reviewed and is consistent with the patients medical history and medication intake. The patient underwent a random drug screen at today's office visit. The patient will continue with Percocet. Continue with core strengthening and range of motion exercises. Follow-up in the office in 3 months Discuss your blood pressure with your family doctor - BP 145/88 Supervising Physiciain - Dr. Homer Ling MD documented in this encounterOhio[facility] Hospital01-24-2025 NoteHNO ID: [id number] Author: CRISTHIAN PETIT PA-C Service: ? Author Type: Physician Claim Representative Type: Progress Notes Filed: 04/27/2024 08:44 Note Text: This note was created using Stream Processorsriter. Subjective Abbie Nesbitt is a 63 year old male. The patient primarily being seen for back pain Patient was last seen on: 01/26/24 At that time, the treatment plan was: see notes Current Meds: percocet - am Efficacy: help Side effects: denies TENS unit: no How often used: Benefit: Physical Therapy: years ago Last UDS: 04/27/24 Last injection: none OARRS reviewed At the present time, the patient reports benefit with his present analgesic therapy. He denies any adverse effects. Since his previous visit, he denies any hospitalizations or ER visits. Otherwise, he has nothing further to discuss at this time. 03/11/2024 04/20/2024 INTAKE PAIN ASSESSMENT Are you having pain associated with your visit today? No Yes, Provider notified Pain Scales Verbal (Numeric Rating or Visual Analog Scale) Pain Level 3 Pain Location Back-Lower Description Stiffness Frequency Continuous Intervention/Comfort measure Medication;Relaxation;Heat Back Pain Pertinent negatives include no fever. PAST MEDICAL HISTORY Diagnosis Date Chronic low back pain NSTEMI (non-ST elevated myocardial infarction) (HCC) 06/16/2018 PAST SURGICAL HISTORY Procedure Laterality Date ARTHRD ANT INTERBODY MIN DSC LUMBAR 05/17/2011 L4,5 and L5 S1 CARDIAC CATH N/A 06/17/2018 2 stents placed at [facility] COLONOSCOPY GEN ANES N/A 09/2019 Dr. Espinal PAST SURGICAL HISTORY OF disc surgery x 2 TONSILLECTOMY HX N/A 1981 Social History Tobacco Use Smoking status: Former Current packs/day: 0.00 Average packs/day: 1 pack/day for 25.0 years (25.0 ttl pk-yrs) Types: Cigarettes Start date: 05/12/1986 Quit date: 05/12/2011 Years since quittin.9 Smokeless tobacco: Never Tobacco comments: quit in 10/2017 Vaping Use Vaping status: Never Used Substance Use Topics Alcohol use: Not Currently Comment: 1 x per month Drug use: No Review of Systems Constitutional: Negative for fever and unexpected weight change. Musculoskeletal: Positive for back pain. + back pain, joint pain, muscle cramps, stiffness, and arthritis Objective BP 145/88 (BP Site: Left Arm, BP Position: Sitting, BP Cuff Size: Regular Adult) Pulse 81 Resp 18 Wt 95.3 kg (210 lb) SpO2 97% BMI 29.50 kg/m? Physical Exam Vitals and nursing note reviewed. Constitutional: Appearance: Normal appearance. He is well-developed, well-groomed and overweight. HENT: Head: Normocephalic and atraumatic. Right Ear: Hearing normal. Left Ear: Hearing normal. Eyes: Conjunctiva/sclera: Conjunctivae normal. Musculoskeletal: Comments: He walks with a normal gait. He has tenderness to palpation in the lumbar region with spasms noted in the trapezius, paraspinal, and latissimus dorsi muscles. Strength is 5/5 throughout. Sensation is intact to light touch throughout. SLR is negative. Neurological: Mental Status: He is alert and oriented to person, place, and time. Psychiatric: Attention and Perception: Attention and perception normal. Mood and Affect: Mood and affect normal. Speech: Speech normal. Behavior: Behavior normal. Behavior is cooperative. Thought Content: Thought content normal. Judgment: Judgment normal. Assessment and Plan ASSESSMENT/PLAN: 1. Lumbar post-laminectomy syndrome - ICD9: 722.83, ICD10: M96.1 (primary diagnosis) - TOXASSURE? FLEX 23, URINE - OXYCODONE-ACETAMINOPHEN 5 MG-325 MG TABLET 2. Generalized osteoarthritis - ICD9: 715.00, ICD10: M15.9 3. 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 FLEX 23, URINE PLAN: The OARRS report has been reviewed and is consistent with the patients medical history and medication intake. The patient underwent a random drug screen at today's office visit. The patient will continue with Percocet. Continue with core strengthening and range of motion exercises. Follow-up in the office in 3 months Discuss your blood pressure with your family doctor - BP 145/88 (Two stable chronic illnesses/prescription drug management) [facility]01-24-2025 History of Present illness Narrative* Cristhian Petit PA-C - 04/27/2024 8:25 AM EST This note was created using Stream Process[employer]riter. Subjective Abbie Nesbitt is a 63 year old male. The patient primarily being seen for back pain Patient was last seen on: 01/26/24 At that time, the treatment plan was: see notes Current Meds: percocet - am Efficacy: help Side effects: denies TENS unit: no How often used: Benefit: Physical Therapy: years ago Last UDS: 04/27/24 Last injection: none OARRS reviewed At the present time, the patient reports benefit with his present analgesic therapy. He denies any adverse effects. Since his previous visit, he denies any hospitalizations or ER visits. Otherwise, he has nothing further to discuss at this time. 03/11/2024 04/20/2024 INTAKE PAIN ASSESSMENT Are you having pain associated with your visit today? No Yes, Provider notified Pain Scales Verbal (Numeric Rating or Visual Analog Scale) Pain Level 3 Pain Location Back-Lower Description Stiffness Frequency Continuous Intervention/Comfort measure Medication;Relaxation;Heat Back Pain Pertinent negatives include no fever. PAST MEDICAL HISTORY Diagnosis Date Chronic low back pain NSTEMI (non-ST elevated myocardial infarction) (HCC) 06/16/2018 PAST SURGICAL HISTORY Procedure Laterality Date ARTHRD ANT INTERBODY MIN DSC LUMBAR 05/17/2011 L4,5 and L5 S1 CARDIAC CATH N/A 06/17/2018 2 stents placed at [facility] COLONOSCOPY GEN ANES N/A 09/2019 Dr. Espinal PAST SURGICAL HISTORY OF disc surgery x 2 TONSILLECTOMY HX N/A 1981 Social History Tobacco Use Smoking status: Former Current packs/day: 0.00 Average packs/day: 1 pack/day for 25.0 years (25.0 ttl pk-yrs) Types: Cigarettes Start date: 05/12/1986 Quit date: 05/12/2011 Years since quittin.9 Smokeless tobacco: Never Tobacco comments: quit in 10/2017 Vaping Use Vaping status: Never Used Substance Use Topics Alcohol use: Not Currently Comment: 1 x per month Drug use: No Review of Systems Constitutional: Negative for fever and unexpected weight change. Musculoskeletal: Positive for back pain. + back pain, joint pain, muscle cramps, stiffness, and arthritis Objective BP 145/88 (BP Site: Left Arm, BP Position: Sitting, BP Cuff Size: Regular Adult) Pulse 81 Resp 18 Wt 95.3 kg (210 lb) SpO2 97% BMI 29.50 kg/m Physical Exam Vitals and nursing note reviewed. Constitutional: Appearance: Normal appearance. He is well-developed, well-groomed and overweight. HENT: Head: Normocephalic and atraumatic. Right Ear: Hearing normal. Left Ear: Hearing normal. Eyes: Conjunctiva/sclera: Conjunctivae normal. Musculoskeletal: Comments: He walks with a normal gait. He has tenderness to palpation in the lumbar region with spasms noted in the trapezius, paraspinal, and latissimus dorsi muscles. Strength is 5/5 throughout. Sensation is intact to light touch throughout. SLR is negative. Neurological: Mental Status: He is alert and oriented to person, place, and time. Psychiatric: Attention and Perception: Attention and perception normal. Mood and Affect: Mood and affect normal. Speech: Speech normal. Behavior: Behavior normal. Behavior is cooperative. Thought Content: Thought content normal. Judgment: Judgment normal. Assessment and Plan ASSESSMENT/PLAN: 1. Lumbar post-laminectomy syndrome - ICD9: 722.83, ICD10: M96.1 (primary diagnosis) - TOXASSURE FLEX 23, URINE - OXYCODONE-ACETAMINOPHEN 5 MG-325 MG TABLET 2. Generalized osteoarthritis - ICD9: 715.00, ICD10: M15.9 3. 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 The patient underwent a random drug screen at today's office visit. The patient will continue with Percocet. Continue with core strengthening and range of motion exercises. Follow-up in the office in 3 months Discuss your blood pressure with your family doctor - BP 145/88 (Two stable chronic illnesses/prescription drug management) Cristhian Petit PA-C * Pk Kapadia RN - 04/27/2024 8:15 AM EST Percocet am Med helps pain Denies side effects Last [facility]-04/27/24 documented in this encounterOhio[facility] Hospital01-24-2025 NoteHNO ID: [id number] Author: PK KAPADIA RN Service: ? Author Type: Registered Nurse Type: Progress Notes Filed: 04/27/2024 08:44 Note Text: Percocet am Med helps pain Denies side effects Last s-04/27/24[facility]01-02[facility]25 Telephone encounter Note* Telephone Encounter - Cristhian Petit PA-C - 04/05/2024 2:38 PM EST The following approved medication requests have been transmitted electronically. Requested Prescriptions Signed Prescriptions Disp Refills oxyCODONE-acetaminophen (PERCOCET) 5-325 mg tablet 90 tablet 0 Sig: Take 1 tablet by mouth every 8 hours as needed for pain for up to 30 days. Patient should start on April 14, 2024. Authorizing Provider: CRISTHIAN PETIT PA-C [facility]01-02-2025 Miscellaneous Notes* Telephone Encounter - Cristhian Petit PA-C - 04/05/2024 2:38 PM EST The following approved medication requests have been transmitted electronically. Requested Prescriptions Signed Prescriptions Disp Refills oxyCODONE-acetaminophen (PERCOCET) 5-325 mg tablet 90 tablet 0 Sig: Take 1 tablet by mouth every 8 hours as needed for pain for up to 30 days. Patient should start on April 14, 2024. Authorizing Provider: CRISTHIAN PETIT PA-C * Telephone Encounter - Elin Turner RN - 04/05/2024 1:33 PM EST Patient phones requesting refills as follows: Requested Prescriptions Pending Prescriptions Disp Refills oxyCODONE-acetaminophen (PERCOCET) 5-325 mg tablet 90 tablet 0 Sig: Take 1 tablet by mouth every 8 hours as needed for pain for up to 30 days. Last UDS: final warning regarding marijuana given 10/21/22 Opioid agreement signed 03/04/23. Summary Report Date Value Ref Range Status 10/21/2023 FINAL Final Comment: Opiate Class, MS, Ur RFX Oxycodone Class, MS, Ur RFX Acetaminophen, MS, Ur RFX ToxAssure Flex 23, Ur Test Result Flag Units Drug Present and Declared for Prescription Verification Oxycodone 959 EXPECTED ng/mg creat Oxymorphone 1557 EXPECTED ng/mg creat Noroxycodone 1528 EXPECTED ng/mg creat Noroxymorphone 473 EXPECTED ng/mg creat Sources of oxycodone are scheduled prescription medications. Oxymorphone, noroxycodone, and noroxymorphone are expected metabolites of oxycodone. Oxymorphone is also available as a scheduled prescription medication. Drug Present not Declared for Prescription Verification Acetaminophen PRESENT UNEXPECTED Test Result Flag Units Ref Range Creatinine 143 mg/dL >=20 Declared Medications: The flagging and interpretation on this report are based on the following declared medications. Unexpected results may arise from inaccuracies in the declared medications. Note: The testing scope of this panel includes these medications: Oxycodone For clinical consultation, please call . No results found for: UQNOTE, OPIATEPNMGT, DRUGSCRPAIN Urine Panel: No results found for: UQCANN, UQBNZL, AWI6BAK, UQAMPH, UQMAMP, UQBUPRE, UQNORBUP, UQMTHD, UQEDDP, UQTRAM, UQDTRM, UQFNTL, UQNFTL, UQCODE, UQMORP, UQDCDN, UQHCOD, UQOXYC, UQHMOR, UQOXYM, UQCREA, UQPH, UQSPGR, UQOXID, UQSPQ @FLOW([id number])@ Lab Results Component Value Date SUMM FINAL 10/21/2023 Summary Report (Summary) Date Value Ref Range Status 02/04/2022 FINAL Final Comment: TOXASSURE COMP DRUG ANALYSIS,UR Test Result Flag Units Drug Present and Declared for Prescription Verification Oxycodone 821 EXPECTED ng/mg creat Oxymorphone 2700 EXPECTED ng/mg creat Noroxycodone 1132 EXPECTED ng/mg creat Noroxymorphone 612 EXPECTED ng/mg creat Sources of oxycodone are scheduled prescription medications. Oxymorphone, noroxycodone, and noroxymorphone are expected metabolites of oxycodone. Oxymorphone is also available as a scheduled prescription medication. Acetaminophen PRESENT EXPECTED Test Result Flag Units Ref Range Creatinine 137 mg/dL >=20 Declared Medications: The flagging and interpretation on this report are based on the following declared medications. Unexpected results may arise from inaccuracies in the declared medications. Note: The testing scope of this panel includes these medications: Oxycodone (Percocet) Note: The testing scope of this panel does not include small to moderate amounts of these reported medications: Acetaminophen (Percocet) For clinical consultation, please call . Last Opioid agreement effective date: 03/04/2023 Please review and advise. Elin Turner RN documented in this encounterOhiohealth [facility] Hospital01-02-2025 Telephone encounter Note * Telephone Encounter - Elin Turner RN - 04/05/2024 1:33 PM EST Patient phones requesting refills as follows: Requested Prescriptions Pending Prescriptions Disp Refills oxyCODONE-acetaminophen (PERCOCET) 5-325 mg tablet 90 tablet 0 Sig: Take 1 tablet by mouth every 8 hours as needed for pain for up to 30 days. Last UDS: final warning regarding marijuana given 10/21/22 Opioid agreement signed 03/04/23. Summary Report Date Value Ref Range Status 10/21/2023 FINAL Final Comment: Opiate Class, MS, Ur RFX Oxycodone Class, MS, Ur RFX Acetaminophen, MS, Ur RFX ToxAssure Flex 23, Ur Test Result Flag Units Drug Present and Declared for Prescription Verification Oxycodone 959 EXPECTED ng/mg creat Oxymorphone 1557 EXPECTED ng/mg creat Noroxycodone 1528 EXPECTED ng/mg creat Noroxymorphone 473 EXPECTED ng/mg creat Sources of oxycodone are scheduled prescription medications. Oxymorphone, noroxycodone, and noroxymorphone are expected metabolites of oxycodone. Oxymorphone is also available as a scheduled prescription medication. Drug Present not Declared for Prescription Verification Acetaminophen PRESENT UNEXPECTED Test Result Flag Units Ref Range Creatinine 143 mg/dL >=20 Declared Medications: The flagging and interpretation on this report are based on the following declared medications. Unexpected results may arise from inaccuracies in the declared medications. Note: The testing scope of this panel includes these medications: Oxycodone For clinical consultation, please call . No results found for: UQNOTE, OPIATEPNMGT, DRUGSCRPAIN Urine Panel: No results found for: UQCANN, UQBNZL, TMG5EIB, UQAMPH, UQMAMP, UQBUPRE, UQNORBUP, UQMTHD, UQEDDP, UQTRAM, UQDTRM, UQFNTL, UQNFTL, UQCODE, UQMORP, UQDCDN, UQHCOD, UQOXYC, UQHMOR, UQOXYM, UQCREA, UQPH, UQSPGR, UQOXID, UQSPQ @FLOW([id number])@ Lab Results Component Value Date SUMM FINAL 10/21/2023 Summary Report (Summary) Date Value Ref Range Status 02/04/2022 FINAL Final Comment: TOXASSURE COMP DRUG ANALYSIS,UR Test Result Flag Units Drug Present and Declared for Prescription Verification Oxycodone 821 EXPECTED ng/mg creat Oxymorphone 2700 EXPECTED ng/mg creat Noroxycodone 1132 EXPECTED ng/mg creat Noroxymorphone 612 EXPECTED ng/mg creat Sources of oxycodone are scheduled prescription medications. Oxymorphone, noroxycodone, and noroxymorphone are expected metabolites of oxycodone. Oxymorphone is also available as a scheduled prescription medication. Acetaminophen PRESENT EXPECTED Test Result Flag Units Ref Range Creatinine 137 mg/dL >=20 Declared Medications: The flagging and interpretation on this report are based on the following declared medications. Unexpected results may arise from inaccuracies in the declared medications. Note: The testing scope of this panel includes these medications: Oxycodone (Percocet) Note: The testing scope of this panel does not include small to moderate amounts of these reported medications: Acetaminophen (Percocet) For clinical consultation, please call . Last Opioid agreement effective date: 03/04/2023 Please review and advise. Elin Turner RN [facility]12-16-2024 NotePatient Outreach (PULMMN) ABBIE NESBITT ([id number]) 1960 M Date Time Provider Department 03/19/24 LATRICE [facility]U During your visit today, we recorded the following information about you: Allergies As of Date: 03/19/2024 (No Known Allergies) Date Reviewed: 03/12/2024 Reviewed by: Aurora España MA - Fully Assessed Visit Diagnosis:Tobacco abuse [Z72.0] Order(s):[facility]ULT [facility] [[id number]] Order #: [id number]: 1 FUTURE Prescriptions as of 03/22/2024 - oxyCODONE-acetaminophen (PERCOCET) 5-325 mg tablet Take 1 tablet by mouth every 8 hours as needed for pain for up to 30 days. Patient should start on March 15, 2024. - lisinopril (ZESTRIL) 10 mg tablet Take 1 tablet by mouth every afternoon. - cyclobenzaprine (FLEXERIL) 10 mg tablet Take 1 tablet by mouth two times a day as needed for muscle spasm. - carvedilol (COREG) 12.5 mg tablet Half tablet twice daily - aspirin 81 mg chewable tablet Take 1 tablet by mouth once daily. - atorvastatin (LIPITOR) 80 mg tablet Take 1 tablet by mouth once daily. - nitroglycerin sublingual (NITROQUICK) 0.4 mg SL tablet Dissolve 1 tablet under the tongue every 5 minutes as needed for Chest Pain. 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] 06/20/2017 11/05/2021 Generalized osteoarthritis [M15.9] 06/20/2017 Lumbar post-laminectomy syndrome [M96.1] 06/20/2017 Myocardial infarction (HCC) [I21.9] 10/24/2021 Other half-way (current) drug therapy [Z79.899]05/11/2018 Myofascial pain syndrome [M79.18] 11/05/2021 Chronic pain syndrome [G89.4] 04/18/2023 Encounter Status:Closed by EPIC, PRODUSER on 03/22/24[facility] 03-12-2024 History of Present illness Narrative* Marlys Moreno MD - 03/12/2024 12:00 PM EST Chief Complaint Patient presents with: Wellness HPI Abbie Nesbitt is a 63 year old male who presents here today for physical. Here today for his Annual follow up. Denies any bowel or GI issues. Gets up every two hours to urinate at night. Tried Flomax in the past, just worked for a short while. Pt believes he's had Colonoscopies done in the past 5 years; describes normal exam in 2019.. Last one noted in chart 2013, tubular adenoma noted. Has these completed by Dr. Espinal. HTN: Taking Coreg 12.5 mg half pill BID and Lisinopril 10 mg daily. Monitors blood pressure occasionally at home, states it's decent. Denies any chest pains, dizziness, or SOB. Follows with [facility] annually. Was last seen just couple weeks ago. Lipid/CAD: Does try to watch his diet, but admits that he could improve on this. Tends to eat too much. Admits he doesn't like to work out, has a membership to a gym that he's been paying for, for the past 5 years but has not gone yet. Has tried to do some walking, but his legs tend to start hurting him. Taking Lipitor 80 mg daily and ASA 81 mg once daily. Pain: Follows with Pain Management Cristhian Petit PA-C. Has ongoing chronic pain in his lower back. Is currently prescribed through Pain Management Percocet 5- 325 mg 1 pill every 8 hours prn. Was seen acutely by Nancy Coronel CNP for acute neck pain. Was treated with Prednisone 20 mg 2 tabs po for 5 days, Flexeril 10 mg to use prn and heat. His pain has improved. HM - Declines Flu and Covid vaccine today. Past medical history, appointments, medications, allergies reviewed. Previous Medical History PAST MEDICAL HISTORY Diagnosis Date Chronic low back pain NSTEMI (non-ST elevated myocardial infarction) ([facility]) 06/16/2018 Previous Surgical History PAST SURGICAL HISTORY Procedure Laterality Date ARTHRD ANT INTERBODY MIN DSC LUMBAR 05/17/2011 L4,5 and L5 S1 CARDIAC CATH N/A 06/17/2018 2 stents placed at [facility] COLONOSCOPY GEN ANES N/A 09/2019 Dr. Espinal PAST SURGICAL HISTORY OF disc surgery x 2 TONSILLECTOMY HX N/A 1981 Family History FAMILY HISTORY Problem Relation Age of Onset Cancer Father 80 gastric Stroke Father Heart disease Father Patient Allergies ALLERGIES No Known Allergies Current Medications Current Outpatient Medications on File Prior to Visit Medication Sig oxyCODONE-acetaminophen (PERCOCET) 5-325 mg tablet Take 1 tablet by mouth every 8 hours as needed for pain for up to 30 days. Patient should start on February 14, 2024. lisinopril (ZESTRIL) 10 mg tablet Take 1 tablet by mouth every afternoon. cyclobenzaprine (FLEXERIL) 10 mg tablet Take 1 tablet by mouth two times a day as needed for musclespasm. clopidogrel (PLAVIX) 75 mg tablet Take 75 mg by mouth once daily. carvedilol (COREG) 12.5 mg tablet Half tablet twice daily aspirin 81 mg chewable tablet Take 1 tablet by mouth once daily. atorvastatin (LIPITOR) 80 mg tablet Take 1 tablet by mouth once daily. nitroglycerin sublingual (NITROQUICK) 0.4 mg SL tablet Dissolve 1 tablet under the tongue every 5 minutes as needed for Chest Pain. No current facility-administered medications on file prior to visit. Social History Social History Tobacco Use Smoking status: Former Current packs/day: 0.00 Average packs/day: 1 pack/day for 25.0 years (25.0 ttl pk-yrs) Types: Cigarettes Start date: 05/12/1986 Quit date: 05/12/2011 Years since quittin.8 Smokeless tobacco: Never Tobacco comments: quit in 10/2017 Vaping Use Vaping status: Never Used Substance Use Topics Alcohol use: Not Currently Comment: 1 x per month Drug use: No EXAM: BP 126/84 (BP Site: Left Arm, BP Position: Sitting, BP Cuff Size: Regular Adult) Pulse 72 Resp 18 Ht 179.7 cm (5' 10.75) Wt 95.7 kg (210 lb 15.7 oz) BMI 29.63 kg/m General Appearance: Well appearing, alert, in no acute distress, well-hydrated, well nourished.. Lungs: Lungs clear to auscultation. No wheezing, rhonchi, rales. Heart: RRR without murmur, gallop, or rubs. No ectopy. Abdomen: Normal abdominal exam, denies any stomach or bowel issues. Health Maintenance List Lung Cancer Screening Never done Colorectal Cancer Screening due on 05/08/2014 Influenza Vaccine(1) Never done Covid-19 Vaccine() due on 12/04/2023 Hepatitis C Screening due on 10/23/2024 HIV Screening due on 10/23/2024 Depression Screening due on 10/23/2024 Anxiety Screening due on 10/23/2024 LDL Cholesterol due on 10/24/2024 Annual PCP Team Chronic Disease Visit due on 12/25/2024 Prostate Cancer Screening Discussion due on 10/15/2026 Diabetes Screening due on 10/24/2026 Lipid Screening due on 10/24/2028 DTaP,Tdap,Td Vaccine(2 - Td or Tdap) due on 10/20/2031 RSV Vaccine(1 - 1-dose 75+ series) due on 07/26/2034 Shingrix Vaccine Completed Data reviewed Labs done by [facility] on 02/07/24 A1c-5.9, glucose-121, Chol-137, HDL-37, LDL-66, Trig-170 ASSESSMENT/PLAN: 1. Annual wellness visit - ICD9: V70.0, ICD10: Z00.00 (primary diagnosis) - Counseled on healthy diet and regular exercise - Discussed need for and benefit of weight loss. BMI 29.63 kg/(m^2) - Discussed colorectal screening, pt believes he had this completed in 2019 and received clear results. 2. Hyperlipidemia, mixed - ICD9: 272.2, ICD10: E78.2 - Controlled - Continue current medications - Counseled on healthy diet and regular exercise 3. Pre-diabetes - ICD9: 790.29, ICD10: R73.03 - Discussed watching diet and staying active - Monitor labs 4. H/O heart artery stent - ICD9: V45.82, ICD10: Z95.5 - Cont f/u with Cardio - Continue current medication regimen. 5. Coronary artery disease involving [place] coronary artery of [place] heart, unspecified whether angina present - ICD9: 414.01, ICD10: I25.10 - Stable - Cont f/u with Cardio - Continue current medication regimen. 6. Lumbar post-laminectomy syndrome - ICD9: 722.83, ICD10: M96.1 - Stable continue f/u with Pain Mgmt - Continue current medication regimen. 7. Chronic pain syndrome - ICD9: 338.4, ICD10: G89.4 - Stable, continue f/u with Pain Mgmt - Continue current medication regimen. 6 mo f/u with labs. I agree with the Chief Complaint, ROS, and Past Histories independently gathered by the clinical product support representative and the remaining scribed note accurately describes my personal service to the patient. Marlys Moreno MD The documentation for this note was completed by Aurora España MA acting as scribe for Marlys Moreno MD. March 12, 2024 12:08 PM. Aurora España MA documented in this encounter[facility]24 NoteHNO ID: [id number] Author: MARLYS MORENO MD Service: ? Author Type: Physician Type: Progress Notes Filed: 03/12/2024 12:33 Note Text: Chief Complaint Patient presents with: Wellness HPI Abbie Nesbitt is a 63 year old male who presents here today for physical. Here today for his Annual follow up. Denies any bowel or GI issues. Gets up every two hours to urinate at night. Tried Flomax in the past, just worked for a short while. Pt believes he's had Colonoscopies done in the past 5 years; describes normal exam in 2019.. Last one noted in chart 2014, tubular adenoma noted. Has these completed by Dr. Espinal. HTN: Taking Coreg 12.5 mg half pill BID and Lisinopril 10 mg daily. Monitors blood pressure occasionally at home, states it's decent. Denies any chest pains, dizziness, or SOB. Follows with [facility] annually. Was last seen just couple weeks ago. Lipid/CAD: Does try to watch his diet, but admits that he could improve on this. Tends to eat too much. Admits he doesn't like to work out, has a membership to a gym that he's been paying for, for the past 5 years but has not gone yet. Has tried to do some walking, but his legs tend to start hurting him. Taking Lipitor 80 mg daily and ASA 81 mg once daily. Pain: Follows with Pain Management Cristhian Petit PA-C. Has ongoing chronic pain in his lower back. Is currently prescribed through Pain Management Percocet 5-325 mg 1 pill every 8 hours prn. Was seen acutely by Nancy Coronel CNP for acute neck pain. Was treated with Prednisone 20 mg 2 tabs po for 5 days, Flexeril 10 mg to use prn and heat. His pain has improved. HM - Declines Flu and Covid vaccine today. Past medical history, appointments, medications, allergies reviewed. Previous Medical History PAST MEDICAL HISTORY Diagnosis Date Chronic low back pain NSTEMI (non-ST elevated myocardial infarction) ([facility]) 06/16/2018 Previous Surgical History PAST SURGICAL HISTORY Procedure Laterality Date ARTHRD ANT INTERBODY MIN DSC LUMBAR 05/17/2011 L4,5 and L5 S1 CARDIAC CATH N/A 06/17/2018 2 stents placed at [facility] COLONOSCOPY GEN ANES N/A 09/2019 Dr. Espinal PAST SURGICAL HISTORY OF disc surgery x 2 TONSILLECTOMY HX N/A 1981 Family History FAMILY HISTORY Problem Relation Age of Onset Cancer Father 80 gastric Stroke Father Heart disease Father Patient Allergies ALLERGIES No Known Allergies Current Medications Current Outpatient Medications on File Prior to Visit Medication Sig oxyCODONE-acetaminophen (PERCOCET) 5-325 mg tablet Take 1 tablet by mouth every 8 hours as needed for pain for up to 30 days. Patient should start on February 14, 2024. lisinopril (ZESTRIL) 10 mg tablet Take 1 tablet by mouth every afternoon. cyclobenzaprine (FLEXERIL) 10 mg tablet Take 1 tablet by mouth two times a day as needed for muscle spasm. clopidogrel (PLAVIX) 75 mg tablet Take 75 mg by mouth once daily. carvedilol (COREG) 12.5 mg tablet Half tablet twice daily aspirin 81 mg chewable tablet Take 1 tablet by mouth once daily. atorvastatin (LIPITOR) 80 mg tablet Take 1 tablet by mouth once daily. nitroglycerin sublingual (NITROQUICK) 0.4 mg SL tablet Dissolve 1 tablet under the tongue every 5 minutes as needed for Chest Pain. No current facility-administered medications on file prior to visit. Social History Social History Tobacco Use Smoking status: Former Current packs/day: 0.00 Average packs/day: 1 pack/day for 25.0 years (25.0 ttl pk-yrs) Types: Cigarettes Start date: 05/12/1986 Quit date: 05/12/2011 Years since quittin.8 Smokeless tobacco: Never Tobacco comments: quit in 10/2017 Vaping Use Vaping status: Never Used Substance Use Topics Alcohol use: Not Currently Comment: 1 x per month Drug use: No EXAM: BP 126/84 (BP Site: Left Arm, BP Position: Sitting, BP Cuff Size: Regular Adult) Pulse 72 Resp 18 Ht 179.7 cm (5' 10.75) Wt 95.7 kg (210 lb 15.7 oz) BMI 29.63 kg/m? General Appearance: Well appearing, alert, in no acute distress, well-hydrated, well nourished.. Lungs: Lungs clear to auscultation. No wheezing, rhonchi, rales. Heart: RRR without murmur, gallop, or rubs. No ectopy. Abdomen: Normal abdominal exam, denies any stomach or bowel issues. Health Maintenance List Lung Cancer Screening Never done Colorectal Cancer Screening due on 05/08/2014 Influenza Vaccine(1) Never done Covid-19 Vaccine( season) due on 12/04/2023 Hepatitis C Screening due on 10/23/2024 HIV Screening due on 10/23/2024 Depression Screening due on 10/23/2024 Anxiety Screening due on 10/23/2024 LDL Cholesterol due on 10/24/2024 Annual PCP Team Chronic Disease Visit due on 12/25/2024 Prostate Cancer Screening Discussion due on 10/15/2026 Diabetes Screening due on 10/24/2026 Lipid Screening due on 10/24/2028 DTaP,Tdap,Td Vaccine(2 - Td or Tdap) due on 10/20/2031 RSV Vaccine(1 - 1-dose 75+ series) due on more content not included)... [facility]12-05-2024 Telephone encounter Note* Telephone Encounter - Cristhian Petit PA-C - 03/08/2024 4:09 PM EST The following approved medication requests have been transmitted electronically. Requested Prescriptions Signed Prescriptions Disp Refills oxyCODONE-acetaminophen (PERCOCET) 5-325 mg tablet 90 tablet 0 Sig: Take 1 tablet by mouth every 8 hours as needed for pain for up to 30 days. Patient should start on March 15, 2024. Authorizing Provider: CRISTHIAN PETIT PA-C [facility]12-05-[facility] Miscellaneous Notes* Telephone Encounter - Cristhian Petit PA-C - 03/08/2024 4:09 PM EST The following approved medication requests have been transmitted electronically. Requested Prescriptions Signed Prescriptions Disp Refills oxyCODONE-acetaminophen (PERCOCET) 5-325 mg tablet 90 tablet 0 Sig: Take 1 tablet by mouth every 8 hours as needed for pain for up to 30 days. Patient should start on March 15, 2024. Authorizing Provider: CRISTHIAN PETIT PA-C * Telephone Encounter - Frieda Mitchell RN - 03/08/2024 2:51 PM EST Patient phones requesting refills as follows: Requested Prescriptions Pending Prescriptions Disp Refills oxyCODONE-acetaminophen (PERCOCET) 5-325 mg tablet 90 tablet 0 Sig: Take 1 tablet by mouth every 8 hours as needed for pain for up to 30 days. Last UDS: final warning regarding marijuana given 10/21/22 Opioid agreement signed 03/04/23. Summary Report Date Value Ref Range Status 10/21/2023 FINAL Final Comment: Opiate Class, MS, Ur RFX Oxycodone Class, MS, Ur RFX Acetaminophen, MS, Ur RFX ToxAssure Flex 23, Ur Test Result Flag Units Drug Present and Declared for Prescription Verification Oxycodone 959 EXPECTED ng/mg creat Oxymorphone 1557 EXPECTED ng/mg creat Noroxycodone 1528 EXPECTED ng/mg creat Noroxymorphone 473 EXPECTED ng/mg creat Sources of oxycodone are scheduled prescription medications. Oxymorphone, noroxycodone, and noroxymorphone are expected metabolites of oxycodone. Oxymorphone is also available as a scheduled prescription medication. Drug Present not Declared for Prescription Verification Acetaminophen PRESENT UNEXPECTED Test Result Flag Units Ref Range Creatinine 143 mg/dL >=20 Declared Medications: The flagging and interpretation on this report are based on the following declared medications. Unexpected results may arise from inaccuracies in the declared medications. Note: The testing scope of this panel includes these medications: Oxycodone For clinical consultation, please call . No results found for: UQNOTE, OPIATEPNMGT, DRUGSCRPAIN Urine Panel: No results found for: UQCANN, UQBNZL, WTS5ZLN, UQAMPH, UQMAMP, UQBUPRE, UQNORBUP, UQMTHD, UQEDDP, UQTRAM, UQDTRM, UQFNTL, UQNFTL, UQCODE, UQMORP, UQDCDN, UQHCOD, UQOXYC, UQHMOR, UQOXYM, UQCREA, UQPH, UQSPGR, UQOXID, UQSPQ @FLOW([id number])@ Lab Results Component Value Date SUMM FINAL 10/21/2023 Summary Report (Summary) Date Value Ref Range Status 02/04/2022 FINAL Final Comment: TOXASSURE COMP DRUG ANALYSIS,UR Test Result Flag Units Drug Present and Declared for Prescription Verification Oxycodone 821 EXPECTED ng/mg creat Oxymorphone 2700 EXPECTED ng/mg creat Noroxycodone 1132 EXPECTED ng/mg creat Noroxymorphone 612 EXPECTED ng/mg creat Sources of oxycodone are scheduled prescription medications. Oxymorphone, noroxycodone, and noroxymorphone are expected metabolites of oxycodone. Oxymorphone is also available as a scheduled prescription medication. Acetaminophen PRESENT EXPECTED Test Result Flag Units Ref Range Creatinine 137 mg/dL >=20 Declared Medications: The flagging and interpretation on this report are based on the following declared medications. Unexpected results may arise from inaccuracies in the declared medications. Note: The testing scope of this panel includes these medications: Oxycodone (Percocet) Note: The testing scope of this panel does not include small to moderate amounts of these reported medications: Acetaminophen (Percocet) For clinical consultation, please call . Last Opioid agreement effective date: 03/04/2023 Please review and advise. Frieda Mitchell RN documented in this encounterOhio[facility]12-05-2024 Telephone encounter Note * Telephone Encounter - Frieda Mitchell RN - 03/08/2024 2:51 PM EST Patient phones requesting refills as follows: Requested Prescriptions Pending Prescriptions Disp Refills oxyCODONE-acetaminophen (PERCOCET) 5-325 mg tablet 90 tablet 0 Sig: Take 1 tablet by mouth every 8 hours as needed for pain for up to 30 days. Last UDS: final warning regarding marijuana given 10/21/22 Opioid agreement signed 03/04/23. Summary Report Date Value Ref Range Status 10/21/2023 FINAL Final Comment: Opiate Class, MS, Ur RFX Oxycodone Class, MS, Ur RFX Acetaminophen, MS, Ur RFX ToxAssure Flex 23, Ur Test Result Flag Units Drug Present and Declared for Prescription Verification Oxycodone 959 EXPECTED ng/mg creat Oxymorphone 1557 EXPECTED ng/mg creat Noroxycodone 1528 EXPECTED ng/mg creat Noroxymorphone 473 EXPECTED ng/mg creat Sources of oxycodone are scheduled prescription medications. Oxymorphone, noroxycodone, and noroxymorphone are expected metabolites of oxycodone. Oxymorphone is also available as a scheduled prescription medication. Drug Present not Declared for Prescription Verification Acetaminophen PRESENT UNEXPECTED Test Result Flag Units Ref Range Creatinine 143 mg/dL >=20 Declared Medications: The flagging and interpretation on this report are based on the following declared medications. Unexpected results may arise from inaccuracies in the declared medications. Note: The testing scope of this panel includes these medications: Oxycodone For clinical consultation, please call . No results found for: UQNOTE, OPIATEPNMGT, DRUGSCRPAIN Urine Panel: No results found for: UQCANN, UQBNZL, IZZ9JOZ, UQAMPH, UQMAMP, UQBUPRE, UQNORBUP, UQMTHD, UQEDDP, UQTRAM, UQDTRM, UQFNTL, UQNFTL, UQCODE, UQMORP, UQDCDN, UQHCOD, UQOXYC, UQHMOR, UQOXYM, UQCREA, UQPH, UQSPGR, UQOXID, UQSPQ @FLOW([id number])@ Lab Results Component Value Date SUMM FINAL 10/21/2023 Summary Report (Summary) Date Value Ref Range Status 02/04/2022 FINAL Final Comment: TOXASSURE COMP DRUG ANALYSIS,UR Test Result Flag Units Drug Present and Declared for Prescription Verification Oxycodone 821 EXPECTED ng/mg creat Oxymorphone 2700 EXPECTED ng/mg creat Noroxycodone 1132 EXPECTED ng/mg creat Noroxymorphone 612 EXPECTED ng/mg creat Sources of oxycodone are scheduled prescription medications. Oxymorphone, noroxycodone, and noroxymorphone are expected metabolites of oxycodone. Oxymorphone is also available as a scheduled prescription medication. Acetaminophen PRESENT EXPECTED Test Result Flag Units Ref Range Creatinine 137 mg/dL >=20 Declared Medications: The flagging and interpretation on this report are based on the following declared medications. Unexpected results may arise from inaccuracies in the declared medications. Note: The testing scope of this panel includes these medications: Oxycodone (Percocet) Note: The testing scope of this panel does not include small to moderate amounts of these reported medications: Acetaminophen (Percocet) For clinical consultation, please call . Last Opioid agreement effective date: 03/04/2023 Please review and advise. Frieda Mitchell RN [facility]10-24-[facility] Instructions* Patient Instructions* Cristhian Petit PA-C - 01/26/2024 8:31 AM EDT The OARRS report has been reviewed and is consistent with the patients medical history and medication intake. The patient's most recent drug screen has been reviewed and is appropriate and consistent with current therapy. The patient will continue with Percocet. Continue with core strengthening and range of motion exercises. Follow-up in the office in 3 months Discuss your blood pressure with your family doctor - BP 131/98 Supervising Physiciain - Dr. Homer Ling MD documented in this encounterOhio[facility]10-24-2024 NoteHNO ID: [id number] Author: CRISTHIAN PETIT PA-C Service: ? Author Type: Physician Claim Representative Type: Progress Notes Filed: 01/26/2024 08:43 Note Text: This note was created using Edutor. Subjective Abbie Nesbitt is a 63 year old male. The patient primarily being seen for back pain Patient was last seen on: 10/21/23 At that time, the treatment plan was: see notes Current Meds: percocet - am Efficacy: helps Side effects: denies TENS unit: no How often used: Benefit: Physical Therapy: years ago Last UDS: 10/21/23 Last injection: OARRS reviewed At the present time, the patient reports benefit with his present analgesic therapy. He denies any adverse effects. Since his previous visit, he denies any hospitalizations or ER visits. He had some issues with his neck and got a script for prednisone and cyclobenzaprine. He states the steroid helped and he is doing better. 12/26/2023 01/24/2024 INTAKE PAIN ASSESSMENT Are you having pain associated with your visit today? Yes, Provider notified Yes, Provider notified Pain Scales Verbal (Numeric Rating or Visual Analog Scale) Pain Level 8 2 Pain Location Neck Back Description Aching;Pulsating;Sharp;Throbbing Aching;Sore;Stiffness Duration Amount of Time 10 Duration Units Days Years Frequency Continuous Continuous Intervention/Comfort measure Cold;Heat;Positioning Medication;Relaxation;Heat Back Pain Pertinent negatives include no fever. PAST MEDICAL HISTORY Diagnosis Date Chronic low back pain NSTEMI (non-ST elevated myocardial infarction) ([facility]) 06/16/2018 PAST SURGICAL HISTORY Procedure Laterality Date ARTHRD ANT INTERBODY MIN DSC LUMBAR 05/17/2011 L4,5 and L5 S1 CARDIAC CATH N/A 06/17/2018 2 stents placed at [facility] COLONOSCOPY GEN ANES N/A 09/2019 Dr. Espinal PAST SURGICAL HISTORY OF disc surgery x 2 TONSILLECTOMY HX N/A 1981 Social History Tobacco Use Smoking status: Former Current packs/day: 0.00 Average packs/day: 1 pack/day for 25.0 years (25.0 ttl pk-yrs) Types: Cigarettes Start date: 05/12/1986 Quit date: 05/12/2011 Years since quittin.7 Smokeless tobacco: Never Tobacco comments: quit in 10/2017 Vaping Use Vaping status: Never Used Substance Use Topics Alcohol use: Not Currently Comment: 1 x per month Drug use: No Review of Systems Constitutional: Negative for fever and unexpected weight change. Musculoskeletal: Positive for back pain. + back pain, joint pain, muscle cramps, stiffness, and arthritis Objective BP 131/98 (BP Site: Left Arm, BP Position: Sitting) Pulse 72 Resp 16 Wt 95.3 kg (210 lb) SpO2 98% BMI 30.13 kg/m? Physical Exam Vitals and nursing note reviewed. Constitutional: Appearance: Normal appearance. He is well-developed, well-groomed and overweight. HENT: Head: Normocephalic and atraumatic. Right Ear: Hearing normal. Left Ear: Hearing normal. Eyes: Conjunctiva/sclera: Conjunctivae normal. Musculoskeletal: Comments: He walks with a normal gait. He has tenderness to palpation in the lumbar region with spasms noted in the trapezius, rhomboid, paraspinal, and latissimus dorsi muscles. Strength is 5/5 throughout. Sensation is intact to light touch throughout. SLR is negative. Neurological: Mental Status: He is alert and oriented to person, place, and time. Psychiatric: Attention and Perception: Attention and perception normal. Mood and Affect: Mood and affect normal. Speech: Speech normal. Behavior: Behavior normal. Behavior is cooperative. Thought Content: Thought content normal. Judgment: Judgment normal. Assessment and Plan ASSESSMENT/PLAN: 1. Lumbar post-laminectomy syndrome - ICD9: 722.83, ICD10: M96.1 (primary diagnosis) - OXYCODONE-ACETAMINOPHEN 5 MG-325 MG TABLET 2. Generalized osteoarthritis - ICD9: 715.00, ICD10: M15.9 3. Myofascial pain syndrome - ICD9: 729.1, ICD10: M79.18 PLAN: The OARRS report has been reviewed and is consistent with the patients medical history and medication intake. The patient's most recent drug screen has been reviewed and is appropriate and consistent with current therapy. The patient will continue with Percocet. Continue with core strengthening and range of motion exercises. Follow-up in the office in 3 months Discuss your blood pressure with your family doctor - BP 131/[address] [facility]10-24-2024 History of Present illness Narrative* Cristhian Petit PA-C - 01/26/2024 8:29 AM EDT This note was created using Stream Processorsriter. Subjective Abbie Nesbitt is a 63 year old male. The patient primarily being seen for back pain Patient was last seen on: 10/21/23 At that time, the treatment plan was: see notes Current Meds: percocet - am Efficacy: helps Side effects: denies TENS unit: no How often used: Benefit: Physical Therapy: years ago Last UDS: 10/21/23 Last injection: OARRS reviewed At the present time, the patient reports benefit with his present analgesic therapy. He denies any adverse effects. Since his previous visit, he denies any hospitalizations or ER visits. He had some issues with his neck and got a script for prednisone and cyclobenzaprine. He states the steroid helped and he is doing better. 12/26/2023 01/24/2024 INTAKE PAIN ASSESSMENT Are you having pain associated with your visit today? Yes, Provider notified Yes, Provider notified Pain Scales Verbal (Numeric Rating or Visual Analog Scale) Pain Level 8 2 Pain Location Neck Back Description Aching;Pulsating;Sharp;Throbbing Aching;Sore;Stiffness Duration Amount of Time 10 Duration Units Days Years Frequency Continuous Continuous Intervention/Comfort measure Cold;Heat;Positioning Medication;Relaxation;Heat Back Pain Pertinent negatives include no fever. PAST MEDICAL HISTORY Diagnosis Date Chronic low back pain NSTEMI (non-ST elevated myocardial infarction) ([facility]) 06/16/2018 PAST SURGICAL HISTORY Procedure Laterality Date ARTHRD ANT INTERBODY MIN DSC LUMBAR 05/17/2011 L4,5 and L5 S1 CARDIAC CATH N/A 06/17/2018 2 stents placed at [facility] COLONOSCOPY GEN ANES N/A 09/2019 Dr. Espinal PAST SURGICAL HISTORY OF disc surgery x 2 TONSILLECTOMY HX N/A 1981 Social History Tobacco Use Smoking status: Former Current packs/day: 0.00 Average packs/day: 1 pack/day for 25.0 years (25.0 ttl pk-yrs) Types: Cigarettes Start date: 05/12/1986 Quit date: 05/12/2011 Years since quittin.7 Smokeless tobacco: Never Tobacco comments: quit in 10/2017 Vaping Use Vaping status: Never Used Substance Use Topics Alcohol use: Not Currently Comment: 1 x per month Drug use: No Review of Systems Constitutional: Negative for fever and unexpected weight change. Musculoskeletal: Positive for back pain. + back pain, joint pain, muscle cramps, stiffness, and arthritis Objective BP 131/98 (BP Site: Left Arm, BP Position: Sitting) Pulse 72 Resp 16 Wt 95.3 kg (210 lb) SpO2 98% BMI 30.13 kg/m Physical Exam Vitals and nursing note reviewed. Constitutional: Appearance: Normal appearance. He is well-developed, well-groomed and overweight. HENT: Head: Normocephalic and atraumatic. Right Ear: Hearing normal. Left Ear: Hearing normal. Eyes: Conjunctiva/sclera: Conjunctivae normal. Musculoskeletal: Comments: He walks with a normal gait. He has tenderness to palpation in the lumbar region with spasms noted in the trapezius, rhomboid, paraspinal, and latissimus dorsi muscles. Strength is 5/5 throughout. Sensation is intact to light touch throughout. SLR is negative. Neurological: Mental Status: He is alert and oriented to person, place, and time. Psychiatric: Attention and Perception: Attention and perception normal. Mood and Affect: Mood and affect normal. Speech: Speech normal. Behavior: Behavior normal. Behavior is cooperative. Thought Content: Thought content normal. Judgment: Judgment normal. Assessment and Plan ASSESSMENT/PLAN: 1. Lumbar post-laminectomy syndrome - ICD9: 722.83, ICD10: M96.1 (primary diagnosis) - OXYCODONE-ACETAMINOPHEN 5 MG-325 MG TABLET 2. Generalized osteoarthritis - ICD9: 715.00, ICD10: M15.9 3. Myofascial pain syndrome - ICD9: 729.1, ICD10: M79.18 PLAN: The OARRS report has been reviewed and is consistent with the patients medical history and medication intake. The patient's most recent drug screen has been reviewed and is appropriate and consistent with current therapy. The patient will continue with Percocet. Continue with core strengthening and range of motion exercises. Follow-up in the office in 3 months Discuss your blood pressure with your family doctor - BP 131/98 Cristhian Petit PA-C documented in this encounterOhio[facility]10-[facility]24 Telephone encounter Note * Telephone Encounter - Cristhian Petit PA-C - 01/10/2024 2:48 PM EDT The following approved medication requests have been transmitted electronically. Requested Prescriptions Signed Prescriptions Disp Refills oxyCODONE-acetaminophen (PERCOCET) 5-325 mg tablet 90 tablet 0 Sig: Take 1 tablet by mouth every 8 hours as needed for pain for up to 30 days. Authorizing Provider: CRISTHIAN PETIT PA-C [facility]10-08-[facility]24 Miscellaneous Notes* Telephone Encounter - Cristhian Petit PA-C - 01/10/2024 2:48 PM EDT The following approved medication requests have been transmitted electronically. Requested Prescriptions Signed Prescriptions Disp Refills oxyCODONE-acetaminophen (PERCOCET) 5-325 mg tablet 90 tablet 0 Sig: Take 1 tablet by mouth every 8 hours as needed for pain for up to 30 days. Authorizing Provider: CRISTHIAN PETIT PA-C * Telephone Encounter - Laverne Pimentel RN - 01/10/2024 1:30 PM EDT Patient phones requesting refills as follows: Requested Prescriptions Pending Prescriptions Disp Refills oxyCODONE-acetaminophen (PERCOCET) 5-325 mg tablet 90 tablet 0 Sig: Take 1 tablet by mouth every 8 hours as needed for pain for up to 30 days. Last UDS: final warning regarding marijuana given 10/21/22 Opioid agreement signed 03/04/23. Summary Report Date Value Ref Range Status 10/21/2023 FINAL Final Comment: Opiate Class, MS, Ur RFX Oxycodone Class, MS, Ur RFX Acetaminophen, MS, Ur RFX ToxAssure Flex 23, Ur Test Result Flag Units Drug Present and Declared for Prescription Verification Oxycodone 959 EXPECTED ng/mg creat Oxymorphone 1557 EXPECTED ng/mg creat Noroxycodone 1528 EXPECTED ng/mg creat Noroxymorphone 473 EXPECTED ng/mg creat Sources of oxycodone are scheduled prescription medications. Oxymorphone, noroxycodone, and noroxymorphone are expected metabolites of oxycodone. Oxymorphone is also available as a scheduled prescription medication. Drug Present not Declared for Prescription Verification Acetaminophen PRESENT UNEXPECTED Test Result Flag Units Ref Range Creatinine 143 mg/dL >=20 Declared Medications: The flagging and interpretation on this report are based on the following declared medications. Unexpected results may arise from inaccuracies in the declared medications. Note: The testing scope of this panel includes these medications: Oxycodone For clinical consultation, please call . No results found for: UQNOTE, OPIATEPNMGT, DRUGSCRPAIN Urine Panel: No results found for: UQCANN, UQBNZL, [id number], UQAMPH, UQMAMP, UQBUPRE, UQNORBUP, UQMTHD, UQEDDP, UQTRAM, UQDTRM, UQFNTL, UQNFTL, UQCODE, UQMORP, UQDCDN, UQHCOD, UQOXYC, UQHMOR, UQOXYM, UQCREA, UQPH, UQSPGR, UQOXID, UQSPQ @FLOW([id number])@ Lab Results Component Value Date SUMM FINAL 10/21/2023 Summary Report (Summary) Date Value Ref Range Status 02/04/2022 FINAL Final Comment: TOXASSURE COMP DRUG ANALYSIS,UR Test Result Flag Units Drug Present and Declared for Prescription Verification Oxycodone 821 EXPECTED ng/mg creat Oxymorphone 2700 EXPECTED ng/mg creat Noroxycodone 1132 EXPECTED ng/mg creat Noroxymorphone 612 EXPECTED ng/mg creat Sources of oxycodone are scheduled prescription medications. Oxymorphone, noroxycodone, and noroxymorphone are expected metabolites of oxycodone. Oxymorphone is also available as a scheduled prescription medication. Acetaminophen PRESENT EXPECTED Test Result Flag Units Ref Range Creatinine 137 mg/dL >=20 Declared Medications: The flagging and interpretation on this report are based on the following declared medications. Unexpected results may arise from inaccuracies in the declared medications. Note: The testing scope of this panel includes these medications: Oxycodone (Percocet) Note: The testing scope of this panel does not include small to moderate amounts of these reported medications: Acetaminophen (Percocet) For clinical consultation, please call . Last Opioid agreement effective date: 03/04/2023 Please review and advise. Laverne Pimentel RN documented [facility] Telephone encounter Note * Telephone Encounter - Laverne Pimentel RN - 01/10/2024 1:30 PM EDT Patient phones requesting refills as follows: Requested Prescriptions Pending Prescriptions Disp Refills oxyCODONE-acetaminophen (PERCOCET) 5-325 mg tablet 90 tablet 0 Sig: Take 1 tablet by mouth every 8 hours as needed for pain for up to 30 days. Last UDS: final warning regarding marijuana given 10/21/22 Opioid agreement signed 03/04/23. Summary Report Date Value Ref Range Status 10/21/2023 FINAL Final Comment: Opiate Class, MS, Ur RFX Oxycodone Class, MS, Ur RFX Acetaminophen, MS, Ur RFX ToxAssure Flex 23, Ur Test Result Flag Units Drug Present and Declared for Prescription Verification Oxycodone 959 EXPECTED ng/mg creat Oxymorphone 1557 EXPECTED ng/mg creat Noroxycodone 1528 EXPECTED ng/mg creat Noroxymorphone 473 EXPECTED ng/mg creat Sources of oxycodone are scheduled prescription medications. Oxymorphone, noroxycodone, and noroxymorphone are expected metabolites of oxycodone. Oxymorphone is also available as a scheduled prescription medication. Drug Present not Declared for Prescription Verification Acetaminophen PRESENT UNEXPECTED Test Result Flag Units Ref Range Creatinine 143 mg/dL >=20 Declared Medications: The flagging and interpretation on this report are based on the following declared medications. Unexpected results may arise from inaccuracies in the declared medications. Note: The testing scope of this panel includes these medications: Oxycodone For clinical consultation, please call . No results found for: UQNOTE, OPIATEPNMGT, DRUGSCRPAIN Urine Panel: No results found for: UQCANN, UQBNZL, [id number], UQAMPH, UQMAMP, UQBUPRE, UQNORBUP, UQMTHD, UQEDDP, UQTRAM, UQDTRM, UQFNTL, UQNFTL, UQCODE, UQMORP, UQDCDN, UQHCOD, UQOXYC, UQHMOR, UQOXYM, UQCREA, UQPH, UQSPGR, UQOXID, UQSPQ @FLOW([id number])@ Lab Results Component Value Date SUMM FINAL 10/21/2023 Summary Report (Summary) Date Value Ref Range Status 02/04/2022 FINAL Final Comment: TOXASSURE COMP DRUG ANALYSIS,UR Test Result Flag Units Drug Present and Declared for Prescription Verification Oxycodone 821 EXPECTED ng/mg creat Oxymorphone 2700 EXPECTED ng/mg creat Noroxycodone 1132 EXPECTED ng/mg creat Noroxymorphone 612 EXPECTED ng/mg creat Sources of oxycodone are scheduled prescription medications. Oxymorphone, noroxycodone, and noroxymorphone are expected metabolites of oxycodone. Oxymorphone is also available as a scheduled prescription medication. Acetaminophen PRESENT EXPECTED Test Result Flag Units Ref Range Creatinine 137 mg/dL >=20 Declared Medications: The flagging and interpretation on this report are based on the following declared medications. Unexpected results may arise from inaccuracies in the declared medications. Note: The testing scope of this panel includes these medications: Oxycodone (Percocet) Note: The testing scope of this panel does not include small to moderate amounts of these reported medications: Acetaminophen (Percocet) For clinical consultation, please call . Last Opioid agreement effective date: 03/04/2023 Please review and advise. Laverne Pimentel RN [facility]09-23-[facility] Instructions* Patient Instructions* Nancy Coronel APRN.[facility] - 12/26/2023 2:19 PM EDT Start the prednisone -- two pills daily X 5 days. You can use the flexeril, but be conscientious, as this can cause drowsiness. Moist heat/ice. Gentle stretching. Topicals (sandhya monaco, icy hot, etc). Consider physical therapy. Let us know if no better/worsening. documented in this encounterOhio[facility]09-23-2024 NoteHNO ID: [id number] Author: NANCY CORONEL APRN.[facility] Service: ? Author Type: Nurse Practitioner Type: Progress Notes Filed: 12/26/2023 19:19 Note Text: This is a 63 year old male who presents today with: Patient presents with: Acute Visit: Neck pain x4 days; no known injury HISTORY OF PRESENT ILLNESS: Abbie Nesbitt is a 63 year old male. Patient presents with: Acute Visit: Neck pain x4 days; no known injury Pt presents today with complaint of neck pain X 4 days. Started hurting Tuesday morning like he slept wrong. Started in the right side. Refers that it hurt so bad that he almost went to the ER. Refers yesterday and today, not quite as bed, but moved to the center. Refers that his posterior head feels tingling. Refers that discomfort radiates nto the trap. He does get popping,cracking in the neck. ROM limited. He is on oxycodone 5 mg for the lower back. Hasn't take anything. He takes a baby ASA daily. Applying heat. PAST MEDICAL HISTORY: PAST MEDICAL HISTORY Diagnosis Date Chronic low back pain NSTEMI (non-ST elevated myocardial infarction) (HCC) 06/16/2018 PAST SURGICAL HISTORY Procedure Laterality Date ARTHRD ANT INTERBODY MIN DSC LUMBAR 05/17/2011 L4,5 and L5 S1 CARDIAC CATH N/A 06/17/2018 2 stents placed at [facility] COLONOSCOPY GEN ANES N/A 09/2019 Dr. Espinal PAST SURGICAL HISTORY OF disc surgery x 2 TONSILLECTOMY HX N/A 1981 ALLERGIES Patient has no known allergies. MEDICATIONS Current Outpatient Medications Medication Sig lisinopril (ZESTRIL) 10 mg tablet Take 1 tablet by mouth every afternoon. oxyCODONE-acetaminophen (PERCOCET) 5-325 mg tablet Take 1 tablet by mouth every 8 hours as needed for pain for up to 30 days. Patient should start on December 18, 2023. clopidogrel (PLAVIX) 75 mg tablet Take 75 mg by mouth once daily. carvedilol (COREG) 12.5 mg tablet Half tablet twice daily aspirin 81 mg chewable tablet Take 1 tablet by mouth once daily. atorvastatin (LIPITOR) 80 mg tablet Take 1 tablet by mouth once daily. nitroglycerin sublingual (NITROQUICK) 0.4 mg SL tablet Dissolve 1 tablet under the tongue every 5 minutes as needed for Chest Pain. No current facility-administered medications for this visit. FAMILY HISTORY Problem Relation Age of Onset Cancer Father 80 gastric Stroke Father Heart disease Father Social History Tobacco Use Smoking status: Former Current packs/day: 0.00 Average packs/day: 1 pack/day for 25.0 years (25.0 ttl pk-yrs) Types: Cigarettes Start date: 05/12/1986 Quit date: 05/12/2011 Years since quittin.6 Smokeless tobacco: Never Tobacco comments: quit in 10/2017 Vaping Use Vaping status: Never Used Substance Use Topics Alcohol use: Yes Comment: 1 x per month Drug use: No EXAM: BP 130/78 Pulse 86 Resp 16 SpO2 97% PHYSICAL EXAM: General Appearance: Well appearing, alert, in no acute distress, well-hydrated, well nourished.. Skin: Skin color, texture, turgor normal, no suspicious rashes or lesions. Head: Normocephalic, no masses, lesions, tenderness or abnormalities. Neck: guarded position. Limited ROM. No pain to palpation. No deformity. Lungs: Lungs clear to auscultation. No wheezing, rhonchi, rales.. Heart: RRR without murmur, gallop, or rubs. No ectopy. Neurologic: = strength of upper ext. Reflexes normal and symmetric. Sensation grossly intact.. ASSESSMENT/PLAN: 1. Neck pain - ICD9: 723.1, ICD10: M54.2 Moist heat/ice. Topicals. Start prednisone burst. Flexeril as needed, but discussed to not use simultaneously with percocet, as both are sedating. - PREDNISONE 20 MG TABLET - CYCLOBENZAPRINE 10 MG TABLET Consider PT. Let provider know if no better/worsening. Discussed treatment plan and patient voices understanding. Patient's questions answered appropriately. Medications and potential side effects were discussed and patient voices understanding. Return to the office as scheduled or as needed for worsening/no improvement. [facility] History of Present illness Narrative* Nancy Coronel APRN.[facility] - 12/26/2023 2:03 PM EDT This is a 63 year old male who presents today with: Patient presents with: Acute Visit: Neck pain x4 days; no known injury HISTORY OF PRESENT ILLNESS: Abbie Nesbitt is a 63 year old male. Patient presents with: Acute Visit: Neck pain x4 days; no known injury Pt presents today with complaint of neck pain X 4 days. Started hurting Tuesday morning like he slept wrong. Started in the right side. Refers that it hurt so bad that he almost went to the ER. Refers yesterday and today, not quite as bed, but moved to the center. Refers that his posterior head feels tingling. Refers that discomfort radiates nto the trap. He does get popping,cracking in the neck. ROM limited. He is on oxycodone 5 mg for the lower back. Hasn't take anything. He takes a baby ASA daily. Applying heat. PAST MEDICAL HISTORY: PAST MEDICAL HISTORY Diagnosis Date Chronic low back pain NSTEMI (non-ST elevated myocardial infarction) (HCC) 06/16/2018 PAST SURGICAL HISTORY Procedure Laterality Date ARTHRD ANT INTERBODY MIN DSC LUMBAR 05/17/2011 L4,5 and L5 S1 CARDIAC CATH N/A 06/17/2018 2 stents placed at [facility] COLONOSCOPY GEN ANES N/A 09/2019 Dr. Espinal PAST SURGICAL HISTORY OF disc surgery x 2 TONSILLECTOMY HX N/A 1981 ALLERGIES Patient has no known allergies. MEDICATIONS Current Outpatient Medications Medication Sig lisinopril (ZESTRIL) 10 mg tablet Take 1 tablet by mouth every afternoon. oxyCODONE-acetaminophen (PERCOCET) 5-325 mg tablet Take 1 tablet by mouth every 8 hours as needed for pain for up to 30 days. Patient should start on December 18, 2023. clopidogrel (PLAVIX) 75 mg tablet Take 75 mg by mouth once daily. carvedilol (COREG) 12.5 mg tablet Half tablet twice daily aspirin 81 mg chewable tablet Take 1 tablet by mouth once daily. atorvastatin (LIPITOR) 80 mg tablet Take 1 tablet by mouth once daily. nitroglycerin sublingual (NITROQUICK) 0.4 mg SL tablet Dissolve 1 tablet under the tongue every 5 minutes as needed for Chest Pain. No current facility-administered medications for this visit. FAMILY HISTORY Problem Relation Age of Onset Cancer Father 80 gastric Stroke Father Heart disease Father Social History Tobacco Use Smoking status: Former Current packs/day: 0.00 Average packs/day: 1 pack/day for 25.0 years (25.0 ttl pk-yrs) Types: Cigarettes Start date: 05/12/1986 Quit date: 05/12/2011 Years since quittin.6 Smokeless tobacco: Never Tobacco comments: quit in 10/2017 Vaping Use Vaping status: Never Used Substance Use Topics Alcohol use: Yes Comment: 1 x per month Drug use: No EXAM: BP 130/78 Pulse 86 Resp 16 SpO2 97% PHYSICAL EXAM: General Appearance: Well appearing, alert, in no acute distress, well-hydrated, well nourished.. Skin: Skin color, texture, turgor normal, no suspicious rashes or lesions. Head: Normocephalic, no masses, lesions, tenderness or abnormalities. Neck: guarded position. Limited ROM. No pain to palpation. No deformity. Lungs: Lungs clear to auscultation. No wheezing, rhonchi, rales.. Heart: RRR without murmur, gallop, or rubs. No ectopy. Neurologic: = strength of upper ext. Reflexes normal and symmetric. Sensation grossly intact.. ASSESSMENT/PLAN: 1. Neck pain - ICD9: 723.1, ICD10: M54.2 Moist heat/ice. Topicals. Start prednisone burst. Flexeril as needed, but discussed to not use simultaneously with percocet, as both are sedating. - PREDNISONE 20 MG TABLET - CYCLOBENZAPRINE 10 MG TABLET Consider PT. Let provider know if no better/worsening. Discussed treatment plan and patient voices understanding. Patient's questions answered appropriately. Medications and potential side effects were discussed and patient voices understanding. Return to the office as scheduled or as needed for worsening/no improvement. Nancy Coronel APRN.[facility] documented in this encounterOhio[facility]09-[facility]24 Telephone encounter Note * Telephone Encounter - Cristhian Petit PA-C - 12/12/2023 11:11 AM EDT The following approved medication requests have been transmitted electronically. Requested Prescriptions Signed Prescriptions Disp Refills oxyCODONE-acetaminophen (PERCOCET) 5-325 mg tablet 90 tablet 0 Sig: Take 1 tablet by mouth every 8 hours as needed for pain for up to 30 days. Patient should start on December 18, 2023. Authorizing Provider: CRISTHIAN PETIT PA-C [facility]09-09-2024 Miscellaneous Notes* Telephone Encounter - Cristhian Petit PA-C - 12/12/2023 11:11 AM EDT The following approved medication requests have been transmitted electronically. Requested Prescriptions Signed Prescriptions Disp Refills oxyCODONE-acetaminophen (PERCOCET) 5-325 mg tablet 90 tablet 0 Sig: Take 1 tablet by mouth every 8 hours as needed for pain for up to 30 days. Patient should start on December 18, 2023. Authorizing Provider: CRISTHIAN PETIT PA-C * Telephone Encounter - Laverne Pimentel RN - 12/12/2023 11:01 AM EDT Patient phones requesting refills as follows: Requested Prescriptions Pending Prescriptions Disp Refills oxyCODONE-acetaminophen (PERCOCET) 5-325 mg tablet 90 tablet 0 Sig: Take 1 tablet by mouth every 8 hours as needed for pain for up to 30 days. Last UDS: final warning regarding marijuana given 10/21/22 Opioid agreement signed 03/04/23. Summary Report Date Value Ref Range Status 10/21/2023 FINAL Final Comment: Opiate Class, MS, Ur RFX Oxycodone Class, MS, Ur RFX Acetaminophen, MS, Ur RFX ToxAssure Flex 23, Ur Test Result Flag Units Drug Present and Declared for Prescription Verification Oxycodone 959 EXPECTED ng/mg creat Oxymorphone 1557 EXPECTED ng/mg creat Noroxycodone 1528 EXPECTED ng/mg creat Noroxymorphone 473 EXPECTED ng/mg creat Sources of oxycodone are scheduled prescription medications. Oxymorphone, noroxycodone, and noroxymorphone are expected metabolites of oxycodone. Oxymorphone is also available as a scheduled prescription medication. Drug Present not Declared for Prescription Verification Acetaminophen PRESENT UNEXPECTED Test Result Flag Units Ref Range Creatinine 143 mg/dL >=20 Declared Medications: The flagging and interpretation on this report are based on the following declared medications. Unexpected results may arise from inaccuracies in the declared medications. Note: The testing scope of this panel includes these medications: Oxycodone For clinical consultation, please call . No results found for: UQNOTE, OPIATEPNMGT, DRUGSCRPAIN Urine Panel: No results found for: UQCANN, UQBNZL, [id number], UQAMPH, UQMAMP, UQBUPRE, UQNORBUP, UQMTHD, UQEDDP, UQTRAM, UQDTRM, UQFNTL, UQNFTL, UQCODE, UQMORP, UQDCDN, UQHCOD, UQOXYC, UQHMOR, UQOXYM, UQCREA, UQPH, UQSPGR, UQOXID, UQSPQ @FLOW([id number])@ Lab Results Component Value Date SUMM FINAL 10/21/2023 Summary Report (Summary) Date Value Ref Range Status 02/04/2022 FINAL Final Comment: TOXASSURE COMP DRUG ANALYSIS,UR Test Result Flag Units Drug Present and Declared for Prescription Verification Oxycodone 821 EXPECTED ng/mg creat Oxymorphone 2700 EXPECTED ng/mg creat Noroxycodone 1132 EXPECTED ng/mg creat Noroxymorphone 612 EXPECTED ng/mg creat Sources of oxycodone are scheduled prescription medications. Oxymorphone, noroxycodone, and noroxymorphone are expected metabolites of oxycodone. Oxymorphone is also available as a scheduled prescription medication. Acetaminophen PRESENT EXPECTED Test Result Flag Units Ref Range Creatinine 137 mg/dL >=20 Declared Medications: The flagging and interpretation on this report are based on the following declared medications. Unexpected results may arise from inaccuracies in the declared medications. Note: The testing scope of this panel includes these medications: Oxycodone (Percocet) Note: The testing scope of this panel does not include small to moderate amounts of these reported medications: Acetaminophen (Percocet) For clinical consultation, please call . Last Opioid agreement effective date: 03/04/2023 Please review and advise. Laverne Pimentel RN documented in this encounter[facility]09-[facility]24 Telephone encounter Note * Telephone Encounter - Laverne Pimentel RN - 12/12/2023 11:01 AM EDT Patient phones requesting refills as follows: Requested Prescriptions Pending Prescriptions Disp Refills oxyCODONE-acetaminophen (PERCOCET) 5-325 mg tablet 90 tablet 0 Sig: Take 1 tablet by mouth every 8 hours as needed for pain for up to 30 days. Last UDS: final warning regarding marijuana given 10/21/22 Opioid agreement signed 03/04/23. Summary Report Date Value Ref Range Status 10/21/2023 FINAL Final Comment: Opiate Class, MS, Ur RFX Oxycodone Class, MS, Ur RFX Acetaminophen, MS, Ur RFX ToxAssure Flex 23, Ur Test Result Flag Units Drug Present and Declared for Prescription Verification Oxycodone 959 EXPECTED ng/mg creat Oxymorphone 1557 EXPECTED ng/mg creat Noroxycodone 1528 EXPECTED ng/mg creat Noroxymorphone 473 EXPECTED ng/mg creat Sources of oxycodone are scheduled prescription medications. Oxymorphone, noroxycodone, and noroxymorphone are expected metabolites of oxycodone. Oxymorphone is also available as a scheduled prescription medication. Drug Present not Declared for Prescription Verification Acetaminophen PRESENT UNEXPECTED Test Result Flag Units Ref Range Creatinine 143 mg/dL >=20 Declared Medications: The flagging and interpretation on this report are based on the following declared medications. Unexpected results may arise from inaccuracies in the declared medications. Note: The testing scope of this panel includes these medications: Oxycodone For clinical consultation, please call . No results found for: UQNOTE, OPIATEPNMGT, DRUGSCRPAIN Urine Panel: No results found for: UQCANN, UQBNZL, [id number], UQAMPH, UQMAMP, UQBUPRE, UQNORBUP, UQMTHD, UQEDDP, UQTRAM, UQDTRM, UQFNTL, UQNFTL, UQCODE, UQMORP, UQDCDN, UQHCOD, UQOXYC, UQHMOR, UQOXYM, UQCREA, UQPH, UQSPGR, UQOXID, UQSPQ @FLOW([id number])@ Lab Results Component Value Date SUMM FINAL 10/21/2023 Summary Report (Summary) Date Value Ref Range Status 02/04/2022 FINAL Final Comment: TOXASSURE COMP DRUG ANALYSIS,UR Test Result Flag Units Drug Present and Declared for Prescription Verification Oxycodone 821 EXPECTED ng/mg creat Oxymorphone 2700 EXPECTED ng/mg creat Noroxycodone 1132 EXPECTED ng/mg creat Noroxymorphone 612 EXPECTED ng/mg creat Sources of oxycodone are scheduled prescription medications. Oxymorphone, noroxycodone, and noroxymorphone are expected metabolites of oxycodone. Oxymorphone is also available as a scheduled prescription medication. Acetaminophen PRESENT EXPECTED Test Result Flag Units Ref Range Creatinine 137 mg/dL >=20 Declared Medications: The flagging and interpretation on this report are based on the following declared medications. Unexpected results may arise from inaccuracies in the declared medications. Note: The testing scope of this panel includes these medications: Oxycodone (Percocet) Note: The testing scope of this panel does not include small to moderate amounts of these reported medications: Acetaminophen (Percocet) For clinical consultation, please call . Last Opioid agreement effective date: 03/04/2023 Please review and advise. Laverne Pimentel RN [facility]08-09-2024 Telephone encounter Note* Telephone Encounter - Cristhian Petit PA-C - 11/11/2023 10:03 AM EDT The following approved medication requests have been transmitted electronically. Requested Prescriptions Signed Prescriptions Disp Refills oxyCODONE-acetaminophen (PERCOCET) 5-325 mg tablet 90 tablet 0 Sig: Take 1 tablet by mouth every 8 hours as needed for pain for up to 30 days. Patient should start on November 18, 2023. Authorizing Provider: CRISTHIAN PETIT PA-C T [facility]08-09-2024 Miscellaneous Notes* Telephone Encounter - Cristhian Petit PA-C - 11/11/2023 10:03 AM EDT The following approved medication requests have been transmitted electronically. Requested Prescriptions Signed Prescriptions Disp Refills oxyCODONE-acetaminophen (PERCOCET) 5-325 mg tablet 90 tablet 0 Sig: Take 1 tablet by mouth every 8 hours as needed for pain for up to 30 days. Patient should start on November 18, 2023. Authorizing Provider: CRISTHIAN PETIT PA-C * Telephone Encounter - Camp, Janetannia Beckwith RN - 11/11/2023 9:52 AM EDT Patient phones requesting refills as follows: Requested Prescriptions Pending Prescriptions Disp Refills oxyCODONE-acetaminophen (PERCOCET) 5-325 mg tablet 90 tablet 0 Sig: Take 1 tablet by mouth every 8 hours as needed for pain for up to 30 days. Last UDS: final warning regarding marijuana given 10/21/22 Opioid agreement signed 03/04/23. Summary Report Date Value Ref Range Status 10/21/2023 FINAL Final Comment: Opiate Class, MS, Ur RFX Oxycodone Class, MS, Ur RFX Acetaminophen, MS, Ur RFX ToxAssure Flex 23, Ur Test Result Flag Units Drug Present and Declared for Prescription Verification Oxycodone 959 EXPECTED ng/mg creat Oxymorphone 1557 EXPECTED ng/mg creat Noroxycodone 1528 EXPECTED ng/mg creat Noroxymorphone 473 EXPECTED ng/mg creat Sources of oxycodone are scheduled prescription medications. Oxymorphone, noroxycodone, and noroxymorphone are expected metabolites of oxycodone. Oxymorphone is also available as a scheduled prescription medication. Drug Present not Declared for Prescription Verification Acetaminophen PRESENT UNEXPECTED Test Result Flag Units Ref Range Creatinine 143 mg/dL >=20 Declared Medications: The flagging and interpretation on this report are based on the following declared medications. Unexpected results may arise from inaccuracies in the declared medications. Note: The testing scope of this panel includes these medications: Oxycodone For clinical consultation, please call . No results found for: UQNOTE, OPIATEPNMGT, DRUGSCRPAIN Urine Panel: No results found for: UQCANN, UQBNZL, [id number], UQAMPH, UQMAMP, UQBUPRE, UQNORBUP, UQMTHD, UQEDDP, UQTRAM, UQDTRM, UQFNTL, UQNFTL, UQCODE, UQMORP, UQDCDN, UQHCOD, UQOXYC, UQHMOR, UQOXYM, UQCREA, UQPH, UQSPGR, UQOXID, UQSPQ @FLOW([id number])@ Lab Results Component Value Date SUMM FINAL 10/21/2023 Summary Report (Summary) Date Value Ref Range Status 02/04/2022 FINAL Final Comment: TOXASSURE COMP DRUG ANALYSIS,UR Test Result Flag Units Drug Present and Declared for Prescription Verification Oxycodone 821 EXPECTED ng/mg creat Oxymorphone 2700 EXPECTED ng/mg creat Noroxycodone 1132 EXPECTED ng/mg creat Noroxymorphone 612 EXPECTED ng/mg creat Sources of oxycodone are scheduled prescription medications. Oxymorphone, noroxycodone, and noroxymorphone are expected metabolites of oxycodone. Oxymorphone is also available as a scheduled prescription medication. Acetaminophen PRESENT EXPECTED Test Result Flag Units Ref Range Creatinine 137 mg/dL >=20 Declared Medications: The flagging and interpretation on this report are based on the following declared medications. Unexpected results may arise from inaccuracies in the declared medications. Note: The testing scope of this panel includes these medications: Oxycodone (Percocet) Note: The testing scope of this panel does not include small to moderate amounts of these reported medications: Acetaminophen (Percocet) For clinical consultation, please call . Last Opioid agreement effective date: 03/04/2023 Please review and advise. Janet Ramey RN documented in this encounter[facility] Telephone encounter Note * Telephone Encounter - Janet Ramey RN - 11/11/2023 9:52 AM EDT Patient phones requesting refills as follows: Requested Prescriptions Pending Prescriptions Disp Refills oxyCODONE-acetaminophen (PERCOCET) 5-325 mg tablet 90 tablet 0 Sig: Take 1 tablet by mouth every 8 hours as needed for pain for up to 30 days. Last UDS: final warning regarding marijuana given 10/21/22 Opioid agreement signed 03/04/23. Summary Report Date Value Ref Range Status 10/21/2023 FINAL Final Comment: Opiate Class, MS, Ur RFX Oxycodone Class, MS, Ur RFX Acetaminophen, MS, Ur RFX ToxAssure Flex 23, Ur Test Result Flag Units Drug Present and Declared for Prescription Verification Oxycodone 959 EXPECTED ng/mg creat Oxymorphone 1557 EXPECTED ng/mg creat Noroxycodone 1528 EXPECTED ng/mg creat Noroxymorphone 473 EXPECTED ng/mg creat Sources of oxycodone are scheduled prescription medications. Oxymorphone, noroxycodone, and noroxymorphone are expected metabolites of oxycodone. Oxymorphone is also available as a scheduled prescription medication. Drug Present not Declared for Prescription Verification Acetaminophen PRESENT UNEXPECTED Test Result Flag Units Ref Range Creatinine 143 mg/dL >=20 Declared Medications: The flagging and interpretation on this report are based on the following declared medications. Unexpected results may arise from inaccuracies in the declared medications. Note: The testing scope of this panel includes these medications: Oxycodone For clinical consultation, please call . No results found for: UQNOTE, OPIATEPNMGT, DRUGSCRPAIN Urine Panel: No results found for: UQCANN, UQBNZL, BVX0JDA, UQAMPH, UQMAMP, UQBUPRE, UQNORBUP, UQMTHD, UQEDDP, UQTRAM, UQDTRM, UQFNTL, UQNFTL, UQCODE, UQMORP, UQDCDN, UQHCOD, UQOXYC, UQHMOR, UQOXYM, UQCREA, UQPH, UQSPGR, UQOXID, UQSPQ @FLOW([id number])@ Lab Results Component Value Date SUMM FINAL 10/21/2023 Summary Report (Summary) Date Value Ref Range Status 02/04/2022 FINAL Final Comment: TOXASSURE COMP DRUG ANALYSIS,UR Test Result Flag Units Drug Present and Declared for Prescription Verification Oxycodone 821 EXPECTED ng/mg creat Oxymorphone 2700 EXPECTED ng/mg creat Noroxycodone 1132 EXPECTED ng/mg creat Noroxymorphone 612 EXPECTED ng/mg creat Sources of oxycodone are scheduled prescription medications. Oxymorphone, noroxycodone, and noroxymorphone are expected metabolites of oxycodone. Oxymorphone is also available as a scheduled prescription medication. Acetaminophen PRESENT EXPECTED Test Result Flag Units Ref Range Creatinine 137 mg/dL >=20 Declared Medications: The flagging and interpretation on this report are based on the following declared medications. Unexpected results may arise from inaccuracies in the declared medications. Note: The testing scope of this panel includes these medications: Oxycodone (Percocet) Note: The testing scope of this panel does not include small to moderate amounts of these reported medications: Acetaminophen (Percocet) For clinical consultation, please call . Last Opioid agreement effective date: 03/04/2023 Please review and advise. Janet Ramey RN [facility]07-31-[facility] Telephone encounter Note* Telephone Encounter - Alyce Eisenberg LPN - 11/02/2023 2:41 PM EDT Patient notified of results, verbalizes understanding of instructions. Alyce Eisenberg LPN [facility]07-31-2024 Miscellaneous Notes* Telephone Encounter - Alyce Eisenberg LPN - 11/02/2023 2:41 PM EDT Patient notified of results, verbalizes understanding of instructions. Alyce Eisenberg LPN * Telephone Encounter - Elise Ch APRN.CNP - 11/02/2023 1:46 PM EDT Can you please call the patient and let him know that I reviewed his lab results. Triglycerides were elevated, HDL was low. A1c was 5.7, this is considered prediabetes. Thyroid and B12 was normal. He may consider starting a B complex vitamin to help with the tingling. I would recommend working on lifestyle changes at home to help improve the glucose and triglycerides. Try to decrease processed foods in the diet, increase lean protein, vegetables, get some form exercise. I would like to get repeat fasting labs in 6 months with office visit. Please let me know if he has any questions. Thank you. Elise Ch APRN.JESUS documented in this encounterOhio[facility]07-31-2024 Telephone encounter Note * Telephone Encounter - Elise Ch APRN.CNP - 11/02/2023 1:46 PM EDT Can you please call the patient and let him know that I reviewed his lab results. Triglycerides were elevated, HDL was low. A1c was 5.7, this is considered prediabetes. Thyroid and B12 was normal. He may consider starting a B complex vitamin to help with the tingling. I would recommend working on lifestyle changes at home to help improve the glucose and triglycerides. Try to decrease processed foods in the diet, increase lean protein, vegetables, get some form exercise. I would like to get repeat fasting labs in 6 months with office visit. Please let me know if he has any questions. Thank you. Elise Ch APRN.CNP [facility]07-22-[facility] History of Present illness Narrative* Marlys Moreno MD - 10/24/2023 7:40 PM EDT Chief Complaint Patient presents with: burning sensation in feet x 1 month doesn't feel right HPI Abbie Nesbitt is a 63 year old male who presents here today for burning in feet. Last OV with [facility] was in 2021 with Elsie Ch. Behavioral Health screening: Denies feeling depressed or hopeless. Behavioral Health Screening PHQ-2 Score: 0 (Lower risk for depression) MICHELE-2 Score: 0 (Lower risk for anxiety) Recommendation: no further intervention at this time Declined Covid vaccine, Hep C and HIV screening. Former smoker. No family hx of Diabetes. Pt c/o burning in his feet x 1 month. Pt follows with Pain Management Cristhian Petit PA-C and prescribed Percocet 5-325 mg 1 pill every 8 hours prn for lumbar pain. Hx of laminectomy. Pt rated pain 2-3/10, burning, annoying sensation to bottoms of both feet and toes that has become more constant . He has a spot as well just above the right knee that smalls. He states he doesn't notice the burning when active or on his feet, notices it more when resting. Does not seem to be worse at night. He has not tried doing anything for the pain or discomfort. He did have sciatica issues in past with his back but that improved. He will get some leg numbness to right leg if he stands to long. Does not wear shoes much during the day since he works from home. He doesn't have the feeling that is socks are bunched up. He does walk a lot, getting 8,000 steps a day. Also states I just don't feel right like I'm fighting something. Feels Physically lousy, can't describe it. Feels like something is not right but he can't put a finger on it. He stated this started6 months ago and went away for few months but started back up a few months later. Denies any sx of head congestion, cough, fatigue, lack of energy. He states he hasn't had a fever but he feels like he has a low grade fever. No gi issues, diarrhea, constipation, no weight gain or weight loss. He does get up several times a night to urinate. Some frequency during the day but no urgency. Follows with [facility] who does blood work yearly on him. Most recent was in Dec 2022 (in scanned records). He had glucose test done in Dec 2021 that was 116. No chest pains, dizziness, or SOB. Has an ingrown toe nail. Past medical history, appointments, medications, allergies reviewed. Previous Medical History PAST MEDICAL HISTORY Diagnosis Date Chronic low back pain NSTEMI (non-ST elevated myocardial infarction) (HCC) 06/16/2018 Previous Surgical History PAST SURGICAL HISTORY Procedure Laterality Date ARTHRD ANT INTERBODY MIN DSC LUMBAR 05/17/2011 L4,5 and L5 S1 CARDIAC CATH N/A 06/17/2018 2 stents placed at [facility] COLONOSCOPY GEN ANES N/A 09/2019 Dr. Espinal PAST SURGICAL HISTORY OF disc surgery x 2 TONSILLECTOMY HX N/A 1981 Family History FAMILY HISTORY Problem Relation Age of Onset Cancer Father 80 gastric Stroke Father Heart disease Father Patient Allergies ALLERGIES No Known Allergies Current Medications Current Outpatient Medications on File Prior to Visit Medication Sig oxyCODONE-acetaminophen (PERCOCET) 5-325 mg tablet Take 1 tablet by mouth every 8 hours as needed for pain for up to 30 days. clopidogrel (PLAVIX) 75 mg tablet Take 75 mg by mouth once daily. carvedilol (COREG) 12.5 mg tablet Half tablet twice daily aspirin 81 mg chewable tablet Take 1 tablet by mouth once daily. atorvastatin (LIPITOR) 80 mg tablet Take 1 tablet by mouth once daily. nitroglycerin sublingual (NITROQUICK) 0.4 mg SL tablet Dissolve 1 tablet under the tongue every 5 minutes as needed for Chest Pain. No current facility-administered medications on file prior to visit. Social History Social History Tobacco Use Smoking status: Former Packs/day: 1.00 Years: 25.00 Additional pack years: 0.00 Total pack years: 25.00 Types: Cigarettes Quit date: 05/12/2011 Years since quittin.4 Smokeless tobacco: Never Tobacco comments: quit in 10/2017 Vaping Use Vaping Use: Never used Substance Use Topics Alcohol use: Yes Comment: 1 x per month Drug use: No EXAM: BP 122/80 Pulse 78 Resp 16 Wt 98 kg (216 lb) BMI 30.99 kg/m General Appearance: Well appearing, alert, in no acute distress, well-hydrated, well nourished.. Lungs: Lungs clear to auscultation. No wheezing, rhonchi, rales.. Heart: RRR without murmur, gallop, or rubs. No ectopy. Feet: Shoes and socks removed, No deformities, ulcers, calluses, normal distal pulses, sensitive to10 gm monofilament, and no pain on palpation to the feet. Burning to the balls of feet and toes . Health Maintenance List Lung Cancer Screening Never done Colorectal Cancer Screening due on 05/08/2014 RSV Vaccine(1 - 1-dose 60+ series) Never done LDL Cholesterol due on 10/15/2022 Behavioral Health Screening Never done Hepatitis C Screening due on 10/23/2024 HIV Screening due on 10/23/2024 Covid-19 Vaccine( - season) due on 10/23/2024 Influenza Vaccine(1) due on 12/04/2023 Diabetes Screening due on 10/15/2024 Annual PCP Team Chronic Disease Visit due on 10/23/2024 Lipid Screening due on 10/15/2026 Prostate Cancer Screening Discussion due on 10/15/2026 DTaP,Tdap,Td Vaccine(2 - Td or Tdap) due on 10/20/2031 Shingrix Vaccine Completed Data reviewed None ASSESSMENT/PLAN: 1. Burning sensation of feet - ICD9: 782.0, ICD10: R20.8 (primary diagnosis) Check labs 2. Ill feeling - ICD9: 780.99, ICD10: R68.89 Check labs Follow up as needed. Will notify of lab results. I agree with the Chief Complaint, ROS, and Past Histories independently gathered by the clinical product support representative and the remaining scribed note accurately describes my personal service to the patient. Medical Decision Making: Problems: Moderate: New problem with uncertain prognosis Data: Unique test(s) ordered: 3+ Medical Decision Making Level: 4 - Moderate Marlys Moreno MD The documentation for this note was completed by Suzi Silva MA acting as scribe for Marlys Moreno MD. October 24, 2023 7:26 PM. Suzi Silva MA documented in this encounterOhio[facility]07-22-2024 NoteHNO ID: [id number] Author: MARLSY MORENO MD Service: ? Author Type: Physician Type: Progress Notes Filed: 10/24/2023 19:57 Note Text: Chief Complaint Patient presents with: burning sensation in feet x 1 month doesn't feel right HPI Abbie Nesbitt is a 63 year old male who presents here today for burning in feet. Last OV with [facility] was in 2021 with Elise Ch. Behavioral Health screening: Denies feeling depressed or hopeless. Behavioral Health Screening PHQ-2 Score: 0 (Lower risk for depression) MICHELE-2 Score: 0 (Lower risk for anxiety) Recommendation: no further intervention at this time Declined Covid vaccine, Hep C and HIV screening. Former smoker. No family hx of Diabetes. Pt c/o burning in his feet x 1 month. Pt follows with Pain Management Cristhian Petit PA-C and prescribed Percocet 5-325 mg 1 pill every 8 hours prn for lumbar pain. Hx of laminectomy. Pt rated pain 2-3/10, burning, annoying sensation to bottoms of both feet and toes that has become more constant . He has a spot as well just above the right knee that smalls. He states he doesn't notice the burning when active or on his feet, notices it more when resting. Does not seem to be worse at night. He has not tried doing anything for the pain or discomfort. He did have sciatica issues in past with his back but that improved. He will get some leg numbness to right leg if he stands to long. Does not wear shoes much during the day since he works from home. He doesn't have the feeling that is socks are bunched up. He does walk a lot, getting 8,000 steps a day. Also states I just don't feel right like I'm fighting something. Feels Physically lousy, can't describe it. Feels like something is not right but he can't put a finger on it. He stated this started 6 months ago and went away for few months but started back up a few months later. Denies any sx of head congestion, cough, fatigue, lack of energy. He states he hasn't had a fever but he feels like he has a low grade fever. No gi issues, diarrhea, constipation, no weight gain or weight loss. He does get up several times a night to urinate. Some frequency during the day but no urgency. Follows with [facility] who does blood work yearly on him. Most recent was in Dec 2022 (in scanned records). He had glucose test done in Dec 2021 that was 116. No chest pains, dizziness, or SOB. Has an ingrown toe nail. Past medical history, appointments, medications, allergies reviewed. Previous Medical History PAST MEDICAL HISTORY Diagnosis Date Chronic low back pain NSTEMI (non-ST elevated myocardial infarction) (HCC) 06/16/2018 Previous Surgical History PAST SURGICAL HISTORY Procedure Laterality Date ARTHRD ANT INTERBODY MIN DSC LUMBAR 05/17/2011 L4,5 and L5 S1 CARDIAC CATH N/A 06/17/2018 2 stents placed at [facility] COLONOSCOPY GEN ANES N/A 09/2019 Dr. Espinal PAST SURGICAL HISTORY OF disc surgery x 2 TONSILLECTOMY HX N/A 1981 Family History FAMILY HISTORY Problem Relation Age of Onset Cancer Father 80 gastric Stroke Father Heart disease Father Patient Allergies ALLERGIES No Known Allergies Current Medications Current Outpatient Medications on File Prior to Visit Medication Sig oxyCODONE-acetaminophen (PERCOCET) 5-325 mg tablet Take 1 tablet by mouth every 8 hours as needed for pain for up to 30 days. clopidogrel (PLAVIX) 75 mg tablet Take 75 mg by mouth once daily. carvedilol (COREG) 12.5 mg tablet Half tablet twice daily aspirin 81 mg chewable tablet Take 1 tablet by mouth once daily. atorvastatin (LIPITOR) 80 mg tablet Take 1 tablet by mouth once daily. nitroglycerin sublingual (NITROQUICK) 0.4 mg SL tablet Dissolve 1 tablet under the tongue every 5 minutes as needed for Chest Pain. No current facility-administered medications on file prior to visit. Social History Social History Tobacco Use Smoking status: Former Packs/day: 1.00 Years: 25.00 Additional pack years: 0.00 Total pack years: 25.00 Types: Cigarettes Quit date: 05/12/2011 Years since quittin.4 Smokeless tobacco: Never Tobacco comments: quit in 10/2017 Vaping Use Vaping Use: Never used Substance Use Topics Alcohol use: Yes Comment: 1 x per month Drug use: No EXAM: BP 122/80 Pulse 78 Resp 16 Wt 98 kg (216 lb) BMI 30.99 kg/m? General Appearance: Well appearing, alert, in no acute distress, well-hydrated, well nourished.. Lungs: Lungs clear to auscultation. No wheezing, rhonchi, rales.. Heart: RRR without murmur, gallop, or rubs. No ectopy. Feet: Shoes and socks removed, No deformities, ulcers, calluses, normal distal pulses, sensitive to 10 gm monofilament, and no pain on palpation to the feet. Burning to the balls of feet and toes . Health Maintenance List Lung Cancer Screening Never done Colorectal Cancer Screening due on 05/08/2014 RSV Vaccine(1 - 1-dose 60+ series) Never done LDL Cholesterol due (more content not included)...[facility] 10-21-2023 NoteHNO ID: [id number] Author: CRISTHIAN PETIT PA-C Service: ? Author Type: Physician Claim Representative Type: Progress Notes Filed: 10/21/2023 08:49 Note Text: This note was created using Stream Processorsriter. Subjective Abbie Nesbitt is a 63 year old male. The patient primarily being seen for back pain Patient was last seen on: 08/25/23 At that time, the treatment plan was: see notes Current Meds: percocet - am Efficacy: help Side effects: denies TENS unit: no How often used: Benefit: Physical Therapy: years ago Last UDS: 10/21/23 Last injection: OARRS reviewed At the present time, the patient reports benefit with his present analgesic therapy. He denies any adverse effects. Since his previous visit, he denies any hospitalizations or ER visits. Otherwise, he has nothing further to discuss at this time. 10/14/2023 10/21/2023 INTAKE PAIN ASSESSMENT Are you having pain associated with your visit today? No Yes, Provider notified Pain Scales Verbal (Numeric Rating or Visual Analog Scale) Pain Level 2 Pain Location Back-Lower Description Stiffness;Aching Frequency Continuous Intervention/Comfort measure Medication;Relaxation;Heat Back Pain Pertinent negatives include no fever. PAST MEDICAL HISTORY Diagnosis Date Chronic low back pain NSTEMI (non-ST elevated myocardial infarction) (HCC) 06/16/2018 PAST SURGICAL HISTORY Procedure Laterality Date ARTHRD ANT INTERBODY MIN DSC LUMBAR 05/17/2011 L4,5 and L5 S1 CARDIAC CATH N/A 06/17/2018 2 stents placed at [facility] COLONOSCOPY GEN ANES N/A 09/2019 Dr. Espinal PAST SURGICAL HISTORY OF disc surgery x 2 TONSILLECTOMY HX N/A 1981 Social History Tobacco Use Smoking status: Former Packs/day: 1.00 Years: 25.00 Additional pack years: 0.00 Total pack years: 25.00 Types: Cigarettes Quit date: 05/12/2011 Years since quittin.4 Smokeless tobacco: Never Tobacco comments: quit in 10/2017 Vaping Use Vaping Use: Never used Substance Use Topics Alcohol use: Yes Comment: 1 x per month Drug use: No Review of Systems Constitutional: Negative for fever and unexpected weight change. Musculoskeletal: Positive for back pain. + back pain, joint pain, muscle cramps, stiffness, and arthritis Objective BP 154/94 (BP Site: Left Arm, BP Position: Sitting, BP Cuff Size: Regular Adult) Pulse 65 Resp 18 Wt 95.7 kg (211 lb) SpO2 99% BMI 30.28 kg/m? Physical Exam Vitals and nursing note reviewed. Constitutional: Appearance: Normal appearance. He is well-developed, well-groomed and overweight. HENT: Head: Normocephalic and atraumatic. Right Ear: Hearing normal. Left Ear: Hearing normal. Eyes: Conjunctiva/sclera: Conjunctivae normal. Comments: Wearing glasses Musculoskeletal: Comments: He walks with a normal gait. He has tenderness to palpation in the lumbar region with spasms noted in the trapezius, rhomboid, paraspinal, and latissimus dorsi muscles. Strength is 5/5 throughout. Sensation is intact to light touch throughout. SLR is negative. Neurological: Mental Status: He is alert and oriented to person, place, and time. Psychiatric: Attention and Perception: Attention and perception normal. Mood and Affect: Mood and affect normal. Speech: Speech normal. Behavior: Behavior normal. Behavior is cooperative. Thought Content: Thought content normal. Judgment: Judgment normal. Assessment and Plan ASSESSMENT/PLAN: 1. Lumbar post-laminectomy syndrome - ICD9: 722.83, ICD10: M96.1 (primary diagnosis) The OARRS report has been reviewed and is consistent with the patients medical history and medication intake. The patient underwent a random drug screen at today's office visit. The patient will continue with Percocet. Continue with core strengthening and range of motion exercises. Follow-up in the office in 3 months Discuss your blood pressure with your family doctor - BP 154/94 Call if you would like to try a muscle relaxer and we will send a script for tizanidine 4 mg 1/2-1 up to three times a day if needed. - TOXASSURE? FLEX 23, URINE 2. Generalized osteoarthritis - ICD9: 715.00, ICD10: M15.9 3. Myofascial pain syndrome - ICD9: 729.1, ICD10: M79.18 4. Other half-way (current) drug therapy - ICD9: V58.69, ICD10: Z79.899 - TOXASSURE? FLEX 23, URINE ERICKA [facility]07-19-2024 History of Present illness Narrative* Cristhian Petit PA-C - 10/21/2023 8:42 AM EDT This note was created using Stream Processorsriter. Subjective Abbie Nesbitt is a 63 year old male. The patient primarily being seen for back pain Patient was last seen on: 08/25/23 At that time, the treatment plan was: see notes Current Meds: percocet - am Efficacy: help Side effects: denies TENS unit: no How often used: Benefit: Physical Therapy: years ago Last UDS: 10/21/23 Last injection: OARRS reviewed At the present time, the patient reports benefit with his present analgesic therapy. He denies any adverse effects. Since his previous visit, he denies any hospitalizations or ER visits. Otherwise, he has nothing further to discuss at this time. 10/14/2023 10/21/2023 INTAKE PAIN ASSESSMENT Are you having pain associated with your visit today? No Yes, Provider notified Pain Scales Verbal (Numeric Rating or Visual Analog Scale) Pain Level 2 Pain Location Back-Lower Description Stiffness;Aching Frequency Continuous Intervention/Comfort measure Medication;Relaxation;Heat Back Pain Pertinent negatives include no fever. PAST MEDICAL HISTORY Diagnosis Date Chronic low back pain NSTEMI (non-ST elevated myocardial infarction) ([facility]) 06/16/2018 PAST SURGICAL HISTORY Procedure Laterality Date ARTHRD ANT INTERBODY MIN DSC LUMBAR 05/17/2011 L4,5 and L5 S1 CARDIAC CATH N/A 06/17/2018 2 stents placed at [facility] COLONOSCOPY GEN ANES N/A 09/2019 Dr. Espinal PAST SURGICAL HISTORY OF disc surgery x 2 TONSILLECTOMY HX N/A 1982 Social History Tobacco Use Smoking status: Former Packs/day: 1.00 Years: 25.00 Additional pack years: 0.00 Total pack years: 25.00 Types: Cigarettes Quit date: 05/12/2011 Years since quittin.4 Smokeless tobacco: Never Tobacco comments: quit in 10/2017 Vaping Use Vaping Use: Never used Substance Use Topics Alcohol use: Yes Comment: 1 x per month Drug use: No Review of Systems Constitutional: Negative for fever and unexpected weight change. Musculoskeletal: Positive for back pain. + back pain, joint pain, muscle cramps, stiffness, and arthritis Objective BP 154/94 (BP Site: Left Arm, BP Position: Sitting, BP Cuff Size: Regular Adult) Pulse 65 Resp 18 Wt 95.7 kg (211 lb) SpO2 99% BMI 30.28 kg/m Physical Exam Vitals and nursing note reviewed. Constitutional: Appearance: Normal appearance. He is well-developed, well-groomed and overweight. HENT: Head: Normocephalic and atraumatic. Right Ear: Hearing normal. Left Ear: Hearing normal. Eyes: Conjunctiva/sclera: Conjunctivae normal. Comments: Wearing glasses Musculoskeletal: Comments: He walks with a normal gait. He has tenderness to palpation in the lumbar region with spasms noted in the trapezius, rhomboid, paraspinal, and latissimus dorsi muscles. Strength is 5/5 throughout. Sensation is intact to light touch throughout. SLR is negative. Neurological: Mental Status: He is alert and oriented to person, place, and time. Psychiatric: Attention and Perception: Attention and perception normal. Mood and Affect: Mood and affect normal. Speech: Speech normal. Behavior: Behavior normal. Behavior is cooperative. Thought Content: Thought content normal. Judgment: Judgment normal. Assessment and Plan ASSESSMENT/PLAN: 1. Lumbar post-laminectomy syndrome - ICD9: 722.83, ICD10: M96.1 (primary diagnosis) The OARRS report has been reviewed and is consistent with the patients medical history and medication intake. The patient underwent a random drug screen at today's office visit. The patient will continue with Percocet. Continue with core strengthening and range of motion exercises. Follow-up in the office in 3 months Discuss your blood pressure with your family doctor - BP 154/94 Call if you would like to try a muscle relaxer and we will send a script for tizanidine 4 mg 1/2-1 up to three times a day if needed. - TOXASSURE FLEX 23, URINE 2. Generalized osteoarthritis - ICD9: 715.00, ICD10: M15.9 3. Myofascial pain syndrome - ICD9: 729.1, ICD10: M79.18 4. 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 The patient underwent a random drug screen at today's office visit. The patient will continue with Percocet. Continue with core strengthening and range of motion exercises. Follow-up in the office in 3 months Discuss your blood pressure with your family doctor - BP 154/94 Call if you would like to try a muscle relaxer and we will send a script for tizanidine 4 mg 1/2-1 up to three times a day if needed. Supervising Physiciain - Dr. Homer Ling MD documented in this encounterOhiohealth [facility]07-19-2024 Nurse Note* Pk Kapadia RN - 10/21/2023 8:19 AM EDT Percocet this am Med helps pain Denies side effects Last uds-10/21/23 [facility] Note* Pk Kapadia RN - 10/21/2023 8:19 AM EDT Percocet this am Med helps pain Denies side effects Last uds-10/21/23 documented in this encounterOhio[facility]07-11-2024 Telephone encounter Note * Telephone Encounter - Kenisha Lewis RN - 10/13/2023 9:31 AM EDT Patient phones requesting refills as follows: Requested Prescriptions Pending Prescriptions Disp Refills oxyCODONE-acetaminophen (PERCOCET) 5-325 mg tablet 90 tablet 0 Sig: Take 1 tablet by mouth every 8 hours as needed for pain for up to 30 days. Last UDS: final warning regarding marijuana given 10/21/22 Opioid agreement signed 03/04/23. Summary Report Date Value Ref Range Status 03/04/2023 FINAL Final Comment: Opiate Class, MS, Ur RFX Oxycodone Class, MS, Ur RFX Acetaminophen, MS, Ur RFX ToxAssure Flex 23, Ur Test Result Flag Units Drug Present and Declared for Prescription Verification Oxycodone 510 EXPECTED ng/mg creat Oxymorphone 2414 EXPECTED ng/mg creat Noroxycodone 1035 EXPECTED ng/mg creat Noroxymorphone 500 EXPECTED ng/mg creat Sources of oxycodone are scheduled prescription medications. Oxymorphone, noroxycodone, and noroxymorphone are expected metabolites of oxycodone. Oxymorphone is also available as a scheduled prescription medication. Acetaminophen PRESENT EXPECTED Test Result Flag Units Ref Range Creatinine 163 mg/dL >=20 Declared Medications: The flagging and interpretation on this report are based on the following declared medications. Unexpected results may arise from inaccuracies in the declared medications. Note: The testing scope of this panel includes these medications: Oxycodone (Percocet) Note: The testing scope of this panel does not include small to moderate amounts of these reported medications: Acetaminophen (Percocet) For clinical consultation, please call . No results found for: UQNOTE, OPIATEPNMGT, DRUGSCRPAIN Urine Panel: No results found for: UQCANN, UQBNZL, CNN2KOJ, UQAMPH, UQMAMP, UQBUPRE, UQNORBUP, UQMTHD, UQEDDP, UQTRAM, UQDTRM, UQFNTL, UQNFTL, UQCODE, UQMORP, UQDCDN, UQHCOD, UQOXYC, UQHMOR, UQOXYM, UQCREA, UQPH, UQSPGR, UQOXID, UQSPQ @FLOW([id number])@ Lab Results Component Value Date SUMM FINAL 03/04/2023 Summary Report (Summary) Date Value Ref Range Status 02/04/2022 FINAL Final Comment: TOXASSURE COMP DRUG ANALYSIS,UR Test Result Flag Units Drug Present and Declared for Prescription Verification Oxycodone 821 EXPECTED ng/mg creat Oxymorphone 2700 EXPECTED ng/mg creat Noroxycodone 1132 EXPECTED ng/mg creat Noroxymorphone 612 EXPECTED ng/mg creat Sources of oxycodone are scheduled prescription medications. Oxymorphone, noroxycodone, and noroxymorphone are expected metabolites of oxycodone. Oxymorphone is also available as a scheduled prescription medication. Acetaminophen PRESENT EXPECTED Test Result Flag Units Ref Range Creatinine 137 mg/dL >=20 Declared Medications: The flagging and interpretation on this report are based on the following declared medications. Unexpected results may arise from inaccuracies in the declared medications. Note: The testing scope of this panel includes these medications: Oxycodone (Percocet) Note: The testing scope of this panel does not include small to moderate amounts of these reported medications: Acetaminophen (Percocet) For clinical consultation, please call . Last Opioid agreement effective date: 03/04/2023 Please review and advise. Kenisha Lewis RN [facility]07-[facility] Miscellaneous Notes* Telephone Encounter - Kenisha Lewis RN - 10/13/2023 9:31 AM EDT Patient phones requesting refills as follows: Requested Prescriptions Pending Prescriptions Disp Refills oxyCODONE-acetaminophen (PERCOCET) 5-325 mg tablet 90 tablet 0 Sig: Take 1 tablet by mouth every 8 hours as needed for pain for up to 30 days. Last UDS: final warning regarding marijuana given 10/21/22 Opioid agreement signed 03/04/23. Summary Report Date Value Ref Range Status 03/04/2023 FINAL Final Comment: Opiate Class, MS, Ur RFX Oxycodone Class, MS, Ur RFX Acetaminophen, MS, Ur RFX ToxAssure Flex 23, Ur Test Result Flag Units Drug Present and Declared for Prescription Verification Oxycodone 510 EXPECTED ng/mg creat Oxymorphone 2414 EXPECTED ng/mg creat Noroxycodone 1035 EXPECTED ng/mg creat Noroxymorphone 500 EXPECTED ng/mg creat Sources of oxycodone are scheduled prescription medications. Oxymorphone, noroxycodone, and noroxymorphone are expected metabolites of oxycodone. Oxymorphone is also available as a scheduled prescription medication. Acetaminophen PRESENT EXPECTED Test Result Flag Units Ref Range Creatinine 163 mg/dL >=20 Declared Medications: The flagging and interpretation on this report are based on the following declared medications. Unexpected results may arise from inaccuracies in the declared medications. Note: The testing scope of this panel includes these medications: Oxycodone (Percocet) Note: The testing scope of this panel does not include small to moderate amounts of these reported medications: Acetaminophen (Percocet) For clinical consultation, please call . No results found for: UQNOTE, OPIATEPNMGT, DRUGSCRPAIN Urine Panel: No results found for: UQCANN, UQBNZL, [id number], UQAMPH, UQMAMP, UQBUPRE, UQNORBUP, UQMTHD, UQEDDP, UQTRAM, UQDTRM, UQFNTL, UQNFTL, UQCODE, UQMORP, UQDCDN, UQHCOD, UQOXYC, UQHMOR, UQOXYM, UQCREA, UQPH, UQSPGR, UQOXID, UQSPQ @FLOW([id number])@ Lab Results Component Value Date SUMM FINAL 03/04/2023 Summary Report (Summary) Date Value Ref Range Status 02/04/2022 FINAL Final Comment: TOXASSURE COMP DRUG ANALYSIS,UR Test Result Flag Units Drug Present and Declared for Prescription Verification Oxycodone 821 EXPECTED ng/mg creat Oxymorphone 2700 EXPECTED ng/mg creat Noroxycodone 1132 EXPECTED ng/mg creat Noroxymorphone 612 EXPECTED ng/mg creat Sources of oxycodone are scheduled prescription medications. Oxymorphone, noroxycodone, and noroxymorphone are expected metabolites of oxycodone. Oxymorphone is also available as a scheduled prescription medication. Acetaminophen PRESENT EXPECTED Test Result Flag Units Ref Range Creatinine 137 mg/dL >=20 Declared Medications: The flagging and interpretation on this report are based on the following declared medications. Unexpected results may arise from inaccuracies in the declared medications. Note: The testing scope of this panel includes these medications: Oxycodone (Percocet) Note: The testing scope of this panel does not include small to moderate amounts of these reported medications: Acetaminophen (Percocet) For clinical consultation, please call . Last Opioid agreement effective date: 03/04/2023 Please review and advise. Kenisha Lewis RN documented in this encounterOhio[facility]05-23-2024 History of Present illness Narrative* Cristhian Petit PA-C - 08/25/2023 8:51 AM EDT This note was created using NoteWriter. Subjective Abbie M Plant is a 63 year old male. The patient primarily being seen for back pain Patient was last seen on: At that time, the treatment plan was: see notes Current Meds: percocet - this am Efficacy: help Side effects: denies TENS unit: no How often used: Benefit: Physical Therapy: years ago Last UDS: 03/04/23 Last injection: none OARRS reviewed At the present time, the patient reports benefit with his present analgesic therapy. He denies any adverse effects. Since his previous visit, he denies any hospitalizations or ER visits. Otherwise, he has nothing further to discuss at this time. 08/18/2023 08/25/2023 INTAKE PAIN ASSESSMENT Are you having pain associated with your visit today? No Yes, Provider notified Pain Scales Verbal (Numeric Rating or Visual Analog Scale) Pain Level 2 Pain Location Back-Lower Description Sore;Stiffness Duration Units Years Frequency Continuous Intervention/Comfort measure Medication;Relaxation;Heat Back Pain Pertinent negatives include no fever. PAST MEDICAL HISTORY Diagnosis Date Chronic low back pain NSTEMI (non-ST elevated myocardial infarction) ([facility]) 06/16/2018 PAST SURGICAL HISTORY Procedure Laterality Date ARTHRD ANT INTERBODY MIN DSC LUMBAR 05/17/2011 L4,5 and L5 S1 CARDIAC CATH N/A 06/17/2018 2 stents placed at [facility] COLONOSCOPY GEN ANES N/A 09/2019 Dr. Espinal PAST SURGICAL HISTORY OF disc surgery x 2 TONSILLECTOMY HX N/A 1981 Social History Tobacco Use Smoking status: Former Packs/day: 1.00 Years: 25.00 Additional pack years: 0.00 Total pack years: 25.00 Types: Cigarettes Quit date: 05/12/2011 Years since quittin.2 Smokeless tobacco: Never Tobacco comments: quit in 10/2017 Vaping Use Vaping Use: Never used Substance Use Topics Alcohol use: Yes Comment: 1 x per month Drug use: No Review of Systems Constitutional: Negative for fever and unexpected weight change. Musculoskeletal: Positive for back pain. + back pain, joint pain, muscle cramps, stiffness, and arthritis Objective BP 131/90 (BP Site: Left Arm, BP Position: Sitting, BP Cuff Size: Large Adult) Pulse 73 Resp 18 Wt 96.2 kg (212 lb) SpO2 99% BMI 30.42 kg/m Physical Exam Vitals and nursing note reviewed. Constitutional: Appearance: Normal appearance. He is well-developed, well-groomed and overweight. HENT: Head: Normocephalic and atraumatic. Right Ear: Hearing normal. Left Ear: Hearing normal. Eyes: Conjunctiva/sclera: Conjunctivae normal. Musculoskeletal: Comments: He walks with a normal gait. He has tenderness to palpation in the lumbar region with spasms noted in the trapezius, rhomboid, paraspinal, and latissimus dorsi muscles. Strength is 5/5 throughout. Sensation is intact to light touch throughout. SLR is negative. Neurological: Mental Status: He is alert and oriented to person, place, and time. Psychiatric: Attention and Perception: Attention and perception normal. Mood and Affect: Mood and affect normal. Speech: Speech normal. Behavior: Behavior normal. Behavior is cooperative. Thought Content: Thought content normal. Judgment: Judgment normal. Assessment and Plan ASSESSMENT/PLAN: 1. Lumbar post-laminectomy syndrome - ICD9: 722.83, ICD10: M96.1 (primary diagnosis) The OARRS report has been reviewed and is consistent with the patients medical history and medication intake. The patient will continue with Percocet. Continue with core strengthening and range of motion exercises. Follow-up in the office in 6 weeks Discuss your blood pressure with your family doctor - BP 153/71 Call if you would like to try a muscle relaxer and we will send a script for tizanidine 4 mg 1/2-1 up to three times a day if needed. I discussed the patient with Dr. Keys who agrees with my assessment and plan. All of the above is to improve functionality and quality of life. No evidence of drug abuse or diversion is seen at this time. - OXYCODONE-ACETAMINOPHEN 5 MG-325 MG TABLET 2. Generalized osteoarthritis - ICD9: 715.00, ICD10: M15.9 3. Myofascial pain syndrome - ICD9: 729.1, ICD10: M79.18 Cristhian Petit PA-C documented in this encounterOhio[facility]05-23-2024 Instructions* Patient Instructions* Cristhian Petit PA-C - 08/25/2023 8:51 AM EDT The OARRS report has been reviewed and is consistent with the patients medical history and medication intake. The patient will continue with Percocet. Continue with core strengthening and range of motion exercises. Follow-up in the office in 6 weeks Discuss your blood pressure with your family doctor - BP 153/71 Call if you would like to try a muscle relaxer and we will send a script for tizanidine 4 mg 1/2-1 up to three times a day if needed. I discussed the patient with Dr. Keys who agrees with my assessment and plan. All of the above is to improve functionality and quality of life. No evidence of drug abuse or diversion is seen at this time. I will discuss the patient with Dr. Keys when he returns to the office. All of the above is to improve functionality and quality of life. No evidence of drug abuse or diversion is seen at this time. documented in this encounterOhio[facility]05-23-2024 Nurse Note* Pk Kapadia RN - 08/25/2023 8:43 AM EDT Percocet this am [facility] Note* Pk Kapadia RN - 08/25/2023 8:43 AM EDT Percocet this am documented in this encounterOhiohealth [facility]05-13-2024 Telephone encounter Note * Telephone Encounter - Cristhian Petit PA-C - 08/15/2023 11:28 AM EDT The following approved medication requests have been transmitted electronically. Requested Prescriptions Signed Prescriptions Disp Refills oxyCODONE-acetaminophen (PERCOCET) 5-325 mg tablet 90 tablet 0 Sig: Take 1 tablet by mouth every 8 hours as needed for pain for up to 30 days. Do not start beforeMa2023. Authorizing Provider: CRISTHIAN PETIT PA-C [facility]-13-[facility] Miscellaneous Notes* Telephone Encounter - Cristhian Petit PA-C - 08/15/2023 11:28 AM EDT The following approved medication requests have been transmitted electronically. Requested Prescriptions Signed Prescriptions Disp Refills oxyCODONE-acetaminophen (PERCOCET) 5-325 mg tablet 90 tablet 0 Sig: Take 1 tablet by mouth every 8 hours as needed for pain for up to 30 days. Do not start beforeMa2023. Authorizing Provider: CRISTHIAN PETIT PA-C * Telephone Encounter - Elin Turner RN - 08/15/2023 9:19 AM EDT Patient phones requesting refills as follows: Requested Prescriptions Pending Prescriptions Disp Refills oxyCODONE-acetaminophen (PERCOCET) 5-325 mg tablet 90 tablet 0 Sig: Take 1 tablet by mouth every 8 hours as needed for pain for up to 30 days. Last UDS: final warning regarding marijuana given 10/21/22 Opioid agreement signed 03/04/23. Summary Report Date Value Ref Range Status 03/04/2023 FINAL Final Comment: Opiate Class, MS, Ur RFX Oxycodone Class, MS, Ur RFX Acetaminophen, MS, Ur RFX ToxAssure Flex 23, Ur Test Result Flag Units Drug Present and Declared for Prescription Verification Oxycodone 510 EXPECTED ng/mg creat Oxymorphone 2414 EXPECTED ng/mg creat Noroxycodone 1035 EXPECTED ng/mg creat Noroxymorphone 500 EXPECTED ng/mg creat Sources of oxycodone are scheduled prescription medications. Oxymorphone, noroxycodone, and noroxymorphone are expected metabolites of oxycodone. Oxymorphone is also available as a scheduled prescription medication. Acetaminophen PRESENT EXPECTED Test Result Flag Units Ref Range Creatinine 163 mg/dL >=20 Declared Medications: The flagging and interpretation on this report are based on the following declared medications. Unexpected results may arise from inaccuracies in the declared medications. Note: The testing scope of this panel includes these medications: Oxycodone (Percocet) Note: The testing scope of this panel does not include small to moderate amounts of these reported medications: Acetaminophen (Percocet) For clinical consultation, please call . No results found for: UQNOTE, OPIATEPNMGT, DRUGSCRPAIN Urine Panel: No results found for: UQCANN, UQBNZL, DAN4OEW, UQAMPH, UQMAMP, UQBUPRE, UQNORBUP, UQMTHD, UQEDDP, UQTRAM, UQDTRM, UQFNTL, UQNFTL, UQCODE, UQMORP, UQDCDN, UQHCOD, UQOXYC, UQHMOR, UQOXYM, UQCREA, UQPH, UQSPGR, UQOXID, UQSPQ @FLOW([id number])@ Lab Results Component Value Date SUMM FINAL 03/04/2023 Summary Report (Summary) Date Value Ref Range Status 02/04/2022 FINAL Final Comment: TOXASSURE COMP DRUG ANALYSIS,UR Test Result Flag Units Drug Present and Declared for Prescription Verification Oxycodone 821 EXPECTED ng/mg creat Oxymorphone 2700 EXPECTED ng/mg creat Noroxycodone 1132 EXPECTED ng/mg creat Noroxymorphone 612 EXPECTED ng/mg creat Sources of oxycodone are scheduled prescription medications. Oxymorphone, noroxycodone, and noroxymorphone are expected metabolites of oxycodone. Oxymorphone is also available as a scheduled prescription medication. Acetaminophen PRESENT EXPECTED Test Result Flag Units Ref Range Creatinine 137 mg/dL >=20 Declared Medications: The flagging and interpretation on this report are based on the following declared medications. Unexpected results may arise from inaccuracies in the declared medications. Note: The testing scope of this panel includes these medications: Oxycodone (Percocet) Note: The testing scope of this panel does not include small to moderate amounts of these reported medications: Acetaminophen (Percocet) For clinical consultation, please call . Last Opioid agreement effective date: 03/04/2023 Please review and advise. Elin Turner RN documented in this encounterOhio[facility]05-13-2024 Telephone encounter Note * Telephone Encounter - Elin Turner RN - 08/15/2023 9:19 AM EDT Patient phones requesting refills as follows: Requested Prescriptions Pending Prescriptions Disp Refills oxyCODONE-acetaminophen (PERCOCET) 5-325 mg tablet 90 tablet 0 Sig: Take 1 tablet by mouth every 8 hours as needed for pain for up to 30 days. Last UDS: final warning regarding marijuana given 10/21/22 Opioid agreement signed 03/04/23. Summary Report Date Value Ref Range Status 03/04/2023 FINAL Final Comment: Opiate Class, MS, Ur RFX Oxycodone Class, MS, Ur RFX Acetaminophen, MS, Ur RFX ToxAssure Flex 23, Ur Test Result Flag Units Drug Present and Declared for Prescription Verification Oxycodone 510 EXPECTED ng/mg creat Oxymorphone 2414 EXPECTED ng/mg creat Noroxycodone 1035 EXPECTED ng/mg creat Noroxymorphone 500 EXPECTED ng/mg creat Sources of oxycodone are scheduled prescription medications. Oxymorphone, noroxycodone, and noroxymorphone are expected metabolites of oxycodone. Oxymorphone is also available as a scheduled prescription medication. Acetaminophen PRESENT EXPECTED Test Result Flag Units Ref Range Creatinine 163 mg/dL >=20 Declared Medications: The flagging and interpretation on this report are based on the following declared medications. Unexpected results may arise from inaccuracies in the declared medications. Note: The testing scope of this panel includes these medications: Oxycodone (Percocet) Note: The testing scope of this panel does not include small to moderate amounts of these reported medications: Acetaminophen (Percocet) For clinical consultation, please call . No results found for: UQNOTE, OPIATEPNMGT, DRUGSCRPAIN Urine Panel: No results found for: UQCANN, UQBNZL, WPZ1HCC, UQAMPH, UQMAMP, UQBUPRE, UQNORBUP, UQMTHD, UQEDDP, UQTRAM, UQDTRM, UQFNTL, UQNFTL, UQCODE, UQMORP, UQDCDN, UQHCOD, UQOXYC, UQHMOR, UQOXYM, UQCREA, UQPH, UQSPGR, UQOXID, UQSPQ @FLOW([id number])@ Lab Results Component Value Date SUMM FINAL 03/04/2023 Summary Report (Summary) Date Value Ref Range Status 02/04/2022 FINAL Final Comment: TOXASSURE COMP DRUG ANALYSIS,UR Test Result Flag Units Drug Present and Declared for Prescription Verification Oxycodone 821 EXPECTED ng/mg creat Oxymorphone 2700 EXPECTED ng/mg creat Noroxycodone 1132 EXPECTED ng/mg creat Noroxymorphone 612 EXPECTED ng/mg creat Sources of oxycodone are scheduled prescription medications. Oxymorphone, noroxycodone, and noroxymorphone are expected metabolites of oxycodone. Oxymorphone is also available as a scheduled prescription medication. Acetaminophen PRESENT EXPECTED Test Result Flag Units Ref Range Creatinine 137 mg/dL >=20 Declared Medications: The flagging and interpretation on this report are based on the following declared medications. Unexpected results may arise from inaccuracies in the declared medications. Note: The testing scope of this panel includes these medications: Oxycodone (Percocet) Note: The testing scope of this panel does not include small to moderate amounts of these reported medications: Acetaminophen (Percocet) For clinical consultation, please call . Last Opioid agreement effective date: 03/04/2023 Please review and advise. Elin Turner RN [facility] Instructions* Patient Instructions* Cristhian Petit PA-C - 07/14/2023 8:50 AM EDT The OARRS report has been reviewed and is consistent with the patients medical history and medication intake. The patient will continue with Percocet. Continue with core strengthening and range of motion exercises. Follow-up in the office in 6 weeks Discuss your blood pressure with your family doctor - BP 153/71 Call if you would like to try a muscle relaxer and we will send a script for tizanidine 4 mg 2-1 up to three times a day if needed. I discussed the patient with Dr. Keys who agrees with my assessment and plan. All of the above is to improve functionality and quality of life. No evidence of drug abuse or diversion is seen at this time. documented in this encounterOhiohealth [facility]04-11-2024 History of Present illness Narrative* Cristhian Petit PA-C - 07/14/2023 8:45 AM EDT This note was created using Stream Processorsriter. Subjective Abbie Nesbitt is a 62 year old male. The patient primarily being seen for back pain Patient was last seen on: 06/02/23 At that time, the treatment plan was: see notes Current Meds: Percocet - last dose this am Efficacy: helps Side effects: none TENS unit: never had one How often used: Benefit: Physical Therapy: years ago Last UDS: 03/04/23 Last injection: none OARRS reviewed At the present time, the patient reports benefit with his present analgesic therapy. He denies any adverse effects. Since his previous visit, he denies any hospitalizations or ER visits. Otherwise, he has nothing further to discuss at this time. 07/07/2023 07/14/2023 INTAKE PAIN ASSESSMENT Are you having pain associated with your visit today? No Yes, Provider notified Pain Scales Verbal (Numeric Rating or Visual Analog Scale) Pain Level 4 Pain Location Back Description Stiffness;Sore Frequency Continuous Intervention/Comfort measure Medication;Heat;Relaxation HPI PAST MEDICAL HISTORY Diagnosis Date Chronic low back pain NSTEMI (non-ST elevated myocardial infarction) ([facility]) 06/16/2018 PAST SURGICAL HISTORY Procedure Laterality Date ARTHRD ANT INTERBODY MIN DSC LUMBAR 05/17/2011 L4,5 and L5 S1 CARDIAC CATH N/A 06/17/2018 2 stents placed at [facility] COLONOSCOPY GEN ANES N/A 09/2019 Dr. Espinal PAST SURGICAL HISTORY OF disc surgery x 2 TONSILLECTOMY HX N/A 1981 Social History Tobacco Use Smoking status: Former Packs/day: 1.00 Years: 25.00 Additional pack years: 0.00 Total pack years: 25.00 Types: Cigarettes Quit date: 05/12/2011 Years since quittin.1 Smokeless tobacco: Never Tobacco comments: quit in 10/2017 Vaping Use Vaping Use: Never used Substance Use Topics Alcohol use: Yes Comment: 1 x per month Drug use: No Review of Systems Constitutional: Negative for fever and unexpected weight change. Musculoskeletal: + back pain, joint pain, muscle cramps, stiffness, and arthritis Objective BP 153/71 (BP Site: Left Arm, BP Position: Sitting, BP Cuff Size: Large Adult) Pulse 70 Temp 36.4 C (97.6 F) (Temporal) Resp 20 Ht 177.8 cm (5' 10) Wt 95.3 kg (210 lb) SpO2 97% BMI 30.13 kg/m Physical Exam Vitals and nursing note reviewed. Constitutional: Appearance: Normal appearance. He is well-developed, well-groomed and overweight. HENT: Head: Normocephalic and atraumatic. Right Ear: Hearing normal. Left Ear: Hearing normal. Eyes: Conjunctiva/sclera: Conjunctivae normal. Musculoskeletal: Comments: He walks with a normal gait. He has tenderness to palpation in the lumbar region with spasms noted in the trapezius, rhomboid, paraspinal, and latissimus dorsi muscles. Strength is 5/5 throughout. Sensation is intact to light touch throughout. SLR is negative. Neurological: Mental Status: He is alert and oriented to person, place, and time. Psychiatric: Attention and Perception: Attention and perception normal. Mood and Affect: Mood and affect normal. Speech: Speech normal. Behavior: Behavior normal. Behavior is cooperative. Thought Content: Thought content normal. Judgment: Judgment normal. Assessment and Plan ASSESSMENT/PLAN: 1. Lumbar post-laminectomy syndrome - ICD9: 722.83, ICD10: M96.1 (primary diagnosis) The OARRS report has been reviewed and is consistent with the patients medical history and medication intake. The patient will continue with Percocet. Continue with core strengthening and range of motion exercises. Follow-up in the office in 6 weeks Discuss your blood pressure with your family doctor - BP 153/71 Call if you would like to try a muscle relaxer and we will send a script for tizanidine 4 mg 1/2-1 up to three times a day if needed. - OXYCODONE-ACETAMINOPHEN 5 MG-325 MG TABLET 2. Generalized osteoarthritis - ICD9: 715.00, ICD10: M15.9 3. Myofascial pain syndrome - ICD9: 729.1, ICD10: M79.18 Cristhian Petit PA-C documented in this encounterOhio[facility]03-13-[facility]24 Miscellaneous Notes* Telephone Encounter - Cristhian Petit PA-C - 06/15/2023 12:21 PM EDT The following approved medication requests have been transmitted electronically. Requested Prescriptions Signed Prescriptions Disp Refills oxyCODONE-acetaminophen (PERCOCET) 5-325 mg tablet 90 tablet 0 Sig: Take 1 tablet by mouth every 8 hours as needed for pain for up to 30 days. Do not start beforeJune 21, 2023. Authorizing Provider: CRISTHIAN PETIT PA-C * Telephone Encounter - Kenisha Lewis RN - 06/15/2023 11:08 AM EDT Patient phones requesting refills as follows: Requested Prescriptions Pending Prescriptions Disp Refills oxyCODONE-acetaminophen (PERCOCET) 5-325 mg tablet 90 tablet 0 Sig: Take 1 tablet by mouth every 8 hours as needed for pain for up to 30 days. Last UDS: final warning regarding marijuana given 10/21/22 Opioid agreement signed 03/04/23. Summary Report Date Value Ref Range Status 03/04/2023 FINAL Final Comment: Opiate Class, MS, Ur RFX Oxycodone Class, MS, Ur RFX Acetaminophen, MS, Ur RFX ToxAssure Flex 23, Ur Test Result Flag Units Drug Present and Declared for Prescription Verification Oxycodone 510 EXPECTED ng/mg creat Oxymorphone 2414 EXPECTED ng/mg creat Noroxycodone 1035 EXPECTED ng/mg creat Noroxymorphone 500 EXPECTED ng/mg creat Sources of oxycodone are scheduled prescription medications. Oxymorphone, noroxycodone, and noroxymorphone are expected metabolites of oxycodone. Oxymorphone is also available as a scheduled prescription medication. Acetaminophen PRESENT EXPECTED Test Result Flag Units Ref Range Creatinine 163 mg/dL >=20 Declared Medications: The flagging and interpretation on this report are based on the following declared medications. Unexpected results may arise from inaccuracies in the declared medications. Note: The testing scope of this panel includes these medications: Oxycodone (Percocet) Note: The testing scope of this panel does not include small to moderate amounts of these reported medications: Acetaminophen (Percocet) For clinical consultation, please call . No results found for: UQNOTE, OPIATEPNMGT, DRUGSCRPAIN Urine Panel: No results found for: UQCANN, UQBNZL, KAV5URD, UQAMPH, UQMAMP, UQBUPRE, UQNORBUP, UQMTHD, UQEDDP, UQTRAM, UQDTRM, UQFNTL, UQNFTL, UQCODE, UQMORP, UQDCDN, UQHCOD, UQOXYC, UQHMOR, UQOXYM, UQCREA, UQPH, UQSPGR, UQOXID, UQSPQ @FLOW([id number])@ Lab Results Component Value Date SUMM FINAL 03/04/2023 Summary Report (Summary) Date Value Ref Range Status 02/04/2022 FINAL Final Comment: TOXASSURE COMP DRUG ANALYSIS,UR Test Result Flag Units Drug Present and Declared for Prescription Verification Oxycodone 821 EXPECTED ng/mg creat Oxymorphone 2700 EXPECTED ng/mg creat Noroxycodone 1132 EXPECTED ng/mg creat Noroxymorphone 612 EXPECTED ng/mg creat Sources of oxycodone are scheduled prescription medications. Oxymorphone, noroxycodone, and noroxymorphone are expected metabolites of oxycodone. Oxymorphone is also available as a scheduled prescription medication. Acetaminophen PRESENT EXPECTED Test Result Flag Units Ref Range Creatinine 137 mg/dL >=20 Declared Medications: The flagging and interpretation on this report are based on the following declared medications. Unexpected results may arise from inaccuracies in the declared medications. Note: The testing scope of this panel includes these medications: Oxycodone (Percocet) Note: The testing scope of this panel does not include small to moderate amounts of these reported medications: Acetaminophen (Percocet) For clinical consultation, please call . Last Opioid agreement effective date: 03/04/2023 Please review and advise. Kenisha Lewis RN documented in this encounterOhio[facility]02-29-2024 Instructions* Patient Instructions* Cristhian Petit PA-C - 06/02/2023 9:02 AM EST The OARRS report has been reviewed and is consistent with the patients medical history and medication intake. The patient will continue with Percocet. Continue with core strengthening and range of motion exercises. Follow-up in the office in 6 weeks I discussed the patient with Dr. Keys who agrees with my assessment and plan. All of the above is to improve functionality and quality of life. No evidence of drug abuse or diversion is seen at this time. documented in this encounterOhio[facility]02-29-2024 History of Present illness Narrative* Cristhian Petit PA-C - 06/02/2023 9:00 AM EST This note was created using Edutor. Subjective Abbie Nesbitt is a 62 year old male. The patient primarily being seen for back pain Patient was last seen on: 04/18/23 At that time, the treatment plan was: see notes Current Meds: Percocet - last dose this am Efficacy: helps Side effects: none TENS unit: never had one How often used: Benefit: Physical Therapy: years ago Last UDS: 03/04/23 Last injection: none OARRS reviewed At the present time, the patient reports benefit with his present analgesic therapy. He denies any adverse effects. Since his previous visit, he denies any hospitalizations or ER visits. Otherwise, he has nothing further to discuss at this time. INTAKE PAIN ASSESSMENT 05/31/2023 06/02/2023 Are you having pain associated with your visit today? No Yes, Provider notified Pain Scales - Verbal (Numeric Rating or Visual Analog Scale) Pain Level - 4 Pain Location - Back Description - Stiffness;Sore Duration Amount of Time - - Duration Units - - Frequency - Intermittent Intervention/Comfort measure - Medication;Heat Comments - - HPI PAST MEDICAL HISTORY Diagnosis Date Chronic low back pain NSTEMI (non-ST elevated myocardial infarction) ([facility]) 06/16/2018 PAST SURGICAL HISTORY Procedure Laterality Date ARTHRD ANT INTERBODY MIN DSC LUMBAR 05/17/2011 L4,5 and L5 S1 CARDIAC CATH N/A 06/17/2018 2 stents placed at [facility] COLONOSCOPY GEN ANES N/A 09/2019 Dr. Espinal PAST SURGICAL HISTORY OF disc surgery x 2 TONSILLECTOMY HX N/A 1981 Social History Tobacco Use Smoking status: Former Packs/day: 1.00 Years: 25.00 Additional pack years: 0.00 Total pack years: 25.00 Types: Cigarettes Quit date: 05/12/2011 Years since quittin.0 Smokeless tobacco: Never Tobacco comments: quit in 10/2017 Vaping Use Vaping Use: Never used Substance Use Topics Alcohol use: Yes Comment: 1 x per month Drug use: No Review of Systems Constitutional: Negative for fever and unexpected weight change. Musculoskeletal: + back pain, joint pain, muscle cramps, stiffness, and arthritis Objective BP 140/74 (BP Site: Left Arm, BP Position: Sitting, BP Cuff Size: Large Adult) Pulse 71 Temp 36.4 C (97.6 F) (Temporal) Resp 20 Ht 177.8 cm (5' 10) Wt 97.5 kg (215 lb) SpO2 98% BMI 30.85 kg/m Physical Exam Vitals and nursing note reviewed. Constitutional: Appearance: Normal appearance. He is well-developed, well-groomed and overweight. HENT: Head: Normocephalic and atraumatic. Right Ear: Hearing normal. Left Ear: Hearing normal. Eyes: Conjunctiva/sclera: Conjunctivae normal. Comments: Wearing glasses. Musculoskeletal: Comments: He walks with a normal gait. He has tenderness to palpation in the lumbar region with spasms noted in the trapezius, rhomboid, paraspinal, and latissimus dorsi muscles. Strength is 5/5 throughout. Sensation is intact to light touch throughout. SLR is negative. Neurological: Mental Status: He is alert and oriented to person, place, and time. Psychiatric: Attention and Perception: Attention and perception normal. Mood and Affect: Mood and affect normal. Speech: Speech normal. Behavior: Behavior normal. Behavior is cooperative. Thought Content: Thought content normal. Judgment: Judgment normal. Assessment and Plan ASSESSMENT/PLAN: 1. Lumbar post-laminectomy syndrome - ICD9: 722.83, ICD10: M96.1 (primary diagnosis) The OARRS report has been reviewed and is consistent with the patients medical history and medication intake. The patient will continue with Percocet. Continue with core strengthening and range of motion exercises. Follow-up in the office in 6 weeks 2. Generalized osteoarthritis - ICD9: 715.00, ICD10: M15.9 3. Myofascial pain syndrome - ICD9: 729.1, ICD10: M79.18 Cristhian Petit PA-C documented in this encounterOhio[facility]02-13-2024 Miscellaneous Notes* Telephone Encounter - Cristhian Petit PA-C - 05/17/2023 11:53 AM EST The following approved medication requests have been transmitted electronically. Requested Prescriptions Signed Prescriptions Disp Refills oxyCODONE-acetaminophen (PERCOCET) 5-325 mg tablet 90 tablet 0 Sig: Take 1 tablet by mouth every 8 hours as needed for pain for up to 30 days. Do not start beforeFebruary 2023. Authorizing Provider: CRISTHIAN PETIT PA-C * Telephone Encounter - Laverne Pimentel RN - 05/17/2023 10:54 AM EST Patient phones requesting refills as follows: Requested Prescriptions Pending Prescriptions Disp Refills oxyCODONE-acetaminophen (PERCOCET) 5-325 mg tablet 90 tablet 0 Sig: Take 1 tablet by mouth every 8 hours as needed for pain for up to 30 days. Last UDS: final warning regarding marijuana given 10/21/22 Opioid agreement signed 03/04/23. Summary Report Date Value Ref Range Status 03/04/2023 FINAL Final Comment: Opiate Class, MS, Ur RFX Oxycodone Class, MS, Ur RFX Acetaminophen, MS, Ur RFX ToxAssure Flex 23, Ur Test Result Flag Units Drug Present and Declared for Prescription Verification Oxycodone 510 EXPECTED ng/mg creat Oxymorphone 2414 EXPECTED ng/mg creat Noroxycodone 1035 EXPECTED ng/mg creat Noroxymorphone 500 EXPECTED ng/mg creat Sources of oxycodone are scheduled prescription medications. Oxymorphone, noroxycodone, and noroxymorphone are expected metabolites of oxycodone. Oxymorphone is also available as a scheduled prescription medication. Acetaminophen PRESENT EXPECTED Test Result Flag Units Ref Range Creatinine 163 mg/dL >=20 Declared Medications: The flagging and interpretation on this report are based on the following declared medications. Unexpected results may arise from inaccuracies in the declared medications. Note: The testing scope of this panel includes these medications: Oxycodone (Percocet) Note: The testing scope of this panel does not include small to moderate amounts of these reported medications: Acetaminophen (Percocet) For clinical consultation, please call . No results found for: UQNOTE, OPIATEPNMGT, DRUGSCRPAIN Urine Panel: No results found for: UQCANN, UQBNZL, ELQ3WCA, UQAMPH, UQMAMP, UQBUPRE, UQNORBUP, UQMTHD, UQEDDP, UQTRAM, UQDTRM, UQFNTL, UQNFTL, UQCODE, UQMORP, UQDCDN, UQHCOD, UQOXYC, UQHMOR, UQOXYM, UQCREA, UQPH, UQSPGR, UQOXID, UQSPQ @FLOW([id number])@ Lab Results Component Value Date SUMM FINAL 03/04/2023 Summary Report (Summary) Date Value Ref Range Status 02/04/2022 FINAL Final Comment: TOXASSURE COMP DRUG ANALYSIS,UR Test Result Flag Units Drug Present and Declared for Prescription Verification Oxycodone 821 EXPECTED ng/mg creat Oxymorphone 2700 EXPECTED ng/mg creat Noroxycodone 1132 EXPECTED ng/mg creat Noroxymorphone 612 EXPECTED ng/mg creat Sources of oxycodone are scheduled prescription medications. Oxymorphone, noroxycodone, and noroxymorphone are expected metabolites of oxycodone. Oxymorphone is also available as a scheduled prescription medication. Acetaminophen PRESENT EXPECTED Test Result Flag Units Ref Range Creatinine 137 mg/dL >=20 Declared Medications: The flagging and interpretation on this report are based on the following declared medications. Unexpected results may arise from inaccuracies in the declared medications. Note: The testing scope of this panel includes these medications: Oxycodone (Percocet) Note: The testing scope of this panel does not include small to moderate amounts of these reported medications: Acetaminophen (Percocet) For clinical consultation, please call . Last Opioid agreement effective date: 03/04/2023 Please review and advise. Laverne Pimentel RN documented in this [facility]12-13-2023 Miscellaneous Notes* Telephone Encounter - Cristhian Petit PA-C - 03/16/2023 1:21 PM EST The following approved medication requests have been transmitted electronically. Requested Prescriptions Pending Prescriptions Disp Refills oxyCODONE-acetaminophen (PERCOCET) 5-325 mg tablet 90 tablet 0 Sig: Take 1 tablet by mouth every 8 hours as needed for pain for up to 30 days. Do not start beforeDece2022. Cristhian Petit PA-C * Telephone Encounter - Karrie Babb RN - 03/16/2023 1:19 PM EST Patient phones requesting refills as follows: Requested Prescriptions Pending Prescriptions Disp Refills oxyCODONE-acetaminophen (PERCOCET) 5-325 mg tablet 90 tablet 0 Sig: Take 1 tablet by mouth every 8 hours as needed for pain for up to 30 days. Do not start beforeDece2022. Please review and advise. Karrie Babb RN documented [facility] this [facility]11-13-[facility]23 Miscellaneous Notes* Telephone Encounter - Cristhian Petit PA-C - 02/14/2023 11:39 AM EST The following approved medication requests have been transmitted electronically. Requested Prescriptions Pending Prescriptions Disp Refills oxyCODONE-acetaminophen (PERCOCET) 5-325 mg tablet 90 tablet 0 Sig: Take 1 tablet by mouth every 8 hours as needed for pain for up to 30 days. Do not start beforeFebruary 20, 2023. Cristhian Petit PA-C * Telephone Encounter - Karrie Babb RN - 02/14/2023 11:37 AM EST Patient phones requesting refills as follows: Requested Prescriptions Pending Prescriptions Disp Refills oxyCODONE-acetaminophen (PERCOCET) 5-325 mg tablet 90 tablet 0 Sig: Take 1 tablet by mouth every 8 hours as needed for pain for up to 30 days. Do not start beforeFebruary 20, 2023. Please review and advise. Karrie Babb RN documented [facility]10-[facility] Miscellaneous Notes* Telephone Encounter - Cristhian Petit PA-C - 01/17/2023 2:02 PM EDT The following approved medication requests have been transmitted electronically. Requested Prescriptions Pending Prescriptions Disp Refills oxyCODONE-acetaminophen (PERCOCET) 5-325 mg tablet 90 tablet 0 Sig: Take 1 tablet by mouth every 8 hours as needed for pain for up to 30 days. Do not start beforeJanuary 21, 2023. Cristhian Petit PA-C * Telephone Encounter - Karrie Babb RN - 01/17/2023 1:23 PM EDT Pharmacy change Patient phones requesting refills as follows: Requested Prescriptions Pending Prescriptions Disp Refills oxyCODONE-acetaminophen (PERCOCET) 5-325 mg tablet 90 tablet 0 Sig: Take 1 tablet by mouth every 8 hours as needed for pain for up to 30 days. Do not start beforeJanuary 21, 2023. Please review and advise. Karrie Babb RN documented [facility] this [facility]10-12-[facility]23 Instructions* Patient Instructions* Cristhian Petit PA-C - 01/13/2023 8:14 AM EDT The OARRS report has been reviewed and is consistent with the patients medical history and medication intake. The patient will continue with Percocet. Continue with core strengthening and range of motion exercises. Follow-up in the office in [address] Keys. Monitor your blood pressure with your family doctor - BP 153/90 I discussed the patient with Dr. Keys who agrees with my assessment and plan. All of the above is to improve functionality and quality of life. No evidence of drug abuse or diversion is seen at this time. documented in this encounterOhio[facility]10-12-2023 History of Present illness Narrative* Cristhian Petit PA-C - 01/13/2023 8:04 AM EDT This note was created using Edutor. Subjective Abbie Nesbitt is a 62 year old male. The patient primarily being seen for back pain Patient was last seen on: At that time, the treatment plan was: see notes Current Meds: Percocet am Efficacy: helpful Side effects: denies TENS unit: How often used: Benefit: Physical Therapy: Last UDS: 09/09/22 Last injection: OARRS reviewed At the present time, the patient reports benefit with his present analgesic therapy. He denies any adverse effects. Since his previous visit, he denies any hospitalizations or ER visits. He has had two shots in his trigger fingers on the right side. If the third one does not help they may have to do surgery. INTAKE PAIN ASSESSMENT 01/11/2023 01/13/2023 Are you having pain associated with your visit today? No Yes, Provider notified Pain Scales - Verbal (Numeric Rating or Visual Analog Scale) Pain Level - 4 Pain Location - Back-Lower Description - Stiffness Duration Amount of Time - - Duration Units - - Frequency - Continuous Intervention/Comfort measure - Medication;Relaxation;Heat Comments - - HPI PAST MEDICAL HISTORY Diagnosis Date Chronic low back pain NSTEMI (non-ST elevated myocardial infarction) ([facility]) 06/16/2018 PAST SURGICAL HISTORY Procedure Laterality Date ARTHRD ANT INTERBODY MIN DSC LUMBAR 05/17/2011 L4,5 and L5 S1 CARDIAC CATH N/A 06/17/2018 2 stents placed at [facility] COLONOSCOPY GEN ANES N/A 09/2019 Dr. Espinal PAST SURGICAL HISTORY OF disc surgery x 2 TONSILLECTOMY HX N/A 1982 Social History Tobacco Use Smoking status: Former Packs/day: 1.00 Years: 25.00 Additional pack years: 0.00 Total pack years: 25.00 Types: Cigarettes Quit date: 05/12/2011 Years since quittin.6 Smokeless tobacco: Never Tobacco comments: quit in 10/2017 Vaping Use Vaping Use: Never used Substance Use Topics Alcohol use: Yes Comment: 2 x per month Drug use: No Review of Systems Constitutional: Negative for fever and unexpected weight change. Musculoskeletal: + back pain, joint pain, muscle cramps, stiffness, and arthritis Objective BP 153/90 (BP Site: Left Arm, BP Position: Sitting, BP Cuff Size: Regular Adult) Pulse 65 Temp 36.4 C (97.5 F) (Temporal) Resp 18 SpO2 97% Physical Exam Vitals and nursing note reviewed. Constitutional: Appearance: Normal appearance. He is well-developed, well-groomed and overweight. HENT: Head: Normocephalic and atraumatic. Right Ear: Hearing normal. Left Ear: Hearing normal. Eyes: Conjunctiva/sclera: Conjunctivae normal. Comments: Wearing glasses. Musculoskeletal: Comments: He walks with a normal gait. He has tenderness to palpation in the lumbar region with spasms noted in the trapezius, rhomboid, paraspinal, and latissimus dorsi muscles. Strength is 5/5 throughout. Sensation is intact to light touch throughout. SLR is negative. Neurological: Mental Status: He is alert and oriented to person, place, and time. Psychiatric: Attention and Perception: Attention and perception normal. Mood and Affect: Mood and affect normal. Speech: Speech normal. Behavior: Behavior normal. Behavior is cooperative. Thought Content: Thought content normal. Judgment: Judgment normal. Assessment and Plan ASSESSMENT/PLAN: 1. Lumbar post-laminectomy syndrome - ICD9: 722.83, ICD10: M96.1 (primary diagnosis) The OARRS report has been reviewed and is consistent with the patients medical history and medication intake. The patient will continue with Percocet. Continue with core strengthening and range of motion exercises. Follow-up in the office in [address] Keys. Monitor your blood pressure with your family doctor - BP 153/90 - OXYCODONE-ACETAMINOPHEN 5 MG-325 MG TABLET 2. Generalized osteoarthritis - ICD9: 715.00, ICD10: M15.9 3. Myofascial pain syndrome - ICD9: 729.1, ICD10: M79.18 Cristhian Petit PA-C documented in this encounter[facility]09-20-2023 Miscellaneous Notes* Telephone Encounter - Cristhian Petit PA-C - 12/22/2022 10:17 AM EDT The following approved medication requests have been transmitted electronically. Requested Prescriptions Pending Prescriptions Disp Refills oxyCODONE-acetaminophen (PERCOCET) 5-325 mg tablet 90 tablet 0 Sig: Take 1 tablet by mouth every 8 hours as needed for pain for up to 30 days. Cristhian Petit PA-C * Telephone Encounter - Karrie Babb RN - 12/22/2022 9:13 AM EDT Patient phones requesting refills as follows: Requested Prescriptions Pending Prescriptions Disp Refills oxyCODONE-acetaminophen (PERCOCET) 5-325 mg tablet 90 tablet 0 Sig: Take 1 tablet by mouth every 8 hours as needed for pain for up to 30 days. Please review and advise. Karrie Babb RN documented in this encounterOhio[facility]08-31-2023 Instructions* Patient Instructions* Cristhian Petit PA-C - 12/02/2022 8:17 AM EDT The OARRS report has been reviewed and is consistent with the patients medical history and medication intake. The patient will continue with Percocet. Continue with core strengthening and range of motion exercises. Follow-up in office in 6 weeks time. I discussed the patient with Dr. Keys who agrees with my assessment and plan. All of the above is to improve functionality and quality of life. No evidence of drug abuse or diversion is seen at this time. documented in this encounterOhio[facility]08-31-2023 History of Present illness Narrative* Cristhian Petit PA-C - 12/02/2022 8:15 AM EDT This note was created using LiveStubter. Subjective Abbie Nesbitt is a 62 year old male. The patient primarily being seen for back, neck pain Patient was last seen on: 10/21/22 At that time, the treatment plan was: see notes Current Meds: Percocet - last dose this am Efficacy: helps Side effects: none TENS unit: none How often used: Benefit: Physical Therapy: years ago Last UDS: 09/09/22 Last injection: none OARRS reviewed At the present time, the patient reports benefit with his present analgesic therapy. He denies any adverse effects. Since his previous visit, he denies any hospitalizations or ER visits. Otherwise, he has nothing further to discuss at this time. INTAKE PAIN ASSESSMENT 11/26/2022 12/02/2022 Are you having pain associated with your visit today? No Yes, Provider notified Pain Scales - Verbal (Numeric Rating or Visual Analog Scale) Pain Level - 3 Pain Location - Back Description - Stiffness;Aching Duration Amount of Time - - Duration Units - - Frequency - Continuous Intervention/Comfort measure - Medication;Heat Comments - - HPI PAST MEDICAL HISTORY Diagnosis Date Chronic low back pain NSTEMI (non-ST elevated myocardial infarction) (HCC) 06/16/2018 PAST SURGICAL HISTORY Procedure Laterality Date ARTHRD ANT INTERBODY MIN DSC LUMBAR 05/17/2011 L4,5 and L5 S1 CARDIAC CATH N/A 06/17/2018 2 stents placed at [facility] COLONOSCOPY GEN ANES N/A 09/2019 Dr. Espinal PAST SURGICAL HISTORY OF disc surgery x 2 TONSILLECTOMY HX N/A 1981 Social History Tobacco Use Smoking status: Former Packs/day: 1.00 Years: 25.00 Additional pack years: 0.00 Total pack years: 25.00 Types: Cigarettes Quit date: 05/12/2011 Years since quittin.5 Smokeless tobacco: Never Tobacco comments: quit in 10/2017 Vaping Use Vaping Use: Never used Substance Use Topics Alcohol use: Yes Comment: 2 x per month Drug use: No Review of Systems Constitutional: Negative for fever and unexpected weight change. Musculoskeletal: + back pain, joint pain, muscle cramps, stiffness, and arthritis Objective BP 111/81 (BP Site: Left Arm, BP Position: Sitting, BP Cuff Size: Large Adult) Pulse 71 Temp 36.7 C (98 F) (Temporal) Ht 177.8 cm (5' 10) Wt 92.1 kg (203 lb) SpO2 97% BMI 29.13 kg/m Physical Exam Vitals and nursing note reviewed. Constitutional: Appearance: Normal appearance. He is well-developed, well-groomed and overweight. HENT: Head: Normocephalic and atraumatic. Right Ear: Hearing normal. Left Ear: Hearing normal. Eyes: Conjunctiva/sclera: Conjunctivae normal. Comments: Wearing glasses. Musculoskeletal: Comments: He walks with a normal gait. He has tenderness to palpation in the lumbar region with spasms noted in the trapezius, rhomboid, paraspinal, and latissimus dorsi muscles. Strength is 5/5 throughout. Sensation is intact to light touch throughout. SLR is negative. Neurological: Mental Status: He is alert and oriented to person, place, and time. Psychiatric: Attention and Perception: Attention and perception normal. Mood and Affect: Mood and affect normal. Speech: Speech normal. Behavior: Behavior normal. Behavior is cooperative. Thought Content: Thought content normal. Judgment: Judgment normal. Assessment and Plan ASSESSMENT/PLAN: 1. Lumbar post-laminectomy syndrome - ICD9: 722.83, ICD10: M96.1 (primary diagnosis) The OARRS report has been reviewed and is consistent with the patients medical history and medication intake. The patient will continue with Percocet. Continue with core strengthening and range of motion exercises. Follow-up in office in 6 weeks time. 2. Generalized osteoarthritis - ICD9: 715.00, ICD10: M15.9 3. Myofascial pain syndrome - ICD9: 729.1, ICD10: M79.18 Cristhian Petit PA-C documented in this encounter[address]20-2023 Instructions* Patient Instructions* Cristhian Petit PA-C - 10/21/2022 8:22 AM EDT The OARRS report has been reviewed and is consistent with the patients medical history and medication intake. The patient's most recent urine drug screen has been reviewed and was positive and already discussed with the patient. It was also positive for alcohol which was most likely due to glucose. The patient was previously warned this is the final warning for marijuana and any further incidents will result in him being made no narcotics. The patient will continue with Percocet. Continue with core strengthening and range of motion exercises. Follow-up in office in 6 weeks time. I discussed the patient with Dr. Keys who agrees with my assessment and plan. All of the above is to improve functionality and quality of life. documented in this encounterOhio[facility]07-20-2023 History of Present illness Narrative* Cristhian Petit PA-C - 10/21/2022 8:15 AM EDT This note was created using Edutor. Subjective Abbie Nesbitt is a 62 year old male. The patient primarily being seen for back pain Patient was last seen on: 09/09/22 At that time, the treatment plan was: see notes Current Meds: Percocet - last dose this am Efficacy: helps Side effects: none TENS unit: no - doesn't want one How often used: Benefit: Physical Therapy: years ago Last UDS: 09/09/22 Last injection: none OARRS reviewed At the present time, the patient reports benefit with his present analgesic therapy. He denies any adverse effects. Since his previous visit, he denies any hospitalizations or ER visits. Otherwise, he has nothing further to discuss at this time. INTAKE PAIN ASSESSMENT 10/18/2022 10/21/2022 Are you having pain associated with your visit today? No Yes, Provider notified Pain Scales - Verbal (Numeric Rating or Visual Analog Scale) Pain Level - 3 Pain Location - Back Description - Stiffness;Aching Duration Amount of Time - - Duration Units - Years Frequency - Intermittent Intervention/Comfort measure - Medication;Heat Comments - - HPI PAST MEDICAL HISTORY Diagnosis Date Chronic low back pain NSTEMI (non-ST elevated myocardial infarction) ([facility]) 06/16/2018 PAST SURGICAL HISTORY Procedure Laterality Date ARTHRD ANT INTERBODY MIN DSC LUMBAR 05/17/2011 L4,5 and L5 S1 CARDIAC CATH N/A 06/17/2018 2 stents placed at [facility] COLONOSCOPY GEN ANES N/A 09/2019 Dr. Espinal PAST SURGICAL HISTORY OF disc surgery x 2 TONSILLECTOMY HX N/A 1981 Social History Tobacco Use Smoking status: Former Packs/day: 1.00 Years: 25.00 Total pack years: 25.00 Types: Cigarettes Quit date: 05/12/2011 Years since quittin.4 Smokeless tobacco: Never Tobacco comments: quit in 10/2017 Vaping Use Vaping Use: Never used Substance Use Topics Alcohol use: Yes Comment: 2 x per month Drug use: No Review of Systems Constitutional: Negative for fever and unexpected weight change. Musculoskeletal: + back pain, joint pain, muscle cramps, stiffness, and arthritis Objective BP 131/76 (BP Site: Left Arm, BP Position: Sitting, BP Cuff Size: Large Adult) Pulse 76 Temp 36.2 C (97.1 F) (Temporal) Resp 20 Ht 177.8 cm (5' 10) Wt 94.3 kg (208 lb) SpO2 98% BMI 29.84 kg/m Physical Exam Vitals and nursing note reviewed. Constitutional: Appearance: Normal appearance. He is well-developed, well-groomed and overweight. HENT: Head: Normocephalic and atraumatic. Right Ear: Hearing normal. Left Ear: Hearing normal. Eyes: Conjunctiva/sclera: Conjunctivae normal. Comments: Wearing glasses. Musculoskeletal: Comments: He walks with a normal gait. He has tenderness to palpation in the lumbar region with spasms noted in the trapezius, rhomboid, paraspinal, and latissimus dorsi muscles. Strength is 5/5 throughout. Sensation is intact to light touch throughout. SLR is negative. Neurological: Mental Status: He is alert and oriented to person, place, and time. Psychiatric: Attention and Perception: Attention and perception normal. Mood and Affect: Mood and affect normal. Speech: Speech normal. Behavior: Behavior normal. Behavior is cooperative. Thought Content: Thought content normal. Judgment: Judgment normal. Assessment and Plan ASSESSMENT/PLAN: 1. Lumbar post-laminectomy syndrome - ICD9: 722.83, ICD10: M96.1 (primary diagnosis) The OARRS report has been reviewed and is consistent with the patients medical history and medication intake. The patient's most recent urine drug screen has been reviewed and was positive and already discussed with the patient. It was also positive for alcohol which was most likely due to glucose. The patient was previously warned this is the final warning for marijuana and any further incidents will result in him being made no narcotics. The patient will continue with Percocet. Continue with core strengthening and range of motion exercises. Follow-up in office in 6 weeks time. 2. Generalized osteoarthritis - ICD9: 715.00, ICD10: M15.9 3. Myofascial pain syndrome - ICD9: 729.1, ICD10: M79.18 Cristhian Petit PA-C documented in this encounterOhio[facility]07-18-2023 Miscellaneous Notes* Telephone Encounter - Cristhian Petit PA-C - 10/19/2022 7:02 AM EDT The following approved medication requests have been transmitted electronically. Requested Prescriptions Pending Prescriptions Disp Refills oxyCODONE-acetaminophen (PERCOCET) 5-325 mg tablet 90 tablet 0 Sig: Take 1 tablet by mouth every 8 hours as needed for pain for up to 30 days. Do not start beforeJuly 2022. Cristhian Petit PA-C * Telephone Encounter - Karrie Babb RN - 10/18/2022 3:22 PM EDT Patient phones requesting refills as follows: Requested Prescriptions Pending Prescriptions Disp Refills oxyCODONE-acetaminophen (PERCOCET) 5-325 mg tablet 90 tablet 0 Sig: Take 1 tablet by mouth every 8 hours as needed for pain for up to 30 days. Do not start beforeJuly 2022. Please review and advise. Karrie Babb RN documented in this encounterOhiohealth Berger Hospital06-16-2023 Miscellaneous Notes* Telephone Encounter - Cristhian Petit PA-C - 09/17/2022 11:31 AM EDT The following approved medication requests have been transmitted electronically. Requested Prescriptions Pending Prescriptions Disp Refills oxyCODONE-acetaminophen (PERCOCET) 5-325 mg tablet 90 tablet 0 Sig: Take 1 tablet by mouth every 8 hours as needed for pain for up to 30 days. [facility] Cristhian Petit PA-C * Telephone Encounter - Marisela Lees RN - 09/17/2022 10:24 AM EDT Patient phones requesting refills as follows: Requested Prescriptions Pending Prescriptions Disp Refills oxyCODONE-acetaminophen (PERCOCET) 5-325 mg tablet 90 tablet 0 Sig: Take 1 tablet by mouth every 8 hours as needed for pain for up to 30 days. [facility]. Marisela Lees RN documented in this encounterOhiohealth Berger Hospital06-15-2023 Miscellaneous Notes* Telephone Encounter - Karrie Babb RN - 09/16/2022 3:21 PM EDT Abbie notified with verbalized understanding Karrie Babb RN September 16, 2022 3:21 PM * Telephone Encounter - Cristhian Petit PA-C - 09/16/2022 2:48 PM EDT Call Abbie and tell him we will give him one last chance. There will be zero tolerance for any violations from here on out. * Telephone Encounter - Karrie Babb RN - 09/16/2022 2:17 PM EDT Abbie called stating he knows why I am calling He states you have given him a number of chances and realizes you will no longer prescribe his pain medication He states he smoked marijuana at a wedding08/21/2022 (multiple warnings) See [employer] as well Karrie Babb RN September 16, 2022 2:23 PM * Telephone Encounter - Karrie Babb RN - 09/16/2022 11:01 AM EDT Another message left for Abbie to return our call to discuss Karrie Babb RN September 16, 2022 11:03 AM * Telephone Encounter - Karrie Babb RN - 09/15/2022 2:19 PM EDT Images from the original note were not included. Message left for Abbie in regards to UDS message from ISSA Weinberg RN The patient's most recent urine drug screen has been reviewed and was positive for marijuana. We will call the patient and find out if he is using CBD and add the secondary test to confirm. Cristhian Petit PA-C September 14, 2022 7:03 AM documented in this encounterOhiohealth Berger Hospital06-08-2023 Instructions* Patient Instructions* Cristhian Petit PA-C - 09/09/2022 8:17 AM EDT The OARRS report has been reviewed and is consistent with the patients medical history and medication intake. The patient underwent a random UDS at today's office visit. The patient will continue with Percocet. Continue with core strengthening and range of motion exercises. Follow-up in office in 6 weeks time. Discuss your blood pressure with your family doctor - BP 145/89 I will discuss the patient with Dr. Keys when he returns to the office. All of the above is to improve functionality and quality of life. No evidence of drug abuse or diversion is seen at this time. documented in this encounterOhiohealth [facility] Hospital06-08-2023 History of Present illness Narrative* Cristhian Petit PA-C - 09/09/2022 8:07 AM EDT This note was created using Edutor. Subjective Abbie Nesbitt is a 62 year old male. The patient primarily being seen for back pain Patient was last seen on: 07/26/22 At that time, the treatment plan was: see notes Current Meds: Percocet am Efficacy: helpful Side effects: denies TENS unit: How often used: Benefit: Physical Therapy: Last UDS: 09/09/22 Last injection: OARRS reviewed At the present time, the patient reports benefit with his present analgesic therapy. He denies any adverse effects. Since his previous visit, he denies any hospitalizations or ER visits. Otherwise, he has nothing further to discuss at this time. INTAKE PAIN ASSESSMENT 09/07/2022 09/09/2022 Are you having pain associated with your visit today? No Yes, Provider notified Pain Scales - Verbal (Numeric Rating or Visual Analog Scale) Pain Level - 4 Pain Location - Back-Lower Description - Stiffness;Dull;Aching Duration Amount of Time - - Duration Units - - Frequency - Continuous Intervention/Comfort measure - Medication;Relaxation;Heat Comments - - PAST MEDICAL HISTORY Diagnosis Date Chronic low back pain NSTEMI (non-ST elevated myocardial infarction) ([facility]) 06/16/2018 PAST SURGICAL HISTORY Procedure Laterality Date ARTHRD ANT INTERBODY MIN DSC LUMBAR 05/17/2011 L4,5 and L5 S1 CARDIAC CATH N/A 06/17/2018 2 stents placed at [facility] COLONOSCOPY GEN ANES N/A 09/2019 Dr. Espinal PAST SURGICAL HISTORY OF disc surgery x 2 TONSILLECTOMY HX N/A 1981 Social History Tobacco Use Smoking status: Former Packs/day: 1.00 Years: 25.00 Pack years: 25.00 Types: Cigarettes Quit date: 05/12/2011 Years since quittin.3 Smokeless tobacco: Never Tobacco comments: quit in 10/2017 Vaping Use Vaping Use: Never used Substance Use Topics Alcohol use: Yes Comment: 2 x per month Drug use: No HPI Review of Systems Constitutional: Negative for fever and unexpected weight change. Musculoskeletal: + back pain, joint pain, muscle cramps, stiffness, and arthritis Objective BP 145/89 (BP Site: Left Arm, BP Position: Sitting, BP Cuff Size: Large Adult) Pulse 66 Temp 36.2 C (97.2 F) (Temporal) Resp 18 SpO2 97% Physical Exam Vitals and nursing note reviewed. Constitutional: Appearance: Normal appearance. He is well-developed, well-groomed and overweight. HENT: Head: Normocephalic and atraumatic. Right Ear: Hearing normal. Left Ear: Hearing normal. Eyes: Conjunctiva/sclera: Conjunctivae normal. Musculoskeletal: Comments: He walks with a normal gait. He has tenderness to palpation in the lumbar region with spasms noted in the trapezius, rhomboid, paraspinal, and latissimus dorsi muscles. Strength is 5/5 throughout. Sensation is intact to light touch throughout. SLR is negative. Neurological: Mental Status: He is alert and oriented to person, place, and time. Psychiatric: Attention and Perception: Attention and perception normal. Mood and Affect: Mood and affect normal. Speech: Speech normal. Behavior: Behavior normal. Behavior is cooperative. Thought Content: Thought content normal. Judgment: Judgment normal. Assessment and Plan ASSESSMENT/PLAN: 1. Lumbar post-laminectomy syndrome - ICD9: 722.83, ICD10: M96.1 (primary diagnosis) The OARRS report has been reviewed and is consistent with the patients medical history and medication intake. The patient underwent a random UDS at today's office visit. The patient will continue with Percocet. Continue with core strengthening and range of motion exercises. Follow-up in office in 6 weeks time. Discuss your blood pressure with your family doctor - BP 145/89 - TOXASSURE FLEX 23, URINE 2. Generalized osteoarthritis - ICD9: 715.00, ICD10: M15.9 3. Myofascial pain syndrome - ICD9: 729.1, ICD10: M79.18 4. Other half-way (current) drug therapy - ICD9: V58.69, ICD10: Z79.899 - TOXASSURE FLEX 23, URINE Cristhian Petit PA-C documented in this encounterOhiohealth [facility]04-24-2023 Instructions* Patient Instructions* Cristhian Petit PA-C - 07/26/2022 8:40 AM EDT The OARRS report has been reviewed and is consistent with the patients medical history and medication intake. The patient will continue with Percocet. Continue with core strengthening and range of motion exercises. Follow-up in office in 6 weeks time. Discuss your blood pressure with your family doctor - BP 154/95 I discussed the patient with Dr. Keys who agrees with my assessment and plan. All of the above is to improve functionality and quality of life. No evidence of drug abuse or diversion is seen at this time. documented in this encounterOhiohealth [facility] Hospital04-24-2023 History of Present illness Narrative* Cristhian Petit PA-C - 07/26/2022 8:26 AM EDT This note was created using Edutor. Subjective Abbie Nesbitt is a 62 year old male. The patient primarily being seen for back pain Patient was last seen on: 06/10/22 At that time, the treatment plan was: see notes Current Meds: Percocet am/ Efficacy: helpful Side effects: denies TENS unit: How often used: Benefit: Physical Therapy: Last UDS: 02/04/22 Last injection: OARRS reviewed At the present time, the patient reports benefit with his present analgesic therapy. He denies any adverse effects. Since his previous visit, he denies any hospitalizations or ER visits. Otherwise, he has nothing further to discuss at this time. INTAKE PAIN ASSESSMENT 06/10/2022 07/26/2022 Are you having pain associated with your visit today? Yes, Provider notified Yes, Provider notified Pain Scales Verbal (Numeric Rating or Visual Analog Scale) Verbal (Numeric Rating or Visual Analog Scale) Pain Level 4 3 Pain Location Back Back-Lower Description Aching;Dull;Sharp Stiffness Duration Amount of Time - - Duration Units Years - Frequency Intermittent Continuous Intervention/Comfort measure Medication;Heat Medication;Heat;Relaxation;Exercise Comments - - HPI PAST MEDICAL HISTORY Diagnosis Date Chronic low back pain NSTEMI (non-ST elevated myocardial infarction) ([facility]) 06/16/2018 PAST SURGICAL HISTORY Procedure Laterality Date ARTHRD ANT INTERBODY MIN DSC LUMBAR 05/17/2011 L4,5 and L5 S1 CARDIAC CATH N/A 06/17/2018 2 stents placed at [facility] COLONOSCOPY GEN ANES N/A 09/2019 Dr. Espinal PAST SURGICAL HISTORY OF disc surgery x 2 TONSILLECTOMY HX N/A 1982 Social History Tobacco Use Smoking status: Former Packs/day: 1.00 Years: 25.00 Pack years: 25.00 Types: Cigarettes Quit date: 05/12/2011 Years since quittin.2 Smokeless tobacco: Never Tobacco comments: quit in 10/2017 Vaping Use Vaping Use: Never used Substance Use Topics Alcohol use: Yes Comment: 2 x per month Drug use: No Review of Systems Constitutional: Negative for fever and unexpected weight change. Musculoskeletal: + back pain, joint pain, muscle cramps, stiffness, and arthritis Objective BP 154/95 (BP Site: Right Arm, BP Position: Sitting, BP Cuff Size: Regular Adult) Pulse 72 Temp36.2 C (97.1 F) (Temporal) Resp 18 SpO2 97% Physical Exam Vitals and nursing note reviewed. Constitutional: Appearance: Normal appearance. He is well-developed, well-groomed and overweight. HENT: Head: Normocephalic and atraumatic. Right Ear: Hearing normal. Left Ear: Hearing normal. Eyes: Conjunctiva/sclera: Conjunctivae normal. Musculoskeletal: Comments: He walks with a normal gait. He has tenderness to palpation in the lumbar region with spasms noted in the trapezius, rhomboid, paraspinal, and latissimus dorsi muscles. Strength is 5/5 throughout. Sensation is intact to light touch throughout. SLR is negative. Neurological: Mental Status: He is alert and oriented to person, place, and time. Psychiatric: Attention and Perception: Attention and perception normal. Mood and Affect: Mood and affect normal. Speech: Speech normal. Behavior: Behavior normal. Behavior is cooperative. Thought Content: Thought content normal. Judgment: Judgment normal. Assessment and Plan ASSESSMENT/PLAN: 1. Lumbar post-laminectomy syndrome - ICD9: 722.83, ICD10: M96.1 (primary diagnosis) The OARRS report has been reviewed and is consistent with the patients medical history and medication intake. The patient will continue with Percocet. Continue with core strengthening and range of motion exercises. Follow-up in office in 6 weeks time. Discuss your blood pressure with your family doctor - BP 154/95 2. Generalized osteoarthritis - ICD9: 715.00, ICD10: M15.9 3. Myofascial pain syndrome - ICD9: 729.1, ICD10: M79.18 Cristhian Petit PA-C documented in this encounterOhio[facility]04-17-2023 Miscellaneous Notes* Telephone Encounter - Suzi Silva Ma - 07/19/2022 1:14 PM EDT Pt notified via [employer]nosh[employer] to contact Pain Management provider for Percocet. Suzi Silva Ma * Telephone Encounter - Mick Mccann APRN.CNP - 07/19/2022 12:17 PM EDT Request needs to go to pain management. Mick Mccann APRN.CNP * Telephone Encounter - Suzi Silva Ma - 07/19/2022 7:28 AM EDT Last office visit: 10/15/21 with Elise Ch F/u scheduled: none Last refilled on: Percocet #90 on 06/25/22 Pt follos with Pain Management Dr. Keys and Cristhian BARNETT. Suzi Silva Ma documented in this encounterOhiohealth [facility] Hospital03-20-2023 Miscellaneous Notes* Telephone Encounter - Cristhian Petit PA-C - 06/21/2022 10:56 AM EDT The following approved medication requests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 potential the risks and benefits of those alternatives. The patient was provided electronically withthe Fact Sheet for Patients, Parents and Caregivers. The patient was also instructed that in addition to the treatment with molnupiravir, he/she should continue to self-isolate and use infection control measures (e.g., wear mask, isolate, social distance, avoid sharing personal items, clean and disinfect high touch surfaces, and frequent handwashing) according to CDC guidelines. The patient stated understanding and gave verbal consent to proceeding with molnupiravir treatment. Izzy Granados APRN.CNP June 04, 2022 9:05 AM documented in this encounterOhiohealth [facility] Hospital02-16-2023 Miscellaneous Notes* Telephone Encounter - Cristhian Petit PA-C - 05/20/2022 12:03 PM EST The following approved medication requests have been transmitted electronically. Requested Prescriptions Pending Prescriptions Disp Refills oxyCODONE-acetaminophen (PERCOCET) 5-325 mg tablet 90 tablet 0 Sig: Take 1 tablet by mouth every 8 hours as needed for pain for up to 30 days. Do not start beforeFebruary 2022. Cristhian Petit PA-C * Telephone Encounter - Karrie Babb RN - 05/20/2022 11:33 AM EST Patient phones requesting refills as follows: Requested Prescriptions Pending Prescriptions Disp Refills oxyCODONE-acetaminophen (PERCOCET) 5-325 mg tablet 90 tablet 0 Sig: Take 1 tablet by mouth every 8 hours as needed for pain for up to 30 days. Do not start beforeFebruary 2022. Please review and advise. Karrie Babb RN documented in this encounterOhiohealth Berger Hospital01-26-2023 Instructions* Patient Instructions* Cristhian Petit PA-C - 04/29/2022 8:41 AM EST The OARRS report has been reviewed and is consistent with the patients medical history and medication intake. The patient will continue with Percocet. Continue with core strengthening and range of motion exercises. Follow-up in office in 6 weeks time. I discussed the patient with Dr. Keys who agrees with my assessment and plan. All of the above is to improve functionality and quality of life. No evidence of drug abuse or diversion is seen at this time. documented in this encounterOhiohealth Berger Hospital01-26-2023 History of Present illness Narrative* Cristhian Petit PA-C - 04/29/2022 8:32 AM EST This note was created using LiveStubter. Subjective Abbie Nesbitt is a 61 year old male. The patient primarily being seen for back pain Patient was last seen on: 03/18/22 At that time, the treatment plan was: see notes Current Meds: Percocet - last dose this am Efficacy: help Side effects: none TENS unit: no - never had one How often used: Benefit: Physical Therapy: no Last UDS: 02/04/22 Last injection: none OARRS reviewed At the present time, the patient reports benefit with his present analgesic therapy. He denies any adverse effects. Since his previous visit, he denies any hospitalizations or ER visits. Otherwise, he has nothing further to discuss at this time. INTAKE PAIN ASSESSMENT 03/18/2022 04/29/2022 Are you having pain associated with your visit today? Yes, Provider notified Yes, Provider notified Pain Scales Verbal (Numeric Rating or Visual Analog Scale) Verbal (Numeric Rating or Visual Analog Scale) Pain Level 1 2 Pain Location Back Back Description Stiffness;Aching Stiffness;Aching Duration Amount of Time - - Duration Units Years Years Frequency Intermittent Continuous Intervention/Comfort measure Medication;Heat Medication;Heat Comments - - PAST MEDICAL HISTORY Diagnosis Date Chronic low back pain NSTEMI (non-ST elevated myocardial infarction) ([facility]) 06/16/2018 PAST SURGICAL HISTORY Procedure Laterality Date ARTHRD ANT INTERBODY MIN DSC LUMBAR 05/17/2011 L4,5 and L5 S1 CARDIAC CATH N/A 06/17/2018 2 stents placed at [facility] COLONOSCOPY GEN ANES N/A 09/2019 Dr. Espinal PAST SURGICAL HISTORY OF disc surgery x 2 TONSILLECTOMY HX N/A 1981 Social History Tobacco Use Smoking status: Former Packs/day: 1.00 Years: 25.00 Pack years: 25.00 Types: Cigarettes Quit date: 05/12/2011 Years since quittin.9 Smokeless tobacco: Never Tobacco comments: quit in 10/2017 Vaping Use Vaping Use: Never used Substance Use Topics Alcohol use: Yes Comment: 2 x per month Drug use: No HPI Review of Systems Constitutional: Negative for fever and unexpected weight change. Musculoskeletal: + back pain, joint pain, muscle cramps, stiffness, and arthritis Objective BP 140/86 (BP Site: Left Arm, BP Position: Sitting, BP Cuff Size: Large Adult) Pulse 76 Temp 36.7 C (98 F) (Temporal) Resp 20 Ht 177.8 cm (5' 10) Wt 93.9 kg (207 lb) SpO2 98% BMI 29.70kg/m Physical Exam Vitals and nursing note reviewed. Constitutional: Appearance: Normal appearance. He is well-developed, well-groomed and overweight. HENT: Head: Normocephalic and atraumatic. Right Ear: Hearing normal. Left Ear: Hearing normal. Eyes: Conjunctiva/sclera: Conjunctivae normal. Musculoskeletal: Comments: He walks with a normal gait. He has tenderness to palpation in the lumbar region with spasms noted in the trapezius, rhomboid, and paraspinal muscles. Strength is 5/5 throughout. Sensation is intact to light touch throughout. SLR is negative. Neurological: Mental Status: He is alert and oriented to person, place, and time. Psychiatric: Attention and Perception: Attention and perception normal. Mood and Affect: Mood and affect normal. Speech: Speech normal. Behavior: Behavior normal. Behavior is cooperative. Thought Content: Thought content normal. Judgment: Judgment normal. Assessment and Plan ASSESSMENT/PLAN: 1. Lumbar post-laminectomy syndrome - ICD9: 722.83, ICD10: M96.1 (primary diagnosis) The OARRS report has been reviewed and is consistent with the patients medical history and medication intake. The patient will continue with Percocet. Continue with core strengthening and range of motion exercises. Follow-up in office in 6 weeks time. 2. Generalized osteoarthritis - ICD9: 715.00, ICD10: M15.9 3. Myofascial pain syndrome - ICD9: 729.1, ICD10: M79.18 Cristhian Petit PA-C documented in this encounterOhio[facility]01-17-2023 Miscellaneous Notes* Telephone Encounter - Cristhian Petit PA-C - 04/20/2022 2:10 PM EST The following approved medication requests have been transmitted electronically. Requested Prescriptions Pending Prescriptions Disp Refills oxyCODONE-acetaminophen (PERCOCET) 5-325 mg tablet 90 tablet 0 Sig: Take 1 tablet by mouth every 8 hours as needed for pain for up to 30 days. Do not start beforeApril 26, 2022. Cristhian Petit PA-C * Telephone Encounter - Karrie Babb RN - 04/20/2022 1:15 PM EST Patient phones requesting refills as follows: Requested Prescriptions Pending Prescriptions Disp Refills oxyCODONE-acetaminophen (PERCOCET) 5-325 mg tablet 90 tablet 0 Sig: Take 1 tablet by mouth every 8 hours as needed for pain for up to 30 days. Do not start beforeApril 26, 2022. Please review and advise. Karrie Babb RN documented in this encounterOhiohealth Berger Hospital12-15-2022 Instructions* Patient Instructions* Cristhian Petit PA-C - 03/18/2022 8:41 AM EST The OARRS report has been reviewed and is consistent with the patients medical history and medication intake. The patient's most recent urine drug screen has been reviewed and is appropriate and consistent with current therapy. The patient will continue with Percocet. Continue with core strengthening and range of motion exercises. Follow-up in office in 6 weeks time. I discussed the patient with Dr. Keys who agrees with my assessment and plan. All of the above is to improve functionality and quality of life. No evidence of drug abuse or diversion is seen at this time. documented in this encounterOhiohealth Berger Hospital12-15-2022 History of Present illness Narrative* Cristhian Petit PA-C - 03/18/2022 8:30 AM EST This note was created using Stream Process[employer]. Subjective Abbie Nesbitt is a 61 year old male. The patient primarily being seen for back pain Patient was last seen on: 02/04/22 At that time, the treatment plan was: see notes Current Meds: Percocet - last dose this am Efficacy: help Side effects: none TENS unit: no - never had one How often used: Benefit: Physical Therapy: no Last UDS: 02/04/22 Last injection: none OARRS reviewed At the present time, the patient reports benefit with his present analgesic therapy. He denies any adverse effects. Since his previous visit, he denies any hospitalizations or ER visits. Otherwise, he has nothing further to discuss at this time. INTAKE PAIN ASSESSMENT 02/04/2022 03/18/2022 Are you having pain associated with your visit today? Yes, Provider notified Yes, Provider notified Pain Scales Verbal (Numeric Rating or Visual Analog Scale) Verbal (Numeric Rating or Visual Analog Scale) Pain Level 3 1 Pain Location Back Back Description Aching;Stiffness Stiffness;Aching Duration Amount of Time - - Duration Units Years Years Frequency Continuous Intermittent Intervention/Comfort measure Medication;Cold;Heat;Exercise Medication;Heat Comments - - PAST MEDICAL HISTORY Diagnosis Date Chronic low back pain NSTEMI (non-ST elevated myocardial infarction) ([facility]) 06/16/2018 PAST SURGICAL HISTORY Procedure Laterality Date ARTHRD ANT INTERBODY MIN DSC LUMBAR 05/17/2011 L4,5 and L5 S1 CARDIAC CATH N/A 06/17/2018 2 stents placed at [facility] COLONOSCOPY GEN ANES N/A 09/2019 Dr. Espinal PAST SURGICAL HISTORY OF disc surgery x 2 TONSILLECTOMY HX N/A 1981 Social History Tobacco Use Smoking status: Former Packs/day: 1.00 Years: 25.00 Pack years: 25.00 Types: Cigarettes Quit date: 05/12/2011 Years since quittin.8 Smokeless tobacco: Never Tobacco comments: quit in 10/2017 Vaping Use Vaping Use: Never used Substance Use Topics Alcohol use: No Comment: 2 x per month Drug use: No HPI Review of Systems Constitutional: Negative for fever and unexpected weight change. Musculoskeletal: + back pain, joint pain, muscle cramps, stiffness, and arthritis Objective BP 130/79 (BP Site: Left Arm, BP Position: Sitting, BP Cuff Size: Large Adult) Pulse 67 Temp 36.7 C (98.1 F) (Temporal) Resp 20 Ht 177.8 cm (5' 10) Wt 95.3 kg (210 lb) SpO2 96% BMI 30.13 kg/m Physical Exam Vitals and nursing note reviewed. Constitutional: Appearance: Normal appearance. He is well-developed, well-groomed and overweight. HENT: Head: Normocephalic and atraumatic. Right Ear: Hearing normal. Left Ear: Hearing normal. Eyes: Conjunctiva/sclera: Conjunctivae normal. Musculoskeletal: Comments: He walks with a normal gait. He has tenderness to palpation in the lumbar region with spasms noted in the trapezius, rhomboid, and paraspinal muscles. Strength is 5/5 throughout. Sensation is intact to light touch throughout. SLR is negative. Neurological: Mental Status: He is alert and oriented to person, place, and time. Psychiatric: Attention and Perception: Attention and perception normal. Mood and Affect: Mood and affect normal. Speech: Speech normal. Behavior: Behavior normal. Behavior is cooperative. Thought Content: Thought content normal. Judgment: Judgment normal. Assessment and Plan ASSESSMENT/PLAN: 1. Lumbar post-laminectomy syndrome - ICD9: 722.83, ICD10: M96.1 (primary diagnosis) The OARRS report has been reviewed and is consistent with the patients medical history and medication intake. The patient's most recent urine drug screen has been reviewed and is appropriate and consistent with current therapy. The patient will continue with Percocet. Continue with core strengthening and range of motion exercises. Follow-up in office in 6 weeks time. - OXYCODONE-ACETAMINOPHEN 5 MG-325 MG TABLET 2. Generalized osteoarthritis - ICD9: 715.00, ICD10: M15.9 3. Myofascial pain syndrome - ICD9: 729.1, ICD10: M79.18 Cristhian Petit PA-C documented in this encounterOhio[facility]11-03-2022 Instructions* Patient Instructions* Cristhian Petit PA-C - 02/04/2022 8:57 AM EDT The OARRS report has been reviewed and is consistent with the patients medical history and medication intake. The patient underwent a random UDS at today's office visit. The patient will continue with Percocet. Continue with core strengthening and range of motion exercises. Follow-up in office in 6 weeks time. I discussed the patient with Dr. Keys who agrees with my assessment and plan. All of the above is to improve functionality and quality of life. No evidence of drug abuse or diversion is seen at this time. documented in this encounterOhiohealth [facility] Hospital11-03-2022 History of Present illness Narrative* Cristhian Petit PA-C - 02/04/2022 8:45 AM EDT This note was created using [employer]. Subjective Abbie Nesbitt is a 61 year old male. The patient primarily being seen for back pain Patient was last seen on: 12/17/21 At that time, the treatment plan was: see notes Current Meds: Percocet - last dose this am Efficacy: helps Side effects: none TENS unit: no - never had one How often used: Benefit: Physical Therapy: no Last UDS: 02/04/22 Last injection: none OARRS reviewed At the present time, the patient reports benefit with his present analgesic therapy. He denies any adverse effects. Since his previous visit, he denies any hospitalizations or ER visits. Otherwise, he has nothing further to discuss at this time. INTAKE PAIN ASSESSMENT 12/17/2021 02/04/2022 Are you having pain associated with your visit today? Yes, Provider notified Yes, Provider notified Pain Scales Verbal (Numeric Rating or Visual Analog Scale) Verbal (Numeric Rating or Visual Analog Scale) Pain Level 3 3 Pain Location Back Back Description Stiffness;Aching;Dull Aching;Stiffness Duration Amount of Time - - Duration Units Years Years Frequency Continuous Continuous Intervention/Comfort measure Medication;Heat;Exercise Medication;Cold;Heat;Exercise Comments - - HPI Review of Systems Constitutional: Negative for fever and unexpected weight change. Musculoskeletal: + back pain, joint pain, numbness, tingling, muscle cramps/weakness, stiffness, arthritis and sciatica. PAST MEDICAL HISTORY Diagnosis Date Chronic low back pain NSTEMI (non-ST elevated myocardial infarction) ([facility]) 06/16/2018 PAST SURGICAL HISTORY Procedure Laterality Date ARTHRD ANT INTERBODY MIN DSC LUMBAR 05/17/2011 L4,5 and L5 S1 CARDIAC CATH N/A 06/17/2018 2 stents placed at [facility] COLONOSCOPY GEN ANES N/A 09/2019 Dr. Espinal PAST SURGICAL HISTORY OF disc surgery x 2 TONSILLECTOMY HX N/A 1981 Social History Tobacco Use Smoking status: Former Packs/day: 1.00 Years: 25.00 Pack years: 25.00 Types: Cigarettes Quit date: 05/12/2011 Years since quittin.7 Smokeless tobacco: Never Tobacco comments: quit in 10/2017 Vaping Use Vaping Use: Never used Substance Use Topics Alcohol use: No Comment: 2 x per month Drug use: No Objective BP 142/75 (BP Site: Left Arm, BP Position: Sitting, BP Cuff Size: Large Adult) Pulse 72 Temp 36.6 C (97.8 F) (Temporal) Resp 20 Ht 180.3 cm (5' 11) Wt 94.3 kg (208 lb) SpO2 98% BMI 29.01 kg/m Physical Exam Vitals and nursing note reviewed. Constitutional: Appearance: Normal appearance. He is well-developed, well-groomed and overweight. HENT: Head: Normocephalic and atraumatic. Right Ear: Hearing normal. Left Ear: Hearing normal. Eyes: Conjunctiva/sclera: Conjunctivae normal. Musculoskeletal: Comments: He walks with a normal gait. He has tenderness to palpation in the lumbar region with spasms noted in the trapezius, rhomboid, and paraspinal muscles. Strength is 5/5 throughout. Sensation is intact to light touch throughout. SLR is negative. Neurological: Mental Status: He is alert and oriented to person, place, and time. Psychiatric: Attention and Perception: Attention and perception normal. Mood and Affect: Mood and affect normal. Speech: Speech normal. Behavior: Behavior normal. Behavior is cooperative. Thought Content: Thought content normal. Judgment: Judgment normal. Assessment and Plan ASSESSMENT/PLAN: 1. Lumbar post-laminectomy syndrome - ICD9: 722.83, ICD10: M96.1 (primary diagnosis) The OARRS report has been reviewed and is consistent with the patients medical history and medication intake. The patient underwent a random UDS at today's office visit. The patient will continue with Percocet. Continue with core strengthening and range of motion exercises. Follow-up in office in 6 weeks time. - DRUG SCR TOXASURE 2. Generalized osteoarthritis - ICD9: 715.00, ICD10: M15.9 3. Myofascial pain syndrome - ICD9: 729.1, ICD10: M79.18 4. Other half-way (current) drug therapy - ICD9: V58.69, ICD10: Z79.899 - DRUG SCR TOXASURE Cristhian Petit PA-C documented in this encounterOhio[facility]10-18-2022 Miscellaneous Notes* Telephone Encounter - Cristhian Petit PA-C - 01/19/2022 10:39 AM EDT The following approved medication requests have been transmitted electronically. Requested Prescriptions Pending Prescriptions Disp Refills oxyCODONE-acetaminophen (PERCOCET) 5-325 mg tablet 90 tablet 0 Sig: Take 1 tablet by mouth every 8 hours as needed for pain for up to 30 days. Do not start beforeOctober 2021. Cristhian Petit PA-C * Telephone Encounter - Karrie Babb RN - 01/19/2022 10:14 AM EDT Patient phones requesting refills as follows: Requested Prescriptions Pending Prescriptions Disp Refills oxyCODONE-acetaminophen (PERCOCET) 5-325 mg tablet 90 tablet 0 Sig: Take 1 tablet by mouth every 8 hours as needed for pain for up to 30 days. Do not start beforeOctober 2021. Please review and advise. Karrie Babb RN documented in this encounterOhiohealth [facility] Hospital08-22-2022 Miscellaneous Notes* Telephone Encounter - Cristhian Petit PA-C - 11/23/2021 11:42 AM EDT The following approved medication requests have been transmitted electronically. Requested Prescriptions Pending Prescriptions Disp Refills oxyCODONE-acetaminophen (PERCOCET) 5-325 mg tablet 90 tablet 0 Sig: Take 1 tablet by mouth every 8 hours as needed for up to 30 days. Cristhian Petit PA-C * Telephone Encounter - Karrie Babb RN - 11/23/2021 10:47 AM EDT Patient phones requesting refills as follows: Requested Prescriptions Pending Prescriptions Disp Refills oxyCODONE-acetaminophen (PERCOCET) 5-325 mg tablet 90 tablet 0 Sig: Take 1 tablet by mouth every 8 hours as needed for up to 30 days. Karrie Babb RN documented in this encounterOhiohealth [facility] Hospital07-22-2022 Miscellaneous Notes* Telephone Encounter - Cristhian Petit PA-C - 10/23/2021 11:58 AM EDT The following approved medication requests have been transmitted electronically. Pending Prescriptions Disp Refills OXYCODONE-ACETAMINOPHEN 5 MG-325 MG TABLET 90 tablet 0 Sig: Take 1 tablet by mouth every 8 hours as needed for up to 30 days. Do not start before October. MANPREET Class: C-II ANA MARIA: No Cristhian Petit PA-C * Telephone Encounter - Karrie Babb RN - 10/23/2021 9:14 AM EDT Patient phones requesting refills as follows: Pending Prescriptions Disp Refills OXYCODONE-ACETAMINOPHEN 5 MG-325 MG TABLET 90 tablet Sig: Take 1 tablet by mouth every 8 hours as needed for up to 30 days. Do not start before October. MANPREET Class: C-II ANA MARIA: No Please review and advise. Karrie Babb RN documented in this encounterOhiohealth [facility] Hospital07-15-2022 Miscellaneous Notes* Telephone Encounter - Alyce Eisenberg LPN - 10/16/2021 10:14 AM EDT Patient notified of results, verbalizes understanding of instructions. Alyce Eisenberg LPN * Telephone Encounter - Elise Ch APRN.[employer]OCIATE - 10/16/2021 6:55 AM EDT Can you please call the patient and let him know that I reviewed his lab and urine results. Labs were all relatively normal however his HDL cholesterol was just slightly low. At this time I do not see any causes for his symptoms. More than likely he pulled a muscle possiblyfrom extended standing. Would recommend that he continue anti-inflammatories, heat to the area, andstretching. If symptoms do not improve I want him to contact the office. Let me know if he has any questions. Thank you. Elise Ch APRN.CNP documented in this encounterOhiohealth [facility] Hospital07-14-2022 Instructions* Patient Instructions* Elise Ch APRN.CNP - 10/15/2021 9:29 AM EDT 1.) Get labs and urine testing completed. 2.) Continue supportive care at home, may use heating pad to the area. 3.) May use NSAIDS to help with pain. 4.) Follow up pending test results. documented in this encounterOhiohealth [facility] Hospital07-14-2022 History of Present illness Narrative* Elise Ch APRN.CNP - 10/15/2021 9:20 AM EDT This is a 61 year old male who presents today with: Patient presents with: Acute Visit: left leg, side and lower back HISTORY OF PRESENT ILLNESS: Abbie Nesbitt is a 61 year old male. Patient presents with: Acute Visit: left leg, side and lower back Here in the office for left thigh pain, flank and low back pain. Pain started last Tuesday. Went to calling hours and was on feet for several hours. Pain is sharp in thigh and back feels stiff, painworse in the morning.Pain waxes and wanes. No muscle weakness or difficulty using the leg. No urinary symptoms History of back surgery in the past usually right side. Has a spine fusion. No Injury to the area. Patient currently seeing pain management, Dr. Yoon in [place]. Currently taking oxycodone prescribed by pain management. Taking Lipitor, have tolerated for some time without any issues. PAST MEDICAL HISTORY: PAST MEDICAL HISTORY Diagnosis Date Chronic low back pain NSTEMI (non-ST elevated myocardial infarction) ([facility]) 06/16/2018 PAST SURGICAL HISTORY Procedure Laterality Date CARDIAC CATH N/A 06/17/2018 2 stents placed at [facility] COLONOSCOPY GEN ANES N/A 09/2019 Dr. Espinal LUMBAR SPINE FUSION,[facility] [place] 05/17/2011 L4,5 and L5 S1 PAST SURGICAL HISTORY OF disc surgery x 2 TONSILLECTOMY HX N/A 1982 ALLERGIES Patient has no known allergies. MEDICATIONS Current Outpatient Medications Medication Sig varenicline (CHANTIX STARTING MONTH BOX) 0.5 mg (11)- 1 mg (42) tablet Take 0.5 mg by mouth once daily on Days 1 through 3, THEN 0.5 mg twice daily on Days 4 through 7, THEN 1 mg twice daily on Day 8and thereafter varenicline (CHANTIX CONTINUING MONTH BOX) 1 mg tablet Take 1 tablet by mouth twice daily. oxyCODONE-acetaminophen (PERCOCET) 5-325 mg tablet Take 1 tablet by mouth every 8 hours as needed. clopidogrel (PLAVIX) 75 mg tablet Take 75 mg by mouth once daily. carvedilol (COREG) 12.5 mg tablet Half tablet twice daily aspirin 81 mg chewable tablet Take 1 tablet by mouth once daily. atorvastatin (LIPITOR) 80 mg tablet Take 1 tablet by mouth once daily. nitroglycerin sublingual (NITROQUICK) 0.4 mg SL tablet Dissolve 1 tablet under the tongue every 5 minutes as needed for Chest Pain. No current facility-administered medications for this visit. FAMILY HISTORY Problem Relation Age of Onset Cancer Father 80 gastric Stroke Father Heart disease Father Social History Tobacco Use Smoking status: Former Smoker Packs/day: 1.00 Years: 25.00 Pack years: 25.00 Types: Cigarettes Quit date: 05/12/2011 Years since quittin.4 Smokeless tobacco: Never Used Tobacco comment: quit in 10/2017 Vaping Use Vaping Use: Never used Substance Use Topics Alcohol use: No Comment: 2 x per month Drug use: No REVIEW OF SYSTEMS GENERAL: No weight loss, malaise or fevers/chills HEENT: Negative for frequent or significant headaches, No changes in hearing or vision. NECK: Negative for lumps, goiter, pain and significant neck swelling RESPIRATORY: Negative for cough, hemoptysis, wheezing, dyspnea or shortness of breath CARDIOVASCULAR: Negative for chest pain, leg swelling, orthopnea, or palpitations GI: No nausea, vomiting, or diarrhea/constipation. No hematochezia/melena. No heartburn or reflux symptoms. : No history of dysuria, frequency or incontinence MUSCULOSKELETAL: + left thigh, flank, and low back pain SKIN: Negative for lesions, rash, and itching ENDOCRINE: Negative for cold or heat intolerance, polyuria, polydipsia and goiter NEURO: No history of headaches, syncope, paralysis, seizures or tremors MOOD: Negative for depression, anxiety, or suicidal ideation. EXAM: BP 140/90 Pulse 69 Resp 16 Wt 95.3 kg (210 lb) SpO2 99% BMI 29.29 kg/m PHYSICAL EXAM: General Appearance: Well appearing, alert, in no acute distress, well-hydrated, well nourished. Skin: Skin color, texture, turgor normal, no suspicious rashes or lesions. Head: Normocephalic, no masses, lesions, tenderness or abnormalities. Eyes: Anicteric sclera. Extraocular movements are intact. Neck: Supple, no adenopathy; thyroid symmetric, normal size, no bruits. Lungs: Lungs clear to auscultation. No wheezing, rhonchi, rales. Heart: RRR without murmur, gallop, or rubs. No ectopy. Abdomen: Normal abdominal exam, Abdomen soft, non-tender. Bowel sounds normal. No masses, organomegaly, Negative CVA tenderness. Extremities: No deformities, edema, skin discoloration, clubbing or cyanosis. Good capillary refill. Musculoskeletal: + Tenderness noted on outer left thigh, no swelling or color change. Left lower back tenderness. Negative SLR. Normal ROM, good muscle strength. No flank pain at this time. Peripheral Pulses: Normal, Capillary refill <2secs, strong peripheral pulses, Pulses palpable. Neurologic: Gait normal. Reflexes normal and symmetric. Sensation grossly intact. ASSESSMENT/PLAN: 1. Pain of left thigh - ICD9: 729.5, ICD10: M79.652 (primary diagnosis) - Get the following labs, concerns due to current statin use. - May apply heat to the area, may use NSAIDS as needed. - CBC + DIFF - COMP METABOLIC PANEL - CK CREATINE KINASE - MAGNESIUM BLD 2. Left flank pain - ICD9: 789.09, ICD10: R10.9 - URINALYSIS, WITH MICROSCOPIC 3. Screening for prostate cancer - ICD9: V76.44, ICD10: Z12.5 - PSA/PROSTSPECAG SCRN 4. Screening cholesterol level - ICD9: V77.91, ICD10: Z13.220 - LIPID PANEL, NONFASTING Follow-up pending test results or sooner as needed. Discussed treatment plan and patient voices understanding. Patient's questions answered appropriately. Medications and potential side effects were discussed and patient voices understanding. Elise Ch APRN.[employer] This note was partially generated using [employer] voice recognition system. Note was reviewed for accuracy. There may be minor misspellings or grammar miscues with [employer] voice recognition. 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 11/05/2021 Chronic lower back pain 05/15/2011 11/06/19 22 documented as of this encounter (statuses as of 01/19/2022) [facility] of Past illness Narrative* Problem Noted Date Resolved Date 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 11/05/2021 Chronic lower back pain 05/15/2011 11/06/19 22 documented as of this encounter (statuses as of 02/04/2022) [facility]2018 History of Past illness Narrative* Problem Noted Date Resolved Date 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 11/05/2021 Chronic lower back pain 05/15/2011 11/06/19 22 documented as of this encounter (statuses as of 03/18/2022) [facility] History of Past illness Narrative* Problem Noted Date Resolved Date 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 11/05/2021 Chronic lower back pain 05/15/2011 11/06/19 22 documented as of this encounter (statuses as of 04/20/2022) [facility] History of Past illness Narrative* Problem Noted Date Resolved Date 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 11/05/2021 Chronic lower back pain 05/15/2011 11/06/19 22 documented as of this encounter (statuses as of 04/29/2022) [facility] History of Past illness Narrative* Problem Noted Date Resolved Date 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 11/05/2021 Chronic lower back pain 05/15/2011 11/06/19 22 documented as of this encounter (statuses as of 05/20/2022) [facility] History of Past illness Narrative* Problem Noted Date Resolved Date 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 11/05/2021 Chronic lower back pain 05/15/2011 11/06/19 22 documented as of this encounter (statuses as of 06/04/2022) [facility] History of Past illness Narrative* Problem Noted Date Resolved Date 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 11/05/2021 Chronic lower back pain 05/15/2011 11/06/19 22 documented as of this encounter (statuses as of 06/04/2022) [facility] History of Past illness Narrative* Problem Noted Date Resolved Date 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 11/05/2021 Chronic lower back pain 05/15/2011 11/06/19 22 documented as of this encounter (statuses as of 06/10/2022) [facility] History of Past illness Narrative* Problem Noted Date Resolved Date 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 11/05/2021 Chronic lower back pain 05/15/2011 11/06/19 22 documented as of this encounter (statuses as of 06/21/2022) [facility] History of Past illness Narrative* Problem Noted Date Resolved Date 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 11/05/2021 Chronic lower back pain 05/15/2011 11/06/19 22 documented as of this encounter (statuses as of 07/19/2022) [facility] History of Past illness Narrative* Problem Noted Date Resolved Date 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 11/05/2021 Chronic lower back pain 05/15/2011 11/06/19 22 documented as of this encounter (statuses as of 07/26/2022) [facility] History of Past illness Narrative* Problem Noted Date Resolved Date 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 11/05/2021 Chronic lower back pain 05/15/2011 11/06/19 22 documented as of this encounter (statuses as of 09/09/2022) [facility] History of Past illness Narrative* Problem Noted Date Resolved Date 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 11/05/2021 Chronic lower back pain 05/15/2011 11/06/19 22 documented as of this encounter (statuses as of 09/17/2022) [facility] History of Past illness Narrative* Problem Noted Date Resolved Date 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 11/05/2021 Chronic lower back pain 05/15/2011 11/06/19 22 documented as of this encounter (statuses as of 09/17/2022) [facility] History of Past illness Narrative* Problem Noted Date Diagnosed Date Resolved Date 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 11/05/2021 Chronic lower back pain 05/15/201107/2021 documented as of this encounter (statuses as of 10/19/2022) [place] [address]-19-2018 History of Past illness Narrative* Problem Noted Date Diagnosed Date Resolved Date 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 11/05/2021 Chronic lower back pain 05/15/201107/2021 documented as of this encounter (statuses as of 10/21/2022) [facility] History of Past illness Narrative* Problem Noted Date Diagnosed Date Resolved Date 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 11/05/2021 Chronic lower back pain 05/15/20110 07/2021 documented as of this encounter (statuses as of 12/02/2022) [address]19-2018 History of Past illness Narrative* Problem Noted Date Diagnosed Date Resolved Date 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 11/05/2021 Chronic lower back pain 05/15/2011 08/0 07/2021 documented as of this encounter (statuses as of 12/22/2022) [address]19-2018 History of Past illness Narrative* Problem Noted Date Diagnosed Date Resolved Date 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 11/05/2021 Chronic lower back pain 05/15/2011 08/0 07/2021 documented as of this encounter (statuses as of 01/13/2023) [address]19-2018 History of Past illness Narrative* Problem Noted Date Diagnosed Date Resolved Date 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 11/05/2021 Chronic lower back pain 05/15/2011 080 07/2021 documented as of this encounter (statuses as of 01/17/2023) [address]19-2018 History of Past illness Narrative* Problem Noted Date Diagnosed Date Resolved Date 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 11/05/2021 Chronic lower back pain 05/15/2011 08/0 07/2021 documented as of this encounter (statuses as of 02/14/2023) [address]19-2018 History of Past illness Narrative* Problem Noted Date Diagnosed Date Resolved Date 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 11/05/2021 Chronic lower back pain 05/15/2011/0 07/2021 documented as of this encounter (statuses as of 03/17/2023) [address]19-2018 History of Past illness Narrative* Problem Noted Date Diagnosed Date Resolved Date 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 11/05/2021 Chronic lower back pain 05/15/2011 08/0 07/2021 documented as of this encounter (statuses as of 05/17/2023) [address]19-2018 History of Past illness Narrative* Problem Noted Date Diagnosed Date Resolved Date 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 11/05/2021 Chronic lower back pain 05/15/2011 08/0 07/2021 documented as of this encounter (statuses as of 06/02/2023) [facility] History of Past illness Narrative* Problem Noted Date Diagnosed Date Resolved Date 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 11/05/2021 Chronic lower back pain 05/15/201107/2021 documented as of this encounter (statuses as of 06/15/2023) [facility] History of Past illness Narrative* Problem Noted Date Diagnosed Date Resolved Date 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 11/05/2021 Chronic lower back pain 05/15/201107/2021 documented as of this encounter (statuses as of 07/14/2023) [facility] note* Diagnosis Pain of left thigh- Primary Pain in limb Left flank pain Abdominal pain, unspecified site Screening for prostate cancer Special screening for malignant neoplasm of prostate Screening cholesterol level Screening for lipoid disorders [facility] [place] [facility] Diagnosis Postlaminectomy syndrome, lumbar region- Primary [facility] [place] [facility]* Diagnosis Postlaminectomy syndrome, lumbar region [facility] [place] [facility]* Diagnosis Lumbar post-laminectomy syndrome Postlaminectomy syndrome, lumbar region [facility] [place] [facility] Diagnosis Lumbar post-laminectomy syndrome- Primary Postlaminectomy syndrome, lumbar region Generalized osteoarthritis Generalized osteoarthrosis, unspecified site Myofascial pain syndrome Mylagia and myositis, unspecified Other half-way (current) drug therapy [facility] [place] [facility] Diagnosis Lumbar post-laminectomy syndrome- Primary Postlaminectomy syndrome, lumbar region Generalized osteoarthritis Generalized osteoarthrosis, unspecified site Myofascial pain syndrome Mylagia and myositis, unspecified [facility] [place] [facility] Diagnosis Lumbar post-laminectomy syndrome- Primary Postlaminectomy syndrome, lumbar region Generalized osteoarthritis Generalized osteoarthrosis, unspecified site Myofascial pain syndrome Mylagia and myositis, unspecified [facility] [place] [facility]* Diagnosis Positive self-administered antigen test for COVID-19- Primary [facility] [place] [facility]* Diagnosis Lumbar post-laminectomy syndrome Postlaminectomy syndrome, lumbar region [facility] [place] [facility] Diagnosis Lumbar post-laminectomy syndrome Postlaminectomy syndrome, lumbar region [facility] [place] [facility] Diagnosis Lumbar post-laminectomy syndrome- Primary Postlaminectomy syndrome, lumbar region Generalized osteoarthritis Generalized osteoarthrosis, unspecified site Myofascial pain syndrome Mylagia and myositis, unspecified [facility] [place] [facility] Diagnosis Lumbar post-laminectomy syndrome- Primary Postlaminectomy syndrome, lumbar region Generalized osteoarthritis Generalized osteoarthrosis, unspecified site Myofascial pain syndrome Mylagia and myositis, unspecified 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 [facility] [place] [facility] Diagnosis Lumbar post-laminectomy syndrome Postlaminectomy syndrome, lumbar region [facility] [place] [facility] Diagnosis Lumbar post-laminectomy syndrome Postlaminectomy syndrome, lumbar region [facility] [place] [facility] Diagnosis Lumbar post-laminectomy syndrome- Primary Postlaminectomy syndrome, lumbar region Generalized osteoarthritis Generalized osteoarthrosis, unspecified site Myofascial pain syndrome Mylagia and myositis, unspecified [facility] [place] [facility] Diagnosis Lumbar post-laminectomy syndrome Postlaminectomy syndrome, lumbar region [facility] [place] [facility] Diagnosis Lumbar post-laminectomy syndrome- Primary Postlaminectomy syndrome, lumbar region Generalized osteoarthritis Generalized osteoarthrosis, unspecified site Myofascial pain syndrome Mylagia and myositis, unspecified [facility] [place] [facility]* Diagnosis Lumbar post-laminectomy syndrome Postlaminectomy syndrome, lumbar region [facility] [place] [facility]* Diagnosis Lumbar post-laminectomy syndrome Postlaminectomy syndrome, lumbar region [facility] [place] [facility] Diagnosis Lumbar post-laminectomy syndrome- Primary Postlaminectomy syndrome, lumbar region Generalized osteoarthritis Generalized osteoarthrosis, unspecified site Myofascial pain syndrome Mylagia and myositis, unspecified [facility] [place] [facility]* Diagnosis Lumbar post-laminectomy syndrome- Primary Postlaminectomy syndrome, lumbar region Generalized osteoarthritis Generalized osteoarthrosis, unspecified site Myofascial pain syndrome Mylagia and myositis, unspecified [facility] [place] [facility] Diagnosis Lumbar post-laminectomy syndrome Postlaminectomy syndrome, lumbar region [facility] [place] [facility]* Diagnosis Lumbar post-laminectomy syndrome- Primary Postlaminectomy syndrome, lumbar region Generalized osteoarthritis Generalized osteoarthrosis, unspecified site Myofascial pain syndrome Mylagia and myositis, unspecified [facility] [place] [facility] Diagnosis Lumbar post-laminectomy syndrome- Primary Postlaminectomy syndrome, lumbar region Generalized osteoarthritis Generalized osteoarthrosis, unspecified site Myofascial pain syndrome Mylagia and myositis, unspecified 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 [facility] [place] [facility]* Diagnosis Burning sensation of feet- Primary Disturbance of skin sensation Ill feeling Other ill-defined conditions Coronary artery disease involving [place] coronary artery of [place] heart, unspecified whether angina present [facility] [place] [facility]* Diagnosis Pre-diabetes- Primary Other abnormal glucose Hyperlipidemia, mixed Mixed hyperlipidemia [facility] [place] [facility]* Diagnosis Lumbar post-laminectomy syndrome Postlaminectomy syndrome, lumbar region [facility] [place] [facility]* Diagnosis Neck pain- Primary Cervicalgia [facility] [place] [facility]* Diagnosis Lumbar post-laminectomy syndrome Postlaminectomy syndrome, lumbar region [facility] [place] [facility]* Diagnosis Lumbar post-laminectomy syndrome- Primary Postlaminectomy syndrome, lumbar region Generalized osteoarthritis Generalized osteoarthrosis, unspecified site Myofascial pain syndrome Mylagia and myositis, unspecified [facility] [place] [facility]* Diagnosis Lumbar post-laminectomy syndrome Postlaminectomy syndrome, lumbar region [facility] [place] [facility]* Diagnosis Annual wellness visit- Primary Hyperlipidemia, mixed Mixed hyperlipidemia Pre-diabetes Other abnormal glucose H/O heart artery stent Postsurgical percutaneous transluminal coronary angioplasty status Coronary artery disease involving [place] coronary artery of [place] heart, unspecified whether angina present Lumbar post-laminectomy syndrome Postlaminectomy syndrome, lumbar region Chronic pain syndrome [facility] [place] [facility]* Diagnosis Tobacco abuse Tobacco use disorder [facility] [place] [facility]* Diagnosis Lumbar post-laminectomy syndrome- Primary Postlaminectomy syndrome, lumbar region Generalized osteoarthritis Generalized osteoarthrosis, unspecified site Myofascial pain syndrome Mylagia and myositis, unspecified 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 [facility] Diagnosis Hyperlipidemia, mixed- Primary Mixed hyperlipidemia Pre-diabetes Other abnormal glucose [facility] [place] [facility]* Diagnosis Nausea- Primary Nausea alone [facility] [place] [facility]* Diagnosis Lumbar post-laminectomy syndrome- Primary Postlaminectomy syndrome, lumbar region Generalized osteoarthritis Generalized osteoarthrosis, unspecified site Myofascial pain syndrome Mylagia and myositis, unspecified [facility] [place] [facility]* Diagnosis Coronary artery disease involving [place] coronary artery of [place] heart, unspecified whether angina present- Primary H/O heart artery stent Postsurgical percutaneous transluminal coronary angioplasty status Hyperlipidemia, mixed Mixed hyperlipidemia Lumbar post-laminectomy syndrome Postlaminectomy syndrome, lumbar region [facility] (narrative)No reason for referral information availableWCleveland Clinic Work Phone: Summary Purpose Family History No Family History Records Found Relationship Condition Age at Onset Recorded Date/T marisabel father Myocardial infarction Unknown Coronary artery disease Unknown brother Coronary artery disease Unknown Myocardial infarction Unknown Presence of stent in coronary artery Unkn own Advance Directives No Advanced Directives Records Found Advance Directive Response Recorded Date/ Time Living Will No June 27, 2018 11:54am Power of Width Stripper No June 27 11:54am Chief Complaint and Reason for Visit Chief Complaint 1 Y FU (NN) E-ORDER Reason for Visit Hyperlipidemia History of coronary artery stent placement Chief Complaint 1 Y FU E ORDERS Reason for Visit Hyperlipidemia History of coronary artery stent placement Chief Complaint Admit Date 6 M FU August 23, 2024 8:19a m INT LABS August 23, 2024 9:15a m Reason for Visit Admit Date Essential hypertension August 23, 2024 8: 19am Hyperlipidemia August 23, 2024 8:19a m History of coronary artery stent placeme nt August 23, 2024 8:19am Reason for Referral Specialty Diagnoses / Procedures Referred By Contnadia t Referred To Contact Diagnoses Lumbar post-laminectomy syndrome Cristhian Petit, PA-C [address] [place] [address] Referral ID Status Reason Start Date Expiration Date Visits Re quested Visits Authorized [id number] Closed 1 1 Referral ID Status Reason Start Date Expiration Date Visits Re quested Visits Authorized [id number] Closed 1 1 Referral ID Status Reason Start Date Expiration Date Visits Re quested Visits Authorized [id number] Closed 1 1 Referral ID Status Reason Start Date Expiration Date Visits Re quested Visits Authorized [id number] Closed 1 1 Specialty Diagnoses / Procedures Referred By Contac t Referred To Contact Diagnoses Lumbar post-laminectomy syndrome Cristhian Petit PA-C [address] [place] [address] Referral ID Status Reason Start Date Expiration Date V isits Requested Visits Authorized [id number] Pending Review 1 1 Additional Source Comments (unrecognized sect ion and content) No Status Records FoundNo Status Records FoundNo Status Records FoundNo Status Records Found INFORMATION SOURCE (unrecogn ized section and content) DATE CREATED AUTHOR 10/28/2019 [facility] [place] DATE CREATED AUTHOR AUTHOR'S ORGANIZ ATION 09/06/2024 [facility] DATE CREATED AUTHOR AUTHOR'S ORGANIZ ATION 09/15/2024 [facility] DATE CREATED AUTHOR AUTHOR'S ORGANIZ ATION 09/22/2024 [facility] Source Comments (unrecognize d section and content) In the event this informatio n is protected by the Federal Confidentiality of Alcohol and Drug Abuse Patient Records regulations: The Federal rules restrict any use of the information to criminally investigate or prosecute any alcohol or drug abuse patient.[facility] the event this information is protected by the Federal Confidentiality of Alcohol and Drug Abuse Patient Records regulations: The Federal rules restrict any use of the information to criminally investigate or prosecute any alcohol or drug abuse patient.[facility]In the event this information is protected by the Federal Confidentiality of Alcohol and Drug Abuse Patient Records regulations: The Federal rules restrict any use of the information to criminally investigate or prosecute any alcohol or drug abuse patient.[facility] the event this information is protected by the Federal Confidentiality of Alcohol and Drug Abuse Patient Records regulations: The Federal rules restrict any use of the information to criminally investigate or prosecute any alcohol or drug abuse patient.[facility]In the event this information is protected by the Federal Confidentiality of Alcohol and Drug Abuse Patient Records regulations: The Federal rules restrict any use of the information to criminally investigate or prosecute any alcohol or drug abuse patient.[facility] the event this information is protected by the Federal Confidentiality of Alcohol and Drug Abuse Patient Records regulations: The Federal rules restrict any use of the information to criminally investigate or prosecute any alcohol or drug abuse patient.[facility]In the event this information is protected by the Federal Confidentiality of Alcohol and Drug Abuse Patient Records regulations: The Federal rules restrict any use of the information to criminally investigate or prosecute any alcohol or drug abuse patient.[facility]In the event this information is protected by the Federal Confidentiality of Alcohol and Drug Abuse Patient Records regulations: The Federal rules restrict any use of the information to criminally investigate or prosecute any alcohol or drug abuse patient.[facility] the event this information is protected by the Federal Confidentiality of Alcohol and Drug Abuse Patient Records regulations: The Federal rules restrict any use of the information to criminally investigate or prosecute any alcohol or drug abuse patient.[facility]In the event this information is protected by the Federal Confidentiality of Alcohol and Drug Abuse Patient Records regulations: The Federal rules restrict any use of the information to criminally investigate or prosecute any alcohol or drug abuse patient.[facility]In the event this information is protected by the Federal Confidentiality of Alcohol and Drug Abuse Patient Records regulations: The Federal rules restrict any use of the information to criminally investigate or prosecute any alcohol or drug abuse patient.[facility] HospitalIn the event this information is protected by the Federal Confidentiality of Alcohol and Drug Abuse Patient Records regulations: The Federal rules restrict any use of the information to criminally investigate or prosecute any alcohol or drug abuse patient.[facility] HospitalIn the event this information is protected by the Federal Confidentiality of Alcohol and Drug Abuse Patient Records regulations: The Federal rules restrict any use of the information to criminally investigate or prosecute any alcohol or drug abuse patient.[facility] HospitalIn the event this information is protected by the Federal Confidentiality of Alcohol and Drug Abuse Patient Records regulations: The Federal rules restrict any use of the information to criminally investigate or prosecute any alcohol or drug abuse patient.[facility] HospitalIn the event this information is protected by the Federal Confidentiality of Alcohol and Drug Abuse Patient Records regulations: The Federal rules restrict any use of the information to criminally investigate or prosecute any alcohol or drug abuse patient.[facility] HospitalIn the event this information is protected by the Federal Confidentiality of Alcohol and Drug Abuse Patient Records regulations: The Federal rules restrict any use of the information to criminally investigate or prosecute any alcohol or drug abuse patient.[facility]In the event this information is protected by the Federal Confidentiality of Alcohol and Drug Abuse Patient Records regulations: The Federal rules restrict any use of the information to criminally investigate or prosecute any alcohol or drug abuse patient.[facility] HospitalIn the event this information is protected by the Federal Confidentiality of Alcohol and Drug Abuse Patient Records regulations: The Federal rules restrict any use of the information to criminally investigate or prosecute any alcohol or drug abuse patient.[facility] HospitalIn the event this information is protected by the Federal Confidentiality of Alcohol and Drug Abuse Patient Records regulations: The Federal rules restrict any use of the information to criminally investigate or prosecute any alcohol or drug abuse patient.[facility] HospitalIn the event this information is protected by the Federal Confidentiality of Alcohol and Drug Abuse Patient Records regulations: The Federal rules restrict any use of the information to criminally investigate or prosecute any alcohol or drug abuse patient.[facility] HospitalIn the event this information is protected by the Federal Confidentiality of Alcohol and Drug Abuse Patient Records regulations: The Federal rules restrict any use of the information to criminally investigate or prosecute any alcohol or drug abuse patient.[facility] HospitalIn the event this information is protected by the Federal Confidentiality of Alcohol and Drug Abuse Patient Records regulations: The Federal rules restrict any use of the information to criminally investigate or prosecute any alcohol or drug abuse patient.[facility] HospitalIn the event this information is protected by the Federal Confidentiality of Alcohol and Drug Abuse Patient Records regulations: The Federal rules restrict any use of the information to criminally investigate or prosecute any alcohol or drug abuse patient.[facility] HospitalIn the event this information is protected by the Federal Confidentiality of Alcohol and Drug Abuse Patient Records regulations: The Federal rules restrict any use of the information to criminally investigate or prosecute any alcohol or drug abuse patient.[facility] HospitalIn the event this information is protected by the Federal Confidentiality of Alcohol and Drug Abuse Patient Records regulations: The Federal rules restrict any use of the information to criminally investigate or prosecute any alcohol or drug abuse patient.[facility] HospitalIn the event this information is protected by the Federal Confidentiality of Alcohol and Drug Abuse Patient Records regulations: The Federal rules restrict any use of the information to criminally investigate or prosecute any alcohol or drug abuse patient.[facility] HospitalIn the event this information is protected by the Federal Confidentiality of Alcohol and Drug Abuse Patient Records regulations: The Federal rules restrict any use of the information to criminally investigate or prosecute any alcohol or drug abuse patient.[facility] HospitalIn the event this information is protected by the Federal Confidentiality of Alcohol and Drug Abuse Patient Records regulations: The Federal rules restrict any use of the information to criminally investigate or prosecute any alcohol or drug abuse patient.[facility] HospitalIn the event this information is protected by the Federal Confidentiality of Alcohol and Drug Abuse Patient Records regulations: The Federal rules restrict any use of the information to criminally investigate or prosecute any alcohol or drug abuse patient.[facility] HospitalIn the event this information is protected by the Federal Confidentiality of Alcohol and Drug Abuse Patient Records regulations: The Federal rules restrict any use of the information to criminally investigate or prosecute any alcohol or drug abuse patient.[facility] HospitalIn the event this information is protected by the Federal Confidentiality of Alcohol and Drug Abuse Patient Records regulations: The Federal rules restrict any use of the information to criminally investigate or prosecute any alcohol or drug abuse patient.[facility] HospitalIn the event this information is protected by the Federal Confidentiality of Alcohol and Drug Abuse Patient Records regulations: The Federal rules restrict any use of the information to criminally investigate or prosecute any alcohol or drug abuse patient.[facility] HospitalIn the event this information is protected by the Federal Confidentiality of Alcohol and Drug Abuse Patient Records regulations: The Federal rules restrict any use of the information to criminally investigate or prosecute any alcohol or drug abuse patient.[facility] HospitalIn the event this information is protected by the Federal Confidentiality of Alcohol and Drug Abuse Patient Records regulations: The Federal rules restrict any use of the information to criminally investigate or prosecute any alcohol or drug abuse patient.[facility] HospitalIn the event this information is protected by the Federal Confidentiality of Alcohol and Drug Abuse Patient Records regulations: The Federal rules restrict any use of the information to criminally investigate or prosecute any alcohol or drug abuse patient.[facility] HospitalIn the event this information is protected by the Federal Confidentiality of Alcohol and Drug Abuse Patient Records regulations: The Federal rules restrict any use of the information to criminally investigate or prosecute any alcohol or drug abuse patient.[facility] HospitalIn the event this information is protected by the Federal Confidentiality of Alcohol and Drug Abuse Patient Records regulations: The Federal rules restrict any use of the information to criminally investigate or prosecute any alcohol or drug abuse patient.[facility] HospitalIn the event this information is protected by the Federal Confidentiality of Alcohol and Drug Abuse Patient Records regulations: The Federal rules restrict any use of the information to criminally investigate or prosecute any alcohol or drug abuse patient.[facility] HospitalIn the event this information is protected by the Federal Confidentiality of Alcohol and Drug Abuse Patient Records regulations: The Federal rules restrict any use of the information to criminally investigate or prosecute any alcohol or drug abuse patient.[facility] HospitalIn the event this information is protected by the Federal Confidentiality of Alcohol and Drug Abuse Patient Records regulations: The Federal rules restrict any use of the information to criminally investigate or prosecute any alcohol or drug abuse patient.[facility] HospitalIn the event this information is protected by the Federal Confidentiality of Alcohol and Drug Abuse Patient Records regulations: The Federal rules restrict any use of the information to criminally investigate or prosecute any alcohol or drug abuse patient.[facility] HospitalIn the event this information is protected by the Federal Confidentiality of Alcohol and Drug Abuse Patient Records regulations: The Federal rules restrict any use of the information to criminally investigate or prosecute any alcohol or drug abuse patient.[facility] HospitalIn the event this information is protected by the Federal Confidentiality of Alcohol and Drug Abuse Patient Records regulations: The Federal rules restrict any use of the information to criminally investigate or prosecute any alcohol or drug abuse patient.[facility] HospitalIn the event this information is protected by the Federal Confidentiality of Alcohol and Drug Abuse Patient Records regulations: The Federal rules restrict any use of the information to criminally investigate or prosecute any alcohol or drug abuse patient.[facility] HospitalIn the event this information is protected by the Federal Confidentiality of Alcohol and Drug Abuse Patient Records regulations: The Federal rules restrict any use of the information to criminally investigate or prosecute any alcohol or drug abuse patient.[facility] HospitalIn the event this information is protected by the Federal Confidentiality of Alcohol and Drug Abuse Patient Records regulations: The Federal rules restrict any use of the information to criminally investigate or prosecute any alcohol or drug abuse patient.[facility] HospitalIn the event this information is protected by the Federal Confidentiality of Alcohol and Drug Abuse Patient Records regulations: The Federal rules restrict any use of the information to criminally investigate or prosecute any alcohol or drug abuse patient.[facility] HospitalIn the event this information is protected by the Federal Confidentiality of Alcohol and Drug Abuse Patient Records regulations: The Federal rules restrict any use of the information to criminally investigate or prosecute any alcohol or drug abuse patient.[facility] HospitalIn the event this information is protected by the Federal Confidentiality of Alcohol and Drug Abuse Patient Records regulations: The Federal rules restrict any use of the information to criminally investigate or prosecute any alcohol or drug abuse patient.[facility] HospitalIn the event this information is protected by the Federal Confidentiality of Alcohol and Drug Abuse Patient Records regulations: The Federal rules restrict any use of the information to criminally investigate or prosecute any alcohol or drug abuse patient.[facility] HospitalIn the event this information is protected by the Federal Confidentiality of Alcohol and Drug Abuse Patient Records regulations: The Federal rules restrict any use of the information to criminally investigate or prosecute any alcohol or drug abuse patient.[facility] HospitalIn the event this information is protected by the Federal Confidentiality of Alcohol and Drug Abuse Patient Records regulations: The Federal rules restrict any use of the information to criminally investigate or prosecute any alcohol or drug abuse patient.[facility] HospitalIn the event this information is protected by the Federal Confidentiality of Alcohol and Drug Abuse Patient Records regulations: The Federal rules restrict any use of the information to criminally investigate or prosecute any alcohol or drug abuse patient.[facility] HospitalIn the event this information is protected by the Federal Confidentiality of Alcohol and Drug Abuse Patient Records regulations: The Federal rules restrict any use of the information to criminally investigate or prosecute any alcohol or drug abuse patient.[facility] HospitalIn the event this information is protected by the Federal Confidentiality of Alcohol and Drug Abuse Patient Records regulations: The Federal rules restrict any use of the information to criminally investigate or prosecute any alcohol or drug abuse patient.[facility] HospitalIn the event this information is protected by the Federal Confidentiality of Alcohol and Drug Abuse Patient Records regulations: The Federal rules restrict any use of the information to criminally investigate or prosecute any alcohol or drug abuse patient.[facility] Care Teams (unrecognized sec tion and content) Community Health Nurse Relationship Specialty Start Date End Date Marlys Moreno MD [address] [facility] [place] [address] PCP - General Family Practice 08/19/17 Jordy Dodson MD Cardiology 09/12/18 Community Health Nurse Relationship Specialty Start Date End Date Marlys Moreno MD [address] [facility] [place] [address] PCP - General Family Practice 08/19/17 Jordy Dodson MD Cardiology 09/12/18 Community Health Nurse Relationship Specialty Start Date End Date Marlys Moreno MD [address] [facility] [address] PCP - General Family Practice 08/19/17 Jordy Dodson MD Cardiology 09/12/18 Community Health Nurse Relationship Specialty Start Date End Date Marlys Moerno MD [address] [facility] [place] [address] PCP - General Family Practice 08/19/17 Jordy Dodson MD Cardiology 09/12/18 Community Health Nurse Relationship Specialty Start Date End Date Marlys Moreno MD [address] [facility] [place] [address] PCP - General Family Practice 08/19/17 Jordy Dodson MD Cardiology 09/12/18 Community Health Nurse Relationship Specialty Start Date End Date Marlys Moreno MD [address] [facility] [place] [address] PCP - General Family Medicine 08/19/17 Jordy Dodson MD Cardiology 09/12/18 Community Health Nurse Relationship Specialty Start Date End Date Marlys Moreno MD [address] [facility] [place] [address] PCP - General Family Medicine 08/19/17 Jordy Dodson MD Cardiology 09/12/18 Community Health Nurse Relationship Specialty Start Date End Date Marlys Moreno MD [address] [facility] [address] PCP - General Family Medicine 08/19/17 Jordy Dodson MD [address] [facility] [place] [address] Cardiology 09/12/18 Community Health Nurse Relationship Specialty Start Date End Date Marlys Moreno MD [address] [facility] [place] [address] PCP - General Family Medicine 08/19/17 Jordy Dodson MD [address] [facility] [place] [address] Cardiology 09/12/18 Community Health Nurse Relationship Specialty Start Date End Date Marlys Moreno MD [address] [facility] [place] [address] PCP - General Family Medicine 08/19/17 Jordy Dodson MD [address] [facility] [place] [address] Cardiology 09/12/18 Community Health Nurse Relationship Specialty Start Date End Date Marlys Moreno MD [address] [facility] [place] [address] PCP - General Family Medicine 08/19/17 Jordy Dodson MD [address] [facility] [place] [address] Cardiology 09/12/18 Community Health Nurse Relationship Specialty Start Date End Date Marlys Moreno MD [address] [facility] [place] [address] PCP - General Family Medicine 08/19/17 Jordy Dodson MD [address] [facility] [place] [address] Cardiology 09/12/18 Community Health Nurse Relationship Specialty Start Date End Date Marlys Moreno MD [address] [facility] [place] [address] PCP - General Family Medicine 08/19/17 Jordy Dodson MD [address] [facility] [place] [address] Cardiology 09/12/18 Community Health Nurse Relationship Specialty Start Date End Date Marlys Moreno MD [address] [facility] [place] [address] PCP - General Family Medicine 08/19/17 Jordy Dodson MD [address] [facility] [address] Cardiology 09/12/18 Community Health Nurse Relationship Specialty Start Date End Date Marlys Moreno MD [address] [facility] [address] PCP - General Family Medicine 08/19/17 Jordy Dodson MD [address] [place], [place] [address] Cardiology 09/12/18 Community Health Nurse Relationship Specialty Start Date End Date Marlys Moreno MD [address] [place], [place] [address] PCP - General Family Medicine 08/19/17 Jordy Dodson MD [address] [place], [place] [address] Cardiology 09/12/18 Community Health Nurse Relationship Specialty Start Date End Date Marlys Moreno MD [address] [place] [address] PCP - General Family Medicine 08/19/17 Jordy Dodson MD [address] [place], [place] 447[address] Cardiology 09/12/18 Team Status: Active Member Role Status Dates Dr. Marlys Moreno MD Family Provider Active Dr. Marlys Moreno MD Primary Care Provider Active Team Status: Inactive Member Role Status Dates Dr. Marlys Moreno MD Primary Care Provider, Referr ing Provider Active Shirlene BARNETT, PA Attending Provider Active Team Status: Inactive Member Role Status Dates Dr. Marlys Moreno MD Primary Care Provider Active Shirlene Lucio PA, PA Attending Provider, Referr ing Provider Active Community Health Nurse Relationship Specialty Start Date End Date Marlys Moreno MD [address] [place], [place] [address] PCP - General Family Medicine 08/19/17 Jordy Dodson MD [address] [place], [place] [address] Cardiology 09/12/18 Community Health Nurse Relationship Specialty Start Date End Date Marlys Moreno MD [address] [facility] [place] [address] PCP - General Family Medicine 08/19/17 Jordy Dodson MD [address] [facility] [place] [address] Cardiology 09/12/18 Community Health Nurse Relationship Specialty Start Date End Date Marlys Moreno MD [address] [facility] [place] [address] PCP - General Family Medicine 08/19/17 Jordy Dodson MD [address] [facility] [place] [address] Cardiology 09/12/18 Community Health Nurse Relationship Specialty Start Date End Date Marlys Moreno MD [address] [facility] [place] [address] PCP - General Family Medicine 08/19/17 Jordy Dodson MD [address] [facility] [place] [address] Cardiology 09/12/18 Community Health Nurse Relationship Specialty Start Date End Date Marlys Moreno MD [address] [facility] [place] [address] PCP - General Family Medicine 08/19/17 Jordy Dodson MD [address] [facility] [place] [address] Cardiology 09/12/18 Community Health Nurse Relationship Specialty Start Date End Date Marlys Moreno MD [address] [place] [address] PCP - General Family Medicine 08/19/17 Jordy Dodson MD [address] [place] [address] Cardiology 09/12/18 Community Health Nurse Relationship Specialty Start Date End Date Marlys Moreno MD [address] [place] [address] PCP - General Family Medicine 08/19/17 Jordy Dodson MD [address] [place] [address] Cardiology 09/12/18 Community Health Nurse Relationship Specialty Start Date End Date Marlys Moreno MD [address] [place] [address] PCP - General Family Medicine 08/19/17 Jordy Dodson MD [address] [place] [address] Cardiology 09/12/18 Community Health Nurse Relationship Specialty Start Date End Date Marlys Moreno MD [address] [place] [address] PCP - General Family Medicine 08/19/17 Jordy Dodson MD [address] [place] [address] Cardiology 09/12/18 Community Health Nurse Relationship Specialty Start Date End Date Marlys Moreno MD [address] [place] [address] PCP - General Family Medicine 08/19/17 Jordy Dodson MD [address] [facility] [address] Cardiology 09/12/18 Community Health Nurse Relationship Specialty Start Date End Date Marlys Moreno MD [address] [facility] [address] PCP - General Family Medicine 08/19/17 Jordy Dodson MD [address] [facility] [address] Cardiology 09/12/18 Community Health Nurse Relationship Specialty Start Date End Date Marlys Moreno MD [address] [facility] [address] PCP - General Family Medicine 08/19/17 Jordy Dodson MD [address] [facility] [address] Cardiology 09/12/18 Elise Ch APRN.DISTRIBUT[employer] CENTER ASSOCIATE [address] [facility] [place] [address] [employer] Department Family Medicine 03/11/24 Community Health Nurse Relationship Specialty Start Date End Date Marlys Moreno MD [address] [facility] [address] PCP - General Family Medicine 08/19/17 Jordy Dodson MD [address] [facility] [address] Cardiology 09/12/18 Elise Ch APRN.[employer]RI[employer] C[employer] ASSOCIATE [address] [facility] [address] [facility]24 Mick Mccann APRN.[employer]RIBUT[employer] CENTER ASSOCIATE [address] [place] [address] [facility] 03/20/24 Community Health Nurse Relationship Specialty Start Date End Date Marlys Moreno MD [address] [place] [address] PCP - General Family Medicine 08/19/17 Jordy Dodson MD [address] [place] [address] Cardiology 09/12/18 Elise Ch APRN.[employer] C[employer] ASSOCIATE [address] [place] [address] [facility] 03/11/24 Mick Mccann APRN.[employer]RI[employer] C[employer] ASSOCIATE [address] [place] [address] [facility] 03/20/24 Community Health Nurse Relationship Specialty Start Date End Date Marlys Moreno MD [address] [place] [address] PCP - General Family Medicine 08/19/17 Jordy Dodson MD [address] [place] [address] Cardiology 09/12/18 Elise Ch APRN.[employer]RI[employer] C[employer] ASSOCIATE [address] [place] [address] [facility] Medicine 03/11/24 Mick Mccann APRN.[employer]RI[employer] C[employer] ASSOCIATE [address] [facility] [address] [facility] 03/[facility]/24 Community Health Nurse Relationship Specialty Start Date End Date Marlys Moreno MD [address] [facility] [address] PCP - General Family Medicine 08/19/17 Jordy Dodson MD [address] [facility] [address] Cardiology 09/12/18 Eilse Ch APRN.[employer] ASSOCIATE [address] [facility] [address] [facility] 03/[facility]/24 Mick Mccann APRN.[employer] C[employer] ASSOCIATE [address] [facility] [address] [facility] 03/20/24 Community Health Nurse Relationship Specialty Start Date End Date Marlys Moreno MD [address] [facility] [address] PCP - General Family Medicine 08/19/17 Jordy Dodson MD [address] [facility] [address] Cardiology 09/12/18 Elise Ch APRN.[employer] C[employer] ASSOCIATE [address] [facility] [address] [facility] 03/11/24 Mick Mccann APRN.[employer]RI[employer] CENTER ASSOCIATE [address] [facility] [address] [facility] 03/20/24 Community Health Nurse Relationship Specialty Start Date End Date Marlys Moreno MD [address] [place], [place] [address] PCP - General Family Medicine 08/19/17 Jordy Dodson MD [address] [place], [place] [address] Cardiology 09/12/18 Elise Ch, DENSITOMETER READER.[employer] CENTER ASSOCIATE [address] [place], [place] [address] [facility] 03/11/24 Mick Mccann, DENSITOMETER READER.[employer] C[employer] ASSOCIATE [address] [place], [place] [address] [facility] 03/20/24 Team Status: Active Member Role Status Dates Dr. Marlys Moreno MD Primary Care Provider Active Team Status: Inactive Member Role Status Dates Dr. Marlys Moreno MD Primary Care Provider Active Start: August 23, 2024 End: August 23, 2024 Dr. Marlys Moreno MD Referring Provider Active Start: August 23, 2024 End: August 23, 2024 Shirlene BARNETT, PA Attending Provider Active Start: August 23, 2024 End: August 23, 2024 Team Status: Inactive Member Role Status Dates Dr. Marlys Moreno MD Primary Care Provider Active Start: August 23, 2024 End: August 23, 2024 Shirlene BARNETT, PA Attending Provider Active Start: August 23, 2024 End: August 23, 2024 Shirlene BARNETT, PA Referring Provider Active Start: August 23, 2024 End: August 23, 2024 Community Health Nurse Relationship Specialty Start Date End Date Marlys Moreno MD [address] [place], [place] [id number] PCP - General Family Medicine 08/19/17 Jordy Dodson MD [address] [place], [place] [id number] Cardiology 09/12/18 Mick Mccann APRN.[employer] ASSOCIATE [address] [place], [place] [address] [employer] Department Family Medicine 03/20/24 Community Health Nurse Relationship Specialty Start Date End Date Marlys Moreno MD [address] [place], [place] [address] PCP - General Family Medicine 08/19/17 Jordy Dodson MD [address] [place], [place] [id number] Cardiology 09/12/18 Mick Mccann APRN.[employer] ASSOCIATE [address] [place], [place] [address] [facility] 03[facility]24 Reason for Visit (unrecogniz ed section and content) Reason Comments Acute Visit left leg, side and l ower back Specialty Diagnoses / Procedures Referred By Contac t Referred To Contact Family Practice / FAMILY MEDICINE Diagnoses Follow-up exam left leg, back, side pain Procedures OFFICE/OUTPATIENT ESTABLISHED MOD MDM 30-39 MIN 4C EST Marlys Moreno MD [address] [place] [address] Elise Ch APRN.[employer] C[employer] ASSOCIATE [address] [place] [address] Referral ID Status Reason Start Date Expiration Date Visits Re quested Visits Authorized [id number] Closed 10/15/2021 04/03/2022 1 1 Reason Comments Results labs/UA Reason Onset Date Comments Refill Request 10/23/2021 Reason Onset Date Comments Refill Request 11/23/2021 Reason Onset Date Comments Refill Request 01/19/2022 Reason Comments Back Pain Specialty Diagnoses / Procedures Referred By Contac t Referred To Contact Pain Management / PAIN MANAGEMENT Diagnoses FOLLOW UP Procedures EST PATIENT Cristhian Petit PA-C [address] [place] [address] Cristhian Petit PA-C [address] [place] [address] Referral ID Status Reason Start Date Expiration Date V isits Requested Visits Authorized [id number] Closed OON/Self Pay Override 01/28/2022 04/03/2022 1 1 Specialty Diagnoses / Procedures Referred By Contac t Referred To Contact Pain Management / PAIN MANAGEMENT Diagnoses Follow-up examination FOLLOW UP Procedures OFFICE/OUTPATIENT ESTABLISHED MOD MDM 30-39 MIN EST PATIENT Marlys Moreno MD [address] [place] [address] Cristhian Petit PA-C [address] [place] [address] Referral ID Status Reason Start Date Expiration Date V isits Requested Visits Authorized [id number] Closed OON/Self Pay Override 03/18/2022 04/03/2022 1 1 Reason Onset Date Comments Refill Request 04/20/2022 Specialty Diagnoses / Procedures Referred By Contac t Referred To Contact Pain Management / PAIN MANAGEMENT Diagnoses FOLLOW UP Procedures EST PATIENT Marlys Moreno MD [address] [place] [address] Cristhian Petit PA-C [address] [place] [address] Referral ID Status Reason Start Date Expiration Date V isits Requested Visits Authorized [id number] Closed OON/Self Pay Override 04/29/2022 04/03/2023 1 1 Reason Onset Date Comments Refill Request 05/20/2022 Reason Comments Covid19 Concern + rapid x1 dayHA, margarette dyaches, ST, fever x4 days Specialty Diagnoses / Procedures Referred By Contac t Referred To Contact Family Medicine / [facility] Diagnoses headache, bodyaches, sore throat, fever Procedures OFFICE/OUTPATIENT ESTABLISHED MOD MDM 30-39 MIN EST SAME DAY Self Izzy Granados [email or web address].[email or web address] [address] [place] [address] Referral ID Status Reason Start Date Expiration Date Visits Re quested Visits Authorized [id number] Closed 06/04/2022 04/03/2023 1 1 Reason Comments Patient Update Specialty Diagnoses / Procedures Referred By Contac t Referred To Contact Pain Management / PAIN MANAGEMENT Diagnoses Follow-up exam FOLLOW UP Procedures OFFICE/OUTPATIENT ESTABLISHED MOD MDM 30-39 MIN EST PATIENT Marlys Moreno MD [address] [place] [address] Cristhian Petit PA-C [address] [place] [address] Referral ID Status Reason Start Date Expiration Date V isits Requested Visits Authorized [id number] Closed OON/Self Pay Override 06/10/2022 04/03/2023 1 1 Reason Onset Date Comments Refill Request 06/21/2022 Reason Onset Date Comments Refill Request 07/18/2022 Referral ID Status Reason Start Date Expiration Date V isits Requested Visits Authorized [id number] Closed OON/Self Pay Override 07/26/2022 04/03/2023 1 1 Specialty Diagnoses / Procedures Referred By Contac t Referred To Contact Pain Management / PAIN MANAGEMENT Diagnoses Follow-up exam FOLLOW UP Procedures OFFICE/OUTPATIENT ESTABLISHED MOD [facility] 30-39 MIN EST PATIENT Cristhian Petit PA-C [address] [place] [address] Cristhian Petit PA-C [address] [facility] [place] [address] Referral ID Status Reason Start Date Expiration Date V isits Requested Visits Authorized [id number] Closed Financial Clearance Required - OON Payor 09/09/2022 04/03/2023 1 1 Reason Comments Patient Update Abnormal UDS Reason Onset Date Comments Refill Request 09/17/2022 Reason Onset Date Comments Refill Request 10/18/2022 Reason Onset Date Comments Refill Request 12/22/2022 Reason Onset Date Comments Refill Request 01/17/2023 Reason Onset Date Comments Refill Request 02/14/2023 Reason Onset Date Comments Refill Request 03/16/2023 Reason Onset Date Comments Refill Request 05/17/2023 Reason Onset Date Comments Refill Request 06/15/2023 Reason Onset Date Comments Refill Request 08/15/2023 Reason Onset Date Comments Refill Request 10/13/2023 Reason Comments burning sensation in feet x 1 month doesn't feel right Reason Comments Results Labs Orders Reason Onset Date Comments Refill Request 11/11/2023 Reason Onset Date Comments Refill Request 12/12/2023 Reason Comments Acute Visit Neck pain x4 days; n o known injury Reason Onset Date Comments Refill Request 01/10/2024 Reason Onset Date Comments Refill Request 03/08/2024 Reason Comments Wellness Reason Onset Date Comments Refill Request 04/05/2024 Reason Comments Results Labs Reason Comments Patient Question Reason Comments 6 Month Exam Goals (unrecognized section and content) Goals may be documented in a n alternate sectionGoals may be documented in an alternate sectionGoals may be documented in an alternate section FOR RECORDS PERTAINING TO PATIENTS WHO ARE OR HAVE BEEN ENROLLED IN A CHEMICAL DEPENDENCY/SUBSTANCEABUSE PROGRAM, SOME INFORMATION MAY BE OMITTED. This clinical summary was aggregated from multiple sources. Caution should be exercised in using it in the provision of clinical care. This summary normalizes information from multiple sources, and as a consequence, information in this document may materially change the coding, format and clinical context of patient data. In addition, data may be omitted in some cases. CLINICAL DECISIONS SHOULD BE BASED ON THE PRIMARY CLINICAL RECORDS. [facility]. provides no warranty or guarantee of the accuracy or completeness of information in this document.
--- NOTE | 2024-10-15 14:42 | STRESSREP_ITS ---
Stress Test Report Exercise myocardial perfusion stress test. 64-year-old man with a history of coronary artery disease Stress protocol: Resting EKG demonstrates normal sinus rhythm with a rate of 63 bpm resting blood pressure is 154/88 mmHg. The patient exercised according to the regular Delta protocol for a total duration of 6 minutes and 45 seconds attaining a maximum heart rate of 137 bpm which was 88% of maximum predicted heart rate; the maximum workload was 9.3 metabolic equivalents. At rest there were no ST or T wave changes noted to suggest ischemia and at peak exercise upsloping ST changes only were noted which did not meet the criteria for ischemia. No clinical angina was noted the test was terminated due to the target heart rate being ac hieved/fatigue. The peak blood pressure was 188/98 mmHg. Rate-pressure product was 20,600. Myocardial perfusion protocol. 13.6 mCi of technetium 99m sestamibi was injected at rest. The patient exe rcised according to regular Delta protocol for total duration of 6 minutes and 45 seconds and at peak exercise 40.1 mCi of technetium 99m sestamibi was injected stress images were obtained stress and rest images were reconstructed in comparing the short axis vertical long and horizontal long axis. Gated images were also obtained. Perfusion SPECT analysis: Review of the stress images demonstrate normal uptake of tracer noted in all areas of the myocardium. The resting images similarly demonstrate normal uptake of tracer noted in all areas of the myocardium. No areas of reversibility are noted to suggest ischemia no previous infarct was noted. Gated SPECT analysis: The gated ejection fraction is 71%. Conclusion: Normal exercise myocardial perfusion stress test at a moderate workload Preserved ejection fraction.
== END | disposition home or self-care (01) ==
LOC: CVS 06:18
PROVIDERS: PCP Family Medicine; Referring Provider Physician Assistant Medical; Visit Provider Physician Assistant Medical
DX: I25.10 Atherosclerotic heart disease of native coronary artery without angina pectoris (principal); I10 Essential (primary) hypertension; E78.5 Hyperlipidemia, unspecified; Z95.5 Presence of coronary angioplasty implant and graft
CPT/HCPCS: 78452; 93017; A9500; A4216